=== PATIENT | female | born 1935 | race Caucasian/White ===

== ENCOUNTER 2017-08-24 09:35 | Inpatient (IN) ==
--- NOTE | 2017-08-24 10:48 | Emergency Department Report ---
Medical Clearance HPI - General Chief complaint: Medical Clearance Stated complaint: gen eval - History of Present Illness HPI Narrative: 82-year-old female presents with dementia. She has become increasingly confused and aggressive at home. She is being admitted to [facility] for evaluation and treatment, but needs medical clearance initially. She's had no fevers or chills , no recent illness and no recent injuries. She denies using any illicit drugs Home medications: Home Medications Medication Instructions Recorded Confirmed Acetaminophen [Acetaminophen ER] 650 mg PO Q4H PRN 08/24/17 08/24/17 Buspirone [Buspar] 5 mg PO BID 08/24/17 08/24/17 Ergocalciferol (Vit. D2) [Vitamin 50,000 unit PO Q7D 08/24/17 08/24/17 D-2] Loperamide [Imodium] 2 mg PO PRN PRN 08/24/17 08/24/17 Memantine [Namenda] 5 mg PO BID 08/24/17 08/24/17 Milk of Magnesia [Mom] 30 ml PO PRN PRN 08/24/17 08/24/17 Ondansetron [Zofran Odt] 4 mg PO Q4HR PRN 08/24/17 08/24/17 Polyethylene Glycol 3350 17 gm PO DAILY PRN 08/24/17 08/24/17 [Smoothlax] Potassium Chloride 10 meq PO DAILY 08/24/17 08/24/17 Prochlorperazine Tab [Compazine] 10 mg PO Q6H PRN 08/24/17 08/24/17 Propranolol [Inderal] 10 mg PO BID 08/24/17 08/24/17 Quetiapine [Seroquel] 50 mg PO BID 08/24/17 08/24/17 Senna + Docusate [Senna Plus 1 tab PO DAILY 08/24/17 08/24/17 Tablet] Sennosides/Docusate Sodium 2 each PO BID PRN 08/24/17 08/24/17 [Senna-S Tablet] Vilazodone HCl [Viibryd] 20 mg PO DAILY 08/24/17 08/24/17 buPROPion HCl [Bupropion Xl] 150 mg PO DAILY 08/24/17 08/24/17 Allergies/Adverse reactions: Allergies Allergy/AdvReac Type Severity Reaction Status Date / Time sertraline [From Zoloft] Allergy Unknown Verified 08/24/17 10:02 Review of Systems All systems: reviewed and negative except as stated PFSH Patient Stated Medical History Alzheimer's Disease Yes: diagnose 2015 Other HEENT Yes: glasses Other GI Yes: IBS Depression Yes - Social History Smoking status: Never smoker Physical Exam - Limitations Limitations: altered mental status (mild confusion.) - General General appearance: alert - Normal Exams: Head:: Normocephalic without trauma Chest/Respirations:: Clear all chew, with good airflow, and symmetry bilaterally Cardiovascular:: Regular rate and rhythm, without murmur or gallop, Pulses 2+ all extremities, capillary refill, <2 seconds all extremities Abdomen:: Bowel sounds positive, soft, non-tender, non-distended, no hepatosplenomegaly, masses or bruits noted Neurological:: Patient is alert, cranial nerves, motor/sensory/cerebellar, exams w/o gross deficits, to observation - Neurological Exam Neurological exam: Present: other (patient is oriented to person, however not to place or time.) Course Vital Signs Temperature 97.8 F 08/24/17 09:35 Pulse Rate 82 08/24/17 09:35 Respiratory Rate 18 08/24/17 09:35 Blood Pressure 141/89 H 08/24/17 09:35 Pulse Oximetry 93 08/24/17 09:35 Temperature 97.4 F 09/18/17 09:13 Pulse Rate 94 09/18/17 09:13 Respiratory Rate 22 09/18/17 09:13 Blood Pressure 136/76 09/18/17 09:13 Pulse Oximetry 98 09/18/17 09:13 Medical Clearance - [facility] Narrative Medical decision making narrative: Medical clearance performed. Patient has appropriate CBC, CMP, TSH and chest x- ray. Urine drug screen is negative and UA shows no acute infection. Patient is admitted to [facility] after phone consult is performed. - Medical Records Attestation: I reviewed the patient's medical records. - Lab Data Attestation: I reviewed the patient's lab results. Result diagrams: 09/09/17 11:55 09/12/17 17:28 Lab Results 08/24/17 08/24/17 08/24/17 Range/Units 10:10 10:10 10:10 WBC 6.9 (4.5-11.0) T/MM3 RBC 4.32 (4.00-5.20) M/MM3 Hgb 13.1 (12-16) GM/DL Hct 40.4 (36-46) % MCV 93.5 (80-100) UM3 MCH 30.3 (26-34) UUG MCHC 32.4 (31-37) GM/DL RDW Std Deviation 40.7 (36.9-50.2) FL Plt Count 152 (130-400) T/MM3 MPV 9.9 (9.4-12.4) UM3 Immature Gran % (Auto) 0.1 (0.0-0.5) % Neut % (Auto) 72.3 H (33-66) % Lymph % (Auto) 19.7 L (23-45) % [place] % (Auto) 5.5 (0-9.0) % Eos % (Auto) 2.0 (0-4) % Baso % (Auto) 0.4 (0-2) % Neut # (Auto) 4.9 (1.8-7.7) T/MM3 Lymph # (Auto) 1.4 (1-4.8) T/MM3 [place] # (Auto) 0.4 (0-0.8) T/MM3 Eos # (Auto) 0.1 (0-0.5) T/MM3 Baso # (Auto) 0.0 (0-0.2) T/MM3 Abs Immat Gran (auto) 0.01 (0.00-0.03) T/MM3 Turbidity < 20 (0-20) Sodium 147 H (134-144) MEQ/L Potassium 4.4 (3.6-5) MEQ/L Chloride 110 H (98-107) MEQ/L Carbon Dioxide 27 (22-30) MEQ/L Anion Gap 10 (5-15) MEQ/L BUN 28.0 H (7-17) MG/DL Creatinine 1.0 (0.7-1.2) mg/dL GFR Calculation 53 BUN/Creatinine Ratio 28 H (6-26) RATIO Glucose 102 (65-110) MG/DL Calculated Osmolality 288 H (261-280) MOSM/KG Calcium 9.3 (8.4-10.2) MG/DL Total Bilirubin 0.60 (0.20-1.30) MG/DL Icterus Index < 2 (0-7) AST 21 (14-36) U/L ALT 13 (1-35) U/L Alkaline Phosphatase 106 (38-126) U/L Total Protein 7.1 (6.3-8.2) g/dL Albumin 3.8 (3.5-5.0) g/dL Globulin 3.3 (2.4-3.6) G/DL Albumin/Globulin Ratio 1.2 (1.1-2.2) RATIO Vitamin B12 282 (239-931) pg/mL Folate 12.5 (2.76-20) ng/mL TSH 2.04 (0.47-4.68) miu/L Specimen Hemolysis < 15 (0-25) Ur Collection Type Urine Color (YELLOW) Urine Clarity Urine pH (5.0-8.0) Ur Specific [place] (1.015-1.025) Urine Protein (NEGATIVE) Urine Glucose (UA) (NEGATIVE) Urine Ketones (NEGATIVE) Urine Occult Blood (NEGATIVE) Urine Nitrate (NEGATIVE) Urine Bilirubin (NEGATIVE) Urine Urobilinogen (NORMAL) EU/DL Ur Leukocyte Esterase (NEGATIVE) Urine RBC (0-3) /HPF Urine WBC (0-5) /HPF Ur Squamous Epith Cells Urine Bacteria (NEGATIVE) Ur Culture Indicated? Salicylates < 1.0 L (2-20) MG/DL Urine Opiates Screen ng/mL Ur Oxycodone Screen ng/mL Urine Methadone Screen ng/mL Ur Propoxyphene Screen ng/mL Acetaminophen < 10 L (10-30) UG/ML Ur Barbiturates Screen ng/mL U Tricyclic Antidepress ng/mL Ur Phencyclidine Scrn ng/mL Ur Amphetamines Screen ng/mL U Methamphetamines Scrn ng/mL U Benzodiazepines Scrn ng/mL Urine Cocaine Screen ng/mL U Cannabinoids Screen ng/mL Alcohol, Quantitative <10 (<10) mg/dL 08/24/17 08/24/17 08/24/17 Range/Units 10:10 11:18 11:19 WBC (4.5-11.0) T/MM3 RBC (4.00-5.20) M/MM3 Hgb (12-16) GM/DL Hct (36-46) % MCV (80-100) UM3 MCH (26-34) UUG MCHC (31-37) GM/DL RDW Std Deviation (36.9-50.2) FL Plt Count (130-400) T/MM3 MPV (9.4-12.4) UM3 Immature Gran % (Auto) (0.0-0.5) % Neut % (Auto) (33-66) % Lymph % (Auto) (23-45) % [place] % (Auto) (0-9.0) % Eos % (Auto) (0-4) % Baso % (Auto) (0-2) % Neut # (Auto) (1.8-7.7) T/MM3 Lymph # (Auto) (1-4.8) T/MM3 [place] # (Auto) (0-0.8) T/MM3 Eos # (Auto) (0-0.5) T/MM3 Baso # (Auto) (0-0.2) T/MM3 Abs Immat Gran (auto) (0.00-0.03) T/MM3 Turbidity (0-20) Sodium (134-144) MEQ/L Potassium (3.6-5) MEQ/L Chloride (98-107) MEQ/L Carbon Dioxide (22-30) MEQ/L Anion Gap (5-15) MEQ/L BUN (7-17) MG/DL Creatinine (0.7-1.2) mg/dL GFR Calculation BUN/Creatinine Ratio (6-26) RATIO Glucose (65-110) MG/DL Calculated Osmolality (261-280) MOSM/KG Calcium (8.4-10.2) MG/DL Total Bilirubin (0.20-1.30) MG/DL Icterus Index (0-7) AST (14-36) U/L ALT (1-35) U/L Alkaline Phosphatase (38-126) U/L Total Protein (6.3-8.2) g/dL Albumin (3.5-5.0) g/dL Globulin (2.4-3.6) G/DL Albumin/Globulin Ratio (1.1-2.2) RATIO Vitamin B12 (239-931) pg/mL Folate (2.76-20) ng/mL TSH Cancelled (0.47-4.68) miu/L Specimen Hemolysis (0-25) Ur Collection Type Urine, void-cc/notcc Urine Color Yellow (YELLOW) Urine Clarity Cloudy Urine pH 6.0 (5.0-8.0) Ur Specific [place] >=1.030 H (1.015-1.025) Urine Protein Negative (NEGATIVE) Urine Glucose (UA) Negative (NEGATIVE) Urine Ketones Negative (NEGATIVE) Urine Occult Blood Negative (NEGATIVE) Urine Nitrate Positive A (NEGATIVE) Urine Bilirubin Negative (NEGATIVE) Urine Urobilinogen 0.2 (NORMAL) EU/DL Ur Leukocyte Esterase 1+ A (NEGATIVE) Urine RBC 0-1 (0-3) /HPF Urine WBC 30-50 H (0-5) /HPF Ur Squamous Epith Cells 0-5 Urine Bacteria 4+ H (NEGATIVE) Ur Culture Indicated? Cult reflexed &setup Salicylates (2-20) MG/DL Urine Opiates Screen Negative ng/mL Ur Oxycodone Screen Negative ng/mL Urine Methadone Screen Negative ng/mL Ur Propoxyphene Screen Negative ng/mL Acetaminophen (10-30) UG/ML Ur Barbiturates Screen Negative ng/mL U Tricyclic Antidepress Positive ng/mL Ur Phencyclidine Scrn Negative ng/mL Ur Amphetamines Screen Negative ng/mL U Methamphetamines Scrn Negative ng/mL U Benzodiazepines Scrn Negative ng/mL Urine Cocaine Screen Negative ng/mL U Cannabinoids Screen Negative ng/mL Alcohol, Quantitative (<10) mg/dL - Radiology Data Attestation: I reviewed the patient's radiology results. Disposition Clinical Impression: DEMENTIA WITH BEHAVIORS Disposition: 65 To [facility] Condition: Stable Time of Disposition: 12:24 - Seen By: physician
--- NOTE | 2017-08-24 10:51 | XRay Report ---
INDICATION: confusion PROCEDURE: CHEST 2-VIEWS UPRIGHT (PA & LAT) Encounter: Initial COMPARISON: None FINDINGS: The lungs are clear without evidence of focal abnormal airspace opacity. There is no pleural effusion or pneumothorax. The heart size, mediastinal contours and pulmonary vascularity are within normal limits. Age-indeterminate mid thoracic and upper lumbar compression fractures. IMPRESSION: No acute cardiopulmonary disease. .
[2017-08-24] MEDS ORDERED: HALOPERIDOL 0.5 MG TABLET PO PRN (12:00)
[2017-08-24] MEDS ORDERED: HALOPERIDOL 5 MG/ML INJECTION IM PRN (12:00)
[2017-08-24] MEDS ORDERED: SENNA + DOCUSATE TABLET PO PRN (12:02)
[2017-08-24] MEDS ORDERED: POLYETHYL GLYCOL 3350 17gm PACKET PO PRN (12:02)
--- NOTE | 2017-08-24 13:27 | History & Physical Report ---
History of Present Illness Date: 08/24/17 Chief complaint: change in cognition with increased confusion and aggressive behavior HPI: Patient is an 82-year-old female who resides at [facility] in [place]. She has reportedly become more confused and has had increased aggressive behavior with staff. She upsets easily about forgetting things and thinks the staff are lying to her about things. Patient was seen in the dining room eating lunch. She reports she thinks she is here because of leg pain. She states her legs really aren't bothering her that much so she doesn't understand why she is here. When asked what city we are in she states she doesn't know, but she looks out the window and sees the "[facility]" sign and reports that we are at [facility]. Majority of information was taken from outside records from Dr. Mansfield' office Review of Systems All systems PM: 10-point ROS was reviewed, no additional remarkable complaints except (confusion, change in behaviors) Past Medical History Alzheimer's disease History of bladder cancer Vitamin D deficiency Irritable bowel syndrome Depression/anxiety Diverticulosis Chronic compression fracture T12 Osteopenia Surgical History: Appendectomy, colonoscopy 2009 Family History: Family history unobtainable at this time Family History Updates: . - Social History Smoking status: Never smoker Substance use type: does not use Alcohol intake frequency: does not drink Housing: [facility] Current occupational status: retired Social history: Patient resides at [facility] in [place]. PCP-Dr. Chapincito Perera CODE STATUS: DO NOT RESUSCITATE (per documentation from Dr. Perera's office) Patient follows a regular diet. Patient has 3 children. Medications Home Medications Medication Instructions Recorded Confirmed Type Acetaminophen [Acetaminophen ER] 650 mg PO Q4H PRN 08/24/17 08/24/17 History Buspirone [Buspar] 5 mg PO BID 08/24/17 08/24/17 History Ergocalciferol (Vit. D2) [Vitamin 50,000 unit PO Q7D 08/24/17 08/24/17 History D-2] Loperamide [Imodium] 2 mg PO PRN PRN 08/24/17 08/24/17 History Memantine [Namenda] 5 mg PO BID 08/24/17 08/24/17 History Milk of Magnesia [Mom] 30 ml PO PRN PRN 08/24/17 08/24/17 History Ondansetron [Zofran Odt] 4 mg PO Q4HR PRN 08/24/17 08/24/17 History Polyethylene Glycol 3350 17 gm PO DAILY PRN 08/24/17 08/24/17 History [Smoothlax] Potassium Chloride 10 meq PO DAILY 08/24/17 08/24/17 History Prochlorperazine Tab [Compazine] 10 mg PO Q6H PRN 08/24/17 08/24/17 History Propranolol [Inderal] 10 mg PO BID 08/24/17 08/24/17 History Quetiapine [Seroquel] 50 mg PO BID 08/24/17 08/24/17 History Senna + Docusate [Senna Plus 1 tab PO DAILY 08/24/17 08/24/17 History Tablet] Sennosides/Docusate Sodium 2 each PO BID PRN 08/24/17 08/24/17 History [Senna-S Tablet] Vilazodone HCl [Viibryd] 20 mg PO DAILY 08/24/17 08/24/17 History buPROPion HCl [Bupropion Xl] 150 mg PO DAILY 08/24/17 08/24/17 History Allergies Allergy/AdvReac Type Severity Reaction Status Date / Time sertraline [From Zoloft] Allergy Unknown Verified 08/24/17 10:02 Exam Vital Signs: Temperature 97.5 F 08/24/17 12:25 Pulse Rate 69 08/24/17 12:25 Respiratory Rate 16 08/24/17 12:25 Blood Pressure 148/89 H 08/24/17 12:25 Pulse Oximetry 97 08/24/17 12:25 Height/Weight/BMI: Weight 64.8 kg - Constitutional Present: no acute distress, well nourished, well developed - Routine HEENT Exam Head: Present: normocephalic, atraumatic Eye: Present: EOMI - Routine Neck Exam Present: supple. Absent: lymphadenopathy, thyromegaly - Routine Respiratory Exam Present: CTA bilaterally. Absent: wheezes - Routine Cardiovascular Exam Present: RRR, no murmur - Routine Abdominal Exam Present: soft. Absent: tenderness, distended - Routine Extremities Exam Present: no edema, normal capillary refill - Routine Skin Exam Present: dry, warm - Routine Neurological Exam Present: alert, normal speech. Absent: oriented X3 - Routine Psychiatric Exam Present: cooperative, agitated Results - Labs CBC & Chem 7: 08/24/17 10:10 08/24/17 10:10 Labs: Laboratory Tests 08/24/17 10:10 TSH 2.04 Laboratory Tests 08/24/17 11:18 Urine Color Yellow Urine Clarity Cloudy Urine pH 6.0 Ur Specific [place] >=1.030 H Urine Protein Negative Urine Glucose (UA) Negative Urine Ketones Negative Urine Occult Blood Negative Urine Nitrate Positive A Urine Bilirubin Negative Urine Urobilinogen 0.2 Ur Leukocyte Esterase 1+ A Urine RBC 0-1 Urine WBC 30-50 H Urine Bacteria 4+ H Lipids 02/23/17: Cholesterol 208, triglycerides 87, HDL 66, LDL 125, ratio 3.2 - Imaging and Cardiology Chest x-ray Additional comments: Date of Exam: 08/24/17 Ordering Provider: Vladimir Thomas MD Type of Exam(s): XR chest 2V Reason for Exam(s): confusion INDICATION: confusion PROCEDURE: CHEST 2-VIEWS UPRIGHT (PA & LAT) Encounter: Initial COMPARISON: None FINDINGS: The lungs are clear without evidence of focal abnormal airspace opacity. There is no pleural effusion or pneumothorax. The heart size, mediastinal contours and pulmonary vascularity are within normal limits. Age-indeterminate mid thoracic and upper lumbar compression fractures. IMPRESSION: No acute cardiopulmonary disease. Assessment and Plan (1) Alzheimer's dementia with behavioral disturbance Current visit: Yes Status: Acute Assessment and Plan: Assessment Alzheimer's disease with behavioral disturbance Urinary retention with positive urinalysis in ER-will treat for UTI Hypernatremia-POA History of bladder cancer Vitamin D deficiency Irritable bowel syndrome Depression/anxiety Diverticulosis Chronic compression fracture T12 Osteopenia Plan Agree with admission to [facility] for further psychiatric evaluation and treatment and to provide safe environment. Start Keflex for her urinary tract infection. Bladder scan as needed and straight catheter for PVR greater than 400. Urine cultures pending. TSH is normal. Vitamin B12 and folate are pending. Encourage fluids for hypernatremia. Patient appears medically stable. We will continue to follow patient throughout her stay. Thank you for the consult. Care to return to Dr. Rodríguez Perera upon discharge. - Physician Narrative Physician: other (Kimmie Rodriguez MD) Narrative: Date: 08/24/17 Time: 1405 Patient seen and examined independently. Agree with above documentation. Patient eating lunch and upset about portion size. Not oriented to place. No LE edema, no resp distress. Plan to admit to psych, will treat UTI, monitor UOP due to concern of retention Hospital Course Summary Disclaimer: The visit summary below is not to be considered part of the above Progress Note.
[2017-08-24] MEDS: LORazepam 0.5 MG TABLET PO PRN (13:54)
[2017-08-24 14:33] VITALS: BMI 23.8
[2017-08-24] MEDS: ERGOCALCIFEROL 50,000 UNIT CAPSULE PO SCH (17:23)
[2017-08-24] MEDS: BUSPIRONE 5 MG TABLET PO SCH (19:54)
[2017-08-24] MEDS: MEMANTINE 5 MG TABLET PO SCH (19:54)
[2017-08-24] MEDS: QUETIAPINE 50 MG TABLET PO SCH (19:55)
[2017-08-24] MEDS: PROPRANOLOL 10 MG TABLET PO SCH (19:55)
[2017-08-25] MEDS: PROPRANOLOL 10 MG TABLET PO SCH ×3 (00:14→20:32)
[2017-08-25] MEDS: MEMANTINE 5 MG TABLET PO SCH ×3 (00:14→20:32)
[2017-08-25] MEDS: BUSPIRONE 5 MG TABLET PO SCH ×2 (00:14→09:54)
[2017-08-25] MEDS: QUETIAPINE 50 MG TABLET PO SCH ×2 (00:15→09:54)
[2017-08-25] MEDS ORDERED: VILAZODONE 10 MG PO SCH (09:00)
[2017-08-25] MEDS ORDERED: BuPROPion XL 150mg (24HR) TABLET PO SCH (09:00)
--- NOTE | 2017-08-25 09:01 | 24 Hour Neuropsychiatic Eval ---
Date of Admission: 08/24/17 12:00 Chief complaint: "I came on a bus, I can't remember why" History of Present Illness: Patient is an 82-year-old , female who was admitted to [facility] on 08/24/17 from LTC facility in [place] (not a secure unit) due to recent problematic behaviors (x last month) including aggression, paranoia, increased confusion. On interview, patient initially greets me quite pleasantly but then becomes very irritable/labile through interview. She is oriented to self only and has no insight into hospitalization. Patient is observed to be quite unsteady on her feet and has some mild stiffness on physical exam though she has difficulty following instructions to relax. Patient has very poor STM and will tell me opposite things in the next sentence. For example, she denied having any pain or medical problems and then in the next sentence, reported pain/discomfort in her stomach area. When I asked her to elaborate, she became quite irritable with me for talking about pain and said "It's not important." Patient reports that her mood is "pretty good" though admits she gets upset over daily stuff (and she cannot elaborate further). She will not answer regarding SI and says it's a stupid question. She denies any AVH. She becomes paranoid about what I am writing down and requests that I stop. She was later overheard telling nursing staff, "She's a Nazi." Patient was found to have UTI upon admission that is now being treated but symptoms have been present for several weeks and recent UA at facility was WNL. Psychosis: Other (Paranoia) Dementia: Memory Impairment [facility] Patient Stated Medical History Alzheimer's Disease Yes: diagnose 2014 Other HEENT Yes: glasses Other GI Yes: IBS Other Yes: malign. neoplasm of bladder Depression Yes Surgical History: Appendectomy, colonoscopy 2009 Family History: Patient's daughter: bipolar disorder Family History Updates: . - Social History Smoking status: Never smoker Substance use type: does not use Alcohol intake frequency: does not drink Housing: long-term Current occupational status: retired Social history: Strengths: Has DPOA, able to communicate needs verbally States that she grew up in [place], [place] and graduated from college. She raised her children and then later worked outside the home. She has 3 children. Her in December 2017. Review of Systems ROS unobtainable: due to mental status - EENMT Balance: Present: as per HPI - Gastrointestinal Gastrointestinal: Present: abdominal pain - Genitourinary Genitourinary: Present: as per HPI Mental Status Exam Vitals: Last Vital Signs Temp 97.4 F 08/24/17 20:18 Pulse 83 08/24/17 20:18 Resp 18 08/24/17 20:18 BP 160/92 H 08/24/17 20:18 Pulse Ox 96 08/24/17 20:18 Height: 1.65 m Weight: 64.8 kg - Mental Status Exam Muscle Strength/Tone: Weak, Rigid (mild) Dressing: Casual Grooming: Fair Attitude: Uncooperative, Guarded, Suspicious, Argumentative Motor Activity: Retardation Eye Contact: Good Speech: Rapid Volume: Normal Rhythm: Appropriate Rhythm Sensory: Alert Orientation: Disoriented to time, Disoriented to place, Disoriented to situation , Oriented to person Mood: Other ("Pretty good") Affect: Hostile (labile, irritable affect) Rate of Thoughts: Delayed Thought Organization: Disorganized, Confused Associations: Illogical Abstract Reasoning: Impaired, concrete Thought Content: Paranoia Perception/Psychotic: Other (Denies, does not appear to e responding to internal stimuli) Language: Naming Impaired Fund of Knowledge: Poor fund of knowledge Memory: Poor-immediate, Poor-recent, Poor-remote Suicidal Ideation: Other (Refuses to answer and says it is a stupid question) Homicidal Ideation: Denies Insight: Impaired Judgement: Impaired Impulse Control: Poor - Laboratory Result Diagrams: 08/24/17 10:10 08/24/17 10:10 Assessment and Plan (1) Major neurocognitive disorder Problem details: Moderate, Alzheimer's type, with behavioral disturbance R/O Bipolar disorder, MRE manic Other medical conditions: Urinary retention with positive urinalysis in ER-will treat for UTI Hypernatremia-POA History of bladder cancer Vitamin D deficiency Irritable bowel syndrome Diverticulosis Chronic compression fracture T12 Osteopenia Current visit: Yes Status: Acute Agree with admission to [facility] for psychiatric evaluation and stabilization. Will obtain further collateral from facility, family though daughter/DPOA has reported concern for possible bipolar disorder. Standard labs upon admission: CBC, CMP, TSH, UA, Vitamin B12 and folate Have consulted hospitalist for optimization of medical comorbidities; they are treating for UTI though behaviors predated this Will hold Wellbutrin, Buspar, Viibryd in case it could be exacerbating underlying bipolar disorder Will decrease Seroquel to 25mg PO BID for the time being due to recent urinary retention Monitor mood, behavior and response to treatment
[2017-08-25] MEDS: QUETIAPINE 25 MG TABLET PO SCH (20:32)
[2017-08-26] MEDS: MEMANTINE 5 MG TABLET PO SCH ×2 (08:26→21:22)
[2017-08-26] MEDS: PROPRANOLOL 10 MG TABLET PO SCH ×2 (08:26→21:22)
[2017-08-26] MEDS: QUETIAPINE 25 MG TABLET PO SCH ×2 (08:38→21:22)
--- NOTE | 2017-08-26 10:52 | Pharmacy Consult ---
Pharmacy Consult-Other Meds - Consult Information CULTURE AND SENSITIVITY REVIEW: Organism: Escherichia Coli Site: Urine Catheter Antibiotic: Cephalexin Sensitivity: Cephelxin has an NOE </= 4 (Cefazolin) Would recommend Cipro 250 mg (or 500 mg if more severe) p.o. twice a day. The NOE for Cipro </=0.25. Thanks you for your consideration. Yonny Rosenthal, Pharmacist. Recommendation:
[2017-08-26] MEDS ORDERED: FOSFOMYCIN 3 GRAM PACKET PO ONE (11:45)
[2017-08-26] MEDS: SENNA + DOCUSATE TABLET PO SCH ×2 (13:44→14:08)
--- NOTE | 2017-08-26 13:46 | Neuropsych Progress Note ---
[facility] Subjective Date: 08/26/17 - Sujective/Severity of Illness Medications: Acetaminophen (Tylenol Arthritis) 650 mg PO Q4H PRN PRN Reason: Pain Ergocalciferol (Vitamin D-2) 50,000 unit PO Q7D [facility] Last Admin: 08/24/17 17:23 Dose: 50,000 unit Haloperidol (Haldol) 0.5 mg PO Q6H PRN PRN Reason: Extreme agitation Haloperidol Lactate (Haldol) 0.5 mg IM Q6H PRN PRN Reason: Extreme agitation Lorazepam (Ativan) 0.5 mg PO Q6H PRN PRN Reason: Extreme agitation Last Admin: 08/24/17 13:54 Dose: 0.5 mg Lorazepam (Ativan Inj) 0.5 mg IM Q6H PRN PRN Reason: Extreme agitation Magnesium Hydroxide (Mom) 30 ml PO PRN PRN PRN Reason: Constipation Memantine (Namenda) 5 mg PO BID [facility] Last Admin: 08/26/17 08:26 Dose: 5 mg Polyethylene Glycol (Miralax) 17 gm PO DAILY PRN PRN Reason: Constipation Potassium Chloride (Micro-K 10 Meq Capsule) 10 meq PO WB [facility] Last Admin: 08/26/17 08:24 Dose: 10 meq Propranolol HCl (Inderal) 10 mg PO BID [facility] Last Admin: 08/26/17 08:26 Dose: 10 mg Quetiapine Fumarate (Seroquel) 25 mg PO BID [facility] Last Admin: 08/26/17 08:38 Dose: 25 mg Senna/Docusate Sodium (Senna Plus Tablet) 1 tab PO DAILY [facility] Last Admin: 08/26/17 13:44 Dose: 1 tab Senna/Docusate Sodium (Senna Plus Tablet) 2 tab PO BID PRN PRN Reason: Constipation Subjective: Patient seen and chart reviewed. Case discussed with treatment team. On interview, patient continues to be quite irritable/labile and doesn't answer specific interview questions. She comes up and wags her finger in my face, telling me that I need to watch my behavior with another patient. She goes to the trash can, digs a piece of paper trash out, and takes it to sit down with her. She then becomes very irritable with the nurse, telling her to get rid of the paper and to rip it up immediately. Her mood switches back and forth almost instantly. She continues to be quite unsteady. Nursing staff report patient was calmer this morning than she was yesterday, though she seemed to be more agitated in the evening. She frequently argues and was physically aggressive last night. Patient has been adherent with medications. Patient slept 8 hours overnight. VSS. Patient is eating well. Psychotropic PRNs required in the past 24 hours: none. Keflex for UTI was discontinued and patient was given one-time dose of fosfomycin today. Start Time: 14:00 Stop Time: 14:20 Mental Status Exam Vitals: Last Vital Signs Temp 97.6 F 08/26/17 08:00 Pulse 79 08/26/17 08:00 Resp 16 08/26/17 08:00 BP 147/94 H 08/26/17 08:00 Pulse Ox 97 08/26/17 08:00 Height: 1.65 m Weight: 64.8 kg - Mental Status Exam Muscle Strength/Tone: Weak, Rigid (mild) Dressing: Casual Grooming: Fair Attitude: Uncooperative, Guarded, Suspicious, Argumentative Motor Activity: Retardation Eye Contact: Good Speech: Rapid Volume: Normal Rhythm: Appropriate Rhythm Sensory: Alert Orientation: Disoriented to time, Disoriented to place, Disoriented to situation , Oriented to person Mood: Irritable (Labile affect) Rate of Thoughts: Delayed Thought Organization: Disorganized, Confused Associations: Illogical Abstract Reasoning: Impaired, concrete Thought Content: Paranoia Perception/Psychotic: Other (Denies, does not appear to e responding to internal stimuli) Language: Naming Impaired Fund of Knowledge: Poor fund of knowledge Memory: Poor-immediate, Poor-recent, Poor-remote Suicidal Ideation: None Homicidal Ideation: None Insight: Impaired Judgement: Impaired Impulse Control: Poor - Laboratory Result Diagrams: 08/24/17 10:10 08/24/17 10:10 Assessment and Plan (1) Major neurocognitive disorder Problem details: Moderate, Alzheimer's type, with behavioral disturbance R/O Bipolar disorder, MRE manic Other medical conditions: Urinary retention with positive urinalysis in ER-will treat for UTI Hypernatremia-POA History of bladder cancer Vitamin D deficiency Irritable bowel syndrome Diverticulosis Chronic compression fracture T12 Osteopenia Current visit: Yes Status: Acute (2) Vitamin B12 deficiency Current visit: Yes Status: Acute Patient seems to have improved slightly with discontinuation of all Wellbutrin XL, Buspar, Viibryd (upon admission). Currently taking seroquel 25mg PO BID and propranolol 10mg PO BID from home med list. Will add Depakote DR 250mg PO BID. Will additionally start Vitamin B12 1000mcg IM x 3 days then weekly for a month , then monthly thereafter. Hospital Course Summary Disclaimer: The visit summary below is not to be considered part of the above Progress Note. Hospital Course: Psych 08/25/17: Held Wellbutrin XL, Buspar, Viibryd due to suspected bipolar alexander. Psych 08/26/17: Patient seems to have improved slightly with discontinuation of all Wellbutrin XL, Buspar, Viibryd (upon admission). Currently taking seroquel 25mg PO BID and propranolol 10mg PO BID from home med list. Will add Depakote DR 250mg PO BID. Will additionally start Vitamin B12 1000mcg IM x 3 days then weekly for a month, then monthly thereafter.
[2017-08-26] MEDS: LORazepam 0.5 MG TABLET PO PRN (14:51)
[2017-08-26] MEDS: DIVALPROEX 250 MG TABLET PO SCH ×2 (14:51→17:41)
[2017-08-27] MEDS: SENNA + DOCUSATE TABLET PO SCH (10:38)
[2017-08-27] MEDS: PROPRANOLOL 10 MG TABLET PO SCH ×3 (10:38→20:32)
[2017-08-27] MEDS: MEMANTINE 5 MG TABLET PO SCH ×2 (10:38→20:31)
[2017-08-27] MEDS: QUETIAPINE 25 MG TABLET PO SCH ×2 (10:38→20:32)
[2017-08-27] MEDS: DIVALPROEX 250 MG TABLET PO SCH ×2 (10:39→16:04)
[2017-08-27] MEDS: CYANOCOBALAMIN (B-12) 1,000mcg/ml INJECTION IM SCH (10:39)
--- NOTE | 2017-08-27 11:38 | Neuropsych Progress Note ---
[facility] Subjective Date: 08/27/17 - Sujective/Severity of Illness Medications: Acetaminophen (Tylenol Arthritis) 650 mg PO Q4H PRN PRN Reason: Pain Cyanocobalamin (Vit. B-12) 1,000 mcg IM DAILY [facility] Stop: 08/29/17 09:01 Last Admin: 08/27/17 10:39 Dose: 1,000 mcg Divalproex Sodium (Depakote) 250 mg PO [facility] Last Admin: 08/27/17 10:39 Dose: 250 mg Ergocalciferol (Vitamin D-2) 50,000 unit PO Q7D [facility] Last Admin: 08/24/17 17:23 Dose: 50,000 unit Haloperidol (Haldol) 0.5 mg PO Q6H PRN PRN Reason: Extreme agitation Haloperidol Lactate (Haldol) 0.5 mg IM Q6H PRN PRN Reason: Extreme agitation Lorazepam (Ativan) 0.5 mg PO Q6H PRN PRN Reason: Extreme agitation Last Admin: 08/26/17 14:51 Dose: 0.5 mg Lorazepam (Ativan Inj) 0.5 mg IM Q6H PRN PRN Reason: Extreme agitation Magnesium Hydroxide (Mom) 30 ml PO PRN PRN PRN Reason: Constipation Memantine (Namenda) 5 mg PO BID [facility] Last Admin: 08/27/17 10:38 Dose: 5 mg Polyethylene Glycol (Miralax) 17 gm PO DAILY PRN PRN Reason: Constipation Potassium Chloride (Micro-K 10 Meq Capsule) 10 meq PO WB [facility] Last Admin: 08/27/17 10:39 Dose: 10 meq Propranolol HCl (Inderal) 10 mg PO TID [facility] Last Admin: 08/27/17 10:38 Dose: 10 mg Quetiapine Fumarate (Seroquel) 25 mg PO BID [facility] Last Admin: 08/27/17 10:38 Dose: 25 mg Senna/Docusate Sodium (Senna Plus Tablet) 1 tab PO DAILY [facility] Last Admin: 08/27/17 10:38 Dose: 1 tab Senna/Docusate Sodium (Senna Plus Tablet) 2 tab PO BID PRN PRN Reason: Constipation Subjective: Patient seen and chart reviewed. Nursing reports pt slept well. PT can be very labile and agitated. She received Ativan at 1451 for agitation. On face to face the pt is irritable. She is only oriented to self. Believes she is in [place]. States she does not need to be here. Is redirectable. Denies pain. Tolerating meds Start Time: 10:15 Stop Time: 10:30 Mental Status Exam Vitals: Last Vital Signs Temp 96.8 F 08/27/17 08:00 Pulse 86 08/27/17 08:00 Resp 16 08/27/17 08:00 BP 135/78 08/27/17 08:00 Pulse Ox 97 08/27/17 08:00 Height: 1.65 m Weight: 64.8 kg - Mental Status Exam Muscle Strength/Tone: Weak, Rigid (mild) Dressing: Casual Grooming: Fair Attitude: Uncooperative, Guarded, Suspicious, Argumentative Motor Activity: Retardation Eye Contact: Good Speech: Rapid Volume: Normal Rhythm: Appropriate Rhythm Orientation: Disoriented to time, Disoriented to place, Disoriented to situation , Oriented to person Mood: Irritable (Labile affect) Rate of Thoughts: Delayed Thought Organization: Disorganized, Confused Associations: Illogical Abstract Reasoning: Impaired, concrete Thought Content: Paranoia Perception/Psychotic: Other (Denies, does not appear to e responding to internal stimuli) Language: Naming Impaired Fund of Knowledge: Poor fund of knowledge Memory: Poor-immediate, Poor-recent, Poor-remote Suicidal Ideation: None Homicidal Ideation: None Insight: Impaired Judgement: Impaired Impulse Control: Poor - Laboratory Result Diagrams: 08/24/17 10:10 08/24/17 10:10 Assessment and Plan (1) Major neurocognitive disorder Problem details: Moderate, Alzheimer's type, with behavioral disturbance R/O Bipolar disorder, MRE manic Other medical conditions: Urinary retention with positive urinalysis in ER-will treat for UTI Hypernatremia-POA History of bladder cancer Vitamin D deficiency Irritable bowel syndrome Diverticulosis Chronic compression fracture T12 Osteopenia Current visit: Yes Status: Acute (2) Vitamin B12 deficiency Current visit: Yes Status: Acute Hospital Course Summary Disclaimer: The visit summary below is not to be considered part of the above Progress Note. Hospital Course: Psych 08/25/17: Held Wellbutrin XL, Buspar, Viibryd due to suspected bipolar alexander. Psych 08/26/17: Patient seems to have improved slightly with discontinuation of all Wellbutrin XL, Buspar, Viibryd (upon admission). Currently taking seroquel 25mg PO BID and propranolol 10mg PO BID from home med list. Will add Depakote DR 250mg PO BID. Will additionally start Vitamin B12 1000mcg IM x 3 days then weekly for a month, then monthly thereafter. 08/27/2017- Psych- PT is irritable and labile at times but is redirectable. Will consider increase of Depakote tomorrow if tolerating well
[2017-08-27] MEDS ORDERED: LORazepam INTENSOL 1mg/0.5ml ORAL LIQUID PO PRN (17:20)
[2017-08-28] MEDS: DIVALPROEX 250 MG TABLET PO SCH ×3 (10:07→21:00)
[2017-08-28] MEDS: CYANOCOBALAMIN (B-12) 1,000mcg/ml INJECTION IM SCH (10:08)
[2017-08-28] MEDS: MEMANTINE 5 MG TABLET PO SCH ×2 (10:08→20:56)
[2017-08-28] MEDS: QUETIAPINE 25 MG TABLET PO SCH ×2 (10:09→20:57)
[2017-08-28] MEDS: SENNA + DOCUSATE TABLET PO SCH (10:09)
[2017-08-28] MEDS: PROPRANOLOL 10 MG TABLET PO SCH ×3 (10:09→20:57)
--- NOTE | 2017-08-28 11:02 | Neuropsych Progress Note ---
[facility] Subjective Date: 08/28/17 - Sujective/Severity of Illness Medications: Acetaminophen (Tylenol Arthritis) 650 mg PO Q4H PRN PRN Reason: Pain Cyanocobalamin (Vit. B-12) 1,000 mcg IM DAILY [facility] Stop: 08/29/17 09:01 Last Admin: 08/28/17 10:08 Dose: 1,000 mcg Divalproex Sodium (Depakote) 250 mg PO [facility] Last Admin: 08/28/17 10:07 Dose: 250 mg Ergocalciferol (Vitamin D-2) 50,000 unit PO Q7D [facility] Last Admin: 08/24/17 17:23 Dose: 50,000 unit Haloperidol (Haldol) 0.5 mg PO Q6H PRN PRN Reason: Extreme agitation Haloperidol Lactate (Haldol) 0.5 mg IM Q6H PRN PRN Reason: Extreme agitation Lorazepam (Ativan) 0.5 mg PO Q6H PRN PRN Reason: Extreme agitation Last Admin: 08/26/17 14:51 Dose: 0.5 mg Lorazepam (Ativan Inj) 0.5 mg IM Q6H PRN PRN Reason: Extreme agitation Lorazepam (Ativan Intensol) 0.5 mg PO Q6H PRN Last Admin: 08/27/17 17:21 Dose: 0.5 mg Magnesium Hydroxide (Mom) 30 ml PO PRN PRN PRN Reason: Constipation Memantine (Namenda) 5 mg PO BID [facility] Last Admin: 08/28/17 10:08 Dose: 5 mg Polyethylene Glycol (Miralax) 17 gm PO DAILY PRN PRN Reason: Constipation Potassium Chloride (Micro-K 10 Meq Capsule) 10 meq PO WB [facility] Last Admin: 08/28/17 10:08 Dose: 10 meq Propranolol HCl (Inderal) 10 mg PO TID [facility] Last Admin: 08/28/17 10:09 Dose: 10 mg Quetiapine Fumarate (Seroquel) 25 mg PO BID [facility] Last Admin: 08/28/17 10:09 Dose: 25 mg Senna/Docusate Sodium (Senna Plus Tablet) 1 tab PO DAILY [facility] Last Admin: 08/28/17 10:09 Dose: 1 tab Senna/Docusate Sodium (Senna Plus Tablet) 2 tab PO BID PRN PRN Reason: Constipation Subjective: Patient seen and chart reviewed. Nursing reports pt slept well. Nursing reports pt can be extremely labile and irritable at times. On face to face the pt is resting quietly in bed. She is irritable and only oriented to self. Denies pain. Tolerating meds Start Time: 10:15 Stop Time: 10:30 Mental Status Exam Vitals: Last Vital Signs Temp 98 F 08/27/17 23:20 Pulse 77 08/27/17 23:20 Resp 16 08/27/17 23:20 BP 137/79 08/27/17 23:20 Pulse Ox 95 08/27/17 23:20 Height: 1.65 m Weight: 64.8 kg - Mental Status Exam Muscle Strength/Tone: Weak, Rigid (mild) Dressing: Casual Grooming: Fair Attitude: Uncooperative, Guarded, Suspicious, Argumentative Motor Activity: Retardation Eye Contact: Good Speech: Rapid Volume: Normal Rhythm: Appropriate Rhythm Orientation: Disoriented to time, Disoriented to place, Disoriented to situation , Oriented to person Mood: Irritable (Labile affect) Rate of Thoughts: Delayed Thought Organization: Disorganized, Confused Associations: Illogical Abstract Reasoning: Impaired, concrete Thought Content: Paranoia Perception/Psychotic: Other (Denies, does not appear to e responding to internal stimuli) Language: Naming Impaired Fund of Knowledge: Poor fund of knowledge Memory: Poor-immediate, Poor-recent, Poor-remote Suicidal Ideation: None Homicidal Ideation: None Insight: Impaired Judgement: Impaired Impulse Control: Poor - Laboratory Result Diagrams: 08/24/17 10:10 08/24/17 10:10 Assessment and Plan (1) Major neurocognitive disorder Problem details: Moderate, Alzheimer's type, with behavioral disturbance R/O Bipolar disorder, MRE manic Other medical conditions: Urinary retention with positive urinalysis in ER-will treat for UTI Hypernatremia-POA History of bladder cancer Vitamin D deficiency Irritable bowel syndrome Diverticulosis Chronic compression fracture T12 Osteopenia Current visit: Yes Status: Acute (2) Vitamin B12 deficiency Current visit: Yes Status: Acute Hospital Course Summary Disclaimer: The visit summary below is not to be considered part of the above Progress Note. Hospital Course: Psych 08/25/17: Held Wellbutrin XL, Buspar, Viibryd due to suspected bipolar alexander. Psych 08/26/17: Patient seems to have improved slightly with discontinuation of all Wellbutrin XL, Buspar, Viibryd (upon admission). Currently taking seroquel 25mg PO BID and propranolol 10mg PO BID from home med list. Will add Depakote DR 250mg PO BID. Will additionally start Vitamin B12 1000mcg IM x 3 days then weekly for a month, then monthly thereafter. 08/27/2017- Psych- PT is irritable and labile at times but is redirectable. Will consider increase of Depakote tomorrow if tolerating well 08/28/2017 Psych- Pt remains irritable and impulsive at times. Increase Depakote to 250mg PO TID
[2017-08-28] MEDS: LORazepam 0.5 MG TABLET PO PRN (13:46)
[2017-08-29] MEDS ORDERED: HALOPERIDOL 5 MG/ML INJECTION IM ONE (09:20)
[2017-08-29] MEDS: CYANOCOBALAMIN (B-12) 1,000mcg/ml INJECTION IM SCH (11:27)
[2017-08-29] MEDS: SENNA + DOCUSATE TABLET PO SCH (11:27)
[2017-08-29] MEDS: MEMANTINE 5 MG TABLET PO SCH ×2 (11:27→21:05)
[2017-08-29] MEDS: DIVALPROEX 250 MG TABLET PO SCH ×4 (11:27→21:05)
[2017-08-29] MEDS: PROPRANOLOL 10 MG TABLET PO SCH ×4 (11:27→21:05)
[2017-08-29] MEDS: QUETIAPINE 25 MG TABLET PO SCH ×2 (11:27→21:05)
--- NOTE | 2017-08-29 16:03 | Neuropsych Progress Note ---
[facility] Subjective Date: 08/29/17 - Sujective/Severity of Illness Medications: Acetaminophen (Tylenol Arthritis) 650 mg PO Q4H PRN PRN Reason: Pain Divalproex Sodium (Depakote) 250 mg PO TID [facility] Last Admin: 08/29/17 15:41 Dose: Not Given Ergocalciferol (Vitamin D-2) 50,000 unit PO Q7D [facility] Last Admin: 08/24/17 17:23 Dose: 50,000 unit Haloperidol (Haldol) 0.5 mg PO Q6H PRN PRN Reason: Extreme agitation Haloperidol Lactate (Haldol) 0.5 mg IM Q6H PRN PRN Reason: Extreme agitation Lorazepam (Ativan) 0.5 mg PO Q6H PRN PRN Reason: Extreme agitation Last Admin: 08/28/17 13:46 Dose: 0.5 mg Lorazepam (Ativan Inj) 0.5 mg IM Q6H PRN PRN Reason: Extreme agitation Lorazepam (Ativan Intensol) 0.5 mg PO Q6H PRN Last Admin: 08/27/17 17:21 Dose: 0.5 mg Magnesium Hydroxide (Mom) 30 ml PO PRN PRN PRN Reason: Constipation Memantine (Namenda) 5 mg PO BID [facility] Last Admin: 08/29/17 11:27 Dose: 5 mg Polyethylene Glycol (Miralax) 17 gm PO DAILY PRN PRN Reason: Constipation Potassium Chloride (Micro-K 10 Meq Capsule) 10 meq PO WB [facility] Last Admin: 08/29/17 11:27 Dose: 10 meq Propranolol HCl (Inderal) 10 mg PO TID [facility] Last Admin: 08/29/17 15:41 Dose: Not Given Quetiapine Fumarate (Seroquel) 25 mg PO BID [facility] Last Admin: 08/29/17 11:27 Dose: 25 mg Senna/Docusate Sodium (Senna Plus Tablet) 1 tab PO DAILY [facility] Last Admin: 08/29/17 11:27 Dose: 1 tab Senna/Docusate Sodium (Senna Plus Tablet) 2 tab PO BID PRN PRN Reason: Constipation Subjective: Patient seen and chart reviewed. Case discussed with treatment team. Patient is sleeping at time of rounds after having been given Haldol 1mg IM for agitation. Nursing staff report patient has been very combative and is unsteady, which makes for a high fall risk as she is swinging at staff, etc. Patient has been adherent with medications. Patient slept 8.5 hours overnight. VSS. Patient is eating well. Psychotropic PRNs required in the past 24 hours: Haldol 1mg IM this morning. Start Time: 13:20 Stop Time: 13:40 Mental Status Exam Vitals: Last Vital Signs Temp 97.7 F 08/29/17 15:09 Pulse 72 08/29/17 15:09 Resp 16 08/29/17 15:09 BP 133/70 08/29/17 15:09 Pulse Ox 95 08/29/17 15:09 Height: 1.65 m Weight: 64.8 kg - Mental Status Exam Muscle Strength/Tone: Weak, Rigid (mild) Dressing: Casual Grooming: Fair Attitude: Uncooperative, Guarded, Suspicious, Argumentative Motor Activity: Retardation Eye Contact: Good Speech: Rapid Volume: Normal Rhythm: Appropriate Rhythm Sensory: Alert Orientation: Disoriented to time, Disoriented to place, Disoriented to situation , Oriented to person Mood: Irritable (Labile affect) Affect: Hostile (frequently combative) Rate of Thoughts: Delayed Thought Organization: Disorganized, Confused Associations: Illogical Abstract Reasoning: Impaired, concrete Thought Content: Paranoia Perception/Psychotic: Other (Denies, does not appear to e responding to internal stimuli) Language: Naming Impaired Fund of Knowledge: Poor fund of knowledge Memory: Poor-immediate, Poor-recent, Poor-remote Suicidal Ideation: None Homicidal Ideation: None Insight: Impaired Judgement: Impaired Impulse Control: Poor - Laboratory Result Diagrams: 08/24/17 10:10 08/24/17 10:10 Assessment and Plan (1) Major neurocognitive disorder Problem details: Moderate, Alzheimer's type, with behavioral disturbance R/O Bipolar disorder, MRE manic Other medical conditions: Urinary retention with positive urinalysis in ER-will treat for UTI Hypernatremia-POA History of bladder cancer Vitamin D deficiency Irritable bowel syndrome Diverticulosis Chronic compression fracture T12 Osteopenia Current visit: Yes Status: Acute (2) Vitamin B12 deficiency Current visit: Yes Status: Acute Continue current care; discussed care with DPOA/daughter who is in agreement with treatment plan. Patient has hx of malignant neoplasm of bladder. Daughter states that no recent imaging has been done and is in agreement with sedating as necessary to obtain head CT. Hospital Course Summary Disclaimer: The visit summary below is not to be considered part of the above Progress Note. Hospital Course: Psych 08/25/17: Held Wellbutrin XL, Buspar, Viibryd due to suspected bipolar alexander. Psych 08/26/17: Patient seems to have improved slightly with discontinuation of all Wellbutrin XL, Buspar, Viibryd (upon admission). Currently taking seroquel 25mg PO BID and propranolol 10mg PO BID from home med list. Will add Depakote DR 250mg PO BID. Will additionally start Vitamin B12 1000mcg IM x 3 days then weekly for a month, then monthly thereafter. 08/27/2017- Psych- PT is irritable and labile at times but is redirectable. Will consider increase of Depakote tomorrow if tolerating well 08/28/2017 Psych- Pt remains irritable and impulsive at times. Increase Depakote to 250mg PO TID. 08/29/17 Psych: Continue current care as we await serotonergic agents to clear from blood given half-lives; discussed care with DPOA/daughter who is in agreement with treatment plan. Patient has hx of malignant neoplasm of bladder. Daughter states that no recent imaging has been done and is in agreement with sedating as necessary to obtain head CT.
--- NOTE | 2017-08-29 18:45 | Progress Note ---
Progress Note: Nursing staff reports patient had 2 falls this morning. She has been aggressive and gets out of bed without assistance and has essentially fallen before anyone can respond to the bed alarm. They report abrasion to the right knee with the most recent fall. Will check CBC and BMP. Patient grew out Escherichia coli and strep viridans on urine culture. Based on [facility] documentation, she had been given cephalexin 3 days, then this was discontinued and she was given 1 dose of fosfomycin. Patient had urinary retention on admission, thus atbx were started. Pt w/o urinary sxs at this time. No further tx indicated. Discussed with Dr. Bowers.
--- NOTE | 2017-08-30 08:19 | CT Scan Report ---
Indication: Dementia PROCEDURE: CT head/brain wo con: Encounter: Initial Comparison: None Technique: Axial CT images through the head were performed without contrast. Iterative Reconstruction dose reducing technique was utilized. FINDINGS: Mild generalized atrophy. The ventricles are prominent, but proportional to atrophy. There are extensive areas of low attenuation in the white matter which most likely represent changes from chronic microvascular ischemia. The brainstem, cerebellum, and cerebral hemispheres otherwise have a normal morphology and CT attenuation. There is no evidence of midline displacement. No hemorrhage, signs of acute territorial stroke, mass effect, mass lesions, or edema is evident. The visualized portions of the skull base, midface, and calvarium demonstrate no abnormality. The paranasal sinuses are well aerated and free of significant disease. The tympanic and mastoid cavities appear normal. IMPRESSION: No acute intracranial abnormality or hemorrhage. .
[2017-08-30] MEDS: QUETIAPINE 25 MG TABLET PO SCH ×2 (09:13→20:05)
[2017-08-30] MEDS: MEMANTINE 5 MG TABLET PO SCH ×2 (09:13→20:03)
[2017-08-30] MEDS: SENNA + DOCUSATE TABLET PO SCH (09:13)
[2017-08-30] MEDS: DIVALPROEX 250 MG TABLET PO SCH ×2 (09:13→14:49)
[2017-08-30] MEDS: PROPRANOLOL 10 MG TABLET PO SCH ×3 (09:14→20:04)
--- NOTE | 2017-08-30 15:14 | Neuropsych Progress Note ---
[facility] Subjective Date: 08/30/17 - Sujective/Severity of Illness Medications: Acetaminophen (Tylenol Arthritis) 650 mg PO Q4H PRN PRN Reason: Pain Divalproex Sodium (Depakote Sprinkle) 250 mg PO TIDWM [facility] Ergocalciferol (Vitamin D-2) 50,000 unit PO Q7D [facility] Last Admin: 08/24/17 17:23 Dose: 50,000 unit Haloperidol (Haldol) 0.5 mg PO Q6H PRN PRN Reason: Extreme agitation Haloperidol Lactate (Haldol) 0.5 mg IM Q6H PRN PRN Reason: Extreme agitation Last Admin: 08/30/17 13:04 Dose: 0.5 mg Lorazepam (Ativan) 0.5 mg PO Q6H PRN PRN Reason: Extreme agitation Last Admin: 08/28/17 13:46 Dose: 0.5 mg Lorazepam (Ativan Inj) 0.5 mg IM Q6H PRN PRN Reason: Extreme agitation Last Admin: 08/30/17 13:03 Dose: 0.5 mg Lorazepam (Ativan Intensol) 0.5 mg PO Q6H PRN Last Admin: 08/27/17 17:21 Dose: 0.5 mg Magnesium Hydroxide (Mom) 30 ml PO PRN PRN PRN Reason: Constipation Memantine (Namenda) 5 mg PO [facility] Polyethylene Glycol (Miralax) 17 gm PO DAILY PRN PRN Reason: Constipation Potassium Chloride (Micro-K 10 Meq Capsule) 10 meq PO WB [facility] Last Admin: 08/30/17 09:13 Dose: 10 meq Propranolol HCl (Inderal) 10 mg PO TID [facility] Last Admin: 08/30/17 14:47 Dose: 10 mg Quetiapine Fumarate (Seroquel) 25 mg PO TID [facility] Senna/Docusate Sodium (Senna Plus Tablet) 1 tab PO DAILY [facility] Last Admin: 08/30/17 09:13 Dose: 1 tab Senna/Docusate Sodium (Senna Plus Tablet) 2 tab PO BID PRN PRN Reason: Constipation Subjective: Patient seen and chart reviewed. Case discussed with treatment team. Patient is sitting in chair in dayroom at time of interview and answers me only intermittently. She says she feels terrible but is irritable when I ask further questions. She adds comments that are nonsensical as well. Nursing staff report patient has been very combative and is unsteady, which makes for a high fall risk as she is swinging at staff, etc. She has had multiple PRNs in the past 24 hours, including PRNs. Depakote was increased Tuesday but patient refused 2/3 doses on Tuesday. She requires a lot of instruction to take pills so will switch to sprinkles for better compliance. Patient slept 8.5 hours overnight. VSS. Patient is eating well. Has had urinary retention - will bladder scan BID and straight cath if needed. Head CT on 08/30 showed mild generalized atrophy and extensive microvascular ischemia. Urine Cx from 08/24 resulted with E. Coli and Strep viridans; may recheck as patient has had little improvement with frequent behaviors since admission. Start Time: 15:20 Stop Time: 15:40 Mental Status Exam Vitals: Last Vital Signs Temp 96.8 F 08/30/17 08:00 Pulse 103 H 08/30/17 08:00 Resp 18 08/30/17 08:00 BP 153/82 H 08/30/17 08:00 Pulse Ox 93 08/30/17 08:00 Height: 1.65 m Weight: 60.1 kg - Mental Status Exam Muscle Strength/Tone: Weak, Rigid (mild) Dressing: Casual Grooming: Fair Attitude: Uncooperative, Guarded, Suspicious, Argumentative Motor Activity: Retardation Eye Contact: Good Speech: Rapid Volume: Normal Rhythm: Appropriate Rhythm Orientation: Disoriented to time, Disoriented to place, Disoriented to situation , Oriented to person Mood: Irritable (Labile affect) Affect: Hostile Rate of Thoughts: Delayed Thought Organization: Disorganized, Confused Associations: Illogical Abstract Reasoning: Impaired, concrete Thought Content: Paranoia Perception/Psychotic: Other (Denies, does not appear to e responding to internal stimuli) Language: Naming Impaired Fund of Knowledge: Poor fund of knowledge Memory: Poor-immediate, Poor-recent, Poor-remote Suicidal Ideation: None Homicidal Ideation: None Insight: Impaired Judgement: Impaired Impulse Control: Poor - Laboratory Result Diagrams: 08/29/17 20:15 08/29/17 20:15 Laboratory Results - last 24 hr 08/29/17 08/29/17 20:15 20:15 WBC 4.5 RBC 4.23 Hgb 13.0 Hct 39.4 MCV 93.1 MCH 30.7 MCHC 33.0 RDW Std Deviation 40.5 Plt Count 140 MPV 10.1 Immature Gran % (Auto) 0.2 Neut % (Auto) 46.8 Lymph % (Auto) 41.5 [place] % (Auto) 7.3 Eos % (Auto) 3.8 Baso % (Auto) 0.4 Neut # (Auto) 2.1 Lymph # (Auto) 1.9 [place] # (Auto) 0.3 Eos # (Auto) 0.2 Baso # (Auto) 0.0 Abs Immat Gran (auto) 0.01 Turbidity < 20 Sodium 143 Potassium 4.2 Chloride 108 H Carbon Dioxide 27 Anion Gap 8 BUN 19.0 H Creatinine 1.0 GFR Calculation 53 BUN/Creatinine Ratio 19 Glucose 79 Hemoglobin A1c 5.2 Calculated Osmolality 276 Calcium 9.2 Icterus Index < 2 Triglycerides 94 Cholesterol 196 LDL Cholesterol, Calc 107.2 VLDL Cholesterol 18.8 HDL Cholesterol 70 H Cholesterol/HDL Ratio 2.8 Specimen Hemolysis < 15 Assessment and Plan (1) Major neurocognitive disorder Problem details: Moderate, Alzheimer's type, with behavioral disturbance R/O Bipolar disorder, MRE manic Other medical conditions: Urinary retention with positive urinalysis in ER-will treat for UTI Hypernatremia-POA History of bladder cancer Vitamin D deficiency Irritable bowel syndrome Diverticulosis Chronic compression fracture T12 Osteopenia Current visit: Yes Status: Acute (2) Vitamin B12 deficiency Current visit: Yes Status: Acute Will switch Depakote to sprinkles 250mg PO TID for improved compliance, increase Seroquel to 25mg PO TID. May need to switch to Risperdal if urinary retention worsening. Recheck UA, will bladder scan BID and straight cath if necessary. Once patient has had compliance with Depakote x 3 days, can check trough VPA level and adjust to therapeutic level. Hospital Course Summary Disclaimer: The visit summary below is not to be considered part of the above Progress Note. Hospital Course: Psych 08/25/17: Held Wellbutrin XL, Buspar, Viibryd due to suspected bipolar alexander. Psych 08/26/17: Patient seems to have improved slightly with discontinuation of all Wellbutrin XL, Buspar, Viibryd (upon admission). Currently taking seroquel 25mg PO BID and propranolol 10mg PO BID from home med list. Will add Depakote DR 250mg PO BID. Will additionally start Vitamin B12 1000mcg IM x 3 days then weekly for a month, then monthly thereafter. 08/27/2017- Psych- PT is irritable and labile at times but is redirectable. Will consider increase of Depakote tomorrow if tolerating well 08/28/2017 Psych- Pt remains irritable and impulsive at times. Increase Depakote to 250mg PO TID. 08/29/17 Psych: Continue current care as we await serotonergic agents to clear from blood given half-lives; discussed care with DPOA/daughter who is in agreement with treatment plan. Patient has hx of malignant neoplasm of bladder. Daughter states that no recent imaging has been done and is in agreement with sedating as necessary to obtain head CT. 08/30/17 Psych: Will switch Depakote to sprinkles 250mg PO TID for improved compliance, increase Seroquel to 25mg PO TID. May need to switch to Risperdal if urinary retention worsening. Recheck UA, will bladder scan BID and straight cath if necessary. Once patient has had compliance with Depakote x 3 days, can check trough VPA level and adjust to therapeutic level.
[2017-08-30] MEDS ORDERED: LORazepam 1 MG TABLET PO PRN (15:54)
[2017-08-30] MEDS: DIVALPROEX SPRINKLE 125 MG CAPSULE PO SCH (19:28)
[2017-08-30] MEDS: LORazepam INTENSOL 1mg/0.5ml ORAL LIQUID PO PRN (20:54)
[2017-08-31] MEDS: SENNA + DOCUSATE TABLET PO SCH (09:16)
[2017-08-31] MEDS: QUETIAPINE 25 MG TABLET PO SCH (09:16)
[2017-08-31] MEDS: DIVALPROEX SPRINKLE 125 MG CAPSULE PO SCH ×3 (09:16→16:19)
[2017-08-31] MEDS: PROPRANOLOL 10 MG TABLET PO SCH ×3 (09:17→20:10)
[2017-08-31] MEDS ORDERED: BISACODYL 10 MG SUPPOSITORY RECTALLY PRN (10:34)
--- NOTE | 2017-08-31 13:37 | Progress Note ---
- Date 08/31/17 Subjective: Patient was seen this morning getting out of bed. She was completely undressed and trying to get out of bed. The nurse was trying to help her get dressed and patient was refusing help. Nursing staff reports the patient was in a "grumpy" mood yesterday. Patient denies any health concerns or symptoms at present. She simply wants to get dressed herself. "I am 85 years old, I can dress myself!" Objective Vital signs: Temperature 97.5 F 08/31/17 08:00 Pulse Rate 90 08/31/17 08:00 Respiratory Rate 16 08/31/17 08:00 Blood Pressure 148/94 H 08/31/17 08:00 Pulse Oximetry 95 08/31/17 08:00 Height/Weight/BMI: Height 1.65 m Weight 60.1 kg Body Mass Index 23.8 - Constitutional Present: no acute distress, well nourished, well developed - Routine HEENT Exam Head: Present: normocephalic, atraumatic - Routine Respiratory Exam Present: CTA bilaterally. Absent: wheezes - Routine Cardiovascular Exam Present: RRR, no murmur - Routine Extremities Exam Present: no edema, normal capillary refill - Routine Skin Exam Present: dry, warm - Routine Neurological Exam Present: alert - Routine Lymphatic Exam Lymphatic: Absent: adenopathy - Routine Psychiatric Exam Present: agitated Results - Labs CBC & Chem 7: 08/29/17 20:15 08/29/17 20:15 Assessment and Plan (1) Alzheimer's dementia with behavioral disturbance Current visit: Yes Status: Acute Assessment and Plan: Assessment Alzheimer's disease with behavioral disturbance Urinary retention with positive urinalysis in ER-will treat for UTI Hypernatremia-POA History of bladder cancer Borderline low B12 Vitamin D deficiency Irritable bowel syndrome Depression/anxiety Diverticulosis Chronic compression fracture T12 Osteopenia Plan Dr. Ramos had ordered a repeat urinalysis because patient continues to have behaviors and has had some urinary retention. She'd had a positive urinalysis on admission and was treated. Urinalysis performed last night was completely negative. She has had 3 doses of IM cyanocobalamin for borderline low B12 deficiency . Continue 1000 g cyanocobalamin a day. Recommend follow-up B12 level on outpatient basis. Patient medically stable. Chart reviewed. - Physician Narrative Narrative: Date: 08/31/17 Time: 1334 Hospital Course Summary Disclaimer: The visit summary below is not to be considered part of the above Progress Note. Hospital Course: Psych 08/25/17: Held Wellbutrin XL, Buspar, Viibryd due to suspected bipolar alexander. Psych 08/26/17: Patient seems to have improved slightly with discontinuation of all Wellbutrin XL, Buspar, Viibryd (upon admission). Currently taking seroquel 25mg PO BID and propranolol 10mg PO BID from home med list. Will add Depakote DR 250mg PO BID. Will additionally start Vitamin B12 1000mcg IM x 3 days then weekly for a month, then monthly thereafter. 08/27/2017- Psych- PT is irritable and labile at times but is redirectable. Will consider increase of Depakote tomorrow if tolerating well 08/28/2017 Psych- Pt remains irritable and impulsive at times. Increase Depakote to 250mg PO TID. 08/29/17 Psych: Continue current care as we await serotonergic agents to clear from blood given half-lives; discussed care with DPOA/daughter who is in agreement with treatment plan. Patient has hx of malignant neoplasm of bladder. Daughter states that no recent imaging has been done and is in agreement with sedating as necessary to obtain head CT. 08/30/17 Psych: Will switch Depakote to sprinkles 250mg PO TID for improved compliance, increase Seroquel to 25mg PO TID. May need to switch to Risperdal if urinary retention worsening. Recheck UA, will bladder scan BID and straight cath if necessary. Once patient has had compliance with Depakote x 3 days, can check trough VPA level and adjust to therapeutic level. 08/31/17-hospitalist Dr. Ramos had ordered a repeat urinalysis because patient continues to have behaviors and has had some urinary retention. She'd had a positive urinalysis on admission and was treated. Urinalysis performed last night was completely negative. She has had 3 doses of IM cyanocobalamin for borderline low B12 deficiency . Continue 1000 g cyanocobalamin a day. Recommend follow-up B12 level on outpatient basis. Patient medically stable. Chart reviewed.
--- NOTE | 2017-08-31 14:43 | Neuropsych Progress Note ---
[facility] Subjective Date: 08/31/17 - Sujective/Severity of Illness Medications: Acetaminophen (Tylenol Arthritis) 650 mg PO Q4H PRN PRN Reason: Pain Bisacodyl (Dulcolax) 10 mg RECTALLY DAILY PRN PRN Reason: Constipation Cyanocobalamin (Vit. B-12) 1,000 mcg PO DAILY [facility] Divalproex Sodium (Depakote Sprinkle) 250 mg PO TIDWM [facility] Last Admin: 08/31/17 12:10 Dose: 250 mg Ergocalciferol (Vitamin D-2) 50,000 unit PO Q7D [facility] Last Admin: 08/24/17 17:23 Dose: 50,000 unit Lorazepam (Ativan) 1 mg PO Q6H PRN PRN Reason: Extreme agitation Lorazepam (Ativan Intensol) 1 mg PO Q6H PRN Last Admin: 08/30/17 20:54 Dose: 1 mg Lorazepam (Ativan Inj) 1 mg IM Q6H PRN PRN Reason: Extreme agitation Magnesium Hydroxide (Mom) 30 ml PO PRN PRN PRN Reason: Constipation Memantine (Namenda) 5 mg PO HS [facility] Last Admin: 08/30/17 20:03 Dose: 5 mg Polyethylene Glycol (Miralax) 17 gm PO DAILY PRN PRN Reason: Constipation Potassium Chloride (Micro-K 10 Meq Capsule) 10 meq PO WB [facility] Last Admin: 08/31/17 09:17 Dose: 10 meq Propranolol HCl (Inderal) 10 mg PO TID [facility] Last Admin: 08/31/17 09:17 Dose: 10 mg Quetiapine Fumarate (Seroquel) 25 mg PO TID [facility] Last Admin: 08/31/17 09:16 Dose: 25 mg Senna/Docusate Sodium (Senna Plus Tablet) 1 tab PO DAILY [facility] Last Admin: 08/31/17 09:16 Dose: 1 tab Senna/Docusate Sodium (Senna Plus Tablet) 2 tab PO BID PRN PRN Reason: Constipation Subjective: Patient seen and chart reviewed. Case discussed with treatment team. Patient is lying in bed with RN in room and is irritable/restless and confused. She is reportedly combative with most cares and doesn't answer my questions appropriately, instead getting mad at me for asking. Patient has only had Ativan 1mg PRN in past 24 hours but has been variably adherent with meds and did not receive HS Depakote last night. Will collapse to BID dosing for ease of administration/compliance purposes. Patient slept 7.5 hours overnight. VSS. Patient is eating well. Has had urinary retention - will bladder scan BID and straight cath if needed. Head CT on 08/30 showed mild generalized atrophy and extensive microvascular ischemia. Urine Cx from 08/24 resulted with E. Coli and Strep viridans; may recheck as patient has had little improvement with frequent behaviors since admission. Start Time: 14:00 Stop Time: 14:20 Mental Status Exam Vitals: Last Vital Signs Temp 97.5 F 08/31/17 08:00 Pulse 90 08/31/17 08:00 Resp 16 08/31/17 08:00 BP 148/94 H 08/31/17 08:00 Pulse Ox 95 08/31/17 08:00 Height: 1.65 m Weight: 60.1 kg - Mental Status Exam Muscle Strength/Tone: Weak, Rigid (mild) Dressing: Casual Grooming: Fair Attitude: Uncooperative, Guarded, Suspicious, Argumentative Motor Activity: Retardation Eye Contact: Good Speech: Rapid Volume: Normal Rhythm: Appropriate Rhythm Sensory: Alert Orientation: Disoriented to time, Disoriented to place, Disoriented to situation , Oriented to person Mood: Irritable (Labile affect) Affect: Hostile Rate of Thoughts: Delayed Thought Organization: Disorganized, Confused Associations: Illogical Abstract Reasoning: Impaired, concrete Thought Content: Paranoia Perception/Psychotic: Other (Denies, does not appear to e responding to internal stimuli) Language: Naming Impaired Fund of Knowledge: Poor fund of knowledge Memory: Poor-immediate, Poor-recent, Poor-remote Suicidal Ideation: None Homicidal Ideation: None Insight: Impaired Judgement: Impaired Impulse Control: Poor - Laboratory Result Diagrams: 08/29/17 20:15 08/29/17 20:15 Laboratory Results - last 24 hr 08/30/17 22:35 Ur Collection Type Urine, cath straight Urine Color Yellow Urine Clarity Clear Urine pH 5.5 Ur Specific [place] >=1.030 H Urine Protein Negative Urine Glucose (UA) Negative Urine Ketones 1+ A Urine Occult Blood Negative Urine Nitrate Negative Urine Bilirubin Negative Urine Urobilinogen 0.2 Ur Leukocyte Esterase Negative Urinalysis Comment Microscopic not ind. Assessment and Plan (1) Major neurocognitive disorder Problem details: Moderate, Alzheimer's type, with behavioral disturbance R/O Bipolar disorder, MRE manic Other medical conditions: Urinary retention with positive urinalysis in ER-will treat for UTI Hypernatremia-POA History of bladder cancer Vitamin D deficiency Irritable bowel syndrome Diverticulosis Chronic compression fracture T12 Osteopenia Current visit: Yes Status: Acute (2) Vitamin B12 deficiency Current visit: Yes Status: Acute Will collapse Depakote sprinkles to 250mg PO q AM and 500mg PO with dinner to increase adherence. Seroquel does not seem to be helpful and may be causing restlessness and urinary retention; will hold and monitor behavior for the time being. Stressed importance of adherence to Depakote to nursing staff. Hospital Course Summary Disclaimer: The visit summary below is not to be considered part of the above Progress Note. Hospital Course: Psych 08/25/17: Held Wellbutrin XL, Buspar, Viibryd due to suspected bipolar alexander. Psych 08/26/17: Patient seems to have improved slightly with discontinuation of all Wellbutrin XL, Buspar, Viibryd (upon admission). Currently taking seroquel 25mg PO BID and propranolol 10mg PO BID from home med list. Will add Depakote DR 250mg PO BID. Will additionally start Vitamin B12 1000mcg IM x 3 days then weekly for a month, then monthly thereafter. 08/27/2017- Psych- PT is irritable and labile at times but is redirectable. Will consider increase of Depakote tomorrow if tolerating well 08/28/2017 Psych- Pt remains irritable and impulsive at times. Increase Depakote to 250mg PO TID. 08/29/17 Psych: Continue current care as we await serotonergic agents to clear from blood given half-lives; discussed care with DPOA/daughter who is in agreement with treatment plan. Patient has hx of malignant neoplasm of bladder. Daughter states that no recent imaging has been done and is in agreement with sedating as necessary to obtain head CT. 08/30/17 Psych: Will switch Depakote to sprinkles 250mg PO TID for improved compliance, increase Seroquel to 25mg PO TID. May need to switch to Risperdal if urinary retention worsening. Recheck UA, will bladder scan BID and straight cath if necessary. Once patient has had compliance with Depakote x 3 days, can check trough VPA level and adjust to therapeutic level. 08/31/17-hospitalist Dr. Ramos had ordered a repeat urinalysis because patient continues to have behaviors and has had some urinary retention. She'd had a positive urinalysis on admission and was treated. Urinalysis performed last night was completely negative. She has had 3 doses of IM cyanocobalamin for borderline low B12 deficiency . Continue 1000 g cyanocobalamin a day. Recommend follow-up B12 level on outpatient basis. Patient medically stable. Chart reviewed. 08/31/17 Psych: Will collapse Depakote sprinkles to 250mg PO q AM and 500mg PO with dinner to increase adherence. Seroquel does not seem to be helpful and may be causing restlessness and urinary retention; will hold and monitor behavior for the time being. Stressed importance of adherence to Depakote to nursing staff.
[2017-08-31] MEDS: ERGOCALCIFEROL 50,000 UNIT CAPSULE PO SCH (16:17)
[2017-08-31] MEDS: CYANOCOBALAMIN (B-12) 500mcg TABLET PO SCH (16:17)
[2017-08-31] MEDS: MEMANTINE 5 MG TABLET PO SCH (20:10)
[2017-09-01] MEDS: LORazepam INTENSOL 1mg/0.5ml ORAL LIQUID PO PRN ×2 (09:31→15:45)
[2017-09-01] MEDS: PROPRANOLOL 10 MG TABLET PO SCH ×3 (09:32→20:56)
[2017-09-01] MEDS: DIVALPROEX SPRINKLE 125 MG CAPSULE PO SCH ×2 (09:32→17:54)
[2017-09-01] MEDS: SENNA + DOCUSATE TABLET PO SCH (09:32)
[2017-09-01] MEDS: CYANOCOBALAMIN (B-12) 500mcg TABLET PO SCH (09:32)
--- NOTE | 2017-09-01 17:40 | Neuropsych Progress Note ---
[facility] Subjective Date: 09/02/17 - Sujective/Severity of Illness Medications: Acetaminophen (Tylenol Arthritis) 650 mg PO Q4H PRN PRN Reason: Pain Bisacodyl (Dulcolax) 10 mg RECTALLY DAILY PRN PRN Reason: Constipation Last Admin: 09/01/17 11:05 Dose: 10 mg Cyanocobalamin (Vit. B-12) 1,000 mcg PO DAILY ON LICENSE OF [facility] Last Admin: 09/01/17 09:32 Dose: 1,000 mcg Divalproex Sodium (Depakote Sprinkle) 250 mg PO DAILY ON LICENSE OF [facility] Last Admin: 09/01/17 09:32 Dose: 250 mg Divalproex Sodium (Depakote Sprinkle) 500 mg PO 1700 ON LICENSE OF [facility] Last Admin: 08/31/17 16:19 Dose: 500 mg Ergocalciferol (Vitamin D-2) 50,000 unit PO Q7D ON LICENSE OF [facility] Last Admin: 08/31/17 16:17 Dose: 50,000 unit Lorazepam (Ativan) 1 mg PO Q6H PRN PRN Reason: Extreme agitation Lorazepam (Ativan Intensol) 1 mg PO Q6H PRN Last Admin: 09/01/17 15:45 Dose: 1 mg Lorazepam (Ativan Inj) 1 mg IM Q6H PRN PRN Reason: Extreme agitation Magnesium Hydroxide (Mom) 30 ml PO PRN PRN PRN Reason: Constipation Memantine (Namenda) 5 mg PO HS ON LICENSE OF [facility] Last Admin: 08/31/17 20:10 Dose: 5 mg Polyethylene Glycol (Miralax) 17 gm PO DAILY PRN PRN Reason: Constipation Potassium Chloride (Micro-K 10 Meq Capsule) 10 meq PO WB ON LICENSE OF [facility] Last Admin: 09/01/17 09:32 Dose: 10 meq Propranolol HCl (Inderal) 10 mg PO TID ON LICENSE OF [facility] Last Admin: 09/01/17 15:24 Dose: 10 mg Senna/Docusate Sodium (Senna Plus Tablet) 1 tab PO DAILY ON LICENSE OF [facility] Last Admin: 09/01/17 09:32 Dose: 1 tab Senna/Docusate Sodium (Senna Plus Tablet) 2 tab PO BID PRN PRN Reason: Constipation Subjective: Patient seen and chart reviewed. Case discussed with treatment team. Patient is in recliner in dayroom with staff and appears restless but overall less irritable/combative than upon admission. Was given Ativan 1mg once in AM and once in afternoon today until Depakote can reach steady state. Patient has been compliant with meds over past 24 hours. Patient slept well overnight. VSS though appetite limited today. Has had urinary retention - have been bladder scanning BID and straight cathing if needed. Head CT on 08/30 showed mild generalized atrophy and extensive microvascular ischemia. Start Time: 16:20 Stop Time: 16:40 Mental Status Exam Vitals: Last Vital Signs Temp 97.6 F 09/01/17 16:00 Pulse 90 09/01/17 16:00 Resp 16 09/01/17 16:00 BP 139/100 H 09/01/17 16:00 Pulse Ox 95 09/01/17 16:00 Height: 1.65 m Weight: 60.1 kg - Mental Status Exam Muscle Strength/Tone: Weak Dressing: Casual Grooming: Fair Attitude: Uncooperative Motor Activity: Retardation, Restless Eye Contact: Poor Speech: Slowed Volume: Soft Rhythm: Mumbled Orientation: Disoriented to time, Disoriented to place, Disoriented to situation , Oriented to person Mood: Irritable (Labile affect) Affect: Hostile Rate of Thoughts: Delayed Thought Organization: Disorganized, Confused Associations: Illogical Abstract Reasoning: Impaired, concrete Thought Content: Paranoia Perception/Psychotic: Other (Denies, does not appear to e responding to internal stimuli) Language: Naming Impaired Fund of Knowledge: Poor fund of knowledge Memory: Poor-immediate, Poor-recent, Poor-remote Suicidal Ideation: None Homicidal Ideation: None Insight: Impaired Judgement: Impaired Impulse Control: Poor - Laboratory Result Diagrams: 09/02/17 15:28 09/02/17 15:29 Assessment and Plan (1) Major neurocognitive disorder Problem details: Moderate, Alzheimer's type, with behavioral disturbance R/O Bipolar disorder, MRE manic Other medical conditions: Urinary retention with positive urinalysis in ER-will treat for UTI Hypernatremia-POA History of bladder cancer Vitamin D deficiency Irritable bowel syndrome Diverticulosis Chronic compression fracture T12 Osteopenia Current visit: Yes Status: Acute (2) Vitamin B12 deficiency Current visit: Yes Status: Acute Continue to focus on compliance with Depakote. Patient had BM with suppository, seems less irritable after this and with straight cathing PRN after bladder scans. Monitor mood, behavior and response to treatment. Hospital Course Summary Disclaimer: The visit summary below is not to be considered part of the above Progress Note. Hospital Course: Psych 08/25/17: Held Wellbutrin XL, Buspar, Viibryd due to suspected bipolar alexander. Psych 08/26/17: Patient seems to have improved slightly with discontinuation of all Wellbutrin XL, Buspar, Viibryd (upon admission). Currently taking seroquel 25mg PO BID and propranolol 10mg PO BID from home med list. Will add Depakote DR 250mg PO BID. Will additionally start Vitamin B12 1000mcg IM x 3 days then weekly for a month, then monthly thereafter. 08/27/2017- Psych- PT is irritable and labile at times but is redirectable. Will consider increase of Depakote tomorrow if tolerating well 08/28/2017 Psych- Pt remains irritable and impulsive at times. Increase Depakote to 250mg PO TID. 08/29/17 Psych: Continue current care as we await serotonergic agents to clear from blood given half-lives; discussed care with DPOA/daughter who is in agreement with treatment plan. Patient has hx of malignant neoplasm of bladder. Daughter states that no recent imaging has been done and is in agreement with sedating as necessary to obtain head CT. 08/30/17 Psych: Will switch Depakote to sprinkles 250mg PO TID for improved compliance, increase Seroquel to 25mg PO TID. May need to switch to Risperdal if urinary retention worsening. Recheck UA, will bladder scan BID and straight cath if necessary. Once patient has had compliance with Depakote x 3 days, can check trough VPA level and adjust to therapeutic level. 08/31/17-hospitalist Dr. Ramos had ordered a repeat urinalysis because patient continues to have behaviors and has had some urinary retention. She'd had a positive urinalysis on admission and was treated. Urinalysis performed last night was completely negative. She has had 3 doses of IM cyanocobalamin for borderline low B12 deficiency . Continue 1000 g cyanocobalamin a day. Recommend follow-up B12 level on outpatient basis. Patient medically stable. Chart reviewed. 08/31/17 Psych: Will collapse Depakote sprinkles to 250mg PO q AM and 500mg PO with dinner to increase adherence. Seroquel does not seem to be helpful and may be causing restlessness and urinary retention; will hold and monitor behavior for the time being. Stressed importance of adherence to Depakote to nursing staff. 09/01/17 Psych: Continue to focus on compliance with Depakote. Patient had BM with suppository, seems less irritable after this and with straight cathing PRN after bladder scans. Monitor mood, behavior and response to treatment.
[2017-09-01] MEDS: MEMANTINE 5 MG TABLET PO SCH (20:56)
[2017-09-02] MEDS: DIVALPROEX SPRINKLE 125 MG CAPSULE PO SCH (10:44)
[2017-09-02] MEDS: CYANOCOBALAMIN (B-12) 500mcg TABLET PO SCH (10:44)
[2017-09-02] MEDS: SENNA + DOCUSATE TABLET PO SCH ×2 (10:44→20:18)
[2017-09-02] MEDS: PROPRANOLOL 10 MG TABLET PO SCH ×3 (10:47→20:17)
--- NOTE | 2017-09-02 15:32 | Progress Note ---
- Date 09/02/17 Subjective: I received a call from Dr. Ramos, concerned about the patient's declining status. She has been sleeping more and having increased urinary retention, requiring straight cath BID. However, she hasn't been taking much in orally, either. She also has a hx of constipation and had a suppository yesterday which produced a large BM. Dr. Ramos stopped Seroquel and Depakote. Objective Vital signs: Temperature 98.0 F 09/02/17 10:55 Pulse Rate 91 09/02/17 10:55 Respiratory Rate 16 09/02/17 10:55 Blood Pressure 152/91 H 09/02/17 10:55 Pulse Oximetry 91 09/02/17 10:55 Height/Weight/BMI: Height 1.65 m Weight 60.1 kg Body Mass Index 23.8 - Constitutional Present: no acute distress, thin - Routine HEENT Exam Head: Present: atraumatic Eye: Absent: conjunctival icterus, scleral injection - Routine Respiratory Exam Present: CTA bilaterally - Routine Cardiovascular Exam Comments: patient pushed my stethoscope away and I was unable to assess her heart tones - Routine Abdominal Exam Present: soft, non distended Comments: Again, patient pushed my hand away during palpation, so I was unable to check for rebound or focal tenderness - Routine Extremities Exam Present: no edema - Routine Skin Exam Present: intact, dry, warm - Routine Neurological Exam Present: alert. Absent: oriented X3 - Routine Psychiatric Exam Present: agitated. Absent: normal thought process Results - Labs CBC & Chem 7: 08/29/17 20:15 08/29/17 20:15 Assessment and Plan (1) Alzheimer's dementia with behavioral disturbance Current visit: Yes Status: Acute Assessment and Plan: Assessment Alzheimer's disease with behavioral disturbance Urinary retention with E. coli & Strep viridans UTI [id number] History of bladder cancer Borderline low B12 Vitamin D deficiency Irritable bowel syndrome Depression/anxiety Diverticulosis Chronic compression fracture T12 Osteopenia Plan D/W Dr. Ramos: Dtr was not aware of hx of bladder cancer. Dr. Ramos ordered labs and CT scan abd/pelvis. Consider indwelling Vyas, though with agitation I don't think she will tolerate it. Dr. Ramos contacted the [facility], they are searching records regarding bladder cancer. Increase bowel regimen - may get more information via CT. Resuscitation Status: Do Not Resuscitate - Physician Narrative Narrative: Date: 09/02/17 Time: 1528 Hospital Course Summary Disclaimer: The visit summary below is not to be considered part of the above Progress Note. Hospital Course: Psych 08/25/17: Held Wellbutrin XL, Buspar, Viibryd due to suspected bipolar alexander. Psych 08/26/17: Patient seems to have improved slightly with discontinuation of all Wellbutrin XL, Buspar, Viibryd (upon admission). Currently taking seroquel 25mg PO BID and propranolol 10mg PO BID from home med list. Will add Depakote DR 250mg PO BID. Will additionally start Vitamin B12 1000mcg IM x 3 days then weekly for a month, then monthly thereafter. 08/27/2017- Psych- PT is irritable and labile at times but is redirectable. Will consider increase of Depakote tomorrow if tolerating well 08/28/2017 Psych- Pt remains irritable and impulsive at times. Increase Depakote to 250mg PO TID. 08/29/17 Psych: Continue current care as we await serotonergic agents to clear from blood given half-lives; discussed care with DPOA/daughter who is in agreement with treatment plan. Patient has hx of malignant neoplasm of bladder. Daughter states that no recent imaging has been done and is in agreement with sedating as necessary to obtain head CT. 08/30/17 Psych: Will switch Depakote to sprinkles 250mg PO TID for improved compliance, increase Seroquel to 25mg PO TID. May need to switch to Risperdal if urinary retention worsening. Recheck UA, will bladder scan BID and straight cath if necessary. Once patient has had compliance with Depakote x 3 days, can check trough VPA level and adjust to therapeutic level. 08/31/17-hospitalist Dr. Ramos had ordered a repeat urinalysis because patient continues to have behaviors and has had some urinary retention. She'd had a positive urinalysis on admission and was treated. Urinalysis performed last night was completely negative. She has had 3 doses of IM cyanocobalamin for borderline low B12 deficiency . Continue 1000 g cyanocobalamin a day. Recommend follow-up B12 level on outpatient basis. Patient medically stable. Chart reviewed. 08/31/17 Psych: Will collapse Depakote sprinkles to 250mg PO q AM and 500mg PO with dinner to increase adherence. Seroquel does not seem to be helpful and may be causing restlessness and urinary retention; will hold and monitor behavior for the time being. Stressed importance of adherence to Depakote to nursing staff. 09/02/17: D/W Dr. Ramos: Dtr was not aware of hx of bladder cancer. Dr. Ramos ordered labs and CT scan abd/pelvis. Consider indwelling Vyas, though with agitation I don't think she will tolerate it. Dr. Ramos contacted the [facility], they are searching records regarding bladder cancer. Increase bowel regimen - may get more information via CT.
--- NOTE | 2017-09-02 17:34 | Neuropsych Progress Note ---
[facility] Subjective Date: 09/02/17 - Sujective/Severity of Illness Medications: Acetaminophen (Tylenol Arthritis) 650 mg PO Q4H PRN PRN Reason: Pain Bisacodyl (Dulcolax) 10 mg RECTALLY DAILY PRN PRN Reason: Constipation Last Admin: 09/01/17 11:05 Dose: 10 mg Cyanocobalamin (Vit. B-12) 1,000 mcg PO DAILY [facility] Last Admin: 09/02/17 10:44 Dose: 1,000 mcg Ergocalciferol (Vitamin D-2) 50,000 unit PO Q7D [facility] Last Admin: 08/31/17 16:17 Dose: 50,000 unit Lorazepam (Ativan) 0.5 mg PO Q6H PRN PRN Reason: Extreme agitation Lorazepam (Ativan Intensol) 0.5 mg PO Q6H PRN Lorazepam (Ativan Inj) 0.5 mg IM Q6H PRN PRN Reason: Extreme agitation Magnesium Hydroxide (Mom) 30 ml PO PRN PRN PRN Reason: Constipation Memantine (Namenda) 10 mg PO HS [facility] Polyethylene Glycol (Miralax) 17 gm PO DAILY [facility] Potassium Chloride (Micro-K 10 Meq Capsule) 10 meq PO WB [facility] Last Admin: 09/02/17 10:44 Dose: 10 meq Propranolol HCl (Inderal) 10 mg PO TID [facility] Last Admin: 09/02/17 17:04 Dose: 10 mg Senna/Docusate Sodium (Senna Plus Tablet) 2 tab PO BID PRN PRN Reason: Constipation Senna/Docusate Sodium (Senna Plus Tablet) 1 tab PO BID [facility] Subjective: Patient seen and chart reviewed. Case discussed with treatment team. Patient is lying in bed and does not respond to most interview questions but swats if you get close. I had a long call with daughter today. Nursing staff reported to her yesterday and me today that patient was not eating well. (She actually had more today than the day prior but this was very limited). Daughter felt that [facility] was not reporting symptoms accurately and decline was very acute. She said there was only 1 episode of physical aggression at [facility] prior to this hospitalization and this was because it was a terrible nurse who doesn't like her mother. She also denied that there was a fall history. Discussed treatment plan with daughter (which she had previously agreed with) and that I did not yet feel patient was back at baseline. She said she has tried to call to talk with her "but she has been asleep." RN later told me that daughter called at 11 pm to visit with her mother. Discussed urinary retention and daughter was not aware of this. I reviewed chart and mentioned that it said history of malignant neoplasm of bladder, which daughter was unaware of and insisted was not true. I reviewed paper chart and this was documented multiple times in chart from facility (PCP notes). I contacted facility who also stated it was in their record but did not have more information about it and stated their PCP was not available after noon on Fridays. I spoke with RN who had known patient quite well and she stated patient was in fact falling frequently, was in fact hitting/biting frequently though behaviors had significantly increased over past 2 months. I contacted hospitalist with concerns re: poor PO intake and hx of bladder cancer, urinary retention. We agreed to order labs, CT scan of abdomen/pelvis as it does not appear that we have any further information on this. Patient has been compliant with meds over past 24 hours. Patient slept well overnight and approximately 4 hours during day yesterday. VSS poor today. Head CT on 08/30 showed mild generalized atrophy and extensive microvascular ischemia. Start Time: 15:00 Stop Time: 15:40 Care: >50% of this visit spent in counseling/coordination care. (networking with daughter, facility, hospitalist) Mental Status Exam Vitals: Last Vital Signs Temp 98.0 F 09/02/17 10:55 Pulse 91 09/02/17 10:55 Resp 16 09/02/17 10:55 BP 152/91 H 09/02/17 10:55 Pulse Ox 91 09/02/17 10:55 Height: 1.65 m Weight: 60.1 kg - Mental Status Exam Muscle Strength/Tone: Weak Dressing: Casual Grooming: Fair Attitude: Uncooperative Motor Activity: Retardation Eye Contact: Poor Speech: Slowed Volume: Soft Rhythm: Mumbled Sensory: Confused Orientation: Disoriented to time, Disoriented to place, Disoriented to situation , Oriented to person Mood: Irritable (Labile affect) Rate of Thoughts: Delayed Thought Organization: Disorganized, Confused Associations: Illogical Abstract Reasoning: Impaired, concrete Thought Content: Paranoia Perception/Psychotic: Other (Denies, does not appear to e responding to internal stimuli) Language: Naming Impaired Fund of Knowledge: Poor fund of knowledge Memory: Poor-immediate, Poor-recent, Poor-remote Suicidal Ideation: None Homicidal Ideation: None Insight: Impaired Judgement: Impaired Impulse Control: Poor - Laboratory Result Diagrams: 09/02/17 15:28 09/02/17 15:29 Laboratory Results - last 24 hr 09/02/17 09/02/17 15:28 15:29 WBC 4.9 RBC 4.64 Hgb 14.2 Hct 42.8 MCV 92.2 MCH 30.6 MCHC 33.2 RDW Std Deviation 40.0 Plt Count 151 MPV 10.1 Immature Gran % (Auto) 0.2 Neut % (Auto) 47.1 Lymph % (Auto) 35.7 Barren % (Auto) 13.4 H Eos % (Auto) 2.8 Baso % (Auto) 0.8 Neut # (Auto) 2.3 Lymph # (Auto) 1.8 Barren # (Auto) 0.7 Eos # (Auto) 0.1 Baso # (Auto) 0.0 Abs Immat Gran (auto) 0.01 Turbidity < 20 Sodium 148 H Potassium 4.7 Chloride 109 H Carbon Dioxide 27 Anion Gap 12 BUN 23.0 H Creatinine 0.9 GFR Calculation 60 BUN/Creatinine Ratio 26 Glucose 93 Calculated Osmolality 288 H Calcium 10.0 Total Bilirubin 0.60 Conjugated Bilirubin 0.00 Unconjugated Bilirubin 0.20 Icterus Index < 2 AST 38 H ALT 29 Alkaline Phosphatase 107 Ammonia < 9 L Total Protein 7.2 Albumin 4.1 Globulin 3.1 Albumin/Globulin Ratio 1.3 Specimen Hemolysis < 15 Valproic Acid 74.1 Assessment and Plan (1) Major neurocognitive disorder Problem details: Moderate, Alzheimer's type, with behavioral disturbance R/O Bipolar disorder, MRE manic Other medical conditions: Urinary retention with positive urinalysis in ER-will treat for UTI Hypernatremia-POA History of bladder cancer Vitamin D deficiency Irritable bowel syndrome Diverticulosis Chronic compression fracture T12 Osteopenia Current visit: Yes Status: Acute (2) Vitamin B12 deficiency Current visit: Yes Status: Acute Have ordered urgent labs: CBC, CMP, ammonia level, VPA level. Ordered urgent CT scan of abdomen/pelvis to f/u on hx of bladder cancer. Will hold VPA for now and monitor mentation, appetite. Hospital Course Summary Disclaimer: The visit summary below is not to be considered part of the above Progress Note. Hospital Course: Psych 08/25/17: Held Wellbutrin XL, Buspar, Viibryd due to suspected bipolar alexander. Psych 08/26/17: Patient seems to have improved slightly with discontinuation of all Wellbutrin XL, Buspar, Viibryd (upon admission). Currently taking seroquel 25mg PO BID and propranolol 10mg PO BID from home med list. Will add Depakote DR 250mg PO BID. Will additionally start Vitamin B12 1000mcg IM x 3 days then weekly for a month, then monthly thereafter. 08/27/2017- Psych- PT is irritable and labile at times but is redirectable. Will consider increase of Depakote tomorrow if tolerating well 08/28/2017 Psych- Pt remains irritable and impulsive at times. Increase Depakote to 250mg PO TID. 08/29/17 Psych: Continue current care as we await serotonergic agents to clear from blood given half-lives; discussed care with DPOA/daughter who is in agreement with treatment plan. Patient has hx of malignant neoplasm of bladder. Daughter states that no recent imaging has been done and is in agreement with sedating as necessary to obtain head CT. 08/30/17 Psych: Will switch Depakote to sprinkles 250mg PO TID for improved compliance, increase Seroquel to 25mg PO TID. May need to switch to Risperdal if urinary retention worsening. Recheck UA, will bladder scan BID and straight cath if necessary. Once patient has had compliance with Depakote x 3 days, can check trough VPA level and adjust to therapeutic level. 08/31/17-hospitalist Dr. Ramos had ordered a repeat urinalysis because patient continues to have behaviors and has had some urinary retention. She'd had a positive urinalysis on admission and was treated. Urinalysis performed last night was completely negative. She has had 3 doses of IM cyanocobalamin for borderline low B12 deficiency . Continue 1000 g cyanocobalamin a day. Recommend follow-up B12 level on outpatient basis. Patient medically stable. Chart reviewed. 08/31/17 Psych: Will collapse Depakote sprinkles to 250mg PO q AM and 500mg PO with dinner to increase adherence. Seroquel does not seem to be helpful and may be causing restlessness and urinary retention; will hold and monitor behavior for the time being. Stressed importance of adherence to Depakote to nursing staff. 09/01/17 Psych: Continue to focus on compliance with Depakote. Patient had BM with suppository, seems less irritable after this and with straight cathing PRN after bladder scans. Monitor mood, behavior and response to treatment. 09/02/17 Psych: Have ordered urgent labs: CBC, CMP, ammonia level, VPA level. Ordered urgent CT scan of abdomen/pelvis to f/u on hx of bladder cancer. Will hold VPA for now and monitor mentation, appetite.
[2017-09-02] MEDS: MEMANTINE 10 MG TABLET PO SCH (20:17)
[2017-09-03] MEDS: POLYETHYL GLYCOL 3350 17gm PACKET PO SCH (08:17)
[2017-09-03] MEDS: PROPRANOLOL 10 MG TABLET PO SCH ×4 (08:17→20:12)
[2017-09-03] MEDS: CYANOCOBALAMIN (B-12) 500mcg TABLET PO SCH (08:17)
[2017-09-03] MEDS: SENNA + DOCUSATE TABLET PO SCH ×3 (08:18→20:12)
[2017-09-03] MEDS: LORazepam INTENSOL 1mg/0.5ml ORAL LIQUID PO PRN ×2 (10:46→22:35)
--- NOTE | 2017-09-03 11:28 | Neuropsych Progress Note ---
[facility] Subjective Date: 09/03/17 - Sujective/Severity of Illness Medications: Acetaminophen (Tylenol Arthritis) 650 mg PO Q4H PRN PRN Reason: Pain Last Admin: 09/03/17 08:04 Dose: 650 mg Bisacodyl (Dulcolax) 10 mg RECTALLY DAILY PRN PRN Reason: Constipation Last Admin: 09/01/17 11:05 Dose: 10 mg Cyanocobalamin (Vit. B-12) 1,000 mcg PO DAILY [facility] Last Admin: 09/03/17 08:17 Dose: 1,000 mcg Ergocalciferol (Vitamin D-2) 50,000 unit PO Q7D [facility] Last Admin: 08/31/17 16:17 Dose: 50,000 unit Lorazepam (Ativan) 0.5 mg PO Q6H PRN PRN Reason: Extreme agitation Lorazepam (Ativan Intensol) 0.5 mg PO Q6H PRN Last Admin: 09/03/17 10:46 Dose: 0.5 mg Lorazepam (Ativan Inj) 0.5 mg IM Q6H PRN PRN Reason: Extreme agitation Magnesium Hydroxide (Mom) 30 ml PO PRN PRN PRN Reason: Constipation Memantine (Namenda) 10 mg PO HS [facility] Last Admin: 09/02/17 20:17 Dose: 10 mg Polyethylene Glycol (Miralax) 17 gm PO DAILY [facility] Last Admin: 09/03/17 08:17 Dose: 17 gm Potassium Chloride (Micro-K 10 Meq Capsule) 10 meq PO WB [facility] Last Admin: 09/03/17 08:17 Dose: 10 meq Propranolol HCl (Inderal) 10 mg PO TID [facility] Last Admin: 09/03/17 08:17 Dose: 10 mg Senna/Docusate Sodium (Senna Plus Tablet) 2 tab PO BID PRN PRN Reason: Constipation Senna/Docusate Sodium (Senna Plus Tablet) 1 tab PO BID [facility] Last Admin: 09/03/17 08:18 Dose: 1 tab Subjective: Patient seen and chart reviewed. Nursing reports pt slept well. She has been lethargic and has a poor appetite. No behaviors noted. On face to face the pt is resting in a chair. She is slow to respond and her speech is mumbled. She denies any pain. Voices no concerns at this time Start Time: 09:00 Stop Time: 09:15 Mental Status Exam Vitals: Last Vital Signs Temp 97.3 F 09/03/17 08:46 Pulse 84 09/03/17 08:46 Resp 18 09/03/17 08:46 BP 175/92 H 09/03/17 08:46 Pulse Ox 95 09/03/17 08:46 Height: 1.65 m Weight: 60.1 kg - Mental Status Exam Muscle Strength/Tone: Weak Dressing: Casual Grooming: Fair Attitude: Uncooperative Motor Activity: Retardation Eye Contact: Poor Speech: Slowed Volume: Soft Rhythm: Mumbled Orientation: Disoriented to time, Disoriented to place, Disoriented to situation , Oriented to person Mood: Irritable (Labile affect) Rate of Thoughts: Delayed Thought Organization: Disorganized, Confused Associations: Illogical Abstract Reasoning: Impaired, concrete Thought Content: Paranoia Perception/Psychotic: Other (Denies, does not appear to e responding to internal stimuli) Language: Naming Impaired Fund of Knowledge: Poor fund of knowledge Memory: Poor-immediate, Poor-recent, Poor-remote Suicidal Ideation: None Homicidal Ideation: None Insight: Impaired Judgement: Impaired Impulse Control: Poor - Laboratory Result Diagrams: 09/02/17 15:28 09/02/17 15:29 Laboratory Results - last 24 hr 09/02/17 09/02/17 15:28 15:29 WBC 4.9 RBC 4.64 Hgb 14.2 Hct 42.8 MCV 92.2 MCH 30.6 MCHC 33.2 RDW Std Deviation 40.0 Plt Count 151 MPV 10.1 Immature Gran % (Auto) 0.2 Neut % (Auto) 47.1 Lymph % (Auto) 35.7 Deuel % (Auto) 13.4 H Eos % (Auto) 2.8 Baso % (Auto) 0.8 Neut # (Auto) 2.3 Lymph # (Auto) 1.8 Deuel # (Auto) 0.7 Eos # (Auto) 0.1 Baso # (Auto) 0.0 Abs Immat Gran (auto) 0.01 Turbidity < 20 Sodium 148 H Potassium 4.7 Chloride 109 H Carbon Dioxide 27 Anion Gap 12 BUN 23.0 H Creatinine 0.9 GFR Calculation 60 BUN/Creatinine Ratio 26 Glucose 93 Calculated Osmolality 288 H Calcium 10.0 Total Bilirubin 0.60 Conjugated Bilirubin 0.00 Unconjugated Bilirubin 0.20 Icterus Index < 2 AST 38 H ALT 29 Alkaline Phosphatase 107 Ammonia < 9 L Total Protein 7.2 Albumin 4.1 Globulin 3.1 Albumin/Globulin Ratio 1.3 Specimen Hemolysis < 15 Valproic Acid 74.1 Assessment and Plan (1) Major neurocognitive disorder Problem details: Moderate, Alzheimer's type, with behavioral disturbance R/O Bipolar disorder, MRE manic Other medical conditions: Urinary retention with positive urinalysis in ER-will treat for UTI Hypernatremia-POA History of bladder cancer Vitamin D deficiency Irritable bowel syndrome Diverticulosis Chronic compression fracture T12 Osteopenia Current visit: Yes Status: Acute (2) Vitamin B12 deficiency Current visit: Yes Status: Acute Hospital Course Summary Disclaimer: The visit summary below is not to be considered part of the above Progress Note. Hospital Course: Psych 08/25/17: Held Wellbutrin XL, Buspar, Viibryd due to suspected bipolar alexander. Psych 08/26/17: Patient seems to have improved slightly with discontinuation of all Wellbutrin XL, Buspar, Viibryd (upon admission). Currently taking seroquel 25mg PO BID and propranolol 10mg PO BID from home med list. Will add Depakote DR 250mg PO BID. Will additionally start Vitamin B12 1000mcg IM x 3 days then weekly for a month, then monthly thereafter. 08/27/2017- Psych- PT is irritable and labile at times but is redirectable. Will consider increase of Depakote tomorrow if tolerating well 08/28/2017 Psych- Pt remains irritable and impulsive at times. Increase Depakote to 250mg PO TID. 08/29/17 Psych: Continue current care as we await serotonergic agents to clear from blood given half-lives; discussed care with DPOA/daughter who is in agreement with treatment plan. Patient has hx of malignant neoplasm of bladder. Daughter states that no recent imaging has been done and is in agreement with sedating as necessary to obtain head CT. 08/30/17 Psych: Will switch Depakote to sprinkles 250mg PO TID for improved compliance, increase Seroquel to 25mg PO TID. May need to switch to Risperdal if urinary retention worsening. Recheck UA, will bladder scan BID and straight cath if necessary. Once patient has had compliance with Depakote x 3 days, can check trough VPA level and adjust to therapeutic level. 08/31/17-hospitalist Dr. Ramos had ordered a repeat urinalysis because patient continues to have behaviors and has had some urinary retention. She'd had a positive urinalysis on admission and was treated. Urinalysis performed last night was completely negative. She has had 3 doses of IM cyanocobalamin for borderline low B12 deficiency . Continue 1000 g cyanocobalamin a day. Recommend follow-up B12 level on outpatient basis. Patient medically stable. Chart reviewed. 08/31/17 Psych: Will collapse Depakote sprinkles to 250mg PO q AM and 500mg PO with dinner to increase adherence. Seroquel does not seem to be helpful and may be causing restlessness and urinary retention; will hold and monitor behavior for the time being. Stressed importance of adherence to Depakote to nursing staff. 09/01/17 Psych: Continue to focus on compliance with Depakote. Patient had BM with suppository, seems less irritable after this and with straight cathing PRN after bladder scans. Monitor mood, behavior and response to treatment. 09/02/17 Psych: Have ordered urgent labs: CBC, CMP, ammonia level, VPA level. Ordered urgent CT scan of abdomen/pelvis to f/u on hx of bladder cancer. Will hold VPA for now and monitor mentation, appetite. 09/03/17 Pt is lethargic with poor appetite. CT scan pending. Continue current care. Medical team following
[2017-09-03] MEDS ORDERED: Bisacodyl EC TAB 5 MG TABLET PO PRN (18:56)
[2017-09-03] MEDS: MEMANTINE 10 MG TABLET PO SCH ×2 (19:32→20:12)
[2017-09-04] MEDS: LORazepam INTENSOL 1mg/0.5ml ORAL LIQUID PO PRN (08:18)
[2017-09-04] MEDS: CYANOCOBALAMIN (B-12) 500mcg TABLET PO SCH (08:42)
[2017-09-04] MEDS: PROPRANOLOL 10 MG TABLET PO SCH ×3 (08:42→20:07)
[2017-09-04] MEDS: SENNA + DOCUSATE TABLET PO SCH ×2 (08:42→20:07)
[2017-09-04] MEDS: POLYETHYL GLYCOL 3350 17gm PACKET PO SCH (08:44)
--- NOTE | 2017-09-04 11:04 | Neuropsych Progress Note ---
[facility] Subjective Date: 09/04/17 - Sujective/Severity of Illness Medications: Acetaminophen (Tylenol Arthritis) 650 mg PO Q4H PRN PRN Reason: Pain Last Admin: 09/03/17 08:04 Dose: 650 mg Bisacodyl (Dulcolax) 10 mg RECTALLY DAILY PRN PRN Reason: Constipation Last Admin: 09/01/17 11:05 Dose: 10 mg Bisacodyl (Dulcolax) 5 mg PO BID PRN PRN Reason: Constipation Cyanocobalamin (Vit. B-12) 1,000 mcg PO DAILY [facility] Last Admin: 09/04/17 08:42 Dose: 1,000 mcg Ergocalciferol (Vitamin D-2) 50,000 unit PO Q7D [facility] Last Admin: 08/31/17 16:17 Dose: 50,000 unit Lorazepam (Ativan) 0.5 mg PO Q6H PRN PRN Reason: Extreme agitation Lorazepam (Ativan Intensol) 0.5 mg PO Q6H PRN Last Admin: 09/04/17 08:18 Dose: 0.5 mg Lorazepam (Ativan Inj) 0.5 mg IM Q6H PRN PRN Reason: Extreme agitation Lorazepam (Ativan Inj) 0.5 mg IM ONCE ONE Stop: 09/04/17 10:29 Last Admin: 09/04/17 10:34 Dose: 0.5 mg Magnesium Hydroxide (Mom) 30 ml PO PRN PRN PRN Reason: Constipation Memantine (Namenda) 10 mg PO HS [facility] Last Admin: 09/03/17 20:12 Dose: Not Given Polyethylene Glycol (Miralax) 17 gm PO DAILY [facility] Last Admin: 09/04/17 08:44 Dose: 17 gm Potassium Chloride (Micro-K 10 Meq Capsule) 10 meq PO WB [facility] Last Admin: 09/04/17 08:43 Dose: 10 meq Propranolol HCl (Inderal) 10 mg PO TID [facility] Last Admin: 09/04/17 08:42 Dose: 10 mg Senna/Docusate Sodium (Senna Plus Tablet) 2 tab PO BID PRN PRN Reason: Constipation Senna/Docusate Sodium (Senna Plus Tablet) 1 tab PO BID [facility] Last Admin: 09/04/17 08:42 Dose: 1 tab Subjective: Patient seen and chart reviewed. Nursing reports pt slept well. Poor appetite but it has slightly improved. On face to face the pt is more alert today. She is only oriented to self. She states she is not sure why she is here. She denies any pain. Tolerating meds. Voices no concerns at this time. Start Time: 10:30 Stop Time: 10:45 Mental Status Exam Vitals: Last Vital Signs Temp 98.2 F 09/04/17 07:45 Pulse 95 09/04/17 07:45 Resp 16 09/04/17 07:45 BP 142/74 H 09/04/17 07:45 Pulse Ox 96 09/04/17 07:45 Height: 1.65 m Weight: 60.1 kg - Mental Status Exam Muscle Strength/Tone: Weak Dressing: Casual Grooming: Fair Attitude: Uncooperative Motor Activity: Retardation Eye Contact: Poor Speech: Slowed Volume: Soft Rhythm: Mumbled Orientation: Disoriented to time, Disoriented to place, Disoriented to situation , Oriented to person Mood: Irritable (Labile affect) Rate of Thoughts: Delayed Thought Organization: Disorganized, Confused Associations: Illogical Abstract Reasoning: Impaired, concrete Thought Content: Paranoia Perception/Psychotic: Other (Denies, does not appear to e responding to internal stimuli) Language: Naming Impaired Fund of Knowledge: Poor fund of knowledge Memory: Poor-immediate, Poor-recent, Poor-remote Suicidal Ideation: None Homicidal Ideation: None Insight: Impaired Judgement: Impaired Impulse Control: Poor - Laboratory Result Diagrams: 09/02/17 15:28 09/02/17 15:29 Assessment and Plan (1) Major neurocognitive disorder Problem details: Moderate, Alzheimer's type, with behavioral disturbance R/O Bipolar disorder, MRE manic Other medical conditions: Urinary retention with positive urinalysis in ER-will treat for UTI Hypernatremia-POA History of bladder cancer Vitamin D deficiency Irritable bowel syndrome Diverticulosis Chronic compression fracture T12 Osteopenia Current visit: Yes Status: Acute (2) Vitamin B12 deficiency Current visit: Yes Status: Acute Hospital Course Summary Disclaimer: The visit summary below is not to be considered part of the above Progress Note. Hospital Course: Psych 08/25/17: Held Wellbutrin XL, Buspar, Viibryd due to suspected bipolar alexander. Psych 08/26/17: Patient seems to have improved slightly with discontinuation of all Wellbutrin XL, Buspar, Viibryd (upon admission). Currently taking seroquel 25mg PO BID and propranolol 10mg PO BID from home med list. Will add Depakote DR 250mg PO BID. Will additionally start Vitamin B12 1000mcg IM x 3 days then weekly for a month, then monthly thereafter. 08/27/2017- Psych- PT is irritable and labile at times but is redirectable. Will consider increase of Depakote tomorrow if tolerating well 08/28/2017 Psych- Pt remains irritable and impulsive at times. Increase Depakote to 250mg PO TID. 08/29/17 Psych: Continue current care as we await serotonergic agents to clear from blood given half-lives; discussed care with DPOA/daughter who is in agreement with treatment plan. Patient has hx of malignant neoplasm of bladder. Daughter states that no recent imaging has been done and is in agreement with sedating as necessary to obtain head CT. 08/30/17 Psych: Will switch Depakote to sprinkles 250mg PO TID for improved compliance, increase Seroquel to 25mg PO TID. May need to switch to Risperdal if urinary retention worsening. Recheck UA, will bladder scan BID and straight cath if necessary. Once patient has had compliance with Depakote x 3 days, can check trough VPA level and adjust to therapeutic level. 08/31/17-hospitalist Dr. Ramos had ordered a repeat urinalysis because patient continues to have behaviors and has had some urinary retention. She'd had a positive urinalysis on admission and was treated. Urinalysis performed last night was completely negative. She has had 3 doses of IM cyanocobalamin for borderline low B12 deficiency . Continue 1000 g cyanocobalamin a day. Recommend follow-up B12 level on outpatient basis. Patient medically stable. Chart reviewed. 08/31/17 Psych: Will collapse Depakote sprinkles to 250mg PO q AM and 500mg PO with dinner to increase adherence. Seroquel does not seem to be helpful and may be causing restlessness and urinary retention; will hold and monitor behavior for the time being. Stressed importance of adherence to Depakote to nursing staff. 09/01/17 Psych: Continue to focus on compliance with Depakote. Patient had BM with suppository, seems less irritable after this and with straight cathing PRN after bladder scans. Monitor mood, behavior and response to treatment. 09/02/17 Psych: Have ordered urgent labs: CBC, CMP, ammonia level, VPA level. Ordered urgent CT scan of abdomen/pelvis to f/u on hx of bladder cancer. Will hold VPA for now and monitor mentation, appetite. 09/03/17 Pt is lethargic with poor appetite. CT scan pending. Continue current care. Medical team following 09/04/17- Psych- Pt is a little more alert today. CT today. Ativan 0.5mg x 1 to help with obtaining CT
[2017-09-04] MEDS: MEMANTINE 10 MG TABLET PO SCH (20:07)
--- NOTE | 2017-09-05 09:55 | CT Scan Report ---
EXAM: CT abdomen pelvis wo con HISTORY: History of malignant neoplasm of bladder COMPARISON: No prior studies are available for comparison CT images were obtained of the abdomen and pelvis. No contrast was administered. The current CT scan was performed using radiation dose-reduction techniques. FINDINGS: CT ABDOMEN LUNG BASES: Unremarkable LIVER: Simple bilateral renal cysts are present measuring up to 5.1 cm. SPLEEN: Unremarkable. GALLBLADDER: Unremarkable. PANCREAS: Unremarkable. ADRENAL GLANDS: Unremarkable. KIDNEYS: Unremarkable. AORTA: Unremarkable. LYMPH NODES: Unremarkable. STOMACH BOWEL LOOPS: Scattered nonspecific air-fluid levels are present throughout the small and large bowel loops. SOFT TISSUES: Unremarkable. CT PELVIS URINARY BLADDER: Unremarkable. UTERUS/OVARIES: Unremarkable. OSSEOUS STRUCTURES: There is moderate wedging of T12 of uncertain age with minimal bulging along the superior endplate posteriorly with no canal stenosis at this level. IMPRESSION: 1. Scattered nonspecific air-fluid levels which may be on the basis of enterocolitis. 2. Moderate compression deformity of T12 of uncertain age. .
[2017-09-05] MEDS: PROPRANOLOL 10 MG TABLET PO SCH ×3 (10:37→19:37)
[2017-09-05] MEDS: POLYETHYL GLYCOL 3350 17gm PACKET PO SCH (10:38)
[2017-09-05] MEDS: CYANOCOBALAMIN (B-12) 500mcg TABLET PO SCH (10:38)
[2017-09-05] MEDS: SENNA + DOCUSATE TABLET PO SCH ×2 (10:39→19:37)
--- NOTE | 2017-09-05 14:50 | Neuropsych Progress Note ---
[facility] Subjective Date: 09/06/17 - Sujective/Severity of Illness Medications: Acetaminophen (Tylenol Arthritis) 650 mg PO Q4H PRN PRN Reason: Pain Last Admin: 09/03/17 08:04 Dose: 650 mg Bisacodyl (Dulcolax) 10 mg RECTALLY DAILY PRN PRN Reason: Constipation Last Admin: 09/01/17 11:05 Dose: 10 mg Bisacodyl (Dulcolax) 5 mg PO BID PRN PRN Reason: Constipation Cyanocobalamin (Vit. B-12) 1,000 mcg PO DAILY [facility] Last Admin: 09/05/17 10:38 Dose: 1,000 mcg Ergocalciferol (Vitamin D-2) 50,000 unit PO Q7D [facility] Last Admin: 08/31/17 16:17 Dose: 50,000 unit Lorazepam (Ativan) 0.5 mg PO Q6H PRN PRN Reason: Extreme agitation Lorazepam (Ativan Intensol) 0.5 mg PO Q6H PRN Last Admin: 09/04/17 08:18 Dose: 0.5 mg Lorazepam (Ativan Inj) 0.5 mg IM Q6H PRN PRN Reason: Extreme agitation Magnesium Hydroxide (Mom) 30 ml PO PRN PRN PRN Reason: Constipation Memantine (Namenda) 10 mg PO HS [facility] Last Admin: 09/04/17 20:07 Dose: 10 mg Polyethylene Glycol (Miralax) 17 gm PO DAILY [facility] Last Admin: 09/05/17 10:38 Dose: 17 gm Potassium Chloride (Micro-K 10 Meq Capsule) 10 meq PO WB [facility] Last Admin: 09/05/17 10:37 Dose: 10 meq Propranolol HCl (Inderal) 10 mg PO TID [facility] Last Admin: 09/05/17 10:37 Dose: 10 mg Senna/Docusate Sodium (Senna Plus Tablet) 2 tab PO BID PRN PRN Reason: Constipation Senna/Docusate Sodium (Senna Plus Tablet) 1 tab PO BID [facility] Last Admin: 09/05/17 10:39 Dose: 1 tab Subjective: Patient seen and chart reviewed. Patient is sitting in recliner in dayroom and is quite irritable, responding to most questions with, "You must be stupid." She is overheard asking for Randy, her . Patient slept 8 hours overnight and per nursing notes was mildly resistive with cares last evening. She became physically aggressive with staff this morning. She was given PRN Ativan yesterday AM prior to CT of abdomen/pelvis, which has now resulted -- will discuss results with hospitalist for further direction. Appetite has slightly improved. I spoke at length with patient's son Bala in regards to hospitalization course thus far, CT scan and what the next step may be. He also was unaware of any hx of bladder cancer or of the behaviors documented/confirmed by the nursing facility. He does say she was confused at times prior and has sounded confused when he called her on the unit as well. Discussed use of PRNs and timing of calls, and he understood. I also relayed to him that she has been consistently physically aggressive and that I have not had a logical conversation with her since admission. He expressed understanding of this and agreement with treatment plan. All questions answered to his satisfaction. Start Time: 10:00 Stop Time: 10:40 Care: >50% of this visit spent in counseling/coordination care. (discussion of treatment with son) Mental Status Exam Vitals: Last Vital Signs Temp 98.2 F 09/05/17 08:00 Pulse 78 09/05/17 08:00 Resp 18 09/05/17 08:00 BP 157/78 H 09/05/17 08:00 Pulse Ox 97 09/05/17 08:00 Height: 1.65 m Weight: 60.1 kg - Mental Status Exam Muscle Strength/Tone: Weak Dressing: Casual Grooming: Fair Attitude: Uncooperative Motor Activity: Retardation Eye Contact: Poor Speech: Slowed Volume: Soft Rhythm: Mumbled Orientation: Disoriented to time, Disoriented to place, Disoriented to situation , Oriented to person Mood: Irritable (Labile affect) Affect: Hostile Rate of Thoughts: Delayed Thought Organization: Disorganized, Confused Associations: Illogical Abstract Reasoning: Impaired, concrete Thought Content: Paranoia, Other (Out of context to situation) Perception/Psychotic: Other (Denies, does not appear to e responding to internal stimuli) Language: Naming Impaired Fund of Knowledge: Poor fund of knowledge Memory: Poor-immediate, Poor-recent, Poor-remote Suicidal Ideation: None Homicidal Ideation: None Insight: Impaired Judgement: Impaired Impulse Control: Poor - Laboratory Result Diagrams: 09/02/17 15:28 09/02/17 15:29 Assessment and Plan (1) Major neurocognitive disorder Problem details: Moderate, Alzheimer's type, with behavioral disturbance R/O Bipolar disorder, MRE manic Other medical conditions: Urinary retention with positive urinalysis in ER-will treat for UTI Hypernatremia-POA History of bladder cancer Vitamin D deficiency Irritable bowel syndrome Diverticulosis Chronic compression fracture T12 Osteopenia Current visit: Yes Status: Acute (2) Vitamin B12 deficiency Current visit: Yes Status: Acute Continue holding medications - will discuss further workup and medical treatment with hospitalist. Concern that there may be some underlying medical issues contributing to behaviors. Did not tolerate Depakote well in regards to appetite. Will await this discussion before making further med changes. Hospital Course Summary Disclaimer: The visit summary below is not to be considered part of the above Progress Note. Hospital Course: Psych 08/25/17: Held Wellbutrin XL, Buspar, Viibryd due to suspected bipolar alexander. Psych 08/26/17: Patient seems to have improved slightly with discontinuation of all Wellbutrin XL, Buspar, Viibryd (upon admission). Currently taking seroquel 25mg PO BID and propranolol 10mg PO BID from home med list. Will add Depakote DR 250mg PO BID. Will additionally start Vitamin B12 1000mcg IM x 3 days then weekly for a month, then monthly thereafter. 08/27/2017- Psych- PT is irritable and labile at times but is redirectable. Will consider increase of Depakote tomorrow if tolerating well 08/28/2017 Psych- Pt remains irritable and impulsive at times. Increase Depakote to 250mg PO TID. 08/29/17 Psych: Continue current care as we await serotonergic agents to clear from blood given half-lives; discussed care with DPOA/daughter who is in agreement with treatment plan. Patient has hx of malignant neoplasm of bladder. Daughter states that no recent imaging has been done and is in agreement with sedating as necessary to obtain head CT. 08/30/17 Psych: Will switch Depakote to sprinkles 250mg PO TID for improved compliance, increase Seroquel to 25mg PO TID. May need to switch to Risperdal if urinary retention worsening. Recheck UA, will bladder scan BID and straight cath if necessary. Once patient has had compliance with Depakote x 3 days, can check trough VPA level and adjust to therapeutic level. 08/31/17-hospitalist Dr. Ramos had ordered a repeat urinalysis because patient continues to have behaviors and has had some urinary retention. She'd had a positive urinalysis on admission and was treated. Urinalysis performed last night was completely negative. She has had 3 doses of IM cyanocobalamin for borderline low B12 deficiency . Continue 1000 g cyanocobalamin a day. Recommend follow-up B12 level on outpatient basis. Patient medically stable. Chart reviewed. 08/31/17 Psych: Will collapse Depakote sprinkles to 250mg PO q AM and 500mg PO with dinner to increase adherence. Seroquel does not seem to be helpful and may be causing restlessness and urinary retention; will hold and monitor behavior for the time being. Stressed importance of adherence to Depakote to nursing staff. 09/01/17 Psych: Continue to focus on compliance with Depakote. Patient had BM with suppository, seems less irritable after this and with straight cathing PRN after bladder scans. Monitor mood, behavior and response to treatment. 09/02/17 Psych: Have ordered urgent labs: CBC, CMP, ammonia level, VPA level. Ordered urgent CT scan of abdomen/pelvis to f/u on hx of bladder cancer. Will hold VPA for now and monitor mentation, appetite. 09/03/17 Pt is lethargic with poor appetite. CT scan pending. Continue current care. Medical team following 09/04/17- Psych- Pt is a little more alert today. CT today. Ativan 0.5mg x 1 to help with obtaining CT. 09/05/17 Psych: Continue holding medications - will discuss further workup and medical treatment with hospitalist. Concern that there may be some underlying medical issues contributing to behaviors. Did not tolerate Depakote well in regards to appetite. Will await this discussion before making further med changes.
[2017-09-05] MEDS: LORazepam INTENSOL 1mg/0.5ml ORAL LIQUID PO PRN (19:37)
[2017-09-05] MEDS: MEMANTINE 10 MG TABLET PO SCH (19:37)
[2017-09-06] MEDS: SENNA + DOCUSATE TABLET PO SCH ×3 (00:29→19:21)
[2017-09-06] MEDS: PROPRANOLOL 10 MG TABLET PO SCH ×4 (00:29→19:21)
[2017-09-06] MEDS: MEMANTINE 10 MG TABLET PO SCH ×2 (00:29→19:21)
[2017-09-06] MEDS: CYANOCOBALAMIN (B-12) 500mcg TABLET PO SCH (08:00)
[2017-09-06] MEDS: POLYETHYL GLYCOL 3350 17gm PACKET PO SCH (08:00)
--- NOTE | 2017-09-06 15:24 | Neuropsych Progress Note ---
[facility] Subjective Date: 09/06/17 - Sujective/Severity of Illness Medications: Acetaminophen (Tylenol Arthritis) 650 mg PO Q4H PRN PRN Reason: Pain Last Admin: 09/03/17 08:04 Dose: 650 mg Bisacodyl (Dulcolax) 10 mg RECTALLY DAILY PRN PRN Reason: Constipation Last Admin: 09/01/17 11:05 Dose: 10 mg Bisacodyl (Dulcolax) 5 mg PO BID PRN PRN Reason: Constipation Cyanocobalamin (Vit. B-12) 1,000 mcg PO DAILY [facility] Last Admin: 09/06/17 08:00 Dose: 1,000 mcg Ergocalciferol (Vitamin D-2) 50,000 unit PO Q7D [facility] Last Admin: 08/31/17 16:17 Dose: 50,000 unit Lorazepam (Ativan) 0.5 mg PO Q6H PRN PRN Reason: Extreme agitation Lorazepam (Ativan Intensol) 0.5 mg PO Q6H PRN Last Admin: 09/04/17 08:18 Dose: 0.5 mg Lorazepam (Ativan Inj) 0.5 mg IM Q6H PRN PRN Reason: Extreme agitation Last Admin: 09/05/17 19:45 Dose: 0.5 mg Magnesium Hydroxide (Mom) 30 ml PO PRN PRN PRN Reason: Constipation Memantine (Namenda) 10 mg PO HS [facility] Last Admin: 09/06/17 00:29 Dose: Not Given Polyethylene Glycol (Miralax) 17 gm PO DAILY [facility] Last Admin: 09/06/17 08:00 Dose: 17 gm Potassium Chloride (Micro-K 10 Meq Capsule) 10 meq PO WB [facility] Last Admin: 09/06/17 07:57 Dose: 10 meq Propranolol HCl (Inderal) 10 mg PO TID [facility] Last Admin: 09/06/17 14:50 Dose: 10 mg Senna/Docusate Sodium (Senna Plus Tablet) 2 tab PO BID PRN PRN Reason: Constipation Senna/Docusate Sodium (Senna Plus Tablet) 1 tab PO BID [facility] Last Admin: 09/06/17 08:00 Dose: 1 tab Subjective: Patient seen and chart reviewed. Care discussed with treatment team. Patient was sleeping during time of rounds so was not woken up as she has continued to be irritable and physically aggressive. She was given PRN Ativan IM in the evening due to agitation and aggression. Appetite continues to be limited. Patient slept 7.5 hours overnight. Discussed care with hospitalist; see their note for further info. I also spoke again with patient' son Bala in regards to her care. He agreed that we may re-challenge with antipsychotic to target behaviors. All questions answered to his satisfaction. Patient then called Bala as requested and spoke with him though nursing reports it was a lot of filler conversation ("Oh, I didn't know that") from her end. Start Time: 10:00 Stop Time: 10:20 Care: >50% of this visit spent in counseling/coordination care. (speaking with hospitalist, son re: patient care) Mental Status Exam Vitals: Last Vital Signs Temp 97.6 F 09/06/17 08:00 Pulse 96 09/06/17 08:00 Resp 18 09/06/17 08:00 BP 132/82 09/06/17 08:00 Pulse Ox 92 09/06/17 08:00 Height: 1.65 m Weight: 60.1 kg - Mental Status Exam Muscle Strength/Tone: Weak Dressing: Casual Grooming: Fair Attitude: Uncooperative Motor Activity: Retardation Eye Contact: Poor Speech: Slowed Volume: Soft Rhythm: Mumbled Orientation: Disoriented to time, Disoriented to place, Disoriented to situation , Oriented to person Mood: Irritable (Labile affect) Affect: Hostile Rate of Thoughts: Delayed Thought Organization: Disorganized, Confused Associations: Illogical Abstract Reasoning: Impaired, concrete Thought Content: Paranoia, Other (Out of context to situation) Perception/Psychotic: Other (Denies, does not appear to e responding to internal stimuli) Language: Naming Impaired Fund of Knowledge: Poor fund of knowledge Memory: Poor-immediate, Poor-recent, Poor-remote Suicidal Ideation: None Homicidal Ideation: None Insight: Impaired Judgement: Impaired Impulse Control: Poor - Laboratory Result Diagrams: 09/07/17 07:48 09/07/17 07:48 Assessment and Plan (1) Major neurocognitive disorder Problem details: Moderate, Alzheimer's type, with behavioral disturbance R/O Bipolar disorder, MRE manic Other medical conditions: Urinary retention with positive urinalysis in ER-will treat for UTI Hypernatremia-POA History of bladder cancer Vitamin D deficiency Irritable bowel syndrome Diverticulosis Chronic compression fracture T12 Osteopenia Current visit: Yes Status: Acute (2) Vitamin B12 deficiency Current visit: Yes Status: Acute Discussed multiple options for care; awaiting further decision by hospitalist then will consider re-challenging with antipsychotic. Hospital Course Summary Disclaimer: The visit summary below is not to be considered part of the above Progress Note. Hospital Course: Psych 08/25/17: Held Wellbutrin XL, Buspar, Viibryd due to suspected bipolar alexander. Psych 08/26/17: Patient seems to have improved slightly with discontinuation of all Wellbutrin XL, Buspar, Viibryd (upon admission). Currently taking seroquel 25mg PO BID and propranolol 10mg PO BID from home med list. Will add Depakote DR 250mg PO BID. Will additionally start Vitamin B12 1000mcg IM x 3 days then weekly for a month, then monthly thereafter. 08/27/2017- Psych- PT is irritable and labile at times but is redirectable. Will consider increase of Depakote tomorrow if tolerating well 08/28/2017 Psych- Pt remains irritable and impulsive at times. Increase Depakote to 250mg PO TID. 08/29/17 Psych: Continue current care as we await serotonergic agents to clear from blood given half-lives; discussed care with DPOA/daughter who is in agreement with treatment plan. Patient has hx of malignant neoplasm of bladder. Daughter states that no recent imaging has been done and is in agreement with sedating as necessary to obtain head CT. 08/30/17 Psych: Will switch Depakote to sprinkles 250mg PO TID for improved compliance, increase Seroquel to 25mg PO TID. May need to switch to Risperdal if urinary retention worsening. Recheck UA, will bladder scan BID and straight cath if necessary. Once patient has had compliance with Depakote x 3 days, can check trough VPA level and adjust to therapeutic level. 08/31/17-hospitalist Dr. Ramos had ordered a repeat urinalysis because patient continues to have behaviors and has had some urinary retention. She'd had a positive urinalysis on admission and was treated. Urinalysis performed last night was completely negative. She has had 3 doses of IM cyanocobalamin for borderline low B12 deficiency . Continue 1000 g cyanocobalamin a day. Recommend follow-up B12 level on outpatient basis. Patient medically stable. Chart reviewed. 08/31/17 Psych: Will collapse Depakote sprinkles to 250mg PO q AM and 500mg PO with dinner to increase adherence. Seroquel does not seem to be helpful and may be causing restlessness and urinary retention; will hold and monitor behavior for the time being. Stressed importance of adherence to Depakote to nursing staff. 09/01/17 Psych: Continue to focus on compliance with Depakote. Patient had BM with suppository, seems less irritable after this and with straight cathing PRN after bladder scans. Monitor mood, behavior and response to treatment. 09/02/17 Psych: Have ordered urgent labs: CBC, CMP, ammonia level, VPA level. Ordered urgent CT scan of abdomen/pelvis to f/u on hx of bladder cancer. Will hold VPA for now and monitor mentation, appetite. 09/03/17 Pt is lethargic with poor appetite. CT scan pending. Continue current care. Medical team following 09/04/17- Psych- Pt is a little more alert today. CT today. Ativan 0.5mg x 1 to help with obtaining CT. 09/05/17 Psych: Continue holding medications - will discuss further workup and medical treatment with hospitalist. Concern that there may be some underlying medical issues contributing to behaviors. Did not tolerate Depakote well in regards to appetite. Will await this discussion before making further med changes.
--- NOTE | 2017-09-06 16:32 | Progress Note ---
- Date 09/06/17 Subjective: Larry is seen while sitting in the day room, in a recliner. She is requiring 1: 1 nursing care due to increased behaviors today. Nursing reports that she has been hitting and trying to bite staff today. She is noted to be quite irritable on exam and refuses physical exam. She refuses to answer any direct questions, limiting exam. Nursing reports that her oral intake remains poor with decreased urinary output. She has required PRN medications (ativan) due to her behaviors. Dr. Ramos continues to provide psychiatric cares. Currently, all her psychiatric and unnecessary medications remain on hold. Family expresses concern that patient's symptoms may be related to unknown physial diagnosis. Reported history of bladder cancer given on admission, though family is unaware of such history. CT abdomen/pelvis obtained on 09/04/17 which revealed scattered nonspecific air-fluid levels which may be on the basis of enterocolitis as well as moderate compression deformity of T12 of uncertain age. Since the imaging study, nursing reports that the patient has had 2 large bowel movements with the aid of Dulcolax suppositories. Blood pressure remains elevated despite receiving home propranolol 10mg TID. Labs on 09/02/17 revealed stable CBC with hypernatremia (Na 148). Objective Vital signs: Temperature 97.8 F 09/06/17 15:33 Pulse Rate 61 09/06/17 15:33 Respiratory Rate 18 09/06/17 15:33 Blood Pressure 175/95 H 09/06/17 15:33 Pulse Oximetry 98 09/06/17 15:33 Height/Weight/BMI: Height 5 ft 5 in Weight 132 lb 7.965 oz Body Mass Index 23.8 Comments: Sitting in recliner in day room; requiring 1:1 care due to hitting/bitting. Refuses physical exam, limiting exam to observation only. - Constitutional Present: well developed, thin, agitated. Absent: cooperative - Routine HEENT Exam Head: Present: normocephalic, atraumatic - Routine Respiratory Exam Absent: respiratory distress - Routine Back/Spine/Pelvis Exam Back/Spine: Present: full ROM Comments: Patient moves easily without apparent discomfort; unable to assess T-spine given concern for T12 changes on CT. - Routine Musculoskeletal Exam Musculoskeletal: Present: moving extremities well - Routine Skin Exam Present: dry. Absent: jaundice - Routine Neurological Exam Present: alert, moving all extremities, hearing grossly intact Refuses to speak on exam. - Routine Psychiatric Exam Present: agitated Results - Labs CBC & Chem 7: 09/02/17 15:28 09/02/17 15:29 Assessment and Plan (1) Alzheimer's dementia with behavioral disturbance Current visit: Yes Status: Acute Assessment and Plan: Assessment Alzheimer's disease with behavioral disturbance Urinary retention with E. coli & Strep viridans UTI [id number] History of bladder cancer Borderline low B12 Vitamin D deficiency Irritable bowel syndrome Depression/anxiety Diverticulosis Chronic compression fracture T12 Osteopenia Plan - 09/06/17: Continue psychiatric care per Dr. Ramos. Continue to provide safe and supportive environment. Patient requiring 1:1 care due to aggressive behaviors. PRN medications as needed. Reported history of bladder cancer which family was unaware of prompting CT abdomen/pelvis on 09/04/17 which revealed scattered non-specific air-fluid levels as well as compression to T12 of unknown age. Since imaging, patient has had 2 large bowel movement with aid of Dulcolax. Continue bowel motivation. Oral intake remains poor - encourage oral intake, specifically fluids as patient is at risk for dehydration - hypernatremia 148 on 09/02/17. Recheck labs in AM to monitor blood counts, electrolytes and renal function. Need to discuss care plan wishes with family regarding IV placement for fluid resuscitation, though significant concern about patient's safety with IV placement. Resuscitation Status: Do Not Resuscitate - Time spent with patient Time with patient PN: 30 minutes - Physician Narrative Physician: Kamilla Bowers MD Narrative: Date: 09/06/17 Time: 2014 Abdomen/pelvic CT reviewed by myself and discussed with radiology-no renal pathology, large in the liver-appears benign; minor air-fluid levels in the colon and fecal mass in the rectum at the time the study was obtained suggestive of fecal impaction. Since the study was obtained the patient has had bowel movements. Laboratory data unremarkable other than mild hypernatremia and low B-12. Urinalysis on 08/30 and 09/06 unremarkable other than elevated specific gravity suggesting a she may be slightly dehydrated. Last chest x-ray was on 08/24 at which time it was unremarkable; oxygenating adequately but could entertain repeat chest x-ray to exclude aspiration or other acute pulmonary disease. Discussed with Dr. Ramos earlier today. Need better define patient's baseline and family goals. Hospital Course Summary Disclaimer: The visit summary below is not to be considered part of the above Progress Note. Hospital Course: Psych 08/25/17: Held Wellbutrin XL, Buspar, Viibryd due to suspected bipolar alexander. Psych 08/26/17: Patient seems to have improved slightly with discontinuation of all Wellbutrin XL, Buspar, Viibryd (upon admission). Currently taking seroquel 25mg PO BID and propranolol 10mg PO BID from home med list. Will add Depakote DR 250mg PO BID. Will additionally start Vitamin B12 1000mcg IM x 3 days then weekly for a month, then monthly thereafter. 08/27/2017- Psych- PT is irritable and labile at times but is redirectable. Will consider increase of Depakote tomorrow if tolerating well 08/28/2017 Psych- Pt remains irritable and impulsive at times. Increase Depakote to 250mg PO TID. 08/29/17 Psych: Continue current care as we await serotonergic agents to clear from blood given half-lives; discussed care with DPOA/daughter who is in agreement with treatment plan. Patient has hx of malignant neoplasm of bladder. Daughter states that no recent imaging has been done and is in agreement with sedating as necessary to obtain head CT. 08/30/17 Psych: Will switch Depakote to sprinkles 250mg PO TID for improved compliance, increase Seroquel to 25mg PO TID. May need to switch to Risperdal if urinary retention worsening. Recheck UA, will bladder scan BID and straight cath if necessary. Once patient has had compliance with Depakote x 3 days, can check trough VPA level and adjust to therapeutic level. 08/31/17-hospitalist Dr. Ramos had ordered a repeat urinalysis because patient continues to have behaviors and has had some urinary retention. She'd had a positive urinalysis on admission and was treated. Urinalysis performed last night was completely negative. She has had 3 doses of IM cyanocobalamin for borderline low B12 deficiency . Continue 1000 g cyanocobalamin a day. Recommend follow-up B12 level on outpatient basis. Patient medically stable. Chart reviewed. 08/31/17 Psych: Will collapse Depakote sprinkles to 250mg PO q AM and 500mg PO with dinner to increase adherence. Seroquel does not seem to be helpful and may be causing restlessness and urinary retention; will hold and monitor behavior for the time being. Stressed importance of adherence to Depakote to nursing staff. 09/01/17 Psych: Continue to focus on compliance with Depakote. Patient had BM with suppository, seems less irritable after this and with straight cathing PRN after bladder scans. Monitor mood, behavior and response to treatment. 09/02/17 Psych: Have ordered urgent labs: CBC, CMP, ammonia level, VPA level. Ordered urgent CT scan of abdomen/pelvis to f/u on hx of bladder cancer. Will hold VPA for now and monitor mentation, appetite. 09/03/17 Pt is lethargic with poor appetite. CT scan pending. Continue current care. Medical team following 09/04/17- Psych- Pt is a little more alert today. CT today. Ativan 0.5mg x 1 to help with obtaining CT. 09/05/17 Psych: Continue holding medications - will discuss further workup and medical treatment with hospitalist. Concern that there may be some underlying medical issues contributing to behaviors. Did not tolerate Depakote well in regards to appetite. Will await this discussion before making further med changes. Plan - 09/06/17: Continue psychiatric care per Dr. Ramos. Continue to provide safe and supportive environment. Patient requiring 1:1 care due to aggressive behaviors. PRN medications as needed. Reported history of bladder cancer which family was unaware of prompting CT abdomen/pelvis on 09/04/17 which revealed scattered non-specific air-fluid levels as well as compression to T12 of unknown age. Since imaging, patient has had 2 large bowel movement with aid of Dulcolax. Continue bowel motivation. Oral intake remains poor - encourage oral intake, specifically fluids as patient is at risk for dehydration - hypernatremia 148 on 09/02/17. Recheck labs in AM to monitor blood counts, electrolytes and renal function. Need to discuss care plan wishes with family regarding IV placement for fluid resuscitation, though significant concern about patient's safety with IV placement.
[2017-09-07] MEDS: MEMANTINE 10 MG TABLET PO SCH ×3 (04:59→21:38)
[2017-09-07] MEDS: PROPRANOLOL 10 MG TABLET PO SCH ×6 (04:59→21:39)
[2017-09-07] MEDS: SENNA + DOCUSATE TABLET PO SCH ×5 (04:59→21:39)
[2017-09-07] MEDS: POLYETHYL GLYCOL 3350 17gm PACKET PO SCH (08:42)
[2017-09-07] MEDS: CYANOCOBALAMIN (B-12) 500mcg TABLET PO SCH (08:43)
--- NOTE | 2017-09-07 13:42 | Progress Note ---
<Holly Hendrickson - Last Filed: 09/07/17 13:30> Progress Note: Padma Urbina, patient's daughter, was contacted to review the patient's current status with regard to recent improvement in behaviors as well as recent labs and imaging results. She reported that shortly prior to the patient being admitted to [facility] she was "very with it" and would "read a book a day" and speak acalculically. She did admit that the patient would have periods of confusion and would become very agitated when she was confused, which had recently increased in frequency. Due to her increased agitation and confusion, her primary doctor had increased her Seroquel dose. Despite the increased seroquel dosing, the patient' behaviors continued to escalate resulting in her admission to [facility]. Today, nursing reports that her behaviors are significantly improved with decreased agitation and increased eating and drinking. Discussed with Padma the family's wishes with regard to future cares including IV placement, IV hydration, possible PEG placement in the event of an infection or need for hydration/nutrition. Padma states that she needs to address the possible scenarios regarding cares with her brother and does not feel able to make these decisions now that she is doing better. Will continue to monitor the patient closely with regard to behaviors. Currently medically stable. <Kamilla Bowers - Last Filed: 09/07/17 20:08> Progress Note: 09/07/171954 I have independently evaluated and examined this patient. I reviewed the chart, the patient's history, and the [employer]/PA's documented findings as above. We discussed and formulated the assessment and plan as above with additions as below: Mrs. Smith was seen earlier this evening while she was attempting to get out of bed independently; she was initially unsteady and appeared lightheaded but with assistance of 2-3 nurses and myself she ambulated from her room to the day room talking with us pleasantly as she walked. Gait was relatively steady although she tends to lean forward and take shuffling steps. Patient denied any discomfort or dyspnea and reported she had eaten dinner earlier and denied nausea or hunger at this time. She allowed me to examine her briefly including auscultation of lung chew anteriorly which were clear although breath sounds are diminished throughout, cardiac rhythm regular. Gaze is conjugate and she maintained good eye contact. Sclera are anicteric and conjunctiva clear. Skin tear present on left forearm. The patient was pleasant throughout my interaction with her and no aggressive behavior was demonstrated. Chest x-ray reviewed by myself-hypoventilation without focal infiltrates. Laboratory data unremarkable other than mild hypernatremia with sodium 147 and BUN 34 Assessment Alzheimer's disease with behavioral disturbance Urinary retention with E. coli & Strep viridans UTI Hypernatremia-POA Borderline low B-12 Chronic compression fracture T12 Constipation/fecal impaction-resolved Plan Clinically improved from prior interactions; family discussion earlier as previously documented by Holly. Irritability and agitation described earlier by staff. BUN is up slightly from prior labs consistent with mild dehydration-encourage by mouth intake as I don't believe an IV access could be safely maintained to give a liter of fluids.
--- NOTE | 2017-09-07 14:30 | XRay Report ---
EXAM: XR chest 1V HISTORY: decreased breath sounds COMPARISON: Prior examination dated 08/24/2017 FINDINGS: The lung chew are hypoventilated. There are increased interstitial markings at the lung bases. This likely represents linear subsegmental atelectasis. No acute focal infiltrates are identified. The cardiomediastinal silhouette is normal. The mediastinum is not widened. The trachea is midline. The pulmonary vascularity is not engorged. The costophrenic angles are sharp. There is no evidence of pneumothorax or pleural effusion. The bony thorax is stable. IMPRESSION: 1. The lung chew are hypoventilated showing bibasilar linear subsegmental atelectasis. 2. No acute focal infiltrates are identified. .
[2017-09-07] MEDS: LORazepam 1 MG TABLET PO PRN (15:20)
--- NOTE | 2017-09-07 15:27 | Neuropsych Progress Note ---
[facility] Subjective Date: 09/07/17 - Sujective/Severity of Illness Medications: Acetaminophen (Tylenol Arthritis) 650 mg PO Q4H PRN PRN Reason: Pain Last Admin: 09/03/17 08:04 Dose: 650 mg Bisacodyl (Dulcolax) 10 mg RECTALLY DAILY PRN PRN Reason: Constipation Last Admin: 09/01/17 11:05 Dose: 10 mg Bisacodyl (Dulcolax) 5 mg PO BID PRN PRN Reason: Constipation Cyanocobalamin (Vit. B-12) 1,000 mcg PO DAILY [facility] Last Admin: 09/07/17 08:43 Dose: 1,000 mcg Ergocalciferol (Vitamin D-2) 50,000 unit PO Q7D [facility] Last Admin: 08/31/17 16:17 Dose: 50,000 unit Lorazepam (Ativan) 0.5 mg PO Q6H PRN PRN Reason: Extreme agitation Lorazepam (Ativan Intensol) 0.5 mg PO Q6H PRN Last Admin: 09/04/17 08:18 Dose: 0.5 mg Lorazepam (Ativan Inj) 0.5 mg IM Q6H PRN PRN Reason: Extreme agitation Last Admin: 09/06/17 19:35 Dose: 0.5 mg Magnesium Hydroxide (Mom) 30 ml PO PRN PRN PRN Reason: Constipation Memantine (Namenda) 10 mg PO HS [facility] Last Admin: 09/07/17 04:59 Dose: Not Given Polyethylene Glycol (Miralax) 17 gm PO DAILY [facility] Last Admin: 09/07/17 08:42 Dose: 17 gm Potassium Chloride (Micro-K 10 Meq Capsule) 10 meq PO WB [facility] Last Admin: 09/07/17 08:54 Dose: Not Given Propranolol HCl (Inderal) 10 mg PO TID [facility] Last Admin: 09/07/17 08:54 Dose: Not Given Senna/Docusate Sodium (Senna Plus Tablet) 2 tab PO BID PRN PRN Reason: Constipation Senna/Docusate Sodium (Senna Plus Tablet) 1 tab PO BID [facility] Last Admin: 09/07/17 08:54 Dose: Not Given Subjective: Patient seen and chart reviewed. Care discussed with treatment team. Patient was sitting in recliner in dayroom today and was at least willing to engage in conversation with me though she was confused. She was not able to answer her mood and said, "I don't know." She was able to name her 3 children and asked me where her son was at. At times, she has continued to be irritable and physically aggressive though this is now intermittent. She was given PRN Ativan IM in the evening due to agitation and aggression. Appetite continues to be limited but improved from previous. Patient slept 9.5 hours overnight. also spoke again with patient' son Bala in regards to her care. Discussed discrepancy in what family was reporting vs. facility prior to admission. For example, they felt patient was reading a book a day and "very with it" but were never present at the facility to verify that what she was saying was true. No one observed what book she was reading, when she changed them, checked for comprehension, etc. They just knew she liked to read in her room each day. Discussed her tendency to make filler statements in conversation without true content. Family plans to have a discussion about what interventions they would like and a re-trial of Risperdal. Start Time: 10:00 Stop Time: 10:20 Care: >50% of this visit spent in counseling/coordination care. (conversation with sheela Mckenna re: care) Mental Status Exam Vitals: Last Vital Signs Temp 97.1 F 09/07/17 08:00 Pulse 90 09/07/17 08:00 Resp 16 09/07/17 08:00 BP 142/93 H 09/07/17 08:00 Pulse Ox 96 09/07/17 08:00 Height: 1.65 m Weight: 60.1 kg - Mental Status Exam Muscle Strength/Tone: Weak Dressing: Casual Grooming: Fair Attitude: Combative (intermittent) Motor Activity: Retardation Eye Contact: Poor Speech: Slowed Volume: Soft Rhythm: Mumbled Orientation: Disoriented to time, Disoriented to place, Disoriented to situation , Oriented to person Mood: Irritable (improved from previous, still exhibits mood lability) Rate of Thoughts: Delayed Thought Organization: Disorganized, Confused Associations: Illogical Abstract Reasoning: Impaired, concrete Thought Content: Other (Out of context to situation) Perception/Psychotic: Other (Denies, does not appear to be responding to internal stimuli) Language: Naming Impaired Fund of Knowledge: Poor fund of knowledge Memory: Poor-immediate, Poor-recent, Poor-remote Suicidal Ideation: None Homicidal Ideation: None Insight: Impaired Judgement: Impaired Impulse Control: Poor - Laboratory Result Diagrams: 09/07/17 07:48 09/07/17 07:48 Laboratory Results - last 24 hr 09/06/17 09/07/17 09/07/17 17:03 07:48 07:48 WBC 7.0 RBC 4.33 Hgb 13.1 Hct 39.9 MCV 92.1 MCH 30.3 MCHC 32.8 RDW Std Deviation 39.4 Plt Count 135 MPV 10.9 Immature Gran % (Auto) 0.3 Neut % (Auto) 60.1 Lymph % (Auto) 27.6 [place] % (Auto) 9.1 H Eos % (Auto) 2.6 Baso % (Auto) 0.3 Neut # (Auto) 4.2 Lymph # (Auto) 1.9 [place] # (Auto) 0.6 Eos # (Auto) 0.2 Baso # (Auto) 0.0 Abs Immat Gran (auto) 0.02 Turbidity < 20 Sodium 147 H Potassium 4.0 Chloride 109 H Carbon Dioxide 30 Anion Gap 8 BUN 34.0 H Creatinine 0.8 GFR Calculation 69 BUN/Creatinine Ratio 43 H Glucose 115 H Calculated Osmolality 291 H Calcium 9.8 Icterus Index < 2 Specimen Hemolysis < 15 Ur Collection Type Urine, cath straight Urine Color Yellow Urine Clarity Clear Urine pH 5.5 Ur Specific [place] >=1.030 H Urine Protein Trace A Urine Glucose (UA) Negative Urine Ketones Trace A Urine Occult Blood Negative Urine Nitrate Negative Urine Bilirubin Negative Urine Urobilinogen 0.2 Ur Leukocyte Esterase Negative Urinalysis Comment Microscopic not ind. Assessment and Plan (1) Major neurocognitive disorder Problem details: Moderate, Alzheimer's type, with behavioral disturbance R/O Bipolar disorder, MRE manic Other medical conditions: Urinary retention with positive urinalysis in ER-will treat for UTI Hypernatremia-POA History of bladder cancer Vitamin D deficiency Irritable bowel syndrome Diverticulosis Chronic compression fracture T12 Osteopenia Current visit: Yes Status: Acute (2) Vitamin B12 deficiency Current visit: Yes Status: Acute Son Bala to discuss trial of Risperdal with family. Patient will need memory care after d/c. Hospital Course Summary Disclaimer: The visit summary below is not to be considered part of the above Progress Note. Hospital Course: Psych 08/25/17: Held Wellbutrin XL, Buspar, Viibryd due to suspected bipolar alexander. Psych 08/26/17: Patient seems to have improved slightly with discontinuation of all Wellbutrin XL, Buspar, Viibryd (upon admission). Currently taking seroquel 25mg PO BID and propranolol 10mg PO BID from home med list. Will add Depakote DR 250mg PO BID. Will additionally start Vitamin B12 1000mcg IM x 3 days then weekly for a month, then monthly thereafter. 08/27/2017- Psych- PT is irritable and labile at times but is redirectable. Will consider increase of Depakote tomorrow if tolerating well 08/28/2017 Psych- Pt remains irritable and impulsive at times. Increase Depakote to 250mg PO TID. 08/29/17 Psych: Continue current care as we await serotonergic agents to clear from blood given half-lives; discussed care with DPOA/daughter who is in agreement with treatment plan. Patient has hx of malignant neoplasm of bladder. Daughter states that no recent imaging has been done and is in agreement with sedating as necessary to obtain head CT. 08/30/17 Psych: Will switch Depakote to sprinkles 250mg PO TID for improved compliance, increase Seroquel to 25mg PO TID. May need to switch to Risperdal if urinary retention worsening. Recheck UA, will bladder scan BID and straight cath if necessary. Once patient has had compliance with Depakote x 3 days, can check trough VPA level and adjust to therapeutic level. 08/31/17-hospitalist Dr. Ramos had ordered a repeat urinalysis because patient continues to have behaviors and has had some urinary retention. She'd had a positive urinalysis on admission and was treated. Urinalysis performed last night was completely negative. She has had 3 doses of IM cyanocobalamin for borderline low B12 deficiency . Continue 1000 g cyanocobalamin a day. Recommend follow-up B12 level on outpatient basis. Patient medically stable. Chart reviewed. 08/31/17 Psych: Will collapse Depakote sprinkles to 250mg PO q AM and 500mg PO with dinner to increase adherence. Seroquel does not seem to be helpful and may be causing restlessness and urinary retention; will hold and monitor behavior for the time being. Stressed importance of adherence to Depakote to nursing staff. 09/01/17 Psych: Continue to focus on compliance with Depakote. Patient had BM with suppository, seems less irritable after this and with straight cathing PRN after bladder scans. Monitor mood, behavior and response to treatment. 09/02/17 Psych: Have ordered urgent labs: CBC, CMP, ammonia level, VPA level. Ordered urgent CT scan of abdomen/pelvis to f/u on hx of bladder cancer. Will hold VPA for now and monitor mentation, appetite. 09/03/17 Pt is lethargic with poor appetite. CT scan pending. Continue current care. Medical team following 09/04/17- Psych- Pt is a little more alert today. CT today. Ativan 0.5mg x 1 to help with obtaining CT. 09/05/17 Psych: Continue holding medications - will discuss further workup and medical treatment with hospitalist. Concern that there may be some underlying medical issues contributing to behaviors. Did not tolerate Depakote well in regards to appetite. Will await this discussion before making further med changes. 09/07/17 Psych: Son Bala to discuss trial of Risperdal with family. Patient will need memory care after d/c.
[2017-09-07] MEDS: ERGOCALCIFEROL 50,000 UNIT CAPSULE PO SCH (15:46)
[2017-09-08] MEDS: LORazepam 1 MG TABLET PO PRN (08:35)
[2017-09-08] MEDS: CYANOCOBALAMIN (B-12) 500mcg TABLET PO SCH ×2 (12:06→15:21)
[2017-09-08] MEDS: PROPRANOLOL 10 MG TABLET PO SCH ×3 (12:06→20:07)
[2017-09-08] MEDS: SENNA + DOCUSATE TABLET PO SCH ×3 (12:06→20:47)
[2017-09-08] MEDS: POLYETHYL GLYCOL 3350 17gm PACKET PO SCH ×2 (12:06→15:20)
--- NOTE | 2017-09-08 15:15 | Neuropsych Progress Note ---
[facility] Subjective Date: 09/08/17 - Sujective/Severity of Illness Medications: Acetaminophen (Tylenol Arthritis) 650 mg PO Q4H PRN PRN Reason: Pain Last Admin: 09/07/17 19:45 Dose: 650 mg Bisacodyl (Dulcolax) 10 mg RECTALLY DAILY PRN PRN Reason: Constipation Last Admin: 09/01/17 11:05 Dose: 10 mg Bisacodyl (Dulcolax) 5 mg PO BID PRN PRN Reason: Constipation Cyanocobalamin (Vit. B-12) 1,000 mcg PO DAILY [facility] Last Admin: 09/08/17 12:06 Dose: 1,000 mcg Ergocalciferol (Vitamin D-2) 50,000 unit PO Q7D [facility] Last Admin: 09/07/17 15:46 Dose: Not Given Lorazepam (Ativan) 0.5 mg PO Q6H PRN PRN Reason: Extreme agitation Last Admin: 09/08/17 08:35 Dose: 0.5 mg Lorazepam (Ativan Intensol) 0.5 mg PO Q6H PRN Last Admin: 09/04/17 08:18 Dose: 0.5 mg Lorazepam (Ativan Inj) 0.5 mg IM Q6H PRN PRN Reason: Extreme agitation Last Admin: 09/06/17 19:35 Dose: 0.5 mg Magnesium Hydroxide (Mom) 30 ml PO PRN PRN PRN Reason: Constipation Memantine (Namenda) 10 mg PO HS [facility] Last Admin: 09/07/17 21:38 Dose: Not Given Polyethylene Glycol (Miralax) 17 gm PO DAILY [facility] Last Admin: 09/08/17 12:06 Dose: 17 gm Potassium Chloride (Micro-K 10 Meq Capsule) 10 meq PO WB [facility] Last Admin: 09/08/17 12:06 Dose: 10 meq Propranolol HCl (Inderal) 10 mg PO TID [facility] Last Admin: 09/08/17 12:06 Dose: 10 mg Senna/Docusate Sodium (Senna Plus Tablet) 2 tab PO BID PRN PRN Reason: Constipation Senna/Docusate Sodium (Senna Plus Tablet) 1 tab PO BID [facility] Last Admin: 09/08/17 12:06 Dose: 1 tab Subjective: Patient seen and chart reviewed. Care discussed with treatment team. Patient sleeping during time of rounds. Patient has reportedly been more cooperative, redirectable with short outbursts over past 24 hours. Last reported aggression was yesterday AM with lab draw and she has been cooperative with straight caths since. Appetite continues to be limited. Adherence with meds has been variable. Patient slept 8.5 hours overnight. No psychotropic PRNs required in past 24 hours. VSS. Start Time: 13:00 Stop Time: 13:20 Mental Status Exam Vitals: Last Vital Signs Temp 97.9 F 09/08/17 08:00 Pulse 84 09/08/17 08:00 Resp 18 09/08/17 08:00 BP 131/77 09/08/17 08:00 Pulse Ox 94 09/08/17 08:00 Height: 1.65 m Weight: 54.7 kg - Mental Status Exam Muscle Strength/Tone: Weak Dressing: Casual Grooming: Fair Attitude: Cooperative (intermittent) Motor Activity: Retardation Eye Contact: Poor Speech: Slowed Volume: Soft Rhythm: Mumbled Orientation: Disoriented to time, Disoriented to place, Disoriented to situation , Oriented to person Mood: Irritable (mood lability improving) Rate of Thoughts: Delayed Thought Organization: Disorganized, Confused Associations: Illogical Abstract Reasoning: Impaired, concrete Thought Content: Other (Out of context to situation) Perception/Psychotic: Other (Denies, does not appear to be responding to internal stimuli) Language: Naming Impaired Fund of Knowledge: Poor fund of knowledge Memory: Poor-immediate, Poor-recent, Poor-remote Suicidal Ideation: None Homicidal Ideation: None Insight: Impaired Judgement: Impaired Impulse Control: Poor (though improving) - Laboratory Result Diagrams: 09/07/17 07:48 09/07/17 07:48 Assessment and Plan (1) Major neurocognitive disorder Problem details: Moderate, Alzheimer's type, with behavioral disturbance R/O Bipolar disorder, MRE manic Other medical conditions: Urinary retention with positive urinalysis in ER-will treat for UTI Hypernatremia-POA History of bladder cancer Vitamin D deficiency Irritable bowel syndrome Diverticulosis Chronic compression fracture T12 Osteopenia Current visit: Yes Status: Acute (2) Vitamin B12 deficiency Current visit: Yes Status: Acute Continue current care; patient continues to improve leading me to wander how much of this was a hyperactive delirium vs. psychiatric cause of agitation ( could also be manic episode resolving). Will monitor for another day before changing meds as she is showing improvement on current regimen. Hospital Course Summary Disclaimer: The visit summary below is not to be considered part of the above Progress Note. Hospital Course: Psych 08/25/17: Held Wellbutrin XL, Buspar, Viibryd due to suspected bipolar alexander. Psych 08/26/17: Patient seems to have improved slightly with discontinuation of all Wellbutrin XL, Buspar, Viibryd (upon admission). Currently taking seroquel 25mg PO BID and propranolol 10mg PO BID from home med list. Will add Depakote DR 250mg PO BID. Will additionally start Vitamin B12 1000mcg IM x 3 days then weekly for a month, then monthly thereafter. 08/27/2017- Psych- PT is irritable and labile at times but is redirectable. Will consider increase of Depakote tomorrow if tolerating well 08/28/2017 Psych- Pt remains irritable and impulsive at times. Increase Depakote to 250mg PO TID. 08/29/17 Psych: Continue current care as we await serotonergic agents to clear from blood given half-lives; discussed care with DPOA/daughter who is in agreement with treatment plan. Patient has hx of malignant neoplasm of bladder. Daughter states that no recent imaging has been done and is in agreement with sedating as necessary to obtain head CT. 08/30/17 Psych: Will switch Depakote to sprinkles 250mg PO TID for improved compliance, increase Seroquel to 25mg PO TID. May need to switch to Risperdal if urinary retention worsening. Recheck UA, will bladder scan BID and straight cath if necessary. Once patient has had compliance with Depakote x 3 days, can check trough VPA level and adjust to therapeutic level. 08/31/17-hospitalist Dr. Ramos had ordered a repeat urinalysis because patient continues to have behaviors and has had some urinary retention. She'd had a positive urinalysis on admission and was treated. Urinalysis performed last night was completely negative. She has had 3 doses of IM cyanocobalamin for borderline low B12 deficiency . Continue 1000 g cyanocobalamin a day. Recommend follow-up B12 level on outpatient basis. Patient medically stable. Chart reviewed. 08/31/17 Psych: Will collapse Depakote sprinkles to 250mg PO q AM and 500mg PO with dinner to increase adherence. Seroquel does not seem to be helpful and may be causing restlessness and urinary retention; will hold and monitor behavior for the time being. Stressed importance of adherence to Depakote to nursing staff. 09/01/17 Psych: Continue to focus on compliance with Depakote. Patient had BM with suppository, seems less irritable after this and with straight cathing PRN after bladder scans. Monitor mood, behavior and response to treatment. 09/02/17 Psych: Have ordered urgent labs: CBC, CMP, ammonia level, VPA level. Ordered urgent CT scan of abdomen/pelvis to f/u on hx of bladder cancer. Will hold VPA for now and monitor mentation, appetite. 09/03/17 Pt is lethargic with poor appetite. CT scan pending. Continue current care. Medical team following 09/04/17- Psych- Pt is a little more alert today. CT today. Ativan 0.5mg x 1 to help with obtaining CT. 09/05/17 Psych: Continue holding medications - will discuss further workup and medical treatment with hospitalist. Concern that there may be some underlying medical issues contributing to behaviors. Did not tolerate Depakote well in regards to appetite. Will await this discussion before making further med changes. 09/07/17 Psych: Son Bala to discuss trial of Risperdal with family. Patient will need memory care after d/c. 09/08/17 Psych: Continue current care; patient continues to improve leading me to wander how much of this was a hyperactive delirium vs. psychiatric cause of agitation (could also be manic episode resolving). Will monitor for another day before changing meds as she is showing improvement on current regimen.
[2017-09-08] MEDS: MEMANTINE 10 MG TABLET PO SCH (20:07)
[2017-09-08] MEDS: LORazepam INTENSOL 1mg/0.5ml ORAL LIQUID PO PRN (20:08)
[2017-09-09] MEDS: PROPRANOLOL 10 MG TABLET PO SCH ×3 (09:51→22:26)
[2017-09-09] MEDS: CYANOCOBALAMIN (B-12) 500mcg TABLET PO SCH (09:51)
[2017-09-09] MEDS: SENNA + DOCUSATE TABLET PO SCH ×2 (09:51→22:26)
[2017-09-09] MEDS: LORazepam 1 MG TABLET PO PRN (09:55)
--- NOTE | 2017-09-09 14:32 | Progress Note ---
Progress Note: Patient exhibiting more urinary retention. Start Flomax this evening. Check CBC , BMP, UA.
[2017-09-09] MEDS: POLYETHYL GLYCOL 3350 17gm PACKET PO SCH (14:55)
--- NOTE | 2017-09-09 16:35 | Neuropsych Progress Note ---
[facility] Subjective Date: 09/09/17 - Sujective/Severity of Illness Medications: Acetaminophen (Tylenol Arthritis) 650 mg PO Q4H PRN PRN Reason: Pain Last Admin: 09/09/17 15:14 Dose: 650 mg Bisacodyl (Dulcolax) 10 mg RECTALLY DAILY PRN PRN Reason: Constipation Last Admin: 09/01/17 11:05 Dose: 10 mg Bisacodyl (Dulcolax) 5 mg PO BID PRN PRN Reason: Constipation Cyanocobalamin (Vit. B-12) 1,000 mcg PO DAILY [facility] Last Admin: 09/09/17 09:51 Dose: 1,000 mcg Ergocalciferol (Vitamin D-2) 50,000 unit PO Q7D [facility] Last Admin: 09/07/17 15:46 Dose: Not Given Lorazepam (Ativan) 0.5 mg PO Q6H PRN PRN Reason: Extreme agitation Last Admin: 09/09/17 09:55 Dose: 0.5 mg Lorazepam (Ativan Intensol) 0.5 mg PO Q6H PRN Last Admin: 09/08/17 20:08 Dose: 0.5 mg Lorazepam (Ativan Inj) 0.5 mg IM Q6H PRN PRN Reason: Extreme agitation Last Admin: 09/06/17 19:35 Dose: 0.5 mg Magnesium Hydroxide (Mom) 30 ml PO PRN PRN PRN Reason: Constipation Memantine (Namenda) 10 mg PO HS [facility] Last Admin: 09/08/17 20:07 Dose: 10 mg Polyethylene Glycol (Miralax) 17 gm PO DAILY [facility] Last Admin: 09/09/17 14:55 Dose: Not Given Potassium Chloride (Micro-K 10 Meq Capsule) 10 meq PO WB [facility] Last Admin: 09/09/17 08:00 Dose: 10 meq Propranolol HCl (Inderal) 10 mg PO TID [facility] Last Admin: 09/09/17 15:12 Dose: 10 mg Risperidone (Risperdal) 0.25 mg PO [facility] Last Admin: 09/09/17 15:12 Dose: 0.25 mg Senna/Docusate Sodium (Senna Plus Tablet) 2 tab PO BID PRN PRN Reason: Constipation Senna/Docusate Sodium (Senna Plus Tablet) 1 tab PO BID [facility] Last Admin: 09/09/17 09:51 Dose: 1 tab Tamsulosin HCl (Flomax) 0.4 mg PO HS [facility] Subjective: Patient seen and chart reviewed. Care discussed with treatment team. Patient sleeping during time of rounds. Patient is intermittently cooperative and overall improved from admission, though still sometimes has outbursts and can become combative. Has had Ativan Intensol 0.5mg PO PRN x2 in past 24 hours for such. Continuing to need straight cath. Appetite continues to be limited. Adherence with meds has been variable. Patient slept well overnight. VSS. Family and I agreed to re-challenge antipsychotics but patient responded very poorly to Risperdal 0.25mg PO with increased agitation and inability for nursing staff to redirect. Start Time: 12:00 Stop Time: 12:20 Mental Status Exam Vitals: Last Vital Signs Temp 97.5 F 09/09/17 16:00 Pulse 82 09/09/17 16:00 Resp 16 09/09/17 16:00 BP 123/76 09/09/17 16:00 Pulse Ox 97 09/09/17 16:00 Height: 1.65 m Weight: 54.7 kg - Mental Status Exam Muscle Strength/Tone: Weak Dressing: Casual Grooming: Fair Attitude: Cooperative (intermittent) Motor Activity: Retardation Eye Contact: Poor Speech: Slowed Volume: Soft Rhythm: Mumbled Orientation: Disoriented to time, Disoriented to place, Disoriented to situation , Oriented to person Mood: Irritable (mood lability improving) Rate of Thoughts: Delayed Thought Organization: Disorganized, Confused Associations: Illogical Abstract Reasoning: Impaired, concrete Thought Content: Other (Out of context to situation) Perception/Psychotic: Other (Denies, does not appear to be responding to internal stimuli) Language: Naming Impaired Fund of Knowledge: Poor fund of knowledge Memory: Poor-immediate, Poor-recent, Poor-remote Suicidal Ideation: None Homicidal Ideation: None Insight: Impaired Judgement: Impaired Impulse Control: Poor (though improving) - Laboratory Result Diagrams: 09/09/17 11:55 09/09/17 11:55 Laboratory Results - last 24 hr 09/09/17 09/09/17 11:55 11:55 WBC 6.3 RBC 4.29 Hgb 13.0 Hct 39.4 MCV 91.8 MCH 30.3 MCHC 33.0 RDW Std Deviation 39.3 Plt Count 149 MPV 10.8 Immature Gran % (Auto) 0.2 Neut % (Auto) 58.8 Lymph % (Auto) 29.5 [place] % (Auto) 8.1 Eos % (Auto) 2.9 Baso % (Auto) 0.5 Neut # (Auto) 3.7 Lymph # (Auto) 1.9 [place] # (Auto) 0.5 Eos # (Auto) 0.2 Baso # (Auto) 0.0 Abs Immat Gran (auto) 0.01 Turbidity < 20 Sodium 144 Potassium 3.9 Chloride 106 Carbon Dioxide 29 Anion Gap 9 BUN 24.0 H Creatinine 0.9 GFR Calculation 60 BUN/Creatinine Ratio 27 H Glucose 160 H Calculated Osmolality 284 H Calcium 9.3 Icterus Index < 2 Specimen Hemolysis < 15 Assessment and Plan (1) Major neurocognitive disorder Problem details: Moderate, Alzheimer's type, with behavioral disturbance R/O Bipolar disorder, MRE manic Other medical conditions: Urinary retention with positive urinalysis in ER-will treat for UTI Hypernatremia-POA History of bladder cancer Vitamin D deficiency Irritable bowel syndrome Diverticulosis Chronic compression fracture T12 Osteopenia Current visit: Yes Status: Acute (2) Vitamin B12 deficiency Current visit: Yes Status: Acute Patient is not able to tolerate antipsychotics; will completely discontinue scheduled and PRNs. May consider use of gabapentin or carbamazepine as mood stabilizers as she did not tolerate Depakote either. Hospital Course Summary Disclaimer: The visit summary below is not to be considered part of the above Progress Note. Hospital Course: Psych 08/25/17: Held Wellbutrin XL, Buspar, Viibryd due to suspected bipolar alexander. Psych 08/26/17: Patient seems to have improved slightly with discontinuation of all Wellbutrin XL, Buspar, Viibryd (upon admission). Currently taking seroquel 25mg PO BID and propranolol 10mg PO BID from home med list. Will add Depakote DR 250mg PO BID. Will additionally start Vitamin B12 1000mcg IM x 3 days then weekly for a month, then monthly thereafter. 08/27/2017- Psych- PT is irritable and labile at times but is redirectable. Will consider increase of Depakote tomorrow if tolerating well 08/28/2017 Psych- Pt remains irritable and impulsive at times. Increase Depakote to 250mg PO TID. 08/29/17 Psych: Continue current care as we await serotonergic agents to clear from blood given half-lives; discussed care with DPOA/daughter who is in agreement with treatment plan. Patient has hx of malignant neoplasm of bladder. Daughter states that no recent imaging has been done and is in agreement with sedating as necessary to obtain head CT. 08/30/17 Psych: Will switch Depakote to sprinkles 250mg PO TID for improved compliance, increase Seroquel to 25mg PO TID. May need to switch to Risperdal if urinary retention worsening. Recheck UA, will bladder scan BID and straight cath if necessary. Once patient has had compliance with Depakote x 3 days, can check trough VPA level and adjust to therapeutic level. 08/31/17-hospitalist Dr. Ramos had ordered a repeat urinalysis because patient continues to have behaviors and has had some urinary retention. She'd had a positive urinalysis on admission and was treated. Urinalysis performed last night was completely negative. She has had 3 doses of IM cyanocobalamin for borderline low B12 deficiency . Continue 1000 g cyanocobalamin a day. Recommend follow-up B12 level on outpatient basis. Patient medically stable. Chart reviewed. 08/31/17 Psych: Will collapse Depakote sprinkles to 250mg PO q AM and 500mg PO with dinner to increase adherence. Seroquel does not seem to be helpful and may be causing restlessness and urinary retention; will hold and monitor behavior for the time being. Stressed importance of adherence to Depakote to nursing staff. 09/01/17 Psych: Continue to focus on compliance with Depakote. Patient had BM with suppository, seems less irritable after this and with straight cathing PRN after bladder scans. Monitor mood, behavior and response to treatment. 09/02/17 Psych: Have ordered urgent labs: CBC, CMP, ammonia level, VPA level. Ordered urgent CT scan of abdomen/pelvis to f/u on hx of bladder cancer. Will hold VPA for now and monitor mentation, appetite. 09/03/17 Pt is lethargic with poor appetite. CT scan pending. Continue current care. Medical team following 09/04/17- Psych- Pt is a little more alert today. CT today. Ativan 0.5mg x 1 to help with obtaining CT. 09/05/17 Psych: Continue holding medications - will discuss further workup and medical treatment with hospitalist. Concern that there may be some underlying medical issues contributing to behaviors. Did not tolerate Depakote well in regards to appetite. Will await this discussion before making further med changes. 09/07/17 Psych: Son Bala to discuss trial of Risperdal with family. Patient will need memory care after d/c. 09/08/17 Psych: Continue current care; patient continues to improve leading me to wander how much of this was a hyperactive delirium vs. psychiatric cause of agitation (could also be manic episode resolving). Will monitor for another day before changing meds as she is showing improvement on current regimen. 09/09/17 Psych: Patient is not able to tolerate antipsychotics (responded very poorly to Risperdal 0.25mg); will completely discontinue scheduled and PRNs. May consider use of gabapentin or carbamazepine as mood stabilizers as she did not tolerate Depakote either.
[2017-09-09] MEDS: MEMANTINE 10 MG TABLET PO SCH (22:26)
[2017-09-09] MEDS: TAMSULOSIN 0.4 MG CAPSULE PO SCH (22:29)
[2017-09-10] MEDS: CYANOCOBALAMIN (B-12) 500mcg TABLET PO SCH (08:47)
[2017-09-10] MEDS: PROPRANOLOL 10 MG TABLET PO SCH ×3 (08:47→20:16)
[2017-09-10] MEDS: SENNA + DOCUSATE TABLET PO SCH ×2 (08:47→20:16)
[2017-09-10] MEDS: POLYETHYL GLYCOL 3350 17gm PACKET PO SCH (08:47)
--- NOTE | 2017-09-10 09:09 | Progress Note ---
Progress Note: Start Keflex for UTI. Pt with increasing urinary retention and positive UA. Previous Urine C&S reviewed. Adjust atbx if needed once this urine culture is final.
--- NOTE | 2017-09-10 11:40 | Neuropsych Progress Note ---
[facility] Subjective Date: 09/10/17 - Sujective/Severity of Illness Medications: Acetaminophen (Tylenol Arthritis) 650 mg PO Q4H PRN PRN Reason: Pain Last Admin: 09/09/17 15:14 Dose: 650 mg Bisacodyl (Dulcolax) 10 mg RECTALLY DAILY PRN PRN Reason: Constipation Last Admin: 09/01/17 11:05 Dose: 10 mg Bisacodyl (Dulcolax) 5 mg PO BID PRN PRN Reason: Constipation Cephalexin HCl (Keflex 500 Mg) 500 mg PO TID [facility] Stop: 09/15/17 08:59 Last Admin: 09/10/17 08:51 Dose: 500 mg Cyanocobalamin (Vit. B-12) 1,000 mcg PO DAILY [facility] Last Admin: 09/10/17 08:47 Dose: 1,000 mcg Ergocalciferol (Vitamin D-2) 50,000 unit PO Q7D [facility] Last Admin: 09/07/17 15:46 Dose: Not Given Lorazepam (Ativan) 0.5 mg PO Q6H PRN PRN Reason: Extreme agitation Last Admin: 09/09/17 09:55 Dose: 0.5 mg Lorazepam (Ativan Intensol) 0.5 mg PO Q6H PRN Last Admin: 09/08/17 20:08 Dose: 0.5 mg Lorazepam (Ativan Inj) 0.5 mg IM Q6H PRN PRN Reason: Extreme agitation Last Admin: 09/06/17 19:35 Dose: 0.5 mg Magnesium Hydroxide (Mom) 30 ml PO PRN PRN PRN Reason: Constipation Memantine (Namenda) [address] [facility] Last Admin: 09/09/17 22:26 Dose: Not Given Polyethylene Glycol (Miralax) 17 gm PO DAILY [facility] Last Admin: 09/10/17 08:47 Dose: 17 gm Potassium Chloride (Micro-K 10 Meq Capsule) 10 meq PO WB [facility] Last Admin: 09/10/17 08:47 Dose: 10 meq Propranolol HCl (Inderal) 10 mg PO TID [facility] Last Admin: 09/10/17 08:47 Dose: 10 mg Senna/Docusate Sodium (Senna Plus Tablet) 2 tab PO BID PRN PRN Reason: Constipation Senna/Docusate Sodium (Senna Plus Tablet) 1 tab PO BID [facility] Last Admin: 09/10/17 08:47 Dose: 1 tab Tamsulosin HCl (Flomax) 0.4 mg PO HS [facility] Last Admin: 09/09/17 22:29 Dose: Not Given Subjective: Pt seen and chart examined. Nursing reports slept well and appetite has been better. Staff reports last night she was very combative and received Ativan IM. This AM pt has been pleasant but confused. She is only oriented to self. She asks questions if she "is in high school and is my mom still alive". She denies any pain. Voices no concerns at this time Start Time: 10:15 Stop Time: 10:30 Mental Status Exam Vitals: Last Vital Signs Temp 97.8 F 09/10/17 08:00 Pulse 98 09/10/17 08:00 Resp 16 09/10/17 08:00 BP 141/86 H 09/10/17 08:00 Pulse Ox 99 09/10/17 08:00 Height: 1.65 m Weight: 54.7 kg - Mental Status Exam Muscle Strength/Tone: Weak Dressing: Casual Grooming: Fair Attitude: Cooperative (intermittent) Motor Activity: Retardation Eye Contact: Poor Speech: Slowed Volume: Soft Rhythm: Mumbled Orientation: Disoriented to time, Disoriented to place, Disoriented to situation , Oriented to person Mood: Irritable (mood lability improving) Rate of Thoughts: Delayed Thought Organization: Disorganized, Confused Associations: Illogical Abstract Reasoning: Impaired, concrete Thought Content: Other (Out of context to situation) Perception/Psychotic: Other (Denies, does not appear to be responding to internal stimuli) Language: Naming Impaired Fund of Knowledge: Poor fund of knowledge Memory: Poor-immediate, Poor-recent, Poor-remote Suicidal Ideation: None Homicidal Ideation: None Insight: Impaired Judgement: Impaired Impulse Control: Poor (though improving) - Laboratory Result Diagrams: 09/09/17 11:55 09/09/17 11:55 Laboratory Results - last 24 hr 09/09/17 09/09/17 09/10/17 11:55 11:55 05:21 WBC 6.3 RBC 4.29 Hgb 13.0 Hct 39.4 MCV 91.8 MCH 30.3 MCHC 33.0 RDW Std Deviation 39.3 Plt Count 149 MPV 10.8 Immature Gran % (Auto) 0.2 Neut % (Auto) 58.8 Lymph % (Auto) 29.5 [place] % (Auto) 8.1 Eos % (Auto) 2.9 Baso % (Auto) 0.5 Neut # (Auto) 3.7 Lymph # (Auto) 1.9 [place] # (Auto) 0.5 Eos # (Auto) 0.2 Baso # (Auto) 0.0 Abs Immat Gran (auto) 0.01 Turbidity < 20 Sodium 144 Potassium 3.9 Chloride 106 Carbon Dioxide 29 Anion Gap 9 BUN 24.0 H Creatinine 0.9 GFR Calculation 60 BUN/Creatinine Ratio 27 H Glucose 160 H Calculated Osmolality 284 H Calcium 9.3 Icterus Index < 2 Specimen Hemolysis < 15 Ur Collection Type Urine, void-cc/notcc Urine Color Yellow Urine Clarity Sl cloudy Urine pH 5.5 Ur Specific [place] 1.010 L Urine Protein Negative Urine Glucose (UA) Negative Urine Ketones Negative Urine Occult Blood Negative Urine Nitrate Positive A Urine Bilirubin Negative Urine Urobilinogen 0.2 Ur Leukocyte Esterase 1+ A Urine RBC None seen Urine WBC 3-5 Urine Bacteria 3+ H Ur Culture Indicated? Cult reflexed &setup Assessment and Plan (1) Major neurocognitive disorder Problem details: Moderate, Alzheimer's type, with behavioral disturbance R/O Bipolar disorder, MRE manic Other medical conditions: Urinary retention with positive urinalysis in ER-will treat for UTI Hypernatremia-POA History of bladder cancer Vitamin D deficiency Irritable bowel syndrome Diverticulosis Chronic compression fracture T12 Osteopenia Current visit: Yes Status: Acute (2) Vitamin B12 deficiency Current visit: Yes Status: Acute Hospital Course Summary Disclaimer: The visit summary below is not to be considered part of the above Progress Note. Hospital Course: Psych 08/25/17: Held Wellbutrin XL, Buspar, Viibryd due to suspected bipolar alexander. Psych 08/26/17: Patient seems to have improved slightly with discontinuation of all Wellbutrin XL, Buspar, Viibryd (upon admission). Currently taking seroquel 25mg PO BID and propranolol 10mg PO BID from home med list. Will add Depakote DR 250mg PO BID. Will additionally start Vitamin B12 1000mcg IM x 3 days then weekly for a month, then monthly thereafter. 08/27/2017- Psych- PT is irritable and labile at times but is redirectable. Will consider increase of Depakote tomorrow if tolerating well 08/28/2017 Psych- Pt remains irritable and impulsive at times. Increase Depakote to 250mg PO TID. 08/29/17 Psych: Continue current care as we await serotonergic agents to clear from blood given half-lives; discussed care with DPOA/daughter who is in agreement with treatment plan. Patient has hx of malignant neoplasm of bladder. Daughter states that no recent imaging has been done and is in agreement with sedating as necessary to obtain head CT. 08/30/17 Psych: Will switch Depakote to sprinkles 250mg PO TID for improved compliance, increase Seroquel to 25mg PO TID. May need to switch to Risperdal if urinary retention worsening. Recheck UA, will bladder scan BID and straight cath if necessary. Once patient has had compliance with Depakote x 3 days, can check trough VPA level and adjust to therapeutic level. 08/31/17-hospitalist Dr. Ramos had ordered a repeat urinalysis because patient continues to have behaviors and has had some urinary retention. She'd had a positive urinalysis on admission and was treated. Urinalysis performed last night was completely negative. She has had 3 doses of IM cyanocobalamin for borderline low B12 deficiency . Continue 1000 g cyanocobalamin a day. Recommend follow-up B12 level on outpatient basis. Patient medically stable. Chart reviewed. 08/31/17 Psych: Will collapse Depakote sprinkles to 250mg PO q AM and 500mg PO with dinner to increase adherence. Seroquel does not seem to be helpful and may be causing restlessness and urinary retention; will hold and monitor behavior for the time being. Stressed importance of adherence to Depakote to nursing staff. 09/01/17 Psych: Continue to focus on compliance with Depakote. Patient had BM with suppository, seems less irritable after this and with straight cathing PRN after bladder scans. Monitor mood, behavior and response to treatment. 09/02/17 Psych: Have ordered urgent labs: CBC, CMP, ammonia level, VPA level. Ordered urgent CT scan of abdomen/pelvis to f/u on hx of bladder cancer. Will hold VPA for now and monitor mentation, appetite. 09/03/17 Pt is lethargic with poor appetite. CT scan pending. Continue current care. Medical team following 09/04/17- Psych- Pt is a little more alert today. CT today. Ativan 0.5mg x 1 to help with obtaining CT. 09/05/17 Psych: Continue holding medications - will discuss further workup and medical treatment with hospitalist. Concern that there may be some underlying medical issues contributing to behaviors. Did not tolerate Depakote well in regards to appetite. Will await this discussion before making further med changes. 09/07/17 Psych: Son Bala to discuss trial of Risperdal with family. Patient will need memory care after d/c. 09/08/17 Psych: Continue current care; patient continues to improve leading me to wander how much of this was a hyperactive delirium vs. psychiatric cause of agitation (could also be manic episode resolving). Will monitor for another day before changing meds as she is showing improvement on current regimen. 09/09/17 Psych: Patient is not able to tolerate antipsychotics (responded very poorly to Risperdal 0.25mg); will completely discontinue scheduled and PRNs. May consider use of gabapentin or carbamazepine as mood stabilizers as she did not tolerate Depakote either. 09/10/17 Psych- Agitation last night. Continue current care
[2017-09-10] MEDS: LORazepam 1 MG TABLET PO PRN (11:54)
[2017-09-10] MEDS: MEMANTINE 10 MG TABLET PO SCH (20:16)
[2017-09-10] MEDS: TAMSULOSIN 0.4 MG CAPSULE PO SCH (20:16)
[2017-09-11] MEDS: CYANOCOBALAMIN (B-12) 500mcg TABLET PO SCH (08:04)
[2017-09-11] MEDS: POLYETHYL GLYCOL 3350 17gm PACKET PO SCH (08:05)
[2017-09-11] MEDS: SENNA + DOCUSATE TABLET PO SCH ×2 (08:05→20:10)
[2017-09-11] MEDS: PROPRANOLOL 10 MG TABLET PO SCH ×3 (08:05→20:10)
[2017-09-11] MEDS: LORazepam 1 MG TABLET PO PRN (08:47)
--- NOTE | 2017-09-11 11:48 | Neuropsych Progress Note ---
[facility] Subjective Date: 09/11/17 - Sujective/Severity of Illness Medications: Acetaminophen (Tylenol Arthritis) 650 mg PO Q4H PRN PRN Reason: Pain Last Admin: 09/09/17 15:14 Dose: 650 mg Bisacodyl (Dulcolax) 10 mg RECTALLY DAILY PRN PRN Reason: Constipation Last Admin: 09/01/17 11:05 Dose: 10 mg Bisacodyl (Dulcolax) 5 mg PO BID PRN PRN Reason: Constipation Cephalexin HCl (Keflex 500 Mg) 500 mg PO TID [facility] Stop: 09/15/17 08:59 Last Admin: 09/11/17 08:04 Dose: 500 mg Cyanocobalamin (Vit. B-12) 1,000 mcg PO DAILY [facility] Last Admin: 09/11/17 08:04 Dose: 1,000 mcg Ergocalciferol (Vitamin D-2) 50,000 unit PO Q7D [facility] Last Admin: 09/07/17 15:46 Dose: Not Given Lorazepam (Ativan) 0.5 mg PO Q6H PRN PRN Reason: Extreme agitation Last Admin: 09/11/17 08:47 Dose: 0.5 mg Lorazepam (Ativan Intensol) 0.5 mg PO Q6H PRN Last Admin: 09/08/17 20:08 Dose: 0.5 mg Lorazepam (Ativan Inj) 0.5 mg IM Q6H PRN PRN Reason: Extreme agitation Last Admin: 09/06/17 19:35 Dose: 0.5 mg Magnesium Hydroxide (Mom) 30 ml PO PRN PRN PRN Reason: Constipation Memantine (Namenda) 10 mg PO [facility] Last Admin: 09/10/17 20:16 Dose: 10 mg Polyethylene Glycol (Miralax) 17 gm PO DAILY [facility] Last Admin: 09/11/17 08:05 Dose: 17 gm Potassium Chloride (Micro-K 10 Meq Capsule) 10 meq PO WB [facility] Last Admin: 09/11/17 08:05 Dose: 10 meq Propranolol HCl (Inderal) 10 mg PO TID [facility] Last Admin: 09/11/17 08:05 Dose: 10 mg Senna/Docusate Sodium (Senna Plus Tablet) 2 tab PO BID PRN PRN Reason: Constipation Senna/Docusate Sodium (Senna Plus Tablet) 1 tab PO BID [facility] Last Admin: 09/11/17 08:05 Dose: 1 tab Tamsulosin HCl (Flomax) 0.4 mg PO HS [facility] Last Admin: 09/10/17 20:16 Dose: 0.4 mg Subjective: Pt seen and chart examined. Nursing reports slept well and appetite remains poor. On face to face the pt is more alert today. She is seen sitting in a chair in the dayroom. She remains confused and oriented only to self. She denies any pain. Tolerating meds Start Time: 11:15 Stop Time: 11:30 Mental Status Exam Vitals: Last Vital Signs Temp 97.4 F 09/11/17 08:00 Pulse 94 09/11/17 08:00 Resp 18 09/11/17 08:00 BP 128/74 09/11/17 08:00 Pulse Ox 96 09/11/17 08:00 Height: 1.65 m Weight: 58.5 kg - Mental Status Exam Muscle Strength/Tone: Weak Dressing: Casual Grooming: Fair Attitude: Cooperative (intermittent) Motor Activity: Retardation Eye Contact: Poor Speech: Slowed Volume: Soft Rhythm: Mumbled Orientation: Disoriented to time, Disoriented to place, Disoriented to situation , Oriented to person Mood: Irritable (mood lability improving) Rate of Thoughts: Delayed Thought Organization: Disorganized, Confused Associations: Illogical Abstract Reasoning: Impaired, concrete Thought Content: Other (Out of context to situation) Perception/Psychotic: Other (Denies, does not appear to be responding to internal stimuli) Language: Naming Impaired Fund of Knowledge: Poor fund of knowledge Memory: Poor-immediate, Poor-recent, Poor-remote Suicidal Ideation: None Homicidal Ideation: None Insight: Impaired Judgement: Impaired Impulse Control: Poor (though improving) - Laboratory Result Diagrams: 09/09/17 11:55 09/09/17 11:55 Laboratory Results - last 24 hr 09/10/17 05:21 Ur Collection Type Urine, void-cc/notcc Urine Color Yellow Urine Clarity Sl cloudy Urine pH 5.5 Ur Specific [place] 1.010 L Urine Protein Negative Urine Glucose (UA) Negative Urine Ketones Negative Urine Occult Blood Negative Urine Nitrate Positive A Urine Bilirubin Negative Urine Urobilinogen 0.2 Ur Leukocyte Esterase 1+ A Urine RBC None seen Urine WBC 3-5 Urine Bacteria 3+ H Ur Culture Indicated? Cult reflexed &setup Assessment and Plan (1) Major neurocognitive disorder Problem details: Moderate, Alzheimer's type, with behavioral disturbance R/O Bipolar disorder, MRE manic Other medical conditions: Urinary retention with positive urinalysis in ER-will treat for UTI Hypernatremia-POA History of bladder cancer Vitamin D deficiency Irritable bowel syndrome Diverticulosis Chronic compression fracture T12 Osteopenia Current visit: Yes Status: Acute (2) Vitamin B12 deficiency Current visit: Yes Status: Acute Hospital Course Summary Disclaimer: The visit summary below is not to be considered part of the above Progress Note. Hospital Course: Psych 08/25/17: Held Wellbutrin XL, Buspar, Viibryd due to suspected bipolar alexander. Psych 08/26/17: Patient seems to have improved slightly with discontinuation of all Wellbutrin XL, Buspar, Viibryd (upon admission). Currently taking seroquel 25mg PO BID and propranolol 10mg PO BID from home med list. Will add Depakote DR 250mg PO BID. Will additionally start Vitamin B12 1000mcg IM x 3 days then weekly for a month, then monthly thereafter. 08/27/2017- Psych- PT is irritable and labile at times but is redirectable. Will consider increase of Depakote tomorrow if tolerating well 08/28/2017 Psych- Pt remains irritable and impulsive at times. Increase Depakote to 250mg PO TID. 08/29/17 Psych: Continue current care as we await serotonergic agents to clear from blood given half-lives; discussed care with DPOA/daughter who is in agreement with treatment plan. Patient has hx of malignant neoplasm of bladder. Daughter states that no recent imaging has been done and is in agreement with sedating as necessary to obtain head CT. 08/30/17 Psych: Will switch Depakote to sprinkles 250mg PO TID for improved compliance, increase Seroquel to 25mg PO TID. May need to switch to Risperdal if urinary retention worsening. Recheck UA, will bladder scan BID and straight cath if necessary. Once patient has had compliance with Depakote x 3 days, can check trough VPA level and adjust to therapeutic level. 08/31/17-hospitalist Dr. Ramos had ordered a repeat urinalysis because patient continues to have behaviors and has had some urinary retention. She'd had a positive urinalysis on admission and was treated. Urinalysis performed last night was completely negative. She has had 3 doses of IM cyanocobalamin for borderline low B12 deficiency . Continue 1000 g cyanocobalamin a day. Recommend follow-up B12 level on outpatient basis. Patient medically stable. Chart reviewed. 08/31/17 Psych: Will collapse Depakote sprinkles to 250mg PO q AM and 500mg PO with dinner to increase adherence. Seroquel does not seem to be helpful and may be causing restlessness and urinary retention; will hold and monitor behavior for the time being. Stressed importance of adherence to Depakote to nursing staff. 09/01/17 Psych: Continue to focus on compliance with Depakote. Patient had BM with suppository, seems less irritable after this and with straight cathing PRN after bladder scans. Monitor mood, behavior and response to treatment. 09/02/17 Psych: Have ordered urgent labs: CBC, CMP, ammonia level, VPA level. Ordered urgent CT scan of abdomen/pelvis to f/u on hx of bladder cancer. Will hold VPA for now and monitor mentation, appetite. 09/03/17 Pt is lethargic with poor appetite. CT scan pending. Continue current care. Medical team following 09/04/17- Psych- Pt is a little more alert today. CT today. Ativan 0.5mg x 1 to help with obtaining CT. 09/05/17 Psych: Continue holding medications - will discuss further workup and medical treatment with hospitalist. Concern that there may be some underlying medical issues contributing to behaviors. Did not tolerate Depakote well in regards to appetite. Will await this discussion before making further med changes. 09/07/17 Psych: Son Bala to discuss trial of Risperdal with family. Patient will need memory care after d/c. 09/08/17 Psych: Continue current care; patient continues to improve leading me to wander how much of this was a hyperactive delirium vs. psychiatric cause of agitation (could also be manic episode resolving). Will monitor for another day before changing meds as she is showing improvement on current regimen. 09/09/17 Psych: Patient is not able to tolerate antipsychotics (responded very poorly to Risperdal 0.25mg); will completely discontinue scheduled and PRNs. May consider use of gabapentin or carbamazepine as mood stabilizers as she did not tolerate Depakote either. 09/10/17 Psych- Agitation last night. Continue current care 09/11/17 Psych- Pt more alert today. No behaviors over night. Continue current care
[2017-09-11] MEDS: LORazepam INTENSOL 1mg/0.5ml ORAL LIQUID PO PRN (15:34)
--- NOTE | 2017-09-11 16:17 | Progress Note ---
Progress Note: Mrs. Urbina was seen in the day room where she was resting and watching television. She reported she was worried about getting a call from her sister and perseverated on this concern. She may have described nausea. Nursing reported the patient has been tearful intermittently today; straight catheterization needed yesterday evening but this morning bladder scan was only 94 mL. Having bowel movements daily-large stool reported yesterday. 97.4, 128/74 Respirations nonlabored, anterior breath sounds clear Regular rhythm with low-grade tachycardia Abdomen soft, nontender Glucose modestly elevated when labs assessed 09/09 Urine culture positive GNR and Lactobacillus species-sensitivities pending Urinary retention Alzheimer's disease/depression/anxiety UTI Hyperglycemia Constipation Continue cephalexin orally; anticipate GNR will be identified tomorrow and hopefully sensitivities available. Continue current bowel regimen. Check BMP tomorrow.
[2017-09-11] MEDS: TAMSULOSIN 0.4 MG CAPSULE PO SCH (20:10)
[2017-09-11] MEDS: MEMANTINE 10 MG TABLET PO SCH (20:10)
[2017-09-12] MEDS: SENNA + DOCUSATE TABLET PO SCH ×2 (12:16→20:05)
[2017-09-12] MEDS: PROPRANOLOL 10 MG TABLET PO SCH ×3 (12:16→20:05)
[2017-09-12] MEDS: POLYETHYL GLYCOL 3350 17gm PACKET PO SCH (12:16)
[2017-09-12] MEDS: CYANOCOBALAMIN (B-12) 500mcg TABLET PO SCH (12:16)
[2017-09-12] MEDS: LORazepam 1 MG TABLET PO PRN ×2 (12:42→20:08)
--- NOTE | 2017-09-12 16:01 | Neuropsych Progress Note ---
[facility] Subjective Date: 09/12/17 - Sujective/Severity of Illness Medications: Acetaminophen (Tylenol Arthritis) 650 mg PO Q4H PRN PRN Reason: Pain Last Admin: 09/11/17 15:33 Dose: 650 mg Bisacodyl (Dulcolax) 10 mg RECTALLY DAILY PRN PRN Reason: Constipation Last Admin: 09/01/17 11:05 Dose: 10 mg Bisacodyl (Dulcolax) 5 mg PO BID PRN PRN Reason: Constipation Cephalexin HCl (Keflex 500 Mg) 500 mg PO TID [facility] Stop: 09/15/17 08:59 Last Admin: 09/12/17 12:16 Dose: 500 mg Cyanocobalamin (Vit. B-12) 1,000 mcg PO DAILY [facility] Last Admin: 09/12/17 12:16 Dose: 1,000 mcg Ergocalciferol (Vitamin D-2) 50,000 unit PO Q7D [facility] Last Admin: 09/07/17 15:46 Dose: Not Given Lorazepam (Ativan) 0.5 mg PO Q6H PRN PRN Reason: Extreme agitation Last Admin: 09/12/17 12:42 Dose: 0.5 mg Lorazepam (Ativan Intensol) 0.5 mg PO Q6H PRN Last Admin: 09/11/17 15:34 Dose: 0.5 mg Lorazepam (Ativan Inj) 0.5 mg IM Q6H PRN PRN Reason: Extreme agitation Last Admin: 09/06/17 19:35 Dose: 0.5 mg Magnesium Hydroxide (Mom) 30 ml PO PRN PRN PRN Reason: Constipation Memantine (Namenda) 10 mg PO [facility] Last Admin: 09/11/17 20:10 Dose: 10 mg Polyethylene Glycol (Miralax) 17 gm PO DAILY [facility] Last Admin: 09/12/17 12:16 Dose: 17 gm Potassium Chloride (Micro-K 10 Meq Capsule) 10 meq PO WB [facility] Last Admin: 09/12/17 12:16 Dose: 10 meq Propranolol HCl (Inderal) 10 mg PO TID [facility] Last Admin: 09/12/17 12:16 Dose: 10 mg Senna/Docusate Sodium (Senna Plus Tablet) 2 tab PO BID PRN PRN Reason: Constipation Senna/Docusate Sodium (Senna Plus Tablet) 1 tab PO BID [facility] Last Admin: 09/12/17 12:16 Dose: 1 tab Tamsulosin HCl (Flomax) 0.4 mg PO HS [facility] Last Admin: 09/11/17 20:10 Dose: 0.4 mg Subjective: Patient seen and chart reviewed. Case discussed with treatment team. On interview, patient is confused and oriented to self only. She often gives me irritable looks when I ask various questions. She is tearful and says she is "reliving Randy's ." She then asks if her parents have and I told her I believe they have . I asked how old she is and she said "89" but could not relate that to her parents not being likely to be alive currently. Patient denies any SI, HI or AVH. She says she "has a lot to do" before her and she wouldn't harm herself because she has grandchildren. Patient denies any adverse side effects related to psychotropic medications though has responded very poorly to antipsychotics. Nursing staff report patient is intermittently combative, intermittently tearful and difficult to redirect. Patient has been variably adherent with medications. Patient slept 7.5 hours overnight. VSS. Appetite continues to be limited. Psychotropic PRNs required in the past 24 hours: Ativan 0.5mg PO x1 yesterday. I spoke with patient's son Bala in regards to her care. I discussed that etiology of dementia is probably more than just Alzheimer's given decline reported by family and patient's poor reaction to antipsychotics. We discussed tearfulness and agreed to retry mirtazapine to target mood/appetite, knowing to monitor for manic symptoms though patient is in a safe environment. Discussed that we will likely have to try additional options to target behaviors such as gabapentin or carbamazepine as patient continues to be combative. Family understands that this may lead to some decline in function. All questions were answered to his satisfaction at this time. Start Time: 13:00 Stop Time: 13:40 Care: >50% of this visit spent in counseling/coordination care. (discussion of care with family, staff) Mental Status Exam Vitals: Last Vital Signs Temp 98.2 F 09/12/17 08:00 Pulse 96 09/12/17 08:00 Resp 16 09/12/17 08:00 BP 130/76 09/12/17 08:00 Pulse Ox 95 09/12/17 08:00 Height: 1.65 m Weight: 58.5 kg - Mental Status Exam Muscle Strength/Tone: Weak Dressing: Casual Grooming: Fair Attitude: Combative (at times, not during interview) Motor Activity: Retardation Eye Contact: Poor Speech: Slowed Volume: Soft Rhythm: Mumbled Orientation: Disoriented to time, Disoriented to place, Disoriented to situation , Oriented to person Mood: Irritable, Tearful Affect: Sad Rate of Thoughts: Delayed Thought Organization: Confused Associations: Illogical Abstract Reasoning: Impaired, concrete Thought Content: Ruminations Perception/Psychotic: Other (Denies, does not appear to be responding to internal stimuli) Language: Naming Impaired Fund of Knowledge: Poor fund of knowledge Memory: Poor-immediate, Poor-recent, Poor-remote Suicidal Ideation: Denies Homicidal Ideation: Denies Insight: Impaired Judgement: Impaired Impulse Control: Poor (though improved from admission) - Laboratory Result Diagrams: 09/09/17 11:55 09/12/17 17:28 Assessment and Plan (1) Major neurocognitive disorder Problem details: Moderate, likely mixed etiology, with behavioral disturbance R/O Bipolar disorder, MRE manic Other medical conditions: Recurrent UTIs Hypernatremia-POA History of bladder cancer Vitamin D deficiency Irritable bowel syndrome Diverticulosis Chronic compression fracture T12 Osteopenia Current visit: Yes Status: Acute (2) Vitamin B12 deficiency Current visit: Yes Status: Acute Restart mirtazapine 7.5mg PO q HS to target mood, appetite. Monitor for emergence of alexander. Hospital Course Summary Disclaimer: The visit summary below is not to be considered part of the above Progress Note. Hospital Course: Psych 08/25/17: Held Wellbutrin XL, Buspar, Viibryd due to suspected bipolar alexander. Psych 08/26/17: Patient seems to have improved slightly with discontinuation of all Wellbutrin XL, Buspar, Viibryd (upon admission). Currently taking seroquel 25mg PO BID and propranolol 10mg PO BID from home med list. Will add Depakote DR 250mg PO BID. Will additionally start Vitamin B12 1000mcg IM x 3 days then weekly for a month, then monthly thereafter. 08/27/2017- Psych- PT is irritable and labile at times but is redirectable. Will consider increase of Depakote tomorrow if tolerating well 08/28/2017 Psych- Pt remains irritable and impulsive at times. Increase Depakote to 250mg PO TID. 08/29/17 Psych: Continue current care as we await serotonergic agents to clear from blood given half-lives; discussed care with DPOA/daughter who is in agreement with treatment plan. Patient has hx of malignant neoplasm of bladder. Daughter states that no recent imaging has been done and is in agreement with sedating as necessary to obtain head CT. 08/30/17 Psych: Will switch Depakote to sprinkles 250mg PO TID for improved compliance, increase Seroquel to 25mg PO TID. May need to switch to Risperdal if urinary retention worsening. Recheck UA, will bladder scan BID and straight cath if necessary. Once patient has had compliance with Depakote x 3 days, can check trough VPA level and adjust to therapeutic level. 08/31/17-hospitalist Dr. Ramos had ordered a repeat urinalysis because patient continues to have behaviors and has had some urinary retention. She'd had a positive urinalysis on admission and was treated. Urinalysis performed last night was completely negative. She has had 3 doses of IM cyanocobalamin for borderline low B12 deficiency . Continue 1000 g cyanocobalamin a day. Recommend follow-up B12 level on outpatient basis. Patient medically stable. Chart reviewed. 08/31/17 Psych: Will collapse Depakote sprinkles to 250mg PO q AM and 500mg PO with dinner to increase adherence. Seroquel does not seem to be helpful and may be causing restlessness and urinary retention; will hold and monitor behavior for the time being. Stressed importance of adherence to Depakote to nursing staff. 09/01/17 Psych: Continue to focus on compliance with Depakote. Patient had BM with suppository, seems less irritable after this and with straight cathing PRN after bladder scans. Monitor mood, behavior and response to treatment. 09/02/17 Psych: Have ordered urgent labs: CBC, CMP, ammonia level, VPA level. Ordered urgent CT scan of abdomen/pelvis to f/u on hx of bladder cancer. Will hold VPA for now and monitor mentation, appetite. 09/03/17 Pt is lethargic with poor appetite. CT scan pending. Continue current care. Medical team following 09/04/17- Psych- Pt is a little more alert today. CT today. Ativan 0.5mg x 1 to help with obtaining CT. 09/05/17 Psych: Continue holding medications - will discuss further workup and medical treatment with hospitalist. Concern that there may be some underlying medical issues contributing to behaviors. Did not tolerate Depakote well in regards to appetite. Will await this discussion before making further med changes. 09/07/17 Psych: Son Bala to discuss trial of Risperdal with family. Patient will need memory care after d/c. 09/08/17 Psych: Continue current care; patient continues to improve leading me to wander how much of this was a hyperactive delirium vs. psychiatric cause of agitation (could also be manic episode resolving). Will monitor for another day before changing meds as she is showing improvement on current regimen. 09/09/17 Psych: Patient is not able to tolerate antipsychotics (responded very poorly to Risperdal 0.25mg); will completely discontinue scheduled and PRNs. May consider use of gabapentin or carbamazepine as mood stabilizers as she did not tolerate Depakote either. 09/10/17 Psych- Agitation last night. Continue current care 09/11/17 Psych- Pt more alert today. No behaviors over night. Continue current care. 09/12/17 Psych: Restart mirtazapine 7.5mg PO q HS to target mood, appetite. Monitor for emergence of alexander.
[2017-09-12] MEDS: MIRTAZAPINE 15 MG TABLET PO SCH (20:04)
[2017-09-12] MEDS: MEMANTINE 10 MG TABLET PO SCH (20:04)
[2017-09-12] MEDS: TAMSULOSIN 0.4 MG CAPSULE PO SCH (20:05)
--- NOTE | 2017-09-13 08:25 | Progress Note ---
- Date 09/13/17 Subjective: Susannah was still sleeping. She was breathing comfortably on room air. Staff deny any medical concerns. Psychologically speaking, she continues to have agitation at times requiring PRN meds. Her oral intake has been variable, ranging from mere bites to a near-complete meal. She has been having regular bowel movements. Objective Vital signs: Temperature 97.1 F 09/13/17 08:00 Pulse Rate 96 09/13/17 08:00 Respiratory Rate 18 09/13/17 08:00 Blood Pressure 133/76 09/13/17 08:00 Pulse Oximetry 97 09/13/17 08:00 Height/Weight/BMI: Height 1.65 m Weight 58.5 kg Body Mass Index 23.8 - Constitutional Present: no acute distress, well nourished, well developed, thin - Routine HEENT Exam Head: Present: normocephalic - Routine Respiratory Exam Present: CTA bilaterally - Routine Cardiovascular Exam Present: RRR, S1, S2 - Routine Abdominal Exam Present: soft, normoactive bowel sounds - Routine Extremities Exam Present: no edema, pulses intact - Routine Musculoskeletal Exam Musculoskeletal: Present: no clubbing or cyanosis - Routine Skin Exam Present: intact, dry, warm - Routine Neurological Exam sleeping comfortably - Routine Psychiatric Exam Present: unable to assess Results - Labs CBC & Chem 7: 09/09/17 11:55 09/12/17 17:28 Microbiology Results: Microbiology 09/10/17 05:21 Urine, Cath Straight Urine Culture - Final Klebsiella oxytoca Lactobacillus species Assessment and Plan (1) Alzheimer's dementia with behavioral disturbance Current visit: Yes Status: Acute Assessment and Plan: Assessment Alzheimer's disease with behavioral disturbance Urinary retention with E. coli & Strep viridans UTI; later with klebsiella UTI [id number] History of bladder cancer Borderline low B12 Vitamin D deficiency Irritable bowel syndrome Depression/anxiety Diverticulosis Chronic compression fracture T12 Osteopenia Plan - 09/13/17: BMP repeated on 09/12/17 - stable. Na 144. Urine culture + for Klebsiella, sensitive to 1st gen cephalosporins. Continue Keflex (started 09/10). VS: HR variable, occ mild elevations in BP acceptable in her age group; afebrile. Psych: pt does not tolerate antipsychotics. They are continuing with medication adjustments. Discussed with nursing: no medical concerns at this time. - Physician Narrative Physician: Kaycee Pacheco MD Narrative: Date: 09/13/17 Time: 1829 patient interviewed and examined by me. She has no complaints to me. No concerns from staff. PE: Gen: alert, NAD Skin: warm and dry HEENT: NC/AT PERRL, EOMI, Sclera, lids and conjunctiva wnl. MMM. OP clear. Neck: No JVD, Carotids 2+ without bruits Lungs: clear. No rales, rhonchi or wheezes CV: regular. No murmur, rub or gallop Abd: soft. +BS. NT/ND MS: No edema. Good strength and ROM Neuro: No focal deficits Psy: Appropriate mood and affect Assessment Alzheimer's disease with behavioral disturbance Urinary retention with E. coli & Strep viridans UTI; later with klebsiella UTI [id number] History of bladder cancer Borderline low B12 Vitamin D deficiency Irritable bowel syndrome Depression/anxiety Diverticulosis Chronic compression fracture T12 Osteopenia Plan - 09/13/17: BMP repeated on 09/12/17 - stable. Na 144. Urine culture + for Klebsiella, sensitive to 1st gen cephalosporins. Continue Keflex (started 09/10). VS: HR variable, occ mild elevations in BP acceptable in her age group; afebrile. Psych: pt does not tolerate antipsychotics. They are continuing with medication adjustments. Discussed with nursing: no medical concerns at this time. I have reviewed the patient's prior notes and prior labs. I have reviewed the above assessment and plan. I have independently examined the patient. I agree with the documentation as noted above. Hospital Course Summary Disclaimer: The visit summary below is not to be considered part of the above Progress Note. Hospital Course: Psych 08/25/17: Held Wellbutrin XL, Buspar, Viibryd due to suspected bipolar alexander. Psych 08/26/17: Patient seems to have improved slightly with discontinuation of all Wellbutrin XL, Buspar, Viibryd (upon admission). Currently taking seroquel 25mg PO BID and propranolol 10mg PO BID from home med list. Will add Depakote DR 250mg PO BID. Will additionally start Vitamin B12 1000mcg IM x 3 days then weekly for a month, then monthly thereafter. 08/27/2017- Psych- PT is irritable and labile at times but is redirectable. Will consider increase of Depakote tomorrow if tolerating well 08/28/2017 Psych- Pt remains irritable and impulsive at times. Increase Depakote to 250mg PO TID. 08/29/17 Psych: Continue current care as we await serotonergic agents to clear from blood given half-lives; discussed care with DPOA/daughter who is in agreement with treatment plan. Patient has hx of malignant neoplasm of bladder. Daughter states that no recent imaging has been done and is in agreement with sedating as necessary to obtain head CT. 08/30/17 Psych: Will switch Depakote to sprinkles 250mg PO TID for improved compliance, increase Seroquel to 25mg PO TID. May need to switch to Risperdal if urinary retention worsening. Recheck UA, will bladder scan BID and straight cath if necessary. Once patient has had compliance with Depakote x 3 days, can check trough VPA level and adjust to therapeutic level. 08/31/17-hospitalist Dr. Ramos had ordered a repeat urinalysis because patient continues to have behaviors and has had some urinary retention. She'd had a positive urinalysis on admission and was treated. Urinalysis performed last night was completely negative. She has had 3 doses of IM cyanocobalamin for borderline low B12 deficiency . Continue 1000 g cyanocobalamin a day. Recommend follow-up B12 level on outpatient basis. Patient medically stable. Chart reviewed. 08/31/17 Psych: Will collapse Depakote sprinkles to 250mg PO q AM and 500mg PO with dinner to increase adherence. Seroquel does not seem to be helpful and may be causing restlessness and urinary retention; will hold and monitor behavior for the time being. Stressed importance of adherence to Depakote to nursing staff. 09/01/17 Psych: Continue to focus on compliance with Depakote. Patient had BM with suppository, seems less irritable after this and with straight cathing PRN after bladder scans. Monitor mood, behavior and response to treatment. 09/02/17 Psych: Have ordered urgent labs: CBC, CMP, ammonia level, VPA level. Ordered urgent CT scan of abdomen/pelvis to f/u on hx of bladder cancer. Will hold VPA for now and monitor mentation, appetite. 09/03/17 Pt is lethargic with poor appetite. CT scan pending. Continue current care. Medical team following 09/04/17- Psych- Pt is a little more alert today. CT today. Ativan 0.5mg x 1 to help with obtaining CT. 09/05/17 Psych: Continue holding medications - will discuss further workup and medical treatment with hospitalist. Concern that there may be some underlying medical issues contributing to behaviors. Did not tolerate Depakote well in regards to appetite. Will await this discussion before making further med changes. 09/07/17 Psych: Son Bala to discuss trial of Risperdal with family. Patient will need memory care after d/c. 09/08/17 Psych: Continue current care; patient continues to improve leading me to wander how much of this was a hyperactive delirium vs. psychiatric cause of agitation (could also be manic episode resolving). Will monitor for another day before changing meds as she is showing improvement on current regimen. 09/09/17 Psych: Patient is not able to tolerate antipsychotics (responded very poorly to Risperdal 0.25mg); will completely discontinue scheduled and PRNs. May consider use of gabapentin or carbamazepine as mood stabilizers as she did not tolerate Depakote either. 09/10/17 Psych- Agitation last night. Continue current care 09/11/17 Psych- Pt more alert today. No behaviors over night. Continue current care 09/13/17: Hosp BMP repeated on 09/12/17 - stable. Na 144. Urine culture + for Klebsiella, sensitive to 1st gen cephalosporins. Continue Keflex (started 09/10). VS: HR variable, occ mild elevations in BP acceptable in her age group; afebrile. Psych: pt does not tolerate antipsychotics. They are continuing with medication adjustments.
--- NOTE | 2017-09-13 09:33 | Neuropsych Progress Note ---
[facility] Subjective Date: 09/13/17 - Sujective/Severity of Illness Medications: Acetaminophen (Tylenol Arthritis) 650 mg PO Q4H PRN PRN Reason: Pain Last Admin: 09/11/17 15:33 Dose: 650 mg Bisacodyl (Dulcolax) 10 mg RECTALLY DAILY PRN PRN Reason: Constipation Last Admin: 09/01/17 11:05 Dose: 10 mg Bisacodyl (Dulcolax) 5 mg PO BID PRN PRN Reason: Constipation Cephalexin HCl (Keflex 500 Mg) 500 mg PO TID [facility] Stop: 09/15/17 08:59 Last Admin: 09/12/17 20:03 Dose: 500 mg Cyanocobalamin (Vit. B-12) 1,000 mcg PO DAILY [facility] Last Admin: 09/12/17 12:16 Dose: 1,000 mcg Ergocalciferol (Vitamin D-2) 50,000 unit PO Q7D [facility] Last Admin: 09/07/17 15:46 Dose: Not Given Lorazepam (Ativan) 0.5 mg PO Q6H PRN PRN Reason: Extreme agitation Last Admin: 09/12/17 20:08 Dose: 0.5 mg Lorazepam (Ativan Intensol) 0.5 mg PO Q6H PRN Last Admin: 09/11/17 15:34 Dose: 0.5 mg Lorazepam (Ativan Inj) 0.5 mg IM Q6H PRN PRN Reason: Extreme agitation Last Admin: 09/06/17 19:35 Dose: 0.5 mg Magnesium Hydroxide (Mom) 30 ml PO PRN PRN PRN Reason: Constipation Memantine (Namenda) 10 mg PO HS [facility] Last Admin: 09/12/17 20:04 Dose: 10 mg Mirtazapine (Remeron) 7.5 mg PO HS [facility] Last Admin: 09/12/17 20:04 Dose: 7.5 mg Polyethylene Glycol (Miralax) 17 gm PO DAILY [facility] Last Admin: 09/12/17 12:16 Dose: 17 gm Potassium Chloride (Micro-K 10 Meq Capsule) 10 meq PO WB [facility] Last Admin: 09/12/17 12:16 Dose: 10 meq Propranolol HCl (Inderal) 10 mg PO TID [facility] Last Admin: 09/12/17 20:05 Dose: 10 mg Senna/Docusate Sodium (Senna Plus Tablet) 2 tab PO BID PRN PRN Reason: Constipation Senna/Docusate Sodium (Senna Plus Tablet) 1 tab PO BID [facility] Last Admin: 09/12/17 20:05 Dose: 1 tab Tamsulosin HCl (Flomax) 0.4 mg PO HS [facility] Last Admin: 09/12/17 20:05 Dose: 0.4 mg Subjective: Patient seen and chart reviewed. Case discussed with treatment team. Patient is sleeping soundly at time of rounds. Nursing staff report patient is intermittently agitated/aggressive and refused her bladder scan last night. She continues to be tearful at times. She seems to have less energy today than previous days. Received first dose of mirtazapine last night and PRN Ativan given only 4 minutes later for agitation. Patient has been variably adherent with medications. Patient slept 7.5 hours overnight. VSS. Appetite continues to be limited. Psychotropic PRNs required in the past 24 hours: Ativan 0.5mg PO x1 last evening. Start Time: 11:00 Stop Time: 11:20 Mental Status Exam Vitals: Last Vital Signs Temp 97.1 F 09/13/17 08:00 Pulse 96 09/13/17 08:00 Resp 18 09/13/17 08:00 BP 133/76 09/13/17 08:00 Pulse Ox 97 09/13/17 08:00 Height: 1.65 m Weight: 57.9 kg - Mental Status Exam Muscle Strength/Tone: Weak Dressing: Casual Grooming: Fair Attitude: Combative (at times, not during interview) Motor Activity: Retardation Eye Contact: Poor Speech: Slowed Volume: Soft Rhythm: Mumbled Orientation: Disoriented to time, Disoriented to place, Disoriented to situation , Oriented to person Mood: Irritable, Tearful Rate of Thoughts: Delayed Thought Organization: Confused Associations: Illogical Abstract Reasoning: Impaired, concrete Thought Content: Ruminations Perception/Psychotic: Other (Denies, does not appear to be responding to internal stimuli) Language: Naming Impaired Fund of Knowledge: Poor fund of knowledge Memory: Poor-immediate, Poor-recent, Poor-remote Suicidal Ideation: Denies Homicidal Ideation: Denies Insight: Impaired Judgement: Impaired Impulse Control: Poor (though improved from admission) - Laboratory Result Diagrams: 09/09/17 11:55 04/16/18 17:28 Laboratory Results - last 24 hr 09/12/17 17:28 Turbidity < 20 Sodium 144 Potassium 4.2 Chloride 105 Carbon Dioxide 28 Anion Gap 11 BUN 20.0 H Creatinine 0.8 GFR Calculation 69 BUN/Creatinine Ratio 25 Glucose 143 H Calculated Osmolality 282 H Calcium 9.7 Icterus Index < 2 Specimen Hemolysis < 15 Assessment and Plan (1) Major neurocognitive disorder Problem details: Moderate, likely mixed etiology, with behavioral disturbance R/O Bipolar disorder, MRE manic Other medical conditions: Recurrent UTIs Hypernatremia-POA History of bladder cancer Vitamin D deficiency Irritable bowel syndrome Diverticulosis Chronic compression fracture T12 Osteopenia Current visit: Yes Status: Acute (2) Vitamin B12 deficiency Current visit: Yes Status: Acute Continue current care, monitor to ensure mirtazapine is not contributing to daytime sedation. Continue attempts to straight cath patient as urinary retention has likely contributed to delirium. Hospital Course Summary Disclaimer: The visit summary below is not to be considered part of the above Progress Note. Hospital Course: Psych 08/25/17: Held Wellbutrin XL, Buspar, Viibryd due to suspected bipolar alexander. Psych 08/26/17: Patient seems to have improved slightly with discontinuation of all Wellbutrin XL, Buspar, Viibryd (upon admission). Currently taking seroquel 25mg PO BID and propranolol 10mg PO BID from home med list. Will add Depakote DR 250mg PO BID. Will additionally start Vitamin B12 1000mcg IM x 3 days then weekly for a month, then monthly thereafter. 08/27/2017- Psych- PT is irritable and labile at times but is redirectable. Will consider increase of Depakote tomorrow if tolerating well 08/28/2017 Psych- Pt remains irritable and impulsive at times. Increase Depakote to 250mg PO TID. 08/29/17 Psych: Continue current care as we await serotonergic agents to clear from blood given half-lives; discussed care with DPOA/daughter who is in agreement with treatment plan. Patient has hx of malignant neoplasm of bladder. Daughter states that no recent imaging has been done and is in agreement with sedating as necessary to obtain head CT. 08/30/17 Psych: Will switch Depakote to sprinkles 250mg PO TID for improved compliance, increase Seroquel to 25mg PO TID. May need to switch to Risperdal if urinary retention worsening. Recheck UA, will bladder scan BID and straight cath if necessary. Once patient has had compliance with Depakote x 3 days, can check trough VPA level and adjust to therapeutic level. 08/31/17-hospitalist Dr. Ramos had ordered a repeat urinalysis because patient continues to have behaviors and has had some urinary retention. She'd had a positive urinalysis on admission and was treated. Urinalysis performed last night was completely negative. She has had 3 doses of IM cyanocobalamin for borderline low B12 deficiency . Continue 1000 g cyanocobalamin a day. Recommend follow-up B12 level on outpatient basis. Patient medically stable. Chart reviewed. 08/31/17 Psych: Will collapse Depakote sprinkles to 250mg PO q AM and 500mg PO with dinner to increase adherence. Seroquel does not seem to be helpful and may be causing restlessness and urinary retention; will hold and monitor behavior for the time being. Stressed importance of adherence to Depakote to nursing staff. 09/01/17 Psych: Continue to focus on compliance with Depakote. Patient had BM with suppository, seems less irritable after this and with straight cathing PRN after bladder scans. Monitor mood, behavior and response to treatment. 09/02/17 Psych: Have ordered urgent labs: CBC, CMP, ammonia level, VPA level. Ordered urgent CT scan of abdomen/pelvis to f/u on hx of bladder cancer. Will hold VPA for now and monitor mentation, appetite. 09/03/17 Pt is lethargic with poor appetite. CT scan pending. Continue current care. Medical team following 09/04/17- Psych- Pt is a little more alert today. CT today. Ativan 0.5mg x 1 to help with obtaining CT. 09/05/17 Psych: Continue holding medications - will discuss further workup and medical treatment with hospitalist. Concern that there may be some underlying medical issues contributing to behaviors. Did not tolerate Depakote well in regards to appetite. Will await this discussion before making further med changes. 09/07/17 Psych: Son Bala to discuss trial of Risperdal with family. Patient will need memory care after d/c. 09/08/17 Psych: Continue current care; patient continues to improve leading me to wander how much of this was a hyperactive delirium vs. psychiatric cause of agitation (could also be manic episode resolving). Will monitor for another day before changing meds as she is showing improvement on current regimen. 09/09/17 Psych: Patient is not able to tolerate antipsychotics (responded very poorly to Risperdal 0.25mg); will completely discontinue scheduled and PRNs. May consider use of gabapentin or carbamazepine as mood stabilizers as she did not tolerate Depakote either. 09/10/17 Psych- Agitation last night. Continue current care 09/11/17 Psych- Pt more alert today. No behaviors over night. Continue current care. 09/12/17 Psych: Restart mirtazapine 7.5mg PO q HS to target mood, appetite. Monitor for emergence of alexander. 09/13/17 Psych: Continue current care, monitor to ensure mirtazapine is not contributing to daytime sedation. Continue attempts to straight cath patient as urinary retention has likely contributed to delirium.
[2017-09-13] MEDS: CYANOCOBALAMIN (B-12) 500mcg TABLET PO SCH (09:44)
[2017-09-13] MEDS: SENNA + DOCUSATE TABLET PO SCH ×2 (09:44→20:15)
[2017-09-13] MEDS: PROPRANOLOL 10 MG TABLET PO SCH ×3 (09:44→20:15)
[2017-09-13] MEDS: POLYETHYL GLYCOL 3350 17gm PACKET PO SCH (09:45)
[2017-09-13] MEDS: MIRTAZAPINE 15 MG TABLET PO SCH (20:15)
[2017-09-13] MEDS: MEMANTINE 10 MG TABLET PO SCH (20:15)
[2017-09-13] MEDS: TAMSULOSIN 0.4 MG CAPSULE PO SCH (20:15)
[2017-09-14] MEDS: SENNA + DOCUSATE TABLET PO SCH ×2 (09:39→20:01)
[2017-09-14] MEDS: PROPRANOLOL 10 MG TABLET PO SCH ×3 (09:39→20:01)
[2017-09-14] MEDS: CYANOCOBALAMIN (B-12) 500mcg TABLET PO SCH (09:39)
[2017-09-14] MEDS: POLYETHYL GLYCOL 3350 17gm PACKET PO SCH (09:40)
--- NOTE | 2017-09-14 15:06 | Neuropsych Progress Note ---
[facility] Subjective Date: 09/14/17 - Sujective/Severity of Illness Medications: Acetaminophen (Tylenol Arthritis) 650 mg PO Q4H PRN PRN Reason: Pain Last Admin: 09/11/17 15:33 Dose: 650 mg Bisacodyl (Dulcolax) 10 mg RECTALLY DAILY PRN PRN Reason: Constipation Last Admin: 09/01/17 11:05 Dose: 10 mg Bisacodyl (Dulcolax) 5 mg PO BID PRN PRN Reason: Constipation Carbamazepine (Tegretol Oral Liq) 100 mg PO [facility] Cephalexin HCl (Keflex 500 Mg) 500 mg PO TID [facility] Stop: 09/15/17 08:59 Last Admin: 09/14/17 09:39 Dose: 500 mg Cyanocobalamin (Vit. B-12) 1,000 mcg PO DAILY [facility] Last Admin: 09/14/17 09:39 Dose: 1,000 mcg Ergocalciferol (Vitamin D-2) 50,000 unit PO Q7D [facility] Last Admin: 09/07/17 15:46 Dose: Not Given Lorazepam (Ativan) 0.5 mg PO Q6H PRN PRN Reason: Extreme agitation Last Admin: 09/12/17 20:08 Dose: 0.5 mg Lorazepam (Ativan Intensol) 0.5 mg PO Q6H PRN Last Admin: 09/11/17 15:34 Dose: 0.5 mg Lorazepam (Ativan Inj) 0.5 mg IM Q6H PRN PRN Reason: Extreme agitation Last Admin: 09/06/17 19:35 Dose: 0.5 mg Magnesium Hydroxide (Mom) 30 ml PO PRN PRN PRN Reason: Constipation Memantine (Namenda) 10 mg PO HS [facility] Last Admin: 09/13/17 20:15 Dose: 10 mg Mirtazapine (Remeron) 15 mg PO [facility] Polyethylene Glycol (Miralax) 17 gm PO DAILY [facility] Last Admin: 09/14/17 09:40 Dose: 17 gm Potassium Chloride (Micro-K 10 Meq Capsule) 10 meq PO WB [facility] Last Admin: 09/14/17 09:39 Dose: 10 meq Propranolol HCl (Inderal) 10 mg PO TID [facility] Last Admin: 09/14/17 09:39 Dose: 10 mg Senna/Docusate Sodium (Senna Plus Tablet) 2 tab PO BID PRN PRN Reason: Constipation Senna/Docusate Sodium (Senna Plus Tablet) 1 tab PO BID [facility] Last Admin: 09/14/17 09:39 Dose: 1 tab Tamsulosin HCl (Flomax) 0.4 mg PO HS [facility] Last Admin: 09/13/17 20:15 Dose: 0.4 mg Subjective: Patient seen and chart reviewed. Case discussed with treatment team. Patient is lying in bed at time of rounds. I greet her and she immediately asks if I'm stupid, says "If I ever find out what's wrong with you, you'll pay!" and holds her hands up threateningly. She ends the interview. She alternates between this and being pleasant with staff at times. Nursing staff report patient continues to be intermittently agitated, often confused, and tearful at times. She continues to be physically combative at times as well. Patient has been mostly adherent with medications. Patient slept well overnight. VSS. Appetite continues to be limited. Psychotropic PRNs required in the past 24 hours: None. I spoke with son Bala re: care and agree to trial of carbamazepine for behavioral control as patient responds quite poorly to antipsychotics. He thanked us for our care on this unit. Start Time: 11:00 Stop Time: 11:20 Mental Status Exam Vitals: Last Vital Signs Temp 97.6 F 09/14/17 08:00 Pulse 106 H 09/14/17 08:00 Resp 18 09/14/17 08:00 BP 133/73 09/14/17 08:00 Pulse Ox 100 09/14/17 08:00 Height: 1.65 m Weight: 57.9 kg - Mental Status Exam Muscle Strength/Tone: Weak Dressing: Casual Grooming: Fair Attitude: Uncooperative, Combative (at times, not during interview), Argumentative Motor Activity: Retardation Eye Contact: Poor Speech: Slowed Volume: Soft Rhythm: Mumbled Orientation: Disoriented to time, Disoriented to place, Disoriented to situation , Oriented to person Mood: Irritable, Tearful Affect: Hostile Rate of Thoughts: Delayed Thought Organization: Confused Associations: Illogical Abstract Reasoning: Impaired, concrete Thought Content: Ruminations Perception/Psychotic: Other (Denies, does not appear to be responding to internal stimuli) Language: Naming Impaired Fund of Knowledge: Poor fund of knowledge Memory: Poor-immediate, Poor-recent, Poor-remote Suicidal Ideation: Denies Homicidal Ideation: Denies Insight: Impaired Judgement: Impaired Impulse Control: Poor (though improved from admission) - Laboratory Result Diagrams: 09/09/17 11:55 09/12/17 17:28 Assessment and Plan (1) Major neurocognitive disorder Problem details: Moderate, likely mixed etiology, with behavioral disturbance R/O Bipolar disorder, MRE manic Other medical conditions: Recurrent UTIs Hypernatremia-POA History of bladder cancer Vitamin D deficiency Irritable bowel syndrome Diverticulosis Chronic compression fracture T12 Osteopenia Current visit: Yes Status: Acute (2) Vitamin B12 deficiency Current visit: Yes Status: Acute Increase mirtazapine to 15mg PO q HS, start carbamazepine 100mg PO q HS and titrate further tomorrow. Family is aware there will be some trade off in functionality though meds needed for facility to be able to care for patient. Hospital Course Summary Disclaimer: The visit summary below is not to be considered part of the above Progress Note. Hospital Course: Psych 08/25/17: Held Wellbutrin XL, Buspar, Viibryd due to suspected bipolar alexander. Psych 08/26/17: Patient seems to have improved slightly with discontinuation of all Wellbutrin XL, Buspar, Viibryd (upon admission). Currently taking seroquel 25mg PO BID and propranolol 10mg PO BID from home med list. Will add Depakote DR 250mg PO BID. Will additionally start Vitamin B12 1000mcg IM x 3 days then weekly for a month, then monthly thereafter. 08/27/2017- Psych- PT is irritable and labile at times but is redirectable. Will consider increase of Depakote tomorrow if tolerating well 08/28/2017 Psych- Pt remains irritable and impulsive at times. Increase Depakote to 250mg PO TID. 08/29/17 Psych: Continue current care as we await serotonergic agents to clear from blood given half-lives; discussed care with DPOA/daughter who is in agreement with treatment plan. Patient has hx of malignant neoplasm of bladder. Daughter states that no recent imaging has been done and is in agreement with sedating as necessary to obtain head CT. 08/30/17 Psych: Will switch Depakote to sprinkles 250mg PO TID for improved compliance, increase Seroquel to 25mg PO TID. May need to switch to Risperdal if urinary retention worsening. Recheck UA, will bladder scan BID and straight cath if necessary. Once patient has had compliance with Depakote x 3 days, can check trough VPA level and adjust to therapeutic level. 08/31/17-hospitalist Dr. Ramos had ordered a repeat urinalysis because patient continues to have behaviors and has had some urinary retention. She'd had a positive urinalysis on admission and was treated. Urinalysis performed last night was completely negative. She has had 3 doses of IM cyanocobalamin for borderline low B12 deficiency . Continue 1000 g cyanocobalamin a day. Recommend follow-up B12 level on outpatient basis. Patient medically stable. Chart reviewed. 08/31/17 Psych: Will collapse Depakote sprinkles to 250mg PO q AM and 500mg PO with dinner to increase adherence. Seroquel does not seem to be helpful and may be causing restlessness and urinary retention; will hold and monitor behavior for the time being. Stressed importance of adherence to Depakote to nursing staff. 09/01/17 Psych: Continue to focus on compliance with Depakote. Patient had BM with suppository, seems less irritable after this and with straight cathing PRN after bladder scans. Monitor mood, behavior and response to treatment. 09/02/17 Psych: Have ordered urgent labs: CBC, CMP, ammonia level, VPA level. Ordered urgent CT scan of abdomen/pelvis to f/u on hx of bladder cancer. Will hold VPA for now and monitor mentation, appetite. 09/03/17 Pt is lethargic with poor appetite. CT scan pending. Continue current care. Medical team following 09/04/17- Psych- Pt is a little more alert today. CT today. Ativan 0.5mg x 1 to help with obtaining CT. 09/05/17 Psych: Continue holding medications - will discuss further workup and medical treatment with hospitalist. Concern that there may be some underlying medical issues contributing to behaviors. Did not tolerate Depakote well in regards to appetite. Will await this discussion before making further med changes. 09/07/17 Psych: Son Bala to discuss trial of Risperdal with family. Patient will need memory care after d/c. 09/08/17 Psych: Continue current care; patient continues to improve leading me to wander how much of this was a hyperactive delirium vs. psychiatric cause of agitation (could also be manic episode resolving). Will monitor for another day before changing meds as she is showing improvement on current regimen. 09/09/17 Psych: Patient is not able to tolerate antipsychotics (responded very poorly to Risperdal 0.25mg); will completely discontinue scheduled and PRNs. May consider use of gabapentin or carbamazepine as mood stabilizers as she did not tolerate Depakote either. 09/10/17 Psych- Agitation last night. Continue current care 09/11/17 Psych- Pt more alert today. No behaviors over night. Continue current care 09/13/17: Hosp BMP repeated on 09/12/17 - stable. Na 144. Urine culture + for Klebsiella, sensitive to 1st gen cephalosporins. Continue Keflex (started 09/10). VS: HR variable, occ mild elevations in BP acceptable in her age group; afebrile. Psych: pt does not tolerate antipsychotics. They are continuing with medication adjustments. 09/14/17 Psych: Increase mirtazapine to 15mg PO q HS, start carbamazepine 100mg PO q HS and titrate further tomorrow. Family is aware there will be some trade off in functionality though meds needed for facility to be able to care for patient.
[2017-09-14] MEDS: ERGOCALCIFEROL 50,000 UNIT CAPSULE PO SCH (16:29)
[2017-09-14] MEDS: CARBAMAZEPINE 100 MG/5 ML PO SCH ×2 (17:51→20:00)
[2017-09-14] MEDS: TAMSULOSIN 0.4 MG CAPSULE PO SCH (20:01)
[2017-09-14] MEDS: MIRTAZAPINE 15 MG TABLET PO SCH (20:01)
[2017-09-14] MEDS: MEMANTINE 10 MG TABLET PO SCH (20:01)
[2017-09-15] MEDS: CARBAMAZEPINE 100 MG/5 ML PO SCH ×3 (09:02→17:41)
[2017-09-15] MEDS: PROPRANOLOL 10 MG TABLET PO SCH ×3 (09:03→20:01)
[2017-09-15] MEDS: SENNA + DOCUSATE TABLET PO SCH ×2 (09:03→20:01)
[2017-09-15] MEDS: POLYETHYL GLYCOL 3350 17gm PACKET PO SCH (09:03)
[2017-09-15] MEDS: CYANOCOBALAMIN (B-12) 500mcg TABLET PO SCH (09:03)
--- NOTE | 2017-09-15 12:14 | Neuropsych Progress Note ---
[facility] Subjective Date: 09/16/17 - Sujective/Severity of Illness Medications: Acetaminophen (Tylenol Arthritis) 650 mg PO Q4H PRN PRN Reason: Pain Last Admin: 09/11/17 15:33 Dose: 650 mg Bisacodyl (Dulcolax) 10 mg RECTALLY DAILY PRN PRN Reason: Constipation Last Admin: 09/01/17 11:05 Dose: 10 mg Bisacodyl (Dulcolax) 5 mg PO BID PRN PRN Reason: Constipation Carbamazepine (Tegretol Oral Liq) 100 mg PO [facility] Last Admin: 09/15/17 09:02 Dose: 100 mg Cyanocobalamin (Vit. B-12) 1,000 mcg PO DAILY [facility] Last Admin: 09/15/17 09:03 Dose: 1,000 mcg Ergocalciferol (Vitamin D-2) 50,000 unit PO Q7D [facility] Last Admin: 09/14/17 16:29 Dose: 50,000 unit Lorazepam (Ativan) 0.5 mg PO Q6H PRN PRN Reason: Extreme agitation Last Admin: 09/12/17 20:08 Dose: 0.5 mg Lorazepam (Ativan Intensol) 0.5 mg PO Q6H PRN Last Admin: 09/11/17 15:34 Dose: 0.5 mg Lorazepam (Ativan Inj) 0.5 mg IM Q6H PRN PRN Reason: Extreme agitation Last Admin: 09/06/17 19:35 Dose: 0.5 mg Magnesium Hydroxide (Mom) 30 ml PO PRN PRN PRN Reason: Constipation Memantine (Namenda) 10 mg PO HS [facility] Last Admin: 09/14/17 20:01 Dose: 10 mg Mirtazapine (Remeron) 15 mg PO HS [facility] Last Admin: 09/14/17 20:01 Dose: 15 mg Polyethylene Glycol (Miralax) 17 gm PO DAILY [facility] Last Admin: 09/15/17 09:03 Dose: 17 gm Potassium Chloride (Micro-K 10 Meq Capsule) 10 meq PO WB [facility] Last Admin: 09/15/17 09:03 Dose: 10 meq Propranolol HCl (Inderal) 10 mg PO TID [facility] Last Admin: 09/15/17 09:03 Dose: 10 mg Senna/Docusate Sodium (Senna Plus Tablet) 2 tab PO BID PRN PRN Reason: Constipation Senna/Docusate Sodium (Senna Plus Tablet) 1 tab PO BID [facility] Last Admin: 09/15/17 09:03 Dose: 1 tab Tamsulosin HCl (Flomax) 0.4 mg PO [facility] Last Admin: 09/14/17 20:01 Dose: 0.4 mg Subjective: Patient seen and chart reviewed. Case discussed with treatment team. On interview, patient is irritable and confused. She describes her mood as "madder than Hell" and talks about some lady on a bus and wasting taxpayer money. Patient denies any SI, HI or AVH. Patient denies any adverse side effects related to psychotropic medications. Nursing staff report patient continues to be tearful at times throughout the day and often asks for her . She refused to cooperate in group today. Patient has been adherent with medications. Patient slept 9 hours overnight. VSS. Patient's appetite is limited. Psychotropic PRNs required in the past 24 hours: none. Start Time: 14:40 Stop Time: 15:00 Mental Status Exam Vitals: Last Vital Signs Temp 97.8 F 09/15/17 08:00 Pulse 82 09/15/17 08:00 Resp 16 09/15/17 08:00 BP 138/77 09/15/17 08:00 Pulse Ox 98 09/15/17 08:00 Height: 1.65 m Weight: 57.9 kg - Mental Status Exam Muscle Strength/Tone: Weak Dressing: Casual Grooming: Fair Attitude: Uncooperative, Combative (at times, not during interview), Argumentative Motor Activity: Retardation Eye Contact: Poor Speech: Slowed Volume: Soft Rhythm: Mumbled Orientation: Disoriented to time, Disoriented to place, Disoriented to situation , Oriented to person Mood: Irritable, Tearful Affect: Hostile Rate of Thoughts: Delayed Thought Organization: Confused Associations: Illogical Abstract Reasoning: Impaired, concrete Thought Content: Ruminations Perception/Psychotic: Other (Denies, does not appear to be responding to internal stimuli) Language: Naming Impaired Fund of Knowledge: Poor fund of knowledge Memory: Poor-immediate, Poor-recent, Poor-remote Suicidal Ideation: Denies Homicidal Ideation: Denies Insight: Impaired Judgement: Impaired Impulse Control: Poor (though improved from admission) - Laboratory Result Diagrams: 09/09/17 11:55 09/12/17 17:28 Assessment and Plan (1) Major neurocognitive disorder Problem details: Moderate, likely mixed etiology, with behavioral disturbance R/O Bipolar disorder, MRE manic Other medical conditions: Recurrent UTIs Hypernatremia-POA History of bladder cancer Vitamin D deficiency Irritable bowel syndrome Diverticulosis Chronic compression fracture T12 Osteopenia Current visit: Yes Status: Acute (2) Vitamin B12 deficiency Current visit: Yes Status: Acute Increase carbamazepine to 100mg PO BID. Hospital Course Summary Disclaimer: The visit summary below is not to be considered part of the above Progress Note. Hospital Course: Psych 08/25/17: Held Wellbutrin XL, Buspar, Viibryd due to suspected bipolar alexander. Psych 08/26/17: Patient seems to have improved slightly with discontinuation of all Wellbutrin XL, Buspar, Viibryd (upon admission). Currently taking seroquel 25mg PO BID and propranolol 10mg PO BID from home med list. Will add Depakote DR 250mg PO BID. Will additionally start Vitamin B12 1000mcg IM x 3 days then weekly for a month, then monthly thereafter. 08/27/2017- Psych- PT is irritable and labile at times but is redirectable. Will consider increase of Depakote tomorrow if tolerating well 08/28/2017 Psych- Pt remains irritable and impulsive at times. Increase Depakote to 250mg PO TID. 08/29/17 Psych: Continue current care as we await serotonergic agents to clear from blood given half-lives; discussed care with DPOA/daughter who is in agreement with treatment plan. Patient has hx of malignant neoplasm of bladder. Daughter states that no recent imaging has been done and is in agreement with sedating as necessary to obtain head CT. 08/30/17 Psych: Will switch Depakote to sprinkles 250mg PO TID for improved compliance, increase Seroquel to 25mg PO TID. May need to switch to Risperdal if urinary retention worsening. Recheck UA, will bladder scan BID and straight cath if necessary. Once patient has had compliance with Depakote x 3 days, can check trough VPA level and adjust to therapeutic level. 08/31/17-hospitalist Dr. Ramos had ordered a repeat urinalysis because patient continues to have behaviors and has had some urinary retention. She'd had a positive urinalysis on admission and was treated. Urinalysis performed last night was completely negative. She has had 3 doses of IM cyanocobalamin for borderline low B12 deficiency . Continue 1000 g cyanocobalamin a day. Recommend follow-up B12 level on outpatient basis. Patient medically stable. Chart reviewed. 08/31/17 Psych: Will collapse Depakote sprinkles to 250mg PO q AM and 500mg PO with dinner to increase adherence. Seroquel does not seem to be helpful and may be causing restlessness and urinary retention; will hold and monitor behavior for the time being. Stressed importance of adherence to Depakote to nursing staff. 09/01/17 Psych: Continue to focus on compliance with Depakote. Patient had BM with suppository, seems less irritable after this and with straight cathing PRN after bladder scans. Monitor mood, behavior and response to treatment. 09/02/17 Psych: Have ordered urgent labs: CBC, CMP, ammonia level, VPA level. Ordered urgent CT scan of abdomen/pelvis to f/u on hx of bladder cancer. Will hold VPA for now and monitor mentation, appetite. 09/03/17 Pt is lethargic with poor appetite. CT scan pending. Continue current care. Medical team following 09/04/17- Psych- Pt is a little more alert today. CT today. Ativan 0.5mg x 1 to help with obtaining CT. 09/05/17 Psych: Continue holding medications - will discuss further workup and medical treatment with hospitalist. Concern that there may be some underlying medical issues contributing to behaviors. Did not tolerate Depakote well in regards to appetite. Will await this discussion before making further med changes. 09/07/17 Psych: Son Bala to discuss trial of Risperdal with family. Patient will need memory care after d/c. 09/08/17 Psych: Continue current care; patient continues to improve leading me to wander how much of this was a hyperactive delirium vs. psychiatric cause of agitation (could also be manic episode resolving). Will monitor for another day before changing meds as she is showing improvement on current regimen. 09/09/17 Psych: Patient is not able to tolerate antipsychotics (responded very poorly to Risperdal 0.25mg); will completely discontinue scheduled and PRNs. May consider use of gabapentin or carbamazepine as mood stabilizers as she did not tolerate Depakote either. 09/10/17 Psych- Agitation last night. Continue current care 09/11/17 Psych- Pt more alert today. No behaviors over night. Continue current care 09/13/17: Hosp BMP repeated on 09/12/17 - stable. Na 144. Urine culture + for Klebsiella, sensitive to 1st gen cephalosporins. Continue Keflex (started 09/10). VS: HR variable, occ mild elevations in BP acceptable in her age group; afebrile. Psych: pt does not tolerate antipsychotics. They are continuing with medication adjustments. 09/14/17 Psych: Increase mirtazapine to 15mg PO q HS, start carbamazepine 100mg PO q HS and titrate further tomorrow. Family is aware there will be some trade off in functionality though meds needed for facility to be able to care for patient. 09/15/17 Psych: Increase carbamazepine to 100mg PO BID.
[2017-09-15] MEDS: LORazepam 1 MG TABLET PO PRN ×2 (13:10→20:03)
--- NOTE | 2017-09-15 17:27 | Progress Note ---
- Date 09/15/17 Subjective: Susannah was resting comfortably when seen by me this afternoon. She was calm and pleasant. She denied any complaints to me. Objective Vital signs: Temperature 97.4 F 09/15/17 16:00 Pulse Rate 89 09/15/17 16:00 Respiratory Rate 16 09/15/17 16:00 Blood Pressure 135/85 09/15/17 16:00 Pulse Oximetry 95 09/15/17 16:00 Height/Weight/BMI: Height 1.65 m Weight 57.9 kg Body Mass Index 23.8 Comments: Gen: alert, NAD Skin: warm and dry HEENT: NC/AT PERRL, EOMI, Sclera, lids and conjunctiva wnl. MMM. OP clear. Neck: No JVD, Carotids 2+ without bruits Lungs: clear. No rales, rhonchi or wheezes CV: regular. No murmur, rub or gallop Abd: soft. +BS. NT/ND MS: No edema. Good strength and ROM Neuro: No focal deficits Psy: Appropriate mood and affect Results - Labs CBC & Chem 7: 09/09/17 11:55 09/12/17 17:28 Microbiology Results: Microbiology 09/10/17 05:21 Urine, Cath Straight Urine Culture - Final Klebsiella oxytoca Lactobacillus species Assessment and Plan (1) Alzheimer's dementia with behavioral disturbance Current visit: Yes Status: Acute Assessment and Plan: Assessment/Plan: Alzheimer's disease with behavioral disturbance -per Psych -On Namenda -Ativan -Tegretol -On remeron Urinary retention with E. coli & Strep viridans UTI; later with klebsiella UTI -Continue Keflex until the Hypernatremia -resolved History of bladder cancer Borderline low B12 -On supplements Vitamin D deficiency -On supplements Irritable bowel syndrome -On good bowel regimen HTN -Good readings lately -On Propranolol Depression/anxiety Diverticulosis Chronic compression fracture T12 Osteopenia - Physician Narrative Physician: Kaycee Pacheco MD Narrative: Date: 09/15/17 Time: 1734 Hospital Course Summary Disclaimer: The visit summary below is not to be considered part of the above Progress Note. Hospital Course: Psych 08/25/17: Held Wellbutrin XL, Buspar, Viibryd due to suspected bipolar alexander. Psych 08/26/17: Patient seems to have improved slightly with discontinuation of all Wellbutrin XL, Buspar, Viibryd (upon admission). Currently taking seroquel 25mg PO BID and propranolol 10mg PO BID from home med list. Will add Depakote DR 250mg PO BID. Will additionally start Vitamin B12 1000mcg IM x 3 days then weekly for a month, then monthly thereafter. 08/27/2017- Psych- PT is irritable and labile at times but is redirectable. Will consider increase of Depakote tomorrow if tolerating well 08/28/2017 Psych- Pt remains irritable and impulsive at times. Increase Depakote to 250mg PO TID. 08/29/17 Psych: Continue current care as we await serotonergic agents to clear from blood given half-lives; discussed care with DPOA/daughter who is in agreement with treatment plan. Patient has hx of malignant neoplasm of bladder. Daughter states that no recent imaging has been done and is in agreement with sedating as necessary to obtain head CT. 08/30/17 Psych: Will switch Depakote to sprinkles 250mg PO TID for improved compliance, increase Seroquel to 25mg PO TID. May need to switch to Risperdal if urinary retention worsening. Recheck UA, will bladder scan BID and straight cath if necessary. Once patient has had compliance with Depakote x 3 days, can check trough VPA level and adjust to therapeutic level. 08/31/17-hospitalist Dr. Ramos had ordered a repeat urinalysis because patient continues to have behaviors and has had some urinary retention. She'd had a positive urinalysis on admission and was treated. Urinalysis performed last night was completely negative. She has had 3 doses of IM cyanocobalamin for borderline low B12 deficiency . Continue 1000 g cyanocobalamin a day. Recommend follow-up B12 level on outpatient basis. Patient medically stable. Chart reviewed. 08/31/17 Psych: Will collapse Depakote sprinkles to 250mg PO q AM and 500mg PO with dinner to increase adherence. Seroquel does not seem to be helpful and may be causing restlessness and urinary retention; will hold and monitor behavior for the time being. Stressed importance of adherence to Depakote to nursing staff. 09/01/17 Psych: Continue to focus on compliance with Depakote. Patient had BM with suppository, seems less irritable after this and with straight cathing PRN after bladder scans. Monitor mood, behavior and response to treatment. 09/02/17 Psych: Have ordered urgent labs: CBC, CMP, ammonia level, VPA level. Ordered urgent CT scan of abdomen/pelvis to f/u on hx of bladder cancer. Will hold VPA for now and monitor mentation, appetite. 09/03/17 Pt is lethargic with poor appetite. CT scan pending. Continue current care. Medical team following 09/04/17- Psych- Pt is a little more alert today. CT today. Ativan 0.5mg x 1 to help with obtaining CT. 09/05/17 Psych: Continue holding medications - will discuss further workup and medical treatment with hospitalist. Concern that there may be some underlying medical issues contributing to behaviors. Did not tolerate Depakote well in regards to appetite. Will await this discussion before making further med changes. 09/07/17 Psych: Son Bala to discuss trial of Risperdal with family. Patient will need memory care after d/c. 09/08/17 Psych: Continue current care; patient continues to improve leading me to wander how much of this was a hyperactive delirium vs. psychiatric cause of agitation (could also be manic episode resolving). Will monitor for another day before changing meds as she is showing improvement on current regimen. 09/09/17 Psych: Patient is not able to tolerate antipsychotics (responded very poorly to Risperdal 0.25mg); will completely discontinue scheduled and PRNs. May consider use of gabapentin or carbamazepine as mood stabilizers as she did not tolerate Depakote either. 09/10/17 Psych- Agitation last night. Continue current care 09/11/17 Psych- Pt more alert today. No behaviors over night. Continue current care 09/13/17: Hosp BMP repeated on 09/12/17 - stable. Na 144. Urine culture + for Klebsiella, sensitive to 1st gen cephalosporins. Continue Keflex (started 09/10). VS: HR variable, occ mild elevations in BP acceptable in her age group; afebrile. Psych: pt does not tolerate antipsychotics. They are continuing with medication adjustments. 09/14/17 Psych: Increase mirtazapine to 15mg PO q HS, start carbamazepine 100mg PO q HS and titrate further tomorrow. Family is aware there will be some trade off in functionality though meds needed for facility to be able to care for patient.
[2017-09-15] MEDS: TAMSULOSIN 0.4 MG CAPSULE PO SCH (20:00)
[2017-09-15] MEDS: MIRTAZAPINE 15 MG TABLET PO SCH (20:00)
[2017-09-15] MEDS: MEMANTINE 10 MG TABLET PO SCH (20:01)
[2017-09-16] MEDS: POLYETHYL GLYCOL 3350 17gm PACKET PO SCH (08:53)
[2017-09-16] MEDS: CARBAMAZEPINE 100 MG/5 ML PO SCH ×2 (08:54→17:19)
[2017-09-16] MEDS: PROPRANOLOL 10 MG TABLET PO SCH ×3 (08:55→20:14)
[2017-09-16] MEDS: LORazepam 1 MG TABLET PO PRN (08:56)
[2017-09-16] MEDS: SENNA + DOCUSATE TABLET PO SCH ×2 (09:04→20:14)
[2017-09-16] MEDS: CYANOCOBALAMIN (B-12) 500mcg TABLET PO SCH (09:04)
--- NOTE | 2017-09-16 14:05 | Neuropsych Progress Note ---
[facility] Subjective Date: 09/16/17 - Sujective/Severity of Illness Medications: Acetaminophen (Tylenol Arthritis) 650 mg PO Q4H PRN PRN Reason: Pain Last Admin: 09/16/17 08:55 Dose: 650 mg Bisacodyl (Dulcolax) 10 mg RECTALLY DAILY PRN PRN Reason: Constipation Last Admin: 09/01/17 11:05 Dose: 10 mg Bisacodyl (Dulcolax) 5 mg PO BID PRN PRN Reason: Constipation Carbamazepine (Tegretol Oral Liq) 100 mg PO BIDWM REPLACED BY [facility] Last Admin: 09/16/17 08:54 Dose: 100 mg Cyanocobalamin (Vit. B-12) 1,000 mcg PO DAILY REPLACED BY [facility] Last Admin: 09/16/17 09:04 Dose: Not Given Ergocalciferol (Vitamin D-2) 50,000 unit PO Q7D REPLACED BY [facility] Last Admin: 09/14/17 16:29 Dose: 50,000 unit Lorazepam (Ativan) 0.5 mg PO Q6H PRN PRN Reason: Extreme agitation Last Admin: 09/16/17 08:56 Dose: 0.5 mg Lorazepam (Ativan Intensol) 0.5 mg PO Q6H PRN Last Admin: 09/11/17 15:34 Dose: 0.5 mg Lorazepam (Ativan Inj) 0.5 mg IM Q6H PRN PRN Reason: Extreme agitation Last Admin: 09/06/17 19:35 Dose: 0.5 mg Magnesium Hydroxide (Mom) 30 ml PO PRN PRN PRN Reason: Constipation Memantine (Namenda) 10 mg PO [facility] Last Admin: 09/15/17 20:01 Dose: 10 mg Mirtazapine (Remeron) 15 mg PO [facility] Last Admin: 09/15/17 20:00 Dose: 15 mg Polyethylene Glycol (Miralax) 17 gm PO DAILY REPLACED BY [facility] Last Admin: 09/16/17 08:53 Dose: 17 gm Potassium Chloride (Micro-K 10 Meq Capsule) 10 meq PO WB REPLACED BY [facility] Last Admin: 09/16/17 09:04 Dose: Not Given Propranolol HCl (Inderal) 10 mg PO TID REPLACED BY [facility] Last Admin: 09/16/17 08:55 Dose: 10 mg Senna/Docusate Sodium (Senna Plus Tablet) 2 tab PO BID PRN PRN Reason: Constipation Senna/Docusate Sodium (Senna Plus Tablet) 1 tab PO BID REPLACED BY [facility] Last Admin: 09/16/17 09:04 Dose: Not Given Tamsulosin HCl (Flomax) 0.4 mg PO [facility] Last Admin: 09/15/17 20:00 Dose: 0.4 mg Subjective: Patient seen and chart reviewed. Case discussed with treatment team. On interview, patient is irritable and confused. She describes her mood as "not happy" and says she has morbid thoughts at times but denies SI. Patient denies HI or AVH. Patient denies any adverse side effects related to psychotropic medications. Nursing staff report patient continues to be tearful at times throughout the day and often asks for her . She was aggressive x2 yesterday and got PRN Ativan this morning. She has reported having an urge to urinate but has been unable to, continuing to require BID straight cath. Patient has been adherent with medications. Patient slept 9.5 hours overnight. VSS. Patient's appetite is limited. Psychotropic PRNs required in the past 24 hours: Ativan 0.5mg PO x1 this morning. Discussed care with patient's son Bala today and agreed to discontinue Namenda. Start Time: 09:20 Stop Time: 09:40 Mental Status Exam Vitals: Last Vital Signs Temp 98.0 F 09/16/17 08:00 Pulse 92 09/16/17 08:00 Resp 16 09/16/17 08:00 BP 118/77 09/16/17 08:00 Pulse Ox 93 09/16/17 08:00 Height: 1.65 m Weight: 57.9 kg - Mental Status Exam Muscle Strength/Tone: Weak Dressing: Casual Grooming: Fair Attitude: Uncooperative, Combative (at times, not during interview), Argumentative Motor Activity: Retardation Eye Contact: Poor Speech: Slowed Volume: Soft Rhythm: Mumbled Orientation: Disoriented to time, Disoriented to place, Disoriented to situation , Oriented to person Mood: Irritable, Tearful Rate of Thoughts: Delayed Thought Organization: Confused Associations: Illogical Abstract Reasoning: Impaired, concrete Thought Content: Ruminations Perception/Psychotic: Other (Denies, does not appear to be responding to internal stimuli) Language: Naming Impaired Fund of Knowledge: Poor fund of knowledge Memory: Poor-immediate, Poor-recent, Poor-remote Suicidal Ideation: Denies Homicidal Ideation: Denies Insight: Impaired Judgement: Impaired Impulse Control: Poor (though improved from admission) - Laboratory Result Diagrams: 09/09/17 11:55 09/12/17 17:28 Assessment and Plan (1) Major neurocognitive disorder Problem details: Moderate, likely mixed etiology, with behavioral disturbance R/O Bipolar disorder, MRE manic Other medical conditions: Recurrent UTIs Hypernatremia-POA History of bladder cancer Vitamin D deficiency Irritable bowel syndrome Diverticulosis Chronic compression fracture T12 Osteopenia Current visit: Yes Status: Acute (2) Vitamin B12 deficiency Current visit: Yes Status: Acute Continue carbamazepine and consider increasing to 100mg PO q AM and 200mg PO q HS tomorrow (09/17) if well-tolerated. After discussion with family, agreed to discontinue Namenda. Hospital Course Summary Disclaimer: The visit summary below is not to be considered part of the above Progress Note. Hospital Course: Psych 08/25/17: Held Wellbutrin XL, Buspar, Viibryd due to suspected bipolar alexander. Psych 08/26/17: Patient seems to have improved slightly with discontinuation of all Wellbutrin XL, Buspar, Viibryd (upon admission). Currently taking seroquel 25mg PO BID and propranolol 10mg PO BID from home med list. Will add Depakote DR 250mg PO BID. Will additionally start Vitamin B12 1000mcg IM x 3 days then weekly for a month, then monthly thereafter. 08/27/2017- Psych- PT is irritable and labile at times but is redirectable. Will consider increase of Depakote tomorrow if tolerating well 08/28/2017 Psych- Pt remains irritable and impulsive at times. Increase Depakote to 250mg PO TID. 08/29/17 Psych: Continue current care as we await serotonergic agents to clear from blood given half-lives; discussed care with DPOA/daughter who is in agreement with treatment plan. Patient has hx of malignant neoplasm of bladder. Daughter states that no recent imaging has been done and is in agreement with sedating as necessary to obtain head CT. 08/30/17 Psych: Will switch Depakote to sprinkles 250mg PO TID for improved compliance, increase Seroquel to 25mg PO TID. May need to switch to Risperdal if urinary retention worsening. Recheck UA, will bladder scan BID and straight cath if necessary. Once patient has had compliance with Depakote x 3 days, can check trough VPA level and adjust to therapeutic level. 08/31/17-hospitalist Dr. Ramos had ordered a repeat urinalysis because patient continues to have behaviors and has had some urinary retention. She'd had a positive urinalysis on admission and was treated. Urinalysis performed last night was completely negative. She has had 3 doses of IM cyanocobalamin for borderline low B12 deficiency . Continue 1000 g cyanocobalamin a day. Recommend follow-up B12 level on outpatient basis. Patient medically stable. Chart reviewed. 08/31/17 Psych: Will collapse Depakote sprinkles to 250mg PO q AM and 500mg PO with dinner to increase adherence. Seroquel does not seem to be helpful and may be causing restlessness and urinary retention; will hold and monitor behavior for the time being. Stressed importance of adherence to Depakote to nursing staff. 09/01/17 Psych: Continue to focus on compliance with Depakote. Patient had BM with suppository, seems less irritable after this and with straight cathing PRN after bladder scans. Monitor mood, behavior and response to treatment. 09/02/17 Psych: Have ordered urgent labs: CBC, CMP, ammonia level, VPA level. Ordered urgent CT scan of abdomen/pelvis to f/u on hx of bladder cancer. Will hold VPA for now and monitor mentation, appetite. 09/03/17 Pt is lethargic with poor appetite. CT scan pending. Continue current care. Medical team following 09/04/17- Psych- Pt is a little more alert today. CT today. Ativan 0.5mg x 1 to help with obtaining CT. 09/05/17 Psych: Continue holding medications - will discuss further workup and medical treatment with hospitalist. Concern that there may be some underlying medical issues contributing to behaviors. Did not tolerate Depakote well in regards to appetite. Will await this discussion before making further med changes. 09/07/17 Psych: Son Bala to discuss trial of Risperdal with family. Patient will need memory care after d/c. 09/08/17 Psych: Continue current care; patient continues to improve leading me to wander how much of this was a hyperactive delirium vs. psychiatric cause of agitation (could also be manic episode resolving). Will monitor for another day before changing meds as she is showing improvement on current regimen. 09/09/17 Psych: Patient is not able to tolerate antipsychotics (responded very poorly to Risperdal 0.25mg); will completely discontinue scheduled and PRNs. May consider use of gabapentin or carbamazepine as mood stabilizers as she did not tolerate Depakote either. 09/10/17 Psych- Agitation last night. Continue current care 09/11/17 Psych- Pt more alert today. No behaviors over night. Continue current care 09/13/17: Hosp BMP repeated on 09/12/17 - stable. Na 144. Urine culture + for Klebsiella, sensitive to 1st gen cephalosporins. Continue Keflex (started 09/10). VS: HR variable, occ mild elevations in BP acceptable in her age group; afebrile. Psych: pt does not tolerate antipsychotics. They are continuing with medication adjustments. 09/14/17 Psych: Increase mirtazapine to 15mg PO q HS, start carbamazepine 100mg PO q HS and titrate further tomorrow. Family is aware there will be some trade off in functionality though meds needed for facility to be able to care for patient. 09/15/17 Psych: Increase carbamazepine to 100mg PO BID. 09/16/17 Psych: Continue carbamazepine and consider increasing to 100mg PO q AM and 200mg PO q HS tomorrow (09/17) if well-tolerated. After discussion with family, agreed to discontinue Namenda.
[2017-09-16] MEDS: MIRTAZAPINE 15 MG TABLET PO SCH (20:13)
[2017-09-16] MEDS: TAMSULOSIN 0.4 MG CAPSULE PO SCH (20:13)
[2017-09-17] MEDS: CARBAMAZEPINE 100 MG/5 ML PO SCH ×2 (07:57→20:13)
[2017-09-17] MEDS: POLYETHYL GLYCOL 3350 17gm PACKET PO SCH ×2 (07:58→15:45)
[2017-09-17] MEDS: CYANOCOBALAMIN (B-12) 500mcg TABLET PO SCH ×2 (07:58→15:45)
[2017-09-17] MEDS: SENNA + DOCUSATE TABLET PO SCH ×2 (07:59→20:12)
[2017-09-17] MEDS: PROPRANOLOL 10 MG TABLET PO SCH ×3 (07:59→20:13)
--- NOTE | 2017-09-17 15:19 | Neuropsych Progress Note ---
[facility] Subjective Date: 09/17/17 - Sujective/Severity of Illness Medications: Acetaminophen (Tylenol Arthritis) 650 mg PO Q4H PRN PRN Reason: Pain Last Admin: 09/17/17 07:59 Dose: 650 mg Bisacodyl (Dulcolax) 10 mg RECTALLY DAILY PRN PRN Reason: Constipation Last Admin: 09/01/17 11:05 Dose: 10 mg Bisacodyl (Dulcolax) 5 mg PO BID PRN PRN Reason: Constipation Carbamazepine (Tegretol Oral Liq) 100 mg PO BIDWM [facility] Last Admin: 09/17/17 07:57 Dose: 100 mg Cyanocobalamin (Vit. B-12) 1,000 mcg PO DAILY [facility] Last Admin: 09/17/17 07:58 Dose: 1,000 mcg Ergocalciferol (Vitamin D-2) 50,000 unit PO Q7D [facility] Last Admin: 09/14/17 16:29 Dose: 50,000 unit Lorazepam (Ativan) 0.5 mg PO Q6H PRN PRN Reason: Extreme agitation Last Admin: 09/16/17 08:56 Dose: 0.5 mg Lorazepam (Ativan Intensol) 0.5 mg PO Q6H PRN Last Admin: 09/11/17 15:34 Dose: 0.5 mg Lorazepam (Ativan Inj) 0.5 mg IM Q6H PRN PRN Reason: Extreme agitation Last Admin: 09/06/17 19:35 Dose: 0.5 mg Magnesium Hydroxide (Mom) 30 ml PO PRN PRN PRN Reason: Constipation Mirtazapine (Remeron) 15 mg PO HS [facility] Last Admin: 09/16/17 20:13 Dose: 15 mg Polyethylene Glycol (Miralax) 17 gm PO DAILY [facility] Last Admin: 09/17/17 07:58 Dose: 17 gm Potassium Chloride (Micro-K 10 Meq Capsule) 10 meq PO WB [facility] Last Admin: 09/17/17 07:57 Dose: 10 meq Propranolol HCl (Inderal) 10 mg PO TID [facility] Last Admin: 09/17/17 07:59 Dose: 10 mg Senna/Docusate Sodium (Senna Plus Tablet) 2 tab PO BID PRN PRN Reason: Constipation Senna/Docusate Sodium (Senna Plus Tablet) 1 tab PO BID [facility] Last Admin: 09/17/17 07:59 Dose: 1 tab Tamsulosin HCl (Flomax) 0.4 mg PO HS [facility] Last Admin: 09/16/17 20:13 Dose: 0.4 mg Subjective: Patient seen and chart reviewed. Nursing reports pt continues to have a labile mood an can be aggressive with cares. Sleeping well and appetite is fair. On face to face the pt is pleasant but confused. She is only oriented to self. She denies any pain. Tolerating meds. Start Time: 10:45 Stop Time: 11:00 Mental Status Exam Vitals: Last Vital Signs Temp 97.8 F 09/17/17 08:00 Pulse 82 09/17/17 08:00 Resp 16 09/17/17 08:00 BP 129/68 09/17/17 08:00 Pulse Ox 99 09/16/17 19:52 Height: 1.65 m Weight: 57.9 kg - Mental Status Exam Muscle Strength/Tone: Weak Dressing: Casual Grooming: Fair Attitude: Uncooperative, Combative (at times, not during interview), Argumentative Motor Activity: Retardation Eye Contact: Poor Speech: Slowed Volume: Soft Rhythm: Mumbled Orientation: Disoriented to time, Disoriented to place, Disoriented to situation , Oriented to person Mood: Irritable, Tearful Rate of Thoughts: Delayed Thought Organization: Confused Associations: Illogical Abstract Reasoning: Impaired, concrete Thought Content: Ruminations Perception/Psychotic: Other (Denies, does not appear to be responding to internal stimuli) Language: Naming Impaired Fund of Knowledge: Poor fund of knowledge Memory: Poor-immediate, Poor-recent, Poor-remote Suicidal Ideation: Denies Homicidal Ideation: Denies Insight: Impaired Judgement: Impaired Impulse Control: Poor (though improved from admission) - Laboratory Result Diagrams: 09/09/17 11:55 09/12/17 17:28 Assessment and Plan (1) Major neurocognitive disorder Problem details: Moderate, likely mixed etiology, with behavioral disturbance R/O Bipolar disorder, MRE manic Other medical conditions: Recurrent UTIs Hypernatremia-POA History of bladder cancer Vitamin D deficiency Irritable bowel syndrome Diverticulosis Chronic compression fracture T12 Osteopenia Current visit: Yes Status: Acute (2) Vitamin B12 deficiency Current visit: Yes Status: Acute Hospital Course Summary Disclaimer: The visit summary below is not to be considered part of the above Progress Note. Hospital Course: Psych 3/29/18: Held Wellbutrin XL, Buspar, Viibryd due to suspected bipolar alexander. Psych 08/26/17: Patient seems to have improved slightly with discontinuation of all Wellbutrin XL, Buspar, Viibryd (upon admission). Currently taking seroquel 25mg PO BID and propranolol 10mg PO BID from home med list. Will add Depakote DR 250mg PO BID. Will additionally start Vitamin B12 1000mcg IM x 3 days then weekly for a month, then monthly thereafter. 08/27/2017- Psych- PT is irritable and labile at times but is redirectable. Will consider increase of Depakote tomorrow if tolerating well 08/28/2017 Psych- Pt remains irritable and impulsive at times. Increase Depakote to 250mg PO TID. 08/29/17 Psych: Continue current care as we await serotonergic agents to clear from blood given half-lives; discussed care with DPOA/daughter who is in agreement with treatment plan. Patient has hx of malignant neoplasm of bladder. Daughter states that no recent imaging has been done and is in agreement with sedating as necessary to obtain head CT. 08/30/17 Psych: Will switch Depakote to sprinkles 250mg PO TID for improved compliance, increase Seroquel to 25mg PO TID. May need to switch to Risperdal if urinary retention worsening. Recheck UA, will bladder scan BID and straight cath if necessary. Once patient has had compliance with Depakote x 3 days, can check trough VPA level and adjust to therapeutic level. 08/31/17-hospitalist Dr. Ramos had ordered a repeat urinalysis because patient continues to have behaviors and has had some urinary retention. She'd had a positive urinalysis on admission and was treated. Urinalysis performed last night was completely negative. She has had 3 doses of IM cyanocobalamin for borderline low B12 deficiency . Continue 1000 g cyanocobalamin a day. Recommend follow-up B12 level on outpatient basis. Patient medically stable. Chart reviewed. 08/31/17 Psych: Will collapse Depakote sprinkles to 250mg PO q AM and 500mg PO with dinner to increase adherence. Seroquel does not seem to be helpful and may be causing restlessness and urinary retention; will hold and monitor behavior for the time being. Stressed importance of adherence to Depakote to nursing staff. 09/01/17 Psych: Continue to focus on compliance with Depakote. Patient had BM with suppository, seems less irritable after this and with straight cathing PRN after bladder scans. Monitor mood, behavior and response to treatment. 09/02/17 Psych: Have ordered urgent labs: CBC, CMP, ammonia level, VPA level. Ordered urgent CT scan of abdomen/pelvis to f/u on hx of bladder cancer. Will hold VPA for now and monitor mentation, appetite. 09/03/17 Pt is lethargic with poor appetite. CT scan pending. Continue current care. Medical team following 09/04/17- Psych- Pt is a little more alert today. CT today. Ativan 0.5mg x 1 to help with obtaining CT. 09/05/17 Psych: Continue holding medications - will discuss further workup and medical treatment with hospitalist. Concern that there may be some underlying medical issues contributing to behaviors. Did not tolerate Depakote well in regards to appetite. Will await this discussion before making further med changes. 09/07/17 Psych: Son Bala to discuss trial of Risperdal with family. Patient will need memory care after d/c. 09/08/17 Psych: Continue current care; patient continues to improve leading me to wander how much of this was a hyperactive delirium vs. psychiatric cause of agitation (could also be manic episode resolving). Will monitor for another day before changing meds as she is showing improvement on current regimen. 09/09/17 Psych: Patient is not able to tolerate antipsychotics (responded very poorly to Risperdal 0.25mg); will completely discontinue scheduled and PRNs. May consider use of gabapentin or carbamazepine as mood stabilizers as she did not tolerate Depakote either. 09/10/17 Psych- Agitation last night. Continue current care 09/11/17 Psych- Pt more alert today. No behaviors over night. Continue current care 09/13/17: Hosp BMP repeated on 09/12/17 - stable. Na 144. Urine culture + for Klebsiella, sensitive to 1st gen cephalosporins. Continue Keflex (started 09/10). VS: HR variable, occ mild elevations in BP acceptable in her age group; afebrile. Psych: pt does not tolerate antipsychotics. They are continuing with medication adjustments. 09/14/17 Psych: Increase mirtazapine to 15mg PO q HS, start carbamazepine 100mg PO q HS and titrate further tomorrow. Family is aware there will be some trade off in functionality though meds needed for facility to be able to care for patient. 09/15/17 Psych: Increase carbamazepine to 100mg PO BID. 09/16/17 Psych: Continue carbamazepine and consider increasing to 100mg PO q AM and 200mg PO q HS tomorrow (09/17) if well-tolerated. After discussion with family, agreed to discontinue Namenda. 09/17/17- Psych- Remains combative with cares. Increase Carbamazepine to 200mg at HS
[2017-09-17] MEDS: MIRTAZAPINE 15 MG TABLET PO SCH (20:12)
[2017-09-17] MEDS: TAMSULOSIN 0.4 MG CAPSULE PO SCH (20:12)
[2017-09-18] MEDS: CYANOCOBALAMIN (B-12) 500mcg TABLET PO SCH (09:05)
[2017-09-18] MEDS: POLYETHYL GLYCOL 3350 17gm PACKET PO SCH (09:05)
[2017-09-18] MEDS: CARBAMAZEPINE 100 MG/5 ML PO SCH ×2 (09:05→18:12)
[2017-09-18] MEDS: SENNA + DOCUSATE TABLET PO SCH ×2 (09:05→20:15)
[2017-09-18] MEDS: PROPRANOLOL 10 MG TABLET PO SCH ×3 (09:05→20:14)
[2017-09-18] MEDS: LORazepam 1 MG TABLET PO PRN ×2 (12:42→20:15)
--- NOTE | 2017-09-18 13:25 | Neuropsych Progress Note ---
[facility] Subjective Date: 09/18/17 - Sujective/Severity of Illness Medications: Acetaminophen (Tylenol Arthritis) 650 mg PO Q4H PRN PRN Reason: Pain Last Admin: 09/17/17 07:59 Dose: 650 mg Bisacodyl (Dulcolax) 10 mg RECTALLY DAILY PRN PRN Reason: Constipation Last Admin: 09/01/17 11:05 Dose: 10 mg Bisacodyl (Dulcolax) 5 mg PO BID PRN PRN Reason: Constipation Carbamazepine (Tegretol Oral Liq) 100 mg PO BIDWM [facility] Last Admin: 09/18/17 09:05 Dose: 100 mg Cyanocobalamin (Vit. B-12) 1,000 mcg PO DAILY [facility] Last Admin: 09/18/17 09:05 Dose: 1,000 mcg Ergocalciferol (Vitamin D-2) 50,000 unit PO Q7D [facility] Last Admin: 09/14/17 16:29 Dose: 50,000 unit Lorazepam (Ativan) 0.5 mg PO Q6H PRN PRN Reason: Extreme agitation Last Admin: 09/18/17 12:42 Dose: 0.5 mg Lorazepam (Ativan Intensol) 0.5 mg PO Q6H PRN Last Admin: 09/11/17 15:34 Dose: 0.5 mg Lorazepam (Ativan Inj) 0.5 mg IM Q6H PRN PRN Reason: Extreme agitation Last Admin: 09/17/17 21:09 Dose: 0.5 mg Magnesium Hydroxide (Mom) 30 ml PO PRN PRN PRN Reason: Constipation Mirtazapine (Remeron) 15 mg PO HS [facility] Last Admin: 09/17/17 20:12 Dose: 15 mg Polyethylene Glycol (Miralax) 17 gm PO DAILY [facility] Last Admin: 09/18/17 09:05 Dose: 17 gm Potassium Chloride (Micro-K 10 Meq Capsule) 10 meq PO WB [facility] Last Admin: 09/18/17 09:05 Dose: 10 meq Propranolol HCl (Inderal) 10 mg PO TID [facility] Last Admin: 09/18/17 09:05 Dose: 10 mg Senna/Docusate Sodium (Senna Plus Tablet) 2 tab PO BID PRN PRN Reason: Constipation Senna/Docusate Sodium (Senna Plus Tablet) 1 tab PO BID [facility] Last Admin: 09/18/17 09:05 Dose: 1 tab Tamsulosin HCl (Flomax) 0.4 mg PO HS [facility] Last Admin: 09/17/17 20:12 Dose: 0.4 mg Subjective: Patient seen and chart reviewed. Nursing reports pt continues to have a labile mood an can be aggressive with cares. Sleeping well and appetite is fair. Received Ativan x 2 yesterday for anxiety and agitation. On face to face the pt appears anxious and confused. She states she needs to leave because "I need to help a doctor do surgery and they are closed today". She is extremely confused and has a hard time with short term memory. She reports feeling depressed and anxious. Denies S/I. Tolerating meds Start Time: 11:30 Stop Time: 11:45 Mental Status Exam Vitals: Last Vital Signs Temp 97.4 F 09/18/17 09:13 Pulse 94 09/18/17 09:13 Resp 22 09/18/17 09:13 BP 136/76 09/18/17 09:13 Pulse Ox 98 09/18/17 09:13 Height: 1.65 m Weight: 57.9 kg - Mental Status Exam Muscle Strength/Tone: Weak Dressing: Casual Grooming: Fair Attitude: Uncooperative, Combative (at times, not during interview), Argumentative Motor Activity: Retardation Eye Contact: Poor Speech: Slowed Volume: Soft Rhythm: Mumbled Orientation: Disoriented to time, Disoriented to place, Disoriented to situation , Oriented to person Mood: Irritable, Tearful Rate of Thoughts: Delayed Thought Organization: Confused Associations: Illogical Abstract Reasoning: Impaired, concrete Thought Content: Ruminations Perception/Psychotic: Other (Denies, does not appear to be responding to internal stimuli) Language: Naming Impaired Fund of Knowledge: Poor fund of knowledge Memory: Poor-immediate, Poor-recent, Poor-remote Suicidal Ideation: Denies Homicidal Ideation: Denies Insight: Impaired Judgement: Impaired Impulse Control: Poor (though improved from admission) - Laboratory Result Diagrams: 09/09/17 11:55 09/12/17 17:28 Assessment and Plan (1) Major neurocognitive disorder Problem details: Moderate, likely mixed etiology, with behavioral disturbance R/O Bipolar disorder, MRE manic Other medical conditions: Recurrent UTIs Hypernatremia-POA History of bladder cancer Vitamin D deficiency Irritable bowel syndrome Diverticulosis Chronic compression fracture T12 Osteopenia Current visit: Yes Status: Acute (2) Vitamin B12 deficiency Current visit: Yes Status: Acute Hospital Course Summary Disclaimer: The visit summary below is not to be considered part of the above Progress Note. Hospital Course: Psych 08/25/17: Held Wellbutrin XL, Buspar, Viibryd due to suspected bipolar alexander. Psych 08/26/17: Patient seems to have improved slightly with discontinuation of all Wellbutrin XL, Buspar, Viibryd (upon admission). Currently taking seroquel 25mg PO BID and propranolol 10mg PO BID from home med list. Will add Depakote DR 250mg PO BID. Will additionally start Vitamin B12 1000mcg IM x 3 days then weekly for a month, then monthly thereafter. 08/27/2017- Psych- PT is irritable and labile at times but is redirectable. Will consider increase of Depakote tomorrow if tolerating well 08/28/2017 Psych- Pt remains irritable and impulsive at times. Increase Depakote to 250mg PO TID. 08/29/17 Psych: Continue current care as we await serotonergic agents to clear from blood given half-lives; discussed care with DPOA/daughter who is in agreement with treatment plan. Patient has hx of malignant neoplasm of bladder. Daughter states that no recent imaging has been done and is in agreement with sedating as necessary to obtain head CT. 08/30/17 Psych: Will switch Depakote to sprinkles 250mg PO TID for improved compliance, increase Seroquel to 25mg PO TID. May need to switch to Risperdal if urinary retention worsening. Recheck UA, will bladder scan BID and straight cath if necessary. Once patient has had compliance with Depakote x 3 days, can check trough VPA level and adjust to therapeutic level. 08/31/17-hospitalist Dr. Ramos had ordered a repeat urinalysis because patient continues to have behaviors and has had some urinary retention. She'd had a positive urinalysis on admission and was treated. Urinalysis performed last night was completely negative. She has had 3 doses of IM cyanocobalamin for borderline low B12 deficiency . Continue 1000 g cyanocobalamin a day. Recommend follow-up B12 level on outpatient basis. Patient medically stable. Chart reviewed. 08/31/17 Psych: Will collapse Depakote sprinkles to 250mg PO q AM and 500mg PO with dinner to increase adherence. Seroquel does not seem to be helpful and may be causing restlessness and urinary retention; will hold and monitor behavior for the time being. Stressed importance of adherence to Depakote to nursing staff. 09/01/17 Psych: Continue to focus on compliance with Depakote. Patient had BM with suppository, seems less irritable after this and with straight cathing PRN after bladder scans. Monitor mood, behavior and response to treatment. 09/02/17 Psych: Have ordered urgent labs: CBC, CMP, ammonia level, VPA level. Ordered urgent CT scan of abdomen/pelvis to f/u on hx of bladder cancer. Will hold VPA for now and monitor mentation, appetite. 09/03/17 Pt is lethargic with poor appetite. CT scan pending. Continue current care. Medical team following 09/04/17- Psych- Pt is a little more alert today. CT today. Ativan 0.5mg x 1 to help with obtaining CT. 09/05/17 Psych: Continue holding medications - will discuss further workup and medical treatment with hospitalist. Concern that there may be some underlying medical issues contributing to behaviors. Did not tolerate Depakote well in regards to appetite. Will await this discussion before making further med changes. 09/07/17 Psych: Son Bala to discuss trial of Risperdal with family. Patient will need memory care after d/c. 09/08/17 Psych: Continue current care; patient continues to improve leading me to wander how much of this was a hyperactive delirium vs. psychiatric cause of agitation (could also be manic episode resolving). Will monitor for another day before changing meds as she is showing improvement on current regimen. 09/09/17 Psych: Patient is not able to tolerate antipsychotics (responded very poorly to Risperdal 0.25mg); will completely discontinue scheduled and PRNs. May consider use of gabapentin or carbamazepine as mood stabilizers as she did not tolerate Depakote either. 09/10/17 Psych- Agitation last night. Continue current care 09/11/17 Psych- Pt more alert today. No behaviors over night. Continue current care 09/13/17: Hosp BMP repeated on 09/12/17 - stable. Na 144. Urine culture + for Klebsiella, sensitive to 1st gen cephalosporins. Continue Keflex (started 09/10). VS: HR variable, occ mild elevations in BP acceptable in her age group; afebrile. Psych: pt does not tolerate antipsychotics. They are continuing with medication adjustments. 09/14/17 Psych: Increase mirtazapine to 15mg PO q HS, start carbamazepine 100mg PO q HS and titrate further tomorrow. Family is aware there will be some trade off in functionality though meds needed for facility to be able to care for patient. 09/15/17 Psych: Increase carbamazepine to 100mg PO BID. 09/16/17 Psych: Continue carbamazepine and consider increasing to 100mg PO q AM and 200mg PO q HS tomorrow (09/17) if well-tolerated. After discussion with family, agreed to discontinue Namenda. 09/17/17- Psych- Remains combative with cares. Increase Carbamazepine to 200mg at HS 09/18/17 Psych- Remains aggressive with cares and anxious and tearful at times
[2017-09-18] MEDS: TAMSULOSIN 0.4 MG CAPSULE PO SCH (20:14)
[2017-09-18] MEDS: MIRTAZAPINE 15 MG TABLET PO SCH (20:15)
[2017-09-19] MEDS: CARBAMAZEPINE 100 MG/5 ML PO SCH (09:26)
[2017-09-19] MEDS: PROPRANOLOL 10 MG TABLET PO SCH ×3 (09:26→19:53)
[2017-09-19] MEDS: POLYETHYL GLYCOL 3350 17gm PACKET PO SCH (09:26)
[2017-09-19] MEDS: SENNA + DOCUSATE TABLET PO SCH ×2 (09:26→19:53)
[2017-09-19] MEDS: CYANOCOBALAMIN (B-12) 500mcg TABLET PO SCH (09:26)
--- NOTE | 2017-09-19 15:17 | Neuropsych Progress Note ---
[facility] Subjective Date: 09/19/17 - Sujective/Severity of Illness Medications: Acetaminophen (Tylenol Arthritis) 650 mg PO Q4H PRN PRN Reason: Pain Last Admin: 09/17/17 07:59 Dose: 650 mg Bisacodyl (Dulcolax) 10 mg RECTALLY DAILY PRN PRN Reason: Constipation Last Admin: 09/01/17 11:05 Dose: 10 mg Bisacodyl (Dulcolax) 5 mg PO BID PRN PRN Reason: Constipation Carbamazepine (Tegretol Oral Liq) 100 mg PO BIDWM [facility] Last Admin: 09/19/17 09:26 Dose: 100 mg Cyanocobalamin (Vit. B-12) 1,000 mcg PO DAILY [facility] Last Admin: 09/19/17 09:26 Dose: 1,000 mcg Ergocalciferol (Vitamin D-2) 50,000 unit PO Q7D [facility] Last Admin: 09/14/17 16:29 Dose: 50,000 unit Lorazepam (Ativan) 0.5 mg PO Q6H PRN PRN Reason: Extreme agitation Last Admin: 09/18/17 20:15 Dose: 0.5 mg Lorazepam (Ativan Intensol) 0.5 mg PO Q6H PRN Last Admin: 09/11/17 15:34 Dose: 0.5 mg Lorazepam (Ativan Inj) 0.5 mg IM Q6H PRN PRN Reason: Extreme agitation Last Admin: 09/17/17 21:09 Dose: 0.5 mg Magnesium Hydroxide (Mom) 30 ml PO PRN PRN PRN Reason: Constipation Mirtazapine (Remeron) 15 mg PO HS [facility] Last Admin: 09/18/17 20:15 Dose: 15 mg Polyethylene Glycol (Miralax) 17 gm PO DAILY [facility] Last Admin: 09/19/17 09:26 Dose: 17 gm Potassium Chloride (Micro-K 10 Meq Capsule) 10 meq PO WB [facility] Last Admin: 09/19/17 09:26 Dose: 10 meq Propranolol HCl (Inderal) 10 mg PO TID [facility] Last Admin: 09/19/17 15:08 Dose: 10 mg Senna/Docusate Sodium (Senna Plus Tablet) 2 tab PO BID PRN PRN Reason: Constipation Senna/Docusate Sodium (Senna Plus Tablet) 1 tab PO BID [facility] Last Admin: 09/19/17 09:26 Dose: 1 tab Tamsulosin HCl (Flomax) 0.4 mg PO HS [facility] Last Admin: 09/18/17 20:14 Dose: 0.4 mg Subjective: Patient seen and chart reviewed. Case discussed with treatment team. On interview, patient is more easily engaged and interactive than when I have seen her, but continues to be confused. She initially reports feeling well. She is aware that she is in the hospital but is not sure why, and says, "This is a dorky place." When I ask about her mood, she says, "Who could be happy in this place? It's like being in [facility]." She then goes on to say that she has not had a shower in 3 days. When asked about her visitor (her son came yesterday), she says, "Yeah, but it doesn't take the place of a shower." Patient denies any SI, HI or AVH. Patient denies any adverse side effects related to psychotropic medications. Nursing staff report patient continues to be irritable but more redirectable. She seems to be calmer with certain staff members. She has not been combative in past 24 hours. Patient has been adherent with medications. Patient slept 7.25 hours overnight. VSS. Appetite is fair to limited. Psychotropic PRNs required in the past 24 hours: Ativan 0.5mg PO x2 in past 24 hours. Start Time: 10:00 Stop Time: 10:20 Mental Status Exam Vitals: Last Vital Signs Temp 98.5 F 09/19/17 08:00 Pulse 98 09/19/17 08:00 Resp 16 09/19/17 08:00 BP 129/75 09/19/17 08:00 Pulse Ox 99 09/19/17 08:00 Height: 1.65 m Weight: 57.9 kg - Mental Status Exam Muscle Strength/Tone: Weak Dressing: Casual Grooming: Fair Attitude: Tense Motor Activity: Retardation Eye Contact: Poor Speech: Slowed Volume: Normal Rhythm: Appropriate Rhythm Orientation: Disoriented to time, Disoriented to place, Disoriented to situation , Oriented to person Mood: Other (Initially states her mood is "fine" but later "not happy," Affect is irritable) Rate of Thoughts: Delayed Thought Organization: Confused Associations: Illogical Abstract Reasoning: Impaired, concrete Thought Content: Ruminations Perception/Psychotic: Other (Denies, does not appear to be responding to internal stimuli) Language: Naming Impaired Fund of Knowledge: Poor fund of knowledge Memory: Poor-immediate, Poor-recent, Poor-remote Suicidal Ideation: Denies Homicidal Ideation: Denies Insight: Impaired Judgement: Impaired Impulse Control: Poor (though improved from admission) - Laboratory Result Diagrams: 09/09/17 11:55 09/12/17 17:28 Assessment and Plan (1) Major neurocognitive disorder Problem details: Moderate, likely mixed etiology, with behavioral disturbance R/O Bipolar disorder, MRE manic Other medical conditions: Recurrent UTIs Hypernatremia-POA History of bladder cancer Vitamin D deficiency Irritable bowel syndrome Diverticulosis Chronic compression fracture T12 Osteopenia Current visit: Yes Status: Acute (2) Vitamin B12 deficiency Current visit: Yes Status: Acute Increase carbamazepine to 200mg PO BID. Will check CBC, CMP, trough carbamazepine level in AM. Hospital Course Summary Disclaimer: The visit summary below is not to be considered part of the above Progress Note. Hospital Course: Psych 08/25/17: Held Wellbutrin XL, Buspar, Viibryd due to suspected bipolar alexander. Psych 08/26/17: Patient seems to have improved slightly with discontinuation of all Wellbutrin XL, Buspar, Viibryd (upon admission). Currently taking seroquel 25mg PO BID and propranolol 10mg PO BID from home med list. Will add Depakote DR 250mg PO BID. Will additionally start Vitamin B12 1000mcg IM x 3 days then weekly for a month, then monthly thereafter. 08/27/2017- Psych- PT is irritable and labile at times but is redirectable. Will consider increase of Depakote tomorrow if tolerating well 08/28/2017 Psych- Pt remains irritable and impulsive at times. Increase Depakote to 250mg PO TID. 08/29/17 Psych: Continue current care as we await serotonergic agents to clear from blood given half-lives; discussed care with DPOA/daughter who is in agreement with treatment plan. Patient has hx of malignant neoplasm of bladder. Daughter states that no recent imaging has been done and is in agreement with sedating as necessary to obtain head CT. 08/30/17 Psych: Will switch Depakote to sprinkles 250mg PO TID for improved compliance, increase Seroquel to 25mg PO TID. May need to switch to Risperdal if urinary retention worsening. Recheck UA, will bladder scan BID and straight cath if necessary. Once patient has had compliance with Depakote x 3 days, can check trough VPA level and adjust to therapeutic level. 08/31/17-hospitalist Dr. Ramos had ordered a repeat urinalysis because patient continues to have behaviors and has had some urinary retention. She'd had a positive urinalysis on admission and was treated. Urinalysis performed last night was completely negative. She has had 3 doses of IM cyanocobalamin for borderline low B12 deficiency . Continue 1000 g cyanocobalamin a day. Recommend follow-up B12 level on outpatient basis. Patient medically stable. Chart reviewed. 08/31/17 Psych: Will collapse Depakote sprinkles to 250mg PO q AM and 500mg PO with dinner to increase adherence. Seroquel does not seem to be helpful and may be causing restlessness and urinary retention; will hold and monitor behavior for the time being. Stressed importance of adherence to Depakote to nursing staff. 09/01/17 Psych: Continue to focus on compliance with Depakote. Patient had BM with suppository, seems less irritable after this and with straight cathing PRN after bladder scans. Monitor mood, behavior and response to treatment. 09/02/17 Psych: Have ordered urgent labs: CBC, CMP, ammonia level, VPA level. Ordered urgent CT scan of abdomen/pelvis to f/u on hx of bladder cancer. Will hold VPA for now and monitor mentation, appetite. 09/03/17 Pt is lethargic with poor appetite. CT scan pending. Continue current care. Medical team following 09/04/17- Psych- Pt is a little more alert today. CT today. Ativan 0.5mg x 1 to help with obtaining CT. 09/05/17 Psych: Continue holding medications - will discuss further workup and medical treatment with hospitalist. Concern that there may be some underlying medical issues contributing to behaviors. Did not tolerate Depakote well in regards to appetite. Will await this discussion before making further med changes. 09/07/17 Psych: Son Bala to discuss trial of Risperdal with family. Patient will need memory care after d/c. 09/08/17 Psych: Continue current care; patient continues to improve leading me to wander how much of this was a hyperactive delirium vs. psychiatric cause of agitation (could also be manic episode resolving). Will monitor for another day before changing meds as she is showing improvement on current regimen. 09/09/17 Psych: Patient is not able to tolerate antipsychotics (responded very poorly to Risperdal 0.25mg); will completely discontinue scheduled and PRNs. May consider use of gabapentin or carbamazepine as mood stabilizers as she did not tolerate Depakote either. 09/10/17 Psych- Agitation last night. Continue current care 09/11/17 Psych- Pt more alert today. No behaviors over night. Continue current care 09/13/17: Hosp BMP repeated on 09/12/17 - stable. Na 144. Urine culture + for Klebsiella, sensitive to 1st gen cephalosporins. Continue Keflex (started 09/10). VS: HR variable, occ mild elevations in BP acceptable in her age group; afebrile. Psych: pt does not tolerate antipsychotics. They are continuing with medication adjustments. 09/14/17 Psych: Increase mirtazapine to 15mg PO q HS, start carbamazepine 100mg PO q HS and titrate further tomorrow. Family is aware there will be some trade off in functionality though meds needed for facility to be able to care for patient. 09/15/17 Psych: Increase carbamazepine to 100mg PO BID. 09/16/17 Psych: Continue carbamazepine and consider increasing to 100mg PO q AM and 200mg PO q HS tomorrow (09/17) if well-tolerated. After discussion with family, agreed to discontinue Namenda. 09/17/17- Psych- Remains combative with cares. Increase Carbamazepine to 200mg at HS 09/18/17 Psych- Remains aggressive with cares and anxious and tearful at times. 09/19/17 Psych: Increase carbamazepine to 200mg PO BID. Will check CBC, CMP, trough carbamazepine level in AM.
[2017-09-19] MEDS: LORazepam 1 MG TABLET PO PRN ×2 (15:36→21:57)
[2017-09-19] MEDS: MIRTAZAPINE 15 MG TABLET PO SCH (19:52)
[2017-09-19] MEDS: CarBAMazepine 200 MG TABLET PO SCH (19:52)
[2017-09-19] MEDS: TAMSULOSIN 0.4 MG CAPSULE PO SCH (19:53)
[2017-09-20] MEDS: MIRTAZAPINE 15 MG TABLET PO SCH ×2 (02:38→20:00)
[2017-09-20] MEDS: CarBAMazepine 200 MG TABLET PO SCH ×3 (02:38→20:01)
[2017-09-20] MEDS: PROPRANOLOL 10 MG TABLET PO SCH ×4 (02:38→20:01)
[2017-09-20] MEDS: SENNA + DOCUSATE TABLET PO SCH ×3 (02:38→20:01)
[2017-09-20] MEDS: TAMSULOSIN 0.4 MG CAPSULE PO SCH ×2 (02:39→20:00)
[2017-09-20] MEDS: CYANOCOBALAMIN (B-12) 500mcg TABLET PO SCH (12:00)
[2017-09-20] MEDS: POLYETHYL GLYCOL 3350 17gm PACKET PO SCH (12:01)
--- NOTE | 2017-09-20 12:37 | Neuropsych Progress Note ---
[facility] Subjective Date: 09/20/17 - Sujective/Severity of Illness Medications: Acetaminophen (Tylenol Arthritis) 650 mg PO Q4H PRN PRN Reason: Pain Last Admin: 09/17/17 07:59 Dose: 650 mg Bisacodyl (Dulcolax) 10 mg RECTALLY DAILY PRN PRN Reason: Constipation Last Admin: 09/01/17 11:05 Dose: 10 mg Bisacodyl (Dulcolax) 5 mg PO BID PRN PRN Reason: Constipation Carbamazepine (Tegretol) 100 mg PO [facility] Last Admin: 09/20/17 12:00 Dose: 100 mg Carbamazepine (Tegretol) 200 mg PO [facility] Last Admin: 09/20/17 02:38 Dose: Not Given Cyanocobalamin (Vit. B-12) 1,000 mcg PO DAILY [facility] Last Admin: 09/20/17 12:00 Dose: 1,000 mcg Ergocalciferol (Vitamin D-2) 50,000 unit PO Q7D [facility] Last Admin: 09/14/17 16:29 Dose: 50,000 unit Lorazepam (Ativan) 0.5 mg PO Q6H PRN PRN Reason: Extreme agitation Last Admin: 09/19/17 21:57 Dose: 0.5 mg Lorazepam (Ativan Intensol) 0.5 mg PO Q6H PRN Last Admin: 09/11/17 15:34 Dose: 0.5 mg Lorazepam (Ativan Inj) 0.5 mg IM Q6H PRN PRN Reason: Extreme agitation Last Admin: 09/17/17 21:09 Dose: 0.5 mg Magnesium Hydroxide (Mom) 30 ml PO PRN PRN PRN Reason: Constipation Mirtazapine (Remeron) 15 mg PO [facility] Last Admin: 09/20/17 02:38 Dose: Not Given Polyethylene Glycol (Miralax) 17 gm PO DAILY [facility] Last Admin: 09/20/17 12:01 Dose: 17 gm Potassium Chloride (Micro-K 10 Meq Capsule) 10 meq PO [facility] Last Admin: 09/20/17 12:00 Dose: 10 meq Propranolol HCl (Inderal) 10 mg PO TID [facility] Last Admin: 09/20/17 12:01 Dose: 10 mg Senna/Docusate Sodium (Senna Plus Tablet) 2 tab PO BID PRN PRN Reason: Constipation Senna/Docusate Sodium (Senna Plus Tablet) 1 tab PO BID [facility] Last Admin: 09/20/17 12:00 Dose: 1 tab Tamsulosin HCl (Flomax) 0.4 mg PO HS [facility] Last Admin: 09/20/17 02:39 Dose: Not Given Subjective: Patient seen and chart reviewed. Case discussed with treatment team. On interview, patient speaks clearly but states that she does not feel well. When I ask her what is wrong, she becomes irritable and cannot answer in detail. She seems to be more cooperative/polite with certain staff than others. Patient denies any SI, HI or AVH. Patient denies any adverse side effects related to psychotropic medications. Nursing staff report patient continues to be irritable but more redirectable. She seems to be calmer with certain staff members. She has not been combative in past 24 hours though was a bit resistive during straight cath. Patient has been adherent with medications. Patient slept 6.75 hours overnight. VSS. Appetite is fair to limited. Psychotropic PRNs required in the past 24 hours: Ativan 0.5mg PO x2 in past 24 hours. Start Time: 10:40 Stop Time: 11:00 Mental Status Exam Vitals: Last Vital Signs Temp 98.4 F 09/20/17 10:32 Pulse 112 H 09/20/17 10:32 Resp 16 09/20/17 10:32 BP 120/73 09/20/17 10:32 Pulse Ox 94 09/20/17 10:32 Height: 1.65 m Weight: 57.9 kg - Mental Status Exam Muscle Strength/Tone: Weak Dressing: Casual Grooming: Fair Attitude: Tense Motor Activity: Retardation Eye Contact: Poor Speech: Slowed Volume: Normal Rhythm: Appropriate Rhythm Orientation: Disoriented to time, Disoriented to place, Disoriented to situation , Oriented to person Mood: Other ("Not good," affect irritable) Rate of Thoughts: Delayed Thought Organization: Confused Associations: Illogical Abstract Reasoning: Impaired, concrete Thought Content: Ruminations, Somatic Concerns (vague) Perception/Psychotic: Other (Denies, does not appear to be responding to internal stimuli) Language: Naming Impaired Fund of Knowledge: Poor fund of knowledge Memory: Poor-immediate, Poor-recent, Poor-remote Suicidal Ideation: Denies Homicidal Ideation: Denies Insight: Impaired Judgement: Impaired Impulse Control: Poor (though improved from admission) - Laboratory Result Diagrams: 09/09/17 11:55 09/12/17 17:28 Assessment and Plan (1) Major neurocognitive disorder Problem details: Moderate, likely mixed etiology, with behavioral disturbance R/O Bipolar disorder, MRE manic Other medical conditions: Recurrent UTIs Hypernatremia-POA History of bladder cancer Vitamin D deficiency Irritable bowel syndrome Diverticulosis Chronic compression fracture T12 Osteopenia Current visit: Yes Status: Acute (2) Vitamin B12 deficiency Current visit: Yes Status: Acute Carbamazepine increased to 200mg PO q HS last night as it was mistakenly not given over the weekend. Will check trough level prior to tonight's dose and likely increase to 200mg PO BID tomorrow AM. Hospital Course Summary Disclaimer: The visit summary below is not to be considered part of the above Progress Note. Hospital Course: Psych 08/25/17: Held Wellbutrin XL, Buspar, Viibryd due to suspected bipolar alexander. Psych 08/26/17: Patient seems to have improved slightly with discontinuation of all Wellbutrin XL, Buspar, Viibryd (upon admission). Currently taking seroquel 25mg PO BID and propranolol 10mg PO BID from home med list. Will add Depakote DR 250mg PO BID. Will additionally start Vitamin B12 1000mcg IM x 3 days then weekly for a month, then monthly thereafter. 08/27/2017- Psych- PT is irritable and labile at times but is redirectable. Will consider increase of Depakote tomorrow if tolerating well 08/28/2017 Psych- Pt remains irritable and impulsive at times. Increase Depakote to 250mg PO TID. 08/29/17 Psych: Continue current care as we await serotonergic agents to clear from blood given half-lives; discussed care with DPOA/daughter who is in agreement with treatment plan. Patient has hx of malignant neoplasm of bladder. Daughter states that no recent imaging has been done and is in agreement with sedating as necessary to obtain head CT. 08/30/17 Psych: Will switch Depakote to sprinkles 250mg PO TID for improved compliance, increase Seroquel to 25mg PO TID. May need to switch to Risperdal if urinary retention worsening. Recheck UA, will bladder scan BID and straight cath if necessary. Once patient has had compliance with Depakote x 3 days, can check trough VPA level and adjust to therapeutic level. 08/31/17-hospitalist Dr. Ramos had ordered a repeat urinalysis because patient continues to have behaviors and has had some urinary retention. She'd had a positive urinalysis on admission and was treated. Urinalysis performed last night was completely negative. She has had 3 doses of IM cyanocobalamin for borderline low B12 deficiency . Continue 1000 g cyanocobalamin a day. Recommend follow-up B12 level on outpatient basis. Patient medically stable. Chart reviewed. 08/31/17 Psych: Will collapse Depakote sprinkles to 250mg PO q AM and 500mg PO with dinner to increase adherence. Seroquel does not seem to be helpful and may be causing restlessness and urinary retention; will hold and monitor behavior for the time being. Stressed importance of adherence to Depakote to nursing staff. 09/01/17 Psych: Continue to focus on compliance with Depakote. Patient had BM with suppository, seems less irritable after this and with straight cathing PRN after bladder scans. Monitor mood, behavior and response to treatment. 09/02/17 Psych: Have ordered urgent labs: CBC, CMP, ammonia level, VPA level. Ordered urgent CT scan of abdomen/pelvis to f/u on hx of bladder cancer. Will hold VPA for now and monitor mentation, appetite. 09/03/17 Pt is lethargic with poor appetite. CT scan pending. Continue current care. Medical team following 09/04/17- Psych- Pt is a little more alert today. CT today. Ativan 0.5mg x 1 to help with obtaining CT. 09/05/17 Psych: Continue holding medications - will discuss further workup and medical treatment with hospitalist. Concern that there may be some underlying medical issues contributing to behaviors. Did not tolerate Depakote well in regards to appetite. Will await this discussion before making further med changes. 09/07/17 Psych: Son Bala to discuss trial of Risperdal with family. Patient will need memory care after d/c. 09/08/17 Psych: Continue current care; patient continues to improve leading me to wander how much of this was a hyperactive delirium vs. psychiatric cause of agitation (could also be manic episode resolving). Will monitor for another day before changing meds as she is showing improvement on current regimen. 09/09/17 Psych: Patient is not able to tolerate antipsychotics (responded very poorly to Risperdal 0.25mg); will completely discontinue scheduled and PRNs. May consider use of gabapentin or carbamazepine as mood stabilizers as she did not tolerate Depakote either. 09/10/17 Psych- Agitation last night. Continue current care 09/11/17 Psych- Pt more alert today. No behaviors over night. Continue current care 09/13/17: Hosp BMP repeated on 09/12/17 - stable. Na 144. Urine culture + for Klebsiella, sensitive to 1st gen cephalosporins. Continue Keflex (started 09/10). VS: HR variable, occ mild elevations in BP acceptable in her age group; afebrile. Psych: pt does not tolerate antipsychotics. They are continuing with medication adjustments. 09/14/17 Psych: Increase mirtazapine to 15mg PO q HS, start carbamazepine 100mg PO q HS and titrate further tomorrow. Family is aware there will be some trade off in functionality though meds needed for facility to be able to care for patient. 09/15/17 Psych: Increase carbamazepine to 100mg PO BID. 09/16/17 Psych: Continue carbamazepine and consider increasing to 100mg PO q AM and 200mg PO q HS tomorrow (09/17) if well-tolerated. After discussion with family, agreed to discontinue Namenda. 09/17/17- Psych- Remains combative with cares. Increase Carbamazepine to 200mg at HS 09/18/17 Psych- Remains aggressive with cares and anxious and tearful at times. 09/19/17 Psych: Increase carbamazepine to 200mg PO BID. Will check CBC, CMP, trough carbamazepine level in AM. 09/20/17 Psych: Carbamazepine increased to 200mg PO q HS last night as it was mistakenly not given over the weekend. Will check trough level prior to tonight' s dose and likely increase to 200mg PO BID tomorrow AM.
--- NOTE | 2017-09-20 13:26 | Progress Note ---
- Date 09/20/17 Subjective: Larry was still sleeping comfortably and did not awaken. She was belligerent last night and received a PRN dose of Ativan. This morning, she had urinary retention of 900 mL which required straight cath. She's been eating well. She had a BM this am. Objective Vital signs: Temperature 98.4 F 09/20/17 10:32 Pulse Rate 112 H 09/20/17 10:32 Respiratory Rate 16 09/20/17 10:32 Blood Pressure 120/73 09/20/17 10:32 Pulse Oximetry 94 09/20/17 10:32 Height/Weight/BMI: Height 1.65 m Weight 57.9 kg Body Mass Index 23.8 - Constitutional Present: no acute distress, well nourished, well developed, thin - Routine HEENT Exam Head: Present: normocephalic - Routine Respiratory Exam Present: CTA bilaterally - Routine Cardiovascular Exam Present: RRR, S1, S2 - Routine Abdominal Exam Present: soft, normoactive bowel sounds, non distended - Routine Extremities Exam Present: no edema, pulses intact - Routine Skin Exam Present: intact, dry, warm - Routine Neurological Exam sleeping peacefully - Routine Psychiatric Exam Present: unable to assess Results - Labs CBC & Chem 7: 09/09/17 11:55 09/12/17 17:28 Microbiology Results: Microbiology 09/10/17 05:21 Urine, Cath Straight Urine Culture - Final Klebsiella oxytoca Lactobacillus species Assessment and Plan (1) Alzheimer's dementia with behavioral disturbance Current visit: Yes Status: Acute Assessment and Plan: Assessment/Plan: Alzheimer's disease with behavioral disturbance; Depression/anxiety -per Psych; multiple med changes noted Urinary retention with E. coli & Strep viridans UTI; later with klebsiella UTI. History of bladder cancer -Treated with Keflex -Still requires straight cath about twice per day. Unlikely she'd tolerate an indwelling catheter. -Recommend outpt urology f/u Hypernatremia -resolved -Check BMP Borderline low B12 -On supplements Irritable bowel syndrome, Diverticulosis -On good bowel regimen HTN -stable -On Propranolol Chronic compression fracture T12, Osteopenia, Vitamin D deficiency Resuscitation Status: Do Not Resuscitate - Physician Narrative Narrative: Date: 09/20/17 Time: 1322 Hospital Course Summary Disclaimer: The visit summary below is not to be considered part of the above Progress Note. Hospital Course: Psych 08/25/17: Held Wellbutrin XL, Buspar, Viibryd due to suspected bipolar alexander. Psych 08/26/17: Patient seems to have improved slightly with discontinuation of all Wellbutrin XL, Buspar, Viibryd (upon admission). Currently taking seroquel 25mg PO BID and propranolol 10mg PO BID from home med list. Will add Depakote DR 250mg PO BID. Will additionally start Vitamin B12 1000mcg IM x 3 days then weekly for a month, then monthly thereafter. 08/27/2017- Psych- PT is irritable and labile at times but is redirectable. Will consider increase of Depakote tomorrow if tolerating well 08/28/2017 Psych- Pt remains irritable and impulsive at times. Increase Depakote to 250mg PO TID. 08/29/17 Psych: Continue current care as we await serotonergic agents to clear from blood given half-lives; discussed care with DPOA/daughter who is in agreement with treatment plan. Patient has hx of malignant neoplasm of bladder. Daughter states that no recent imaging has been done and is in agreement with sedating as necessary to obtain head CT. 08/30/17 Psych: Will switch Depakote to sprinkles 250mg PO TID for improved compliance, increase Seroquel to 25mg PO TID. May need to switch to Risperdal if urinary retention worsening. Recheck UA, will bladder scan BID and straight cath if necessary. Once patient has had compliance with Depakote x 3 days, can check trough VPA level and adjust to therapeutic level. 08/31/17-hospitalist Dr. Ramos had ordered a repeat urinalysis because patient continues to have behaviors and has had some urinary retention. She'd had a positive urinalysis on admission and was treated. Urinalysis performed last night was completely negative. She has had 3 doses of IM cyanocobalamin for borderline low B12 deficiency . Continue 1000 g cyanocobalamin a day. Recommend follow-up B12 level on outpatient basis. Patient medically stable. Chart reviewed. 08/31/17 Psych: Will collapse Depakote sprinkles to 250mg PO q AM and 500mg PO with dinner to increase adherence. Seroquel does not seem to be helpful and may be causing restlessness and urinary retention; will hold and monitor behavior for the time being. Stressed importance of adherence to Depakote to nursing staff. 09/01/17 Psych: Continue to focus on compliance with Depakote. Patient had BM with suppository, seems less irritable after this and with straight cathing PRN after bladder scans. Monitor mood, behavior and response to treatment. 09/02/17 Psych: Have ordered urgent labs: CBC, CMP, ammonia level, VPA level. Ordered urgent CT scan of abdomen/pelvis to f/u on hx of bladder cancer. Will hold VPA for now and monitor mentation, appetite. 09/03/17 Pt is lethargic with poor appetite. CT scan pending. Continue current care. Medical team following 09/04/17- Psych- Pt is a little more alert today. CT today. Ativan 0.5mg x 1 to help with obtaining CT. 09/05/17 Psych: Continue holding medications - will discuss further workup and medical treatment with hospitalist. Concern that there may be some underlying medical issues contributing to behaviors. Did not tolerate Depakote well in regards to appetite. Will await this discussion before making further med changes. 09/07/17 Psych: Son Bala to discuss trial of Risperdal with family. Patient will need memory care after d/c. 09/08/17 Psych: Continue current care; patient continues to improve leading me to wander how much of this was a hyperactive delirium vs. psychiatric cause of agitation (could also be manic episode resolving). Will monitor for another day before changing meds as she is showing improvement on current regimen. 09/09/17 Psych: Patient is not able to tolerate antipsychotics (responded very poorly to Risperdal 0.25mg); will completely discontinue scheduled and PRNs. May consider use of gabapentin or carbamazepine as mood stabilizers as she did not tolerate Depakote either. 09/10/17 Psych- Agitation last night. Continue current care 09/11/17 Psych- Pt more alert today. No behaviors over night. Continue current care 09/13/17: Hosp BMP repeated on 09/12/17 - stable. Na 144. Urine culture + for Klebsiella, sensitive to 1st gen cephalosporins. Continue Keflex (started 09/10). VS: HR variable, occ mild elevations in BP acceptable in her age group; afebrile. Psych: pt does not tolerate antipsychotics. They are continuing with medication adjustments. 09/14/17 Psych: Increase mirtazapine to 15mg PO q HS, start carbamazepine 100mg PO q HS and titrate further tomorrow. Family is aware there will be some trade off in functionality though meds needed for facility to be able to care for patient. 09/15/17 Psych: Increase carbamazepine to 100mg PO BID. 09/16/17 Psych: Continue carbamazepine and consider increasing to 100mg PO q AM and 200mg PO q HS tomorrow (09/17) if well-tolerated. After discussion with family, agreed to discontinue Namenda. 09/17/17- Psych- Remains combative with cares. Increase Carbamazepine to 200mg at HS 09/18/17 Psych- Remains aggressive with cares and anxious and tearful at times. 09/19/17 Psych: Increase carbamazepine to 200mg PO BID. Will check CBC, CMP, trough carbamazepine level in AM. 09/20/17 Psych: Carbamazepine increased to 200mg PO q HS last night as it was mistakenly not given over the weekend. Will check trough level prior to tonight' s dose and likely increase to 200mg PO BID tomorrow AM. 09/20/17 Hosp Urinary retention with E. coli & Strep viridans UTI; later with klebsiella UTI. History of bladder cancer -Treated with Keflex -Still requires straight cath about twice per day. Unlikely she'd tolerate an indwelling catheter. -Recommend outpt urology f/u Hypernatremia -resolved -Check BMP Irritable bowel syndrome, Diverticulosis -On good bowel regimen HTN -stable -On Propranolol
[2017-09-21] MEDS: POLYETHYL GLYCOL 3350 17gm PACKET PO SCH (09:47)
[2017-09-21] MEDS: CYANOCOBALAMIN (B-12) 500mcg TABLET PO SCH (09:47)
[2017-09-21] MEDS: CarBAMazepine 200 MG TABLET PO SCH ×3 (09:47→20:11)
[2017-09-21] MEDS: SENNA + DOCUSATE TABLET PO SCH ×2 (09:47→20:12)
[2017-09-21] MEDS: PROPRANOLOL 10 MG TABLET PO SCH ×3 (09:47→20:11)
--- NOTE | 2017-09-21 10:25 | Neuropsych Progress Note ---
[facility] Subjective Date: 09/21/17 - Sujective/Severity of Illness Medications: Acetaminophen (Tylenol Arthritis) 650 mg PO Q4H PRN PRN Reason: Pain Last Admin: 09/17/17 07:59 Dose: 650 mg Bisacodyl (Dulcolax) 10 mg RECTALLY DAILY PRN PRN Reason: Constipation Last Admin: 09/01/17 11:05 Dose: 10 mg Bisacodyl (Dulcolax) 5 mg PO BID PRN PRN Reason: Constipation Carbamazepine (Tegretol) 200 mg PO HS [facility] Last Admin: 09/20/17 20:01 Dose: 200 mg Carbamazepine (Tegretol) 200 mg PO BIDWM [facility] Cyanocobalamin (Vit. B-12) 1,000 mcg PO DAILY [facility] Last Admin: 09/21/17 09:47 Dose: 1,000 mcg Ergocalciferol (Vitamin D-2) 50,000 unit PO Q7D [facility] Last Admin: 09/14/17 16:29 Dose: 50,000 unit Lorazepam (Ativan) 0.5 mg PO Q6H PRN PRN Reason: Extreme agitation Last Admin: 09/19/17 21:57 Dose: 0.5 mg Lorazepam (Ativan Intensol) 0.5 mg PO Q6H PRN Last Admin: 09/11/17 15:34 Dose: 0.5 mg Lorazepam (Ativan Inj) 0.5 mg IM Q6H PRN PRN Reason: Extreme agitation Last Admin: 09/20/17 20:00 Dose: 0.5 mg Magnesium Hydroxide (Mom) 30 ml PO PRN PRN PRN Reason: Constipation Mirtazapine (Remeron) 15 mg PO [facility] Last Admin: 09/20/17 20:00 Dose: 15 mg Polyethylene Glycol (Miralax) 17 gm PO DAILY [facility] Last Admin: 09/21/17 09:47 Dose: 17 gm Potassium Chloride (Micro-K 10 Meq Capsule) 10 meq PO WB [facility] Last Admin: 09/21/17 09:47 Dose: 10 meq Propranolol HCl (Inderal) 10 mg PO TID [facility] Last Admin: 09/21/17 09:47 Dose: 10 mg Senna/Docusate Sodium (Senna Plus Tablet) 2 tab PO BID PRN PRN Reason: Constipation Senna/Docusate Sodium (Senna Plus Tablet) 1 tab PO BID [facility] Last Admin: 09/21/17 09:47 Dose: 1 tab Tamsulosin HCl (Flomax) 0.4 mg PO HS [facility] Last Admin: 09/20/17 20:00 Dose: 0.4 mg Subjective: Patient seen and chart reviewed. Case discussed with treatment team. On interview, patient is irritable and hostile in regards to mild/simple questions about how she is feeling today. She shakes her fist at me and ends interview quickly. Nursing staff report patient did have some episodes of combativeness with cares in past 24 hours. Patient has been adherent with medications. Patient slept 8.25 hours overnight. VSS. Appetite is fair to limited. Psychotropic PRNs required in the past 24 hours: Ativan 0.5mg IM x1 this AM for aggression. Start Time: 10:00 Stop Time: 10:20 Mental Status Exam Vitals: Last Vital Signs Temp 97.8 F 09/20/17 22:12 Pulse 95 09/20/17 22:12 Resp 20 09/20/17 22:12 BP 148/97 H 09/20/17 22:12 Pulse Ox 93 09/20/17 22:12 Height: 1.65 m Weight: 57.9 kg - Mental Status Exam Muscle Strength/Tone: Weak Dressing: Casual Grooming: Fair Attitude: Tense Motor Activity: Retardation Eye Contact: Poor Speech: Slowed Volume: Normal Rhythm: Appropriate Rhythm Orientation: Disoriented to time, Disoriented to place, Disoriented to situation , Oriented to person Mood: Irritable Affect: Hostile Rate of Thoughts: Delayed Thought Organization: Confused Associations: Illogical Abstract Reasoning: Impaired, concrete Thought Content: Ruminations, Somatic Concerns (vague) Perception/Psychotic: Other (Denies, does not appear to be responding to internal stimuli) Language: Naming Impaired Fund of Knowledge: Poor fund of knowledge Memory: Poor-immediate, Poor-recent, Poor-remote Suicidal Ideation: Denies Homicidal Ideation: Denies Insight: Impaired Judgement: Impaired Impulse Control: Poor (though improved from admission) - Laboratory Result Diagrams: 09/20/17 18:47 09/20/17 18:47 Laboratory Results - last 24 hr 09/20/17 09/20/17 18:47 18:47 WBC 5.1 RBC 3.93 L Hgb 12.1 Hct 36.8 MCV 93.6 MCH 30.8 MCHC 32.9 RDW Std Deviation 42.5 Plt Count 131 MPV 10.3 Immature Gran % (Auto) 0.0 Neut % (Auto) 58.4 Lymph % (Auto) 27.5 [place] % (Auto) 8.9 Eos % (Auto) 4.2 H Baso % (Auto) 1.0 Neut # (Auto) 3.0 Lymph # (Auto) 1.4 [place] # (Auto) 0.5 Eos # (Auto) 0.2 Baso # (Auto) 0.1 Abs Immat Gran (auto) 0.00 Turbidity < 20 Sodium 145 H Potassium 4.8 Chloride 109 H Carbon Dioxide 28 Anion Gap 8 BUN 19.0 H Creatinine 1.0 GFR Calculation 53 BUN/Creatinine Ratio 19 Glucose 108 Calculated Osmolality 282 H Calcium 9.1 Total Bilirubin 0.20 Conjugated Bilirubin 0.00 Unconjugated Bilirubin 0.00 Icterus Index < 2 AST 25 ALT 21 Alkaline Phosphatase 92 Total Protein 6.0 L Albumin 3.4 L Globulin 2.6 Albumin/Globulin Ratio 1.3 Specimen Hemolysis < 15 Assessment and Plan (1) Major neurocognitive disorder Problem details: Moderate, likely mixed etiology, with behavioral disturbance R/O Bipolar disorder, MRE manic Other medical conditions: Recurrent UTIs Hypernatremia-POA History of bladder cancer Vitamin D deficiency Irritable bowel syndrome Diverticulosis Chronic compression fracture T12 Osteopenia Current visit: Yes Status: Acute (2) Vitamin B12 deficiency Current visit: Yes Status: Acute Increase carbamazepine to 200mg PO BID; level pending. Hospital Course Summary Disclaimer: The visit summary below is not to be considered part of the above Progress Note. Hospital Course: Psych 08/25/17: Held Wellbutrin XL, Buspar, Viibryd due to suspected bipolar alexander. Psych 08/26/17: Patient seems to have improved slightly with discontinuation of all Wellbutrin XL, Buspar, Viibryd (upon admission). Currently taking seroquel 25mg PO BID and propranolol 10mg PO BID from home med list. Will add Depakote DR 250mg PO BID. Will additionally start Vitamin B12 1000mcg IM x 3 days then weekly for a month, then monthly thereafter. 08/27/2017- Psych- PT is irritable and labile at times but is redirectable. Will consider increase of Depakote tomorrow if tolerating well 08/28/2017 Psych- Pt remains irritable and impulsive at times. Increase Depakote to 250mg PO TID. 08/29/17 Psych: Continue current care as we await serotonergic agents to clear from blood given half-lives; discussed care with DPOA/daughter who is in agreement with treatment plan. Patient has hx of malignant neoplasm of bladder. Daughter states that no recent imaging has been done and is in agreement with sedating as necessary to obtain head CT. 08/30/17 Psych: Will switch Depakote to sprinkles 250mg PO TID for improved compliance, increase Seroquel to 25mg PO TID. May need to switch to Risperdal if urinary retention worsening. Recheck UA, will bladder scan BID and straight cath if necessary. Once patient has had compliance with Depakote x 3 days, can check trough VPA level and adjust to therapeutic level. 08/31/17-hospitalist Dr. Ramos had ordered a repeat urinalysis because patient continues to have behaviors and has had some urinary retention. She'd had a positive urinalysis on admission and was treated. Urinalysis performed last night was completely negative. She has had 3 doses of IM cyanocobalamin for borderline low B12 deficiency . Continue 1000 g cyanocobalamin a day. Recommend follow-up B12 level on outpatient basis. Patient medically stable. Chart reviewed. 08/31/17 Psych: Will collapse Depakote sprinkles to 250mg PO q AM and 500mg PO with dinner to increase adherence. Seroquel does not seem to be helpful and may be causing restlessness and urinary retention; will hold and monitor behavior for the time being. Stressed importance of adherence to Depakote to nursing staff. 09/01/17 Psych: Continue to focus on compliance with Depakote. Patient had BM with suppository, seems less irritable after this and with straight cathing PRN after bladder scans. Monitor mood, behavior and response to treatment. 09/02/17 Psych: Have ordered urgent labs: CBC, CMP, ammonia level, VPA level. Ordered urgent CT scan of abdomen/pelvis to f/u on hx of bladder cancer. Will hold VPA for now and monitor mentation, appetite. 09/03/17 Pt is lethargic with poor appetite. CT scan pending. Continue current care. Medical team following 09/04/17- Psych- Pt is a little more alert today. CT today. Ativan 0.5mg x 1 to help with obtaining CT. 09/05/17 Psych: Continue holding medications - will discuss further workup and medical treatment with hospitalist. Concern that there may be some underlying medical issues contributing to behaviors. Did not tolerate Depakote well in regards to appetite. Will await this discussion before making further med changes. 09/07/17 Psych: Son Bala to discuss trial of Risperdal with family. Patient will need memory care after d/c. 09/08/17 Psych: Continue current care; patient continues to improve leading me to wander how much of this was a hyperactive delirium vs. psychiatric cause of agitation (could also be manic episode resolving). Will monitor for another day before changing meds as she is showing improvement on current regimen. 09/09/17 Psych: Patient is not able to tolerate antipsychotics (responded very poorly to Risperdal 0.25mg); will completely discontinue scheduled and PRNs. May consider use of gabapentin or carbamazepine as mood stabilizers as she did not tolerate Depakote either. 09/10/17 Psych- Agitation last night. Continue current care 09/11/17 Psych- Pt more alert today. No behaviors over night. Continue current care 09/13/17: Hosp BMP repeated on 09/12/17 - stable. Na 144. 4 Urine culture + for Klebsiella, sensitive to 1st gen cephalosporins. Continue Keflex (started 09/10). VS: HR variable, occ mild elevations in BP acceptable in her age group; afebrile. Psych: pt does not tolerate antipsychotics. They are continuing with medication adjustments. 09/14/17 Psych: Increase mirtazapine to 15mg PO q HS, start carbamazepine 100mg PO q HS and titrate further tomorrow. Family is aware there will be some trade off in functionality though meds needed for facility to be able to care for patient. 09/15/17 Psych: Increase carbamazepine to 100mg PO BID. 09/16/17 Psych: Continue carbamazepine and consider increasing to 100mg PO q AM and 200mg PO q HS tomorrow (09/17) if well-tolerated. After discussion with family, agreed to discontinue Namenda. 09/17/17- Psych- Remains combative with cares. Increase Carbamazepine to 200mg at HS 09/18/17 Psych- Remains aggressive with cares and anxious and tearful at times. 09/19/17 Psych: Increase carbamazepine to 200mg PO BID. Will check CBC, CMP, trough carbamazepine level in AM. 09/20/17 Psych: Carbamazepine increased to 200mg PO q HS last night as it was mistakenly not given over the weekend. Will check trough level prior to tonight' s dose and likely increase to 200mg PO BID tomorrow AM. 09/20/17 Hosp Urinary retention with E. coli & Strep viridans UTI; later with klebsiella UTI. History of bladder cancer -Treated with Keflex -Still requires straight cath about twice per day. Unlikely she'd tolerate an indwelling catheter. -Recommend outpt urology f/u Hypernatremia -resolved -Check BMP Irritable bowel syndrome, Diverticulosis -On good bowel regimen HTN -stable -On Propranolol 09/21/17 Psych: Increase carbamazepine to 200mg PO BID; level pending.
[2017-09-21] MEDS: ERGOCALCIFEROL 50,000 UNIT CAPSULE PO SCH (14:34)
[2017-09-21] MEDS: MIRTAZAPINE 15 MG TABLET PO SCH (20:11)
[2017-09-21] MEDS: TAMSULOSIN 0.4 MG CAPSULE PO SCH (20:12)
[2017-09-21] MEDS: LORazepam 1 MG TABLET PO PRN (20:14)
[2017-09-22] MEDS: CarBAMazepine 200 MG TABLET PO SCH ×2 (08:43→20:58)
[2017-09-22] MEDS: PROPRANOLOL 10 MG TABLET PO SCH ×3 (08:44→20:58)
[2017-09-22] MEDS: CYANOCOBALAMIN (B-12) 500mcg TABLET PO SCH (08:44)
[2017-09-22] MEDS: POLYETHYL GLYCOL 3350 17gm PACKET PO SCH (08:44)
[2017-09-22] MEDS: SENNA + DOCUSATE TABLET PO SCH ×2 (08:44→20:58)
--- NOTE | 2017-09-22 12:12 | Neuropsych Progress Note ---
[facility] Subjective Date: 09/22/17 - Sujective/Severity of Illness Medications: Acetaminophen (Tylenol Arthritis) 650 mg PO Q4H PRN PRN Reason: Pain Last Admin: 09/17/17 07:59 Dose: 650 mg Bisacodyl (Dulcolax) 10 mg RECTALLY DAILY PRN PRN Reason: Constipation Last Admin: 09/01/17 11:05 Dose: 10 mg Bisacodyl (Dulcolax) 5 mg PO BID PRN PRN Reason: Constipation Carbamazepine (Tegretol) 200 mg PO HS [facility] Last Admin: 09/21/17 20:11 Dose: 200 mg Carbamazepine (Tegretol) 200 mg PO BIDWM [facility] Last Admin: 09/22/17 08:43 Dose: 200 mg Cyanocobalamin (Vit. B-12) 1,000 mcg PO DAILY [facility] Last Admin: 09/22/17 08:44 Dose: 1,000 mcg Ergocalciferol (Vitamin D-2) 50,000 unit PO Q7D [facility] Last Admin: 09/21/17 14:34 Dose: 50,000 unit Lorazepam (Ativan) 0.5 mg PO Q6H PRN PRN Reason: Extreme agitation Last Admin: 09/21/17 20:14 Dose: 0.5 mg Lorazepam (Ativan Intensol) 0.5 mg PO Q6H PRN Last Admin: 09/11/17 15:34 Dose: 0.5 mg Lorazepam (Ativan Inj) 0.5 mg IM Q6H PRN PRN Reason: Extreme agitation Last Admin: 09/20/17 20:00 Dose: 0.5 mg Magnesium Hydroxide (Mom) 30 ml PO PRN PRN PRN Reason: Constipation Mirtazapine (Remeron) 15 mg PO [facility] Last Admin: 09/21/17 20:11 Dose: 15 mg Polyethylene Glycol (Miralax) 17 gm PO DAILY [facility] Last Admin: 09/22/17 08:44 Dose: 17 gm Potassium Chloride (Micro-K 10 Meq Capsule) 10 meq PO WB [facility] Last Admin: 09/22/17 08:44 Dose: 10 meq Propranolol HCl (Inderal) 10 mg PO TID [facility] Last Admin: 09/22/17 08:44 Dose: 10 mg Senna/Docusate Sodium (Senna Plus Tablet) 2 tab PO BID PRN PRN Reason: Constipation Senna/Docusate Sodium (Senna Plus Tablet) 1 tab PO BID [facility] Last Admin: 09/22/17 08:44 Dose: 1 tab Tamsulosin HCl (Flomax) 0.4 mg PO HS [facility] Last Admin: 09/21/17 20:12 Dose: 0.4 mg Subjective: Patient seen and chart reviewed. Case discussed with treatment team. Patient is sleeping at time of rounds. Patient continues to be labile and combative with little improvement seen since starting carbamazepine. It doesn't appear from labs that patient is tolerating carbamazepine in regards to cell counts either (decreased WBC, decreased Hgb/Hct , decreased platelets). It was reported that patient was also having VH last night. She is continuing to have difficulty with urination and requiring frequent straight cath. Patient has been adherent with medications. Patient slept 8.25 hours overnight. VSS. Appetite is fair to limited. Psychotropic PRNs required in the past 24 hours: Ativan 0.5mg PO x1 last evening. Start Time: 10:20 Stop Time: 10:40 Mental Status Exam Vitals: Last Vital Signs Temp 98.6 F 09/22/17 08:00 Pulse 85 09/22/17 08:00 Resp 16 09/22/17 08:00 BP 136/80 09/22/17 08:00 Pulse Ox 96 09/22/17 08:00 Height: 1.65 m Weight: 57.9 kg - Mental Status Exam Muscle Strength/Tone: Weak Dressing: Casual Grooming: Fair Attitude: Tense Motor Activity: Retardation Eye Contact: Poor Speech: Slowed Volume: Normal Rhythm: Appropriate Rhythm Orientation: Disoriented to time, Disoriented to place, Disoriented to situation , Oriented to person Mood: Irritable Affect: Hostile Rate of Thoughts: Delayed Thought Organization: Confused Associations: Illogical Abstract Reasoning: Impaired, concrete Thought Content: Ruminations, Somatic Concerns (vague) Perception/Psychotic: Other (Denies, does not appear to be responding to internal stimuli) Language: Naming Impaired Fund of Knowledge: Poor fund of knowledge Memory: Poor-immediate, Poor-recent, Poor-remote Suicidal Ideation: Denies Homicidal Ideation: Denies Insight: Impaired Judgement: Impaired Impulse Control: Poor (though improved from admission) - Laboratory Result Diagrams: 09/22/17 07:19 09/22/17 07:19 Laboratory Results - last 24 hr 09/20/17 09/22/17 09/22/17 18:47 07:19 07:19 WBC 3.9 L RBC 3.63 L Hgb 11.0 L Hct 33.6 L MCV 92.6 MCH 30.3 MCHC 32.7 RDW Std Deviation 41.1 Plt Count 106 L MPV 10.3 Immature Gran % (Auto) 0.0 Neut % (Auto) 50.2 Lymph % (Auto) 35.0 Millard % (Auto) 7.9 Eos % (Auto) 5.9 H Baso % (Auto) 1.0 Neut # (Auto) 2.0 Lymph # (Auto) 1.4 Millard # (Auto) 0.3 Eos # (Auto) 0.2 Baso # (Auto) 0.0 Abs Immat Gran (auto) 0.00 Turbidity < 20 Sodium 143 Potassium 4.0 Chloride 110 H Carbon Dioxide 26 Anion Gap 7 BUN 19.0 H Creatinine 0.8 D GFR Calculation 69 BUN/Creatinine Ratio 24 Glucose 91 Calculated Osmolality 277 Calcium 8.8 Icterus Index < 2 Specimen Hemolysis < 15 Carbamazepine 5.3 Assessment and Plan (1) Major neurocognitive disorder Problem details: Moderate, likely mixed etiology, with behavioral disturbance R/O Bipolar disorder, MRE manic Other medical conditions: Recurrent UTIs Hypernatremia-POA History of bladder cancer Vitamin D deficiency Irritable bowel syndrome Diverticulosis Chronic compression fracture T12 Osteopenia Current visit: Yes Status: Acute (2) Vitamin B12 deficiency Current visit: Yes Status: Acute Will check UA, consult with urology as I believe patient has underlying cause for continued delirium. Will discontinue carbamazepine as well due to patient's dropping cell counts. Will schedule Ativan 0.5mg PO BID as it does seem to help patient relax. Hospital Course Summary Disclaimer: The visit summary below is not to be considered part of the above Progress Note. Hospital Course: Psych 08/25/17: Held Wellbutrin XL, Buspar, Viibryd due to suspected bipolar alexander. Psych 08/26/17: Patient seems to have improved slightly with discontinuation of all Wellbutrin XL, Buspar, Viibryd (upon admission). Currently taking seroquel 25mg PO BID and propranolol 10mg PO BID from home med list. Will add Depakote DR 250mg PO BID. Will additionally start Vitamin B12 1000mcg IM x 3 days then weekly for a month, then monthly thereafter. 08/27/2017- Psych- PT is irritable and labile at times but is redirectable. Will consider increase of Depakote tomorrow if tolerating well 08/28/2017 Psych- Pt remains irritable and impulsive at times. Increase Depakote to 250mg PO TID. 08/29/17 Psych: Continue current care as we await serotonergic agents to clear from blood given half-lives; discussed care with DPOA/daughter who is in agreement with treatment plan. Patient has hx of malignant neoplasm of bladder. Daughter states that no recent imaging has been done and is in agreement with sedating as necessary to obtain head CT. 08/30/17 Psych: Will switch Depakote to sprinkles 250mg PO TID for improved compliance, increase Seroquel to 25mg PO TID. May need to switch to Risperdal if urinary retention worsening. Recheck UA, will bladder scan BID and straight cath if necessary. Once patient has had compliance with Depakote x 3 days, can check trough VPA level and adjust to therapeutic level. 08/31/17-hospitalist Dr. Ramos had ordered a repeat urinalysis because patient continues to have behaviors and has had some urinary retention. She'd had a positive urinalysis on admission and was treated. Urinalysis performed last night was completely negative. She has had 3 doses of IM cyanocobalamin for borderline low B12 deficiency . Continue 1000 g cyanocobalamin a day. Recommend follow-up B12 level on outpatient basis. Patient medically stable. Chart reviewed. 08/31/17 Psych: Will collapse Depakote sprinkles to 250mg PO q AM and 500mg PO with dinner to increase adherence. Seroquel does not seem to be helpful and may be causing restlessness and urinary retention; will hold and monitor behavior for the time being. Stressed importance of adherence to Depakote to nursing staff. 09/01/17 Psych: Continue to focus on compliance with Depakote. Patient had BM with suppository, seems less irritable after this and with straight cathing PRN after bladder scans. Monitor mood, behavior and response to treatment. 09/02/17 Psych: Have ordered urgent labs: CBC, CMP, ammonia level, VPA level. Ordered urgent CT scan of abdomen/pelvis to f/u on hx of bladder cancer. Will hold VPA for now and monitor mentation, appetite. 09/03/17 Pt is lethargic with poor appetite. CT scan pending. Continue current care. Medical team following 09/04/17- Psych- Pt is a little more alert today. CT today. Ativan 0.5mg x 1 to help with obtaining CT. 09/05/17 Psych: Continue holding medications - will discuss further workup and medical treatment with hospitalist. Concern that there may be some underlying medical issues contributing to behaviors. Did not tolerate Depakote well in regards to appetite. Will await this discussion before making further med changes. 09/07/17 Psych: Son Bala to discuss trial of Risperdal with family. Patient will need memory care after d/c. 09/08/17 Psych: Continue current care; patient continues to improve leading me to wander how much of this was a hyperactive delirium vs. psychiatric cause of agitation (could also be manic episode resolving). Will monitor for another day before changing meds as she is showing improvement on current regimen. 09/09/17 Psych: Patient is not able to tolerate antipsychotics (responded very poorly to Risperdal 0.25mg); will completely discontinue scheduled and PRNs. May consider use of gabapentin or carbamazepine as mood stabilizers as she did not tolerate Depakote either. 09/10/17 Psych- Agitation last night. Continue current care 09/11/17 Psych- Pt more alert today. No behaviors over night. Continue current care 09/13/17: Hosp BMP repeated on 09/12/17 - stable. Na 144. 4 Urine culture + for Klebsiella, sensitive to 1st gen cephalosporins. Continue Keflex (started 09/10). VS: HR variable, occ mild elevations in BP acceptable in her age group; afebrile. Psych: pt does not tolerate antipsychotics. They are continuing with medication adjustments. 09/14/17 Psych: Increase mirtazapine to 15mg PO q HS, start carbamazepine 100mg PO q HS and titrate further tomorrow. Family is aware there will be some trade off in functionality though meds needed for facility to be able to care for patient. 09/15/17 Psych: Increase carbamazepine to 100mg PO BID. 09/16/17 Psych: Continue carbamazepine and consider increasing to 100mg PO q AM and 200mg PO q HS tomorrow (09/17) if well-tolerated. After discussion with family, agreed to discontinue Namenda. 09/17/17- Psych- Remains combative with cares. Increase Carbamazepine to 200mg at HS 09/18/17 Psych- Remains aggressive with cares and anxious and tearful at times. 09/19/17 Psych: Increase carbamazepine to 200mg PO BID. Will check CBC, CMP, trough carbamazepine level in AM. 09/20/17 Psych: Carbamazepine increased to 200mg PO q HS last night as it was mistakenly not given over the weekend. Will check trough level prior to tonight' s dose and likely increase to 200mg PO BID tomorrow AM. 09/20/17 Hosp Urinary retention with E. coli & Strep viridans UTI; later with klebsiella UTI. History of bladder cancer -Treated with Keflex -Still requires straight cath about twice per day. Unlikely she'd tolerate an indwelling catheter. -Recommend outpt urology f/u Hypernatremia -resolved -Check BMP Irritable bowel syndrome, Diverticulosis -On good bowel regimen HTN -stable -On Propranolol 09/21/17 Psych: Increase carbamazepine to 200mg PO BID; level 5.3. 09/22/17 Psych: Will check UA, consult with urology as I believe patient has underlying cause for continued delirium. Will discontinue carbamazepine as well due to patient's dropping cell counts. Will schedule Ativan 0.5mg PO BID as it does seem to help patient relax.
[2017-09-22] MEDS: LORazepam 0.5 MG TABLET PO SCH (20:58)
[2017-09-22] MEDS: MIRTAZAPINE 15 MG TABLET PO SCH (20:58)
[2017-09-22] MEDS: TAMSULOSIN 0.4 MG CAPSULE PO SCH (20:58)
[2017-09-23] MEDS: PROPRANOLOL 10 MG TABLET PO SCH ×3 (09:28→20:33)
[2017-09-23] MEDS: SENNA + DOCUSATE TABLET PO SCH ×2 (09:28→20:34)
[2017-09-23] MEDS: POLYETHYL GLYCOL 3350 17gm PACKET PO SCH (09:29)
[2017-09-23] MEDS: LORazepam 0.5 MG TABLET PO SCH ×2 (09:29→20:34)
[2017-09-23] MEDS: CYANOCOBALAMIN (B-12) 500mcg TABLET PO SCH (09:29)
--- NOTE | 2017-09-23 13:37 | Progress Note ---
- Date 09/23/17 Subjective: Larry is seen this morning while in the shower with nursing staff. No examination was done at that time. Nursing staff does report that she continues to have urinary retention and is requiring straight catheterization. A recheck of urinalysis was obtained yesterday which did reveal positive nitrates with white cells present. Preliminary microbiology does reveal gram-negative hao. She has been afebrile, vital signs normal. Objective Vital signs: Temperature 97.4 F 09/23/17 08:00 Pulse Rate 86 09/23/17 08:00 Respiratory Rate 16 09/23/17 08:00 Blood Pressure 146/78 H 09/23/17 08:00 Pulse Oximetry 95 09/23/17 08:00 Height/Weight/BMI: Height 1.65 m Weight 57.9 kg Body Mass Index 23.8 - Constitutional Present: no acute distress, well nourished, well developed - Routine Respiratory Exam Absent: wheezes - Routine Extremities Exam Present: full ROM - Routine Back/Spine/Pelvis Exam Back/Spine: Present: full ROM - Routine Neurological Exam Present: alert, CN II-XII intact, altered mental status, moving all extremities - Routine Lymphatic Exam Lymphatic: Absent: adenopathy - Routine Psychiatric Exam Present: cooperative Results - Labs CBC & Chem 7: 09/22/17 07:19 09/22/17 07:19 Microbiology Results: Microbiology 09/22/17 15:12 Urine, Cath Straight Urine Culture - Preliminary Gram Negative Hao 09/10/17 05:21 Urine, Cath Straight Urine Culture - Final Klebsiella oxytoca Lactobacillus species Assessment and Plan (1) Alzheimer's dementia with behavioral disturbance Current visit: Yes Status: Acute Assessment and Plan: Assessment Alzheimer's disease with behavioral disturbance Depression/anxiety Urinary retention with E. coli & Strep viridans UTI; later with klebsiella UTI. History of bladder cancer Hypernatremia- resolved Borderline low B12 Irritable bowel syndrome, Diverticulosis HTN Chronic compression fracture T12, Osteopenia, Vitamin D deficiency Plan Continues to require straight catheterization twice a day due to retention. Staff does not feel the patient would keep an indwelling Vyas catheter in place. She has previously been treated for a UTI- with E. coli & Strep viridans UTI; later with klebsiella UTI Given most recent preliminary urine culture positive gram-negative- Will start Keflex TID and continue to monitor Case discussed with Dr Ramos- She feels that this may be delirium in nature. We will go ahead and treat urinary tract infection and see if behaviors improve. - Physician Narrative Narrative: Date: 09/23/17 Time: 1333 Hospital Course Summary Disclaimer: The visit summary below is not to be considered part of the above Progress Note. Hospital Course: Psych 08/25/17: Held Wellbutrin XL, Buspar, Viibryd due to suspected bipolar alexander. Psych 08/26/17: Patient seems to have improved slightly with discontinuation of all Wellbutrin XL, Buspar, Viibryd (upon admission). Currently taking seroquel 25mg PO BID and propranolol 10mg PO BID from home med list. Will add Depakote DR 250mg PO BID. Will additionally start Vitamin B12 1000mcg IM x 3 days then weekly for a month, then monthly thereafter. 08/27/2017- Psych- PT is irritable and labile at times but is redirectable. Will consider increase of Depakote tomorrow if tolerating well 08/28/2017 Psych- Pt remains irritable and impulsive at times. Increase Depakote to 250mg PO TID. 08/29/17 Psych: Continue current care as we await serotonergic agents to clear from blood given half-lives; discussed care with DPOA/daughter who is in agreement with treatment plan. Patient has hx of malignant neoplasm of bladder. Daughter states that no recent imaging has been done and is in agreement with sedating as necessary to obtain head CT. 08/30/17 Psych: Will switch Depakote to sprinkles 250mg PO TID for improved compliance, increase Seroquel to 25mg PO TID. May need to switch to Risperdal if urinary retention worsening. Recheck UA, will bladder scan BID and straight cath if necessary. Once patient has had compliance with Depakote x 3 days, can check trough VPA level and adjust to therapeutic level. 08/31/17-hospitalist Dr. Ramos had ordered a repeat urinalysis because patient continues to have behaviors and has had some urinary retention. She'd had a positive urinalysis on admission and was treated. Urinalysis performed last night was completely negative. She has had 3 doses of IM cyanocobalamin for borderline low B12 deficiency . Continue 1000 g cyanocobalamin a day. Recommend follow-up B12 level on outpatient basis. Patient medically stable. Chart reviewed. 08/31/17 Psych: Will collapse Depakote sprinkles to 250mg PO q AM and 500mg PO with dinner to increase adherence. Seroquel does not seem to be helpful and may be causing restlessness and urinary retention; will hold and monitor behavior for the time being. Stressed importance of adherence to Depakote to nursing staff. 09/01/17 Psych: Continue to focus on compliance with Depakote. Patient had BM with suppository, seems less irritable after this and with straight cathing PRN after bladder scans. Monitor mood, behavior and response to treatment. 09/02/17 Psych: Have ordered urgent labs: CBC, CMP, ammonia level, VPA level. Ordered urgent CT scan of abdomen/pelvis to f/u on hx of bladder cancer. Will hold VPA for now and monitor mentation, appetite. 09/03/17 Pt is lethargic with poor appetite. CT scan pending. Continue current care. Medical team following 09/04/17- Psych- Pt is a little more alert today. CT today. Ativan 0.5mg x 1 to help with obtaining CT. 09/05/17 Psych: Continue holding medications - will discuss further workup and medical treatment with hospitalist. Concern that there may be some underlying medical issues contributing to behaviors. Did not tolerate Depakote well in regards to appetite. Will await this discussion before making further med changes. 09/07/17 Psych: Son Bala to discuss trial of Risperdal with family. Patient will need memory care after d/c. 09/08/17 Psych: Continue current care; patient continues to improve leading me to wander how much of this was a hyperactive delirium vs. psychiatric cause of agitation (could also be manic episode resolving). Will monitor for another day before changing meds as she is showing improvement on current regimen. 09/09/17 Psych: Patient is not able to tolerate antipsychotics (responded very poorly to Risperdal 0.25mg); will completely discontinue scheduled and PRNs. May consider use of gabapentin or carbamazepine as mood stabilizers as she did not tolerate Depakote either. 09/10/17 Psych- Agitation last night. Continue current care 09/11/17 Psych- Pt more alert today. No behaviors over night. Continue current care 09/13/17: Hosp BMP repeated on 09/12/17 - stable. Na 144. 4 Urine culture + for Klebsiella, sensitive to 1st gen cephalosporins. Continue Keflex (started 09/10). VS: HR variable, occ mild elevations in BP acceptable in her age group; afebrile. Psych: pt does not tolerate antipsychotics. They are continuing with medication adjustments. 09/14/17 Psych: Increase mirtazapine to 15mg PO q HS, start carbamazepine 100mg PO q HS and titrate further tomorrow. Family is aware there will be some trade off in functionality though meds needed for facility to be able to care for patient. 09/15/17 Psych: Increase carbamazepine to 100mg PO BID. 09/16/17 Psych: Continue carbamazepine and consider increasing to 100mg PO q AM and 200mg PO q HS tomorrow (09/17) if well-tolerated. After discussion with family, agreed to discontinue Namenda. 09/17/17- Psych- Remains combative with cares. Increase Carbamazepine to 200mg at HS 09/18/17 Psych- Remains aggressive with cares and anxious and tearful at times. 09/19/17 Psych: Increase carbamazepine to 200mg PO BID. Will check CBC, CMP, trough carbamazepine level in AM. 09/20/17 Psych: Carbamazepine increased to 200mg PO q HS last night as it was mistakenly not given over the weekend. Will check trough level prior to tonight' s dose and likely increase to 200mg PO BID tomorrow AM. 09/20/17 Hosp Urinary retention with E. coli & Strep viridans UTI; later with klebsiella UTI. History of bladder cancer -Treated with Keflex -Still requires straight cath about twice per day. Unlikely she'd tolerate an indwelling catheter. -Recommend outpt urology f/u Hypernatremia -resolved -Check BMP Irritable bowel syndrome, Diverticulosis -On good bowel regimen HTN -stable -On Propranolol 09/21/17 Psych: Increase carbamazepine to 200mg PO BID; level 5.3. 09/22/17 Psych: Will check UA, consult with urology as I believe patient has underlying cause for continued delirium. Will discontinue carbamazepine as well due to patient's dropping cell counts. Will schedule Ativan 0.5mg PO BID as it does seem to help patient relax. 09/23 Continues to require straight catheterization twice a day due to retention. Staff does not feel the patient would keep an indwelling Vyas catheter in place. She has previously been treated for a UTI- with E. coli & Strep viridans UTI; later with klebsiella UTI Given most recent preliminary urine culture positive gram-negative- Will start Keflex TID and continue to monitor Case discussed with Dr Ramos- She feels that this may be delirium in nature. We will go ahead and treat urinary tract infection and see if behaviors improve.
[2017-09-23] MEDS: LORazepam 1 MG TABLET PO PRN (13:56)
--- NOTE | 2017-09-23 14:52 | Neuropsych Progress Note ---
[facility] Subjective Date: 09/23/17 - Sujective/Severity of Illness Medications: Acetaminophen (Tylenol Arthritis) 650 mg PO Q4H PRN PRN Reason: Pain Last Admin: 09/17/17 07:59 Dose: 650 mg Bisacodyl (Dulcolax) 10 mg RECTALLY DAILY PRN PRN Reason: Constipation Last Admin: 09/01/17 11:05 Dose: 10 mg Bisacodyl (Dulcolax) 5 mg PO BID PRN PRN Reason: Constipation Cephalexin HCl (Keflex 500 Mg) 500 mg PO TID [facility] Last Admin: 09/23/17 14:05 Dose: 500 mg Cyanocobalamin (Vit. B-12) 1,000 mcg PO DAILY [facility] Last Admin: 09/23/17 09:29 Dose: 1,000 mcg Ergocalciferol (Vitamin D-2) 50,000 unit PO Q7D [facility] Last Admin: 09/21/17 14:34 Dose: 50,000 unit Lorazepam (Ativan) 0.5 mg PO Q6H PRN PRN Reason: Extreme agitation Last Admin: 09/23/17 13:56 Dose: 0.5 mg Lorazepam (Ativan Intensol) 0.5 mg PO Q6H PRN Last Admin: 09/11/17 15:34 Dose: 0.5 mg Lorazepam (Ativan Inj) 0.5 mg IM Q6H PRN PRN Reason: Extreme agitation Last Admin: 09/20/17 20:00 Dose: 0.5 mg Lorazepam (Ativan) 0.5 mg PO BID [facility] Last Admin: 09/23/17 09:29 Dose: 0.5 mg Magnesium Hydroxide (Mom) 30 ml PO PRN PRN PRN Reason: Constipation Mirtazapine (Remeron) 15 mg PO HS [facility] Last Admin: 09/22/17 20:58 Dose: 15 mg Polyethylene Glycol (Miralax) 17 gm PO DAILY [facility] Last Admin: 09/23/17 09:29 Dose: 17 gm Potassium Chloride (Micro-K 10 Meq Capsule) 10 meq PO WB [facility] Last Admin: 09/23/17 09:28 Dose: 10 meq Propranolol HCl (Inderal) 10 mg PO TID [facility] Last Admin: 09/23/17 14:09 Dose: 10 mg Senna/Docusate Sodium (Senna Plus Tablet) 2 tab PO BID PRN PRN Reason: Constipation Senna/Docusate Sodium (Senna Plus Tablet) 1 tab PO BID [facility] Last Admin: 09/23/17 09:28 Dose: 1 tab Tamsulosin HCl (Flomax) 0.4 mg PO HS [facility] Last Admin: 09/22/17 20:58 Dose: 0.4 mg Subjective: Patient seen and chart reviewed. Case discussed with treatment team. Patient is sleeping at time of rounds. Patient is eating and difficult to engage in conversation, she is rather dismissive. She reports that she feels okay. I commented that she ate her dessert first and she says, "I didn't realize I was doing that" but doesn't answer my other questions as she is focused on eating. She continues to be labile and combative with cares. She is continuing to have difficulty with urination and requiring frequent straight cath. Patient has been adherent with medications. Patient slept 6.25 hours overnight. VSS. Appetite is fair to limited. Psychotropic PRNs required in the past 24 hours: None. I spoke with hospitalist re: results of UA as I believe patient's symptoms are primarily due to delirium at this point. Will treat UTI. Also put in urology consult for clarification on urination, possible renal cyst. Start Time: 13:40 Stop Time: 14:00 Mental Status Exam Vitals: Last Vital Signs Temp 97.4 F 09/23/17 08:00 Pulse 86 09/23/17 08:00 Resp 16 09/23/17 08:00 BP 146/78 H 09/23/17 08:00 Pulse Ox 95 09/23/17 08:00 Height: 1.65 m Weight: 57.9 kg - Mental Status Exam Muscle Strength/Tone: Weak Dressing: Casual Grooming: Fair Attitude: Combative (at times), Tense Motor Activity: Retardation Eye Contact: Poor Speech: Slowed Volume: Normal Rhythm: Appropriate Rhythm Orientation: Disoriented to time, Disoriented to place, Disoriented to situation , Oriented to person Mood: Irritable Affect: Hostile Rate of Thoughts: Delayed Thought Organization: Confused Associations: Illogical Abstract Reasoning: Impaired, concrete Thought Content: Ruminations, Somatic Concerns (vague) Perception/Psychotic: Other (Denies, does not appear to be responding to internal stimuli) Language: Naming Impaired Fund of Knowledge: Poor fund of knowledge Memory: Poor-immediate, Poor-recent, Poor-remote Suicidal Ideation: Denies Homicidal Ideation: Denies Insight: Impaired Judgement: Impaired Impulse Control: Poor (though improved from admission) - Laboratory Result Diagrams: 09/22/17 07:19 09/22/17 07:19 Laboratory Results - last 24 hr 09/22/17 15:12 Ur Collection Type Urine, cath straight Urine Color Yellow Urine Clarity Sl cloudy Urine pH 5.5 Ur Specific Carroll 1.025 Urine Protein Negative Urine Glucose (UA) Negative Urine Ketones Negative Urine Occult Blood Negative Urine Nitrate Positive A Urine Bilirubin Negative Urine Urobilinogen 0.2 Ur Leukocyte Esterase Negative Urine RBC 0-1 Urine WBC 5-10 H Ur Squamous Epith Cells 5-10 Urine Bacteria 3+ H Ur Culture Indicated? Cult reflexed &setup Assessment and Plan (1) Delirium Problem details: due to unknown etiology at this time though patient does have recurrent UTIs Current visit: Yes Status: Acute (2) Major neurocognitive disorder Problem details: Moderate, likely mixed etiology, with behavioral disturbance R/O Bipolar disorder, MRE manic Other medical conditions: Recurrent UTIs Hypernatremia-POA History of bladder cancer Vitamin D deficiency Irritable bowel syndrome Diverticulosis Chronic compression fracture T12 Osteopenia Current visit: Yes Status: Acute (3) Vitamin B12 deficiency Current visit: Yes Status: Acute Patient received carbamazepine 200mg PO q HS last night. Will completely discontinue today. Will continue Ativan 0.5mg PO BID as it is the only medication that helps patient be less physically aggressive. Hospitalist to treat UTI, consulted urology re: frequent UTIs, inability to urinate, possible renal cyst on imaging. Hospital Course Summary Disclaimer: The visit summary below is not to be considered part of the above Progress Note. Hospital Course: Psych 08/25/17: Held Wellbutrin XL, Buspar, Viibryd due to suspected bipolar alexander. Psych 08/26/17: Patient seems to have improved slightly with discontinuation of all Wellbutrin XL, Buspar, Viibryd (upon admission). Currently taking seroquel 25mg PO BID and propranolol 10mg PO BID from home med list. Will add Depakote DR 250mg PO BID. Will additionally start Vitamin B12 1000mcg IM x 3 days then weekly for a month, then monthly thereafter. 08/27/2017- Psych- PT is irritable and labile at times but is redirectable. Will consider increase of Depakote tomorrow if tolerating well 08/28/2017 Psych- Pt remains irritable and impulsive at times. Increase Depakote to 250mg PO TID. 08/29/17 Psych: Continue current care as we await serotonergic agents to clear from blood given half-lives; discussed care with DPOA/daughter who is in agreement with treatment plan. Patient has hx of malignant neoplasm of bladder. Daughter states that no recent imaging has been done and is in agreement with sedating as necessary to obtain head CT. 08/30/17 Psych: Will switch Depakote to sprinkles 250mg PO TID for improved compliance, increase Seroquel to 25mg PO TID. May need to switch to Risperdal if urinary retention worsening. Recheck UA, will bladder scan BID and straight cath if necessary. Once patient has had compliance with Depakote x 3 days, can check trough VPA level and adjust to therapeutic level. 08/31/17-hospitalist Dr. Ramos had ordered a repeat urinalysis because patient continues to have behaviors and has had some urinary retention. She'd had a positive urinalysis on admission and was treated. Urinalysis performed last night was completely negative. She has had 3 doses of IM cyanocobalamin for borderline low B12 deficiency . Continue 1000 g cyanocobalamin a day. Recommend follow-up B12 level on outpatient basis. Patient medically stable. Chart reviewed. 08/31/17 Psych: Will collapse Depakote sprinkles to 250mg PO q AM and 500mg PO with dinner to increase adherence. Seroquel does not seem to be helpful and may be causing restlessness and urinary retention; will hold and monitor behavior for the time being. Stressed importance of adherence to Depakote to nursing staff. 09/01/17 Psych: Continue to focus on compliance with Depakote. Patient had BM with suppository, seems less irritable after this and with straight cathing PRN after bladder scans. Monitor mood, behavior and response to treatment. 09/02/17 Psych: Have ordered urgent labs: CBC, CMP, ammonia level, VPA level. Ordered urgent CT scan of abdomen/pelvis to f/u on hx of bladder cancer. Will hold VPA for now and monitor mentation, appetite. 09/03/17 Pt is lethargic with poor appetite. CT scan pending. Continue current care. Medical team following 09/04/17- Psych- Pt is a little more alert today. CT today. Ativan 0.5mg x 1 to help with obtaining CT. 09/05/17 Psych: Continue holding medications - will discuss further workup and medical treatment with hospitalist. Concern that there may be some underlying medical issues contributing to behaviors. Did not tolerate Depakote well in regards to appetite. Will await this discussion before making further med changes. 09/07/17 Psych: Son Bala to discuss trial of Risperdal with family. Patient will need memory care after d/c. 09/08/17 Psych: Continue current care; patient continues to improve leading me to wander how much of this was a hyperactive delirium vs. psychiatric cause of agitation (could also be manic episode resolving). Will monitor for another day before changing meds as she is showing improvement on current regimen. 09/09/17 Psych: Patient is not able to tolerate antipsychotics (responded very poorly to Risperdal 0.25mg); will completely discontinue scheduled and PRNs. May consider use of gabapentin or carbamazepine as mood stabilizers as she did not tolerate Depakote either. 09/10/17 Psych- Agitation last night. Continue current care 09/11/17 Psych- Pt more alert today. No behaviors over night. Continue current care 09/13/17: Hosp BMP repeated on 09/12/17 - stable. Na 144. 4 Urine culture + for Klebsiella, sensitive to 1st gen cephalosporins. Continue Keflex (started 09/10). VS: HR variable, occ mild elevations in BP acceptable in her age group; afebrile. Psych: pt does not tolerate antipsychotics. They are continuing with medication adjustments. 09/14/17 Psych: Increase mirtazapine to 15mg PO q HS, start carbamazepine 100mg PO q HS and titrate further tomorrow. Family is aware there will be some trade off in functionality though meds needed for facility to be able to care for patient. 09/15/17 Psych: Increase carbamazepine to 100mg PO BID. 09/16/17 Psych: Continue carbamazepine and consider increasing to 100mg PO q AM and 200mg PO q HS tomorrow (09/17) if well-tolerated. After discussion with family, agreed to discontinue Namenda. 09/17/17- Psych- Remains combative with cares. Increase Carbamazepine to 200mg at HS 09/18/17 Psych- Remains aggressive with cares and anxious and tearful at times. 09/19/17 Psych: Increase carbamazepine to 200mg PO BID. Will check CBC, CMP, trough carbamazepine level in AM. 09/20/17 Psych: Carbamazepine increased to 200mg PO q HS last night as it was mistakenly not given over the weekend. Will check trough level prior to tonight' s dose and likely increase to 200mg PO BID tomorrow AM. 09/20/17 Hosp Urinary retention with E. coli & Strep viridans UTI; later with klebsiella UTI. History of bladder cancer -Treated with Keflex -Still requires straight cath about twice per day. Unlikely she'd tolerate an indwelling catheter. -Recommend outpt urology f/u Hypernatremia -resolved -Check BMP Irritable bowel syndrome, Diverticulosis -On good bowel regimen HTN -stable -On Propranolol 09/21/17 Psych: Increase carbamazepine to 200mg PO BID; level 5.3. 09/22/17 Psych: Will check UA, consult with urology as I believe patient has underlying cause for continued delirium. Will discontinue carbamazepine as well due to patient's dropping cell counts. Will schedule Ativan 0.5mg PO BID as it does seem to help patient relax. 09/23 Continues to require straight catheterization twice a day due to retention. Staff does not feel the patient would keep an indwelling Vyas catheter in place. She has previously been treated for a UTI- with E. coli & Strep viridans UTI; later with klebsiella UTI Given most recent preliminary urine culture positive gram-negative- Will start Keflex TID and continue to monitor Case discussed with Dr Ramos- She feels that this may be delirium in nature. We will go ahead and treat urinary tract infection and see if behaviors improve. 09/23/17 Psych: Patient received carbamazepine 200mg PO q HS last night. Will completely discontinue today. Will continue Ativan 0.5mg PO BID as it is the only medication that helps patient be less physically aggressive. Hospitalist to treat UTI, consulted urology re: frequent UTIs, inability to urinate, possible renal cyst on imaging.
[2017-09-23] MEDS: TAMSULOSIN 0.4 MG CAPSULE PO SCH (20:34)
[2017-09-23] MEDS: MIRTAZAPINE 15 MG TABLET PO SCH (20:34)
[2017-09-24] MEDS: CYANOCOBALAMIN (B-12) 500mcg TABLET PO SCH (11:45)
[2017-09-24] MEDS: LORazepam 0.5 MG TABLET PO SCH ×3 (11:46→21:43)
[2017-09-24] MEDS: PROPRANOLOL 10 MG TABLET PO SCH ×4 (11:46→21:43)
[2017-09-24] MEDS: SENNA + DOCUSATE TABLET PO SCH ×4 (11:46→21:43)
[2017-09-24] MEDS: POLYETHYL GLYCOL 3350 17gm PACKET PO SCH (11:47)
--- NOTE | 2017-09-24 12:54 | Neuropsych Progress Note ---
[facility] Subjective Date: 09/24/17 - Sujective/Severity of Illness Medications: Acetaminophen (Tylenol Arthritis) 650 mg PO Q4H PRN PRN Reason: Pain Last Admin: 09/24/17 12:13 Dose: 650 mg Bisacodyl (Dulcolax) 10 mg RECTALLY DAILY PRN PRN Reason: Constipation Last Admin: 09/01/17 11:05 Dose: 10 mg Bisacodyl (Dulcolax) 5 mg PO BID PRN PRN Reason: Constipation Cephalexin HCl (Keflex 500 Mg) 500 mg PO TID [facility] Last Admin: 09/24/17 11:45 Dose: 500 mg Cyanocobalamin (Vit. B-12) 1,000 mcg PO DAILY [facility] Last Admin: 09/24/17 11:45 Dose: 1,000 mcg Ergocalciferol (Vitamin D-2) 50,000 unit PO Q7D [facility] Last Admin: 09/21/17 14:34 Dose: 50,000 unit Lorazepam (Ativan) 0.5 mg PO Q6H PRN PRN Reason: Extreme agitation Last Admin: 09/23/17 13:56 Dose: 0.5 mg Lorazepam (Ativan Intensol) 0.5 mg PO Q6H PRN Last Admin: 09/11/17 15:34 Dose: 0.5 mg Lorazepam (Ativan Inj) 0.5 mg IM Q6H PRN PRN Reason: Extreme agitation Last Admin: 09/20/17 20:00 Dose: 0.5 mg Lorazepam (Ativan) 0.5 mg PO BID [facility] Last Admin: 09/24/17 11:46 Dose: 0.5 mg Magnesium Hydroxide (Mom) 30 ml PO PRN PRN PRN Reason: Constipation Mirtazapine (Remeron) 15 mg PO HS [facility] Last Admin: 09/23/17 20:34 Dose: 15 mg Polyethylene Glycol (Miralax) 17 gm PO DAILY [facility] Last Admin: 09/24/17 11:47 Dose: Not Given Potassium Chloride (Micro-K 10 Meq Capsule) 10 meq PO WB [facility] Last Admin: 09/24/17 11:46 Dose: 10 meq Propranolol HCl (Inderal) 10 mg PO TID [facility] Last Admin: 09/24/17 11:46 Dose: 10 mg Senna/Docusate Sodium (Senna Plus Tablet) 2 tab PO BID PRN PRN Reason: Constipation Senna/Docusate Sodium (Senna Plus Tablet) 1 tab PO BID [facility] Last Admin: 09/24/17 11:51 Dose: Not Given Tamsulosin HCl (Flomax) 0.4 mg PO HS [facility] Last Admin: 09/23/17 20:34 Dose: 0.4 mg Subjective: Patient seen and chart reviewed. Nursing reports pt remains confused at times and can be combative with cares. On face to face the pt is resting in bed. She is pleasant but confused. She denies any pain. Tolerating meds Start Time: 10:30 Stop Time: 10:45 Mental Status Exam Vitals: Last Vital Signs Temp 97.2 F 09/24/17 08:00 Pulse 98 09/24/17 08:00 Resp 18 09/24/17 08:00 BP 128/74 09/24/17 08:00 Pulse Ox 95 09/24/17 08:00 Height: 1.65 m Weight: 57.9 kg - Mental Status Exam Muscle Strength/Tone: Weak Dressing: Casual Grooming: Fair Attitude: Combative (at times), Tense Motor Activity: Retardation Eye Contact: Poor Speech: Slowed Volume: Normal Rhythm: Appropriate Rhythm Orientation: Disoriented to time, Disoriented to place, Disoriented to situation , Oriented to person Mood: Irritable Rate of Thoughts: Delayed Thought Organization: Confused Associations: Illogical Abstract Reasoning: Impaired, concrete Thought Content: Ruminations, Somatic Concerns (vague) Perception/Psychotic: Other (Denies, does not appear to be responding to internal stimuli) Language: Naming Impaired Fund of Knowledge: Poor fund of knowledge Memory: Poor-immediate, Poor-recent, Poor-remote Suicidal Ideation: Denies Homicidal Ideation: Denies Insight: Impaired Judgement: Impaired Impulse Control: Poor (though improved from admission) - Laboratory Result Diagrams: 09/22/17 07:19 09/22/17 07:19 Assessment and Plan (1) Major neurocognitive disorder Problem details: Moderate, likely mixed etiology, with behavioral disturbance R/O Bipolar disorder, MRE manic Other medical conditions: Recurrent UTIs Hypernatremia-POA History of bladder cancer Vitamin D deficiency Irritable bowel syndrome Diverticulosis Chronic compression fracture T12 Osteopenia Current visit: Yes Status: Acute (2) Vitamin B12 deficiency Current visit: Yes Status: Acute (3) Delirium Problem details: due to unknown etiology at this time though patient does have recurrent UTIs Current visit: Yes Status: Acute Hospital Course Summary Disclaimer: The visit summary below is not to be considered part of the above Progress Note. Hospital Course: Psych 08/25/17: Held Wellbutrin XL, Buspar, Viibryd due to suspected bipolar alexander. Psych 08/26/17: Patient seems to have improved slightly with discontinuation of all Wellbutrin XL, Buspar, Viibryd (upon admission). Currently taking seroquel 25mg PO BID and propranolol 10mg PO BID from home med list. Will add Depakote DR 250mg PO BID. Will additionally start Vitamin B12 1000mcg IM x 3 days then weekly for a month, then monthly thereafter. 08/27/2017- Psych- PT is irritable and labile at times but is redirectable. Will consider increase of Depakote tomorrow if tolerating well 08/28/2017 Psych- Pt remains irritable and impulsive at times. Increase Depakote to 250mg PO TID. 08/29/17 Psych: Continue current care as we await serotonergic agents to clear from blood given half-lives; discussed care with DPOA/daughter who is in agreement with treatment plan. Patient has hx of malignant neoplasm of bladder. Daughter states that no recent imaging has been done and is in agreement with sedating as necessary to obtain head CT. 08/30/17 Psych: Will switch Depakote to sprinkles 250mg PO TID for improved compliance, increase Seroquel to 25mg PO TID. May need to switch to Risperdal if urinary retention worsening. Recheck UA, will bladder scan BID and straight cath if necessary. Once patient has had compliance with Depakote x 3 days, can check trough VPA level and adjust to therapeutic level. 08/31/17-hospitalist Dr. Ramos had ordered a repeat urinalysis because patient continues to have behaviors and has had some urinary retention. She'd had a positive urinalysis on admission and was treated. Urinalysis performed last night was completely negative. She has had 3 doses of IM cyanocobalamin for borderline low B12 deficiency . Continue 1000 g cyanocobalamin a day. Recommend follow-up B12 level on outpatient basis. Patient medically stable. Chart reviewed. 08/31/17 Psych: Will collapse Depakote sprinkles to 250mg PO q AM and 500mg PO with dinner to increase adherence. Seroquel does not seem to be helpful and may be causing restlessness and urinary retention; will hold and monitor behavior for the time being. Stressed importance of adherence to Depakote to nursing staff. 09/01/17 Psych: Continue to focus on compliance with Depakote. Patient had BM with suppository, seems less irritable after this and with straight cathing PRN after bladder scans. Monitor mood, behavior and response to treatment. 09/02/17 Psych: Have ordered urgent labs: CBC, CMP, ammonia level, VPA level. Ordered urgent CT scan of abdomen/pelvis to f/u on hx of bladder cancer. Will hold VPA for now and monitor mentation, appetite. 09/03/17 Pt is lethargic with poor appetite. CT scan pending. Continue current care. Medical team following 09/04/17- Psych- Pt is a little more alert today. CT today. Ativan 0.5mg x 1 to help with obtaining CT. 09/05/17 Psych: Continue holding medications - will discuss further workup and medical treatment with hospitalist. Concern that there may be some underlying medical issues contributing to behaviors. Did not tolerate Depakote well in regards to appetite. Will await this discussion before making further med changes. 09/07/17 Psych: Son Bala to discuss trial of Risperdal with family. Patient will need memory care after d/c. 09/08/17 Psych: Continue current care; patient continues to improve leading me to wander how much of this was a hyperactive delirium vs. psychiatric cause of agitation (could also be manic episode resolving). Will monitor for another day before changing meds as she is showing improvement on current regimen. 09/09/17 Psych: Patient is not able to tolerate antipsychotics (responded very poorly to Risperdal 0.25mg); will completely discontinue scheduled and PRNs. May consider use of gabapentin or carbamazepine as mood stabilizers as she did not tolerate Depakote either. 09/10/17 Psych- Agitation last night. Continue current care 09/11/17 Psych- Pt more alert today. No behaviors over night. Continue current care 09/13/17: Hosp BMP repeated on 09/12/17 - stable. Na 144. 4 Urine culture + for Klebsiella, sensitive to 1st gen cephalosporins. Continue Keflex (started 09/10). VS: HR variable, occ mild elevations in BP acceptable in her age group; afebrile. Psych: pt does not tolerate antipsychotics. They are continuing with medication adjustments. 09/14/17 Psych: Increase mirtazapine to 15mg PO q HS, start carbamazepine 100mg PO q HS and titrate further tomorrow. Family is aware there will be some trade off in functionality though meds needed for facility to be able to care for patient. 09/15/17 Psych: Increase carbamazepine to 100mg PO BID. 09/16/17 Psych: Continue carbamazepine and consider increasing to 100mg PO q AM and 200mg PO q HS tomorrow (09/17) if well-tolerated. After discussion with family, agreed to discontinue Namenda. 09/17/17- Psych- Remains combative with cares. Increase Carbamazepine to 200mg at HS 09/18/17 Psych- Remains aggressive with cares and anxious and tearful at times. 09/19/17 Psych: Increase carbamazepine to 200mg PO BID. Will check CBC, CMP, trough carbamazepine level in AM. 09/20/17 Psych: Carbamazepine increased to 200mg PO q HS last night as it was mistakenly not given over the weekend. Will check trough level prior to tonight' s dose and likely increase to 200mg PO BID tomorrow AM. 09/20/17 Hosp Urinary retention with E. coli & Strep viridans UTI; later with klebsiella UTI. History of bladder cancer -Treated with Keflex -Still requires straight cath about twice per day. Unlikely she'd tolerate an indwelling catheter. -Recommend outpt urology f/u Hypernatremia -resolved -Check BMP Irritable bowel syndrome, Diverticulosis -On good bowel regimen HTN -stable -On Propranolol 09/21/17 Psych: Increase carbamazepine to 200mg PO BID; level 5.3. 09/22/17 Psych: Will check UA, consult with urology as I believe patient has underlying cause for continued delirium. Will discontinue carbamazepine as well due to patient's dropping cell counts. Will schedule Ativan 0.5mg PO BID as it does seem to help patient relax. 09/23 Continues to require straight catheterization twice a day due to retention. Staff does not feel the patient would keep an indwelling Vyas catheter in place. She has previously been treated for a UTI- with E. coli & Strep viridans UTI; later with klebsiella UTI Given most recent preliminary urine culture positive gram-negative- Will start Keflex TID and continue to monitor Case discussed with Dr Ramos- She feels that this may be delirium in nature. We will go ahead and treat urinary tract infection and see if behaviors improve. 09/23/17 Psych: Patient received carbamazepine 200mg PO q HS last night. Will completely discontinue today. Will continue Ativan 0.5mg PO BID as it is the only medication that helps patient be less physically aggressive. Hospitalist to treat UTI, consulted urology re: frequent UTIs, inability to urinate, possible renal cyst on imaging. 09/24/17 Psych note- Pt remains confused. Continue current care
[2017-09-24] MEDS: LORazepam 1 MG TABLET PO PRN (14:25)
--- NOTE | 2017-09-24 16:30 | Progress Note ---
- Date 09/24/17 Subjective: Patient is an 82-year-old female who resides at [facility] in [place]. She has reportedly become more confused and has had increased aggressive behavior with staff. She upsets easily about forgetting things and thinks the staff are lying to her about things. Patient was seen in the dining room eating lunch. She reports she thinks she is here because of leg pain. She states her legs really aren't bothering her that much so she doesn't understand why she is here. When asked what city we are in she states she doesn't know, but she looks out the window and sees the "[facility]" sign and reports that we are at [facility]. Majority of information was taken from outside records from Dr. Mansfield' office since admission she continued to be rather aggressive. She was getting out of bed without assistance and had had a couple falls. On 09/02/2017 was a concern for declining status as she was more somnolent having increasing urinary retention. She was requiring straight cast twice daily. She had poor PO intake. Her medications were adjusted. On 09/06/2017 she was requiring one-to-one nursing care did increase behaviors. She was quite irritable and refuses to answer questions. She continued to have poor PO intake and decreased urinary output. She did undergo a CT of the abdomen and pelvis on 09/04/2017 which revealed scattered nonspecific air fluid levels which felt could be on the basis of enterocolitis as well as a T12 compression fracture. She continued to have problems with urinary retention and Flomax was initiated . Urine analysis was sent in and she was found to have a UTI so Keflex was started on 09/10/2017. She was seen by me both on 09/13/2017 and 09/15/2017 and on both occasions she seemed calm and pleasant. She has continued to require intermittent straight catheterization for urinary retention. It was felt she would not keep and indwelling Vyas catheter in place. Repeat urine culture on 09/22/2017 did show gram-negative rods. In the past she has grown E.coli, Klebsiella oxytoca and strep viridans. Her most recent treatment has been with Keflex. When seen by me today she is in bed sleeping. I did wake her. She denied any complaints. When I asked her to take a deep breath she simply reported "I would rather sleep". She did cooperate with the exam however. Objective Vital signs: Temperature 97.2 F 09/24/17 08:00 Pulse Rate 98 09/24/17 08:00 Respiratory Rate 18 09/24/17 08:00 Blood Pressure 128/74 09/24/17 08:00 Pulse Oximetry 95 09/24/17 08:00 Height/Weight/BMI: Height 1.65 m Weight 57.9 kg Body Mass Index 23.8 Comments: Gen: alert, NAD Skin: warm and dry HEENT: NC/AT PERRL, EOMI, Sclera, lids and conjunctiva wnl. MMM. OP clear. Neck: No JVD, Carotids 2+ without bruits Lungs: clear. No rales, rhonchi or wheezes CV: regular. No murmur, rub or gallop Abd: soft. +BS. NT/ND MS: No edema. Good strength and ROM Neuro: No focal deficits Psy: flat affect Results - Labs CBC & Chem 7: 09/22/17 07:19 09/22/17 07:19 Microbiology Results: Microbiology 09/22/17 15:12 Urine, Cath Straight Urine Culture - Preliminary Gram Negative Hao 09/10/17 05:21 Urine, Cath Straight Urine Culture - Final Klebsiella oxytoca Lactobacillus species Assessment and Plan (1) Alzheimer's dementia with behavioral disturbance Current visit: Yes Status: Acute Assessment and Plan: Assessment/Plan: Alzheimer's disease with behavioral disturbance -per Psych -Ativan -On remeron Urinary retention with E. coli & Strep viridans UTI; later with klebsiella UTI -Change antibiotics to cipro -Continue straight cath as needed Hypernatremia -resolved History of bladder cancer Borderline low B12 -On supplements Vitamin D deficiency -On supplements Irritable bowel syndrome -On good bowel regimen HTN -Good readings lately -On Propranolol Depression/anxiety Diverticulosis Chronic compression fracture T12 Osteopenia - Physician Narrative Narrative: Date: 09/24/17 Time: 1617 Hospital Course Summary Disclaimer: The visit summary below is not to be considered part of the above Progress Note. Hospital Course: Psych 08/25/17: Held Wellbutrin XL, Buspar, Viibryd due to suspected bipolar alexander. Psych 08/26/17: Patient seems to have improved slightly with discontinuation of all Wellbutrin XL, Buspar, Viibryd (upon admission). Currently taking seroquel 25mg PO BID and propranolol 10mg PO BID from home med list. Will add Depakote DR 250mg PO BID. Will additionally start Vitamin B12 1000mcg IM x 3 days then weekly for a month, then monthly thereafter. 08/27/2017- Psych- PT is irritable and labile at times but is redirectable. Will consider increase of Depakote tomorrow if tolerating well 08/28/2017 Psych- Pt remains irritable and impulsive at times. Increase Depakote to 250mg PO TID. 08/29/17 Psych: Continue current care as we await serotonergic agents to clear from blood given half-lives; discussed care with DPOA/daughter who is in agreement with treatment plan. Patient has hx of malignant neoplasm of bladder. Daughter states that no recent imaging has been done and is in agreement with sedating as necessary to obtain head CT. 08/30/17 Psych: Will switch Depakote to sprinkles 250mg PO TID for improved compliance, increase Seroquel to 25mg PO TID. May need to switch to Risperdal if urinary retention worsening. Recheck UA, will bladder scan BID and straight cath if necessary. Once patient has had compliance with Depakote x 3 days, can check trough VPA level and adjust to therapeutic level. 08/31/17-hospitalist Dr. Ramos had ordered a repeat urinalysis because patient continues to have behaviors and has had some urinary retention. She'd had a positive urinalysis on admission and was treated. Urinalysis performed last night was completely negative. She has had 3 doses of IM cyanocobalamin for borderline low B12 deficiency . Continue 1000 g cyanocobalamin a day. Recommend follow-up B12 level on outpatient basis. Patient medically stable. Chart reviewed. 08/31/17 Psych: Will collapse Depakote sprinkles to 250mg PO q AM and 500mg PO with dinner to increase adherence. Seroquel does not seem to be helpful and may be causing restlessness and urinary retention; will hold and monitor behavior for the time being. Stressed importance of adherence to Depakote to nursing staff. 09/01/17 Psych: Continue to focus on compliance with Depakote. Patient had BM with suppository, seems less irritable after this and with straight cathing PRN after bladder scans. Monitor mood, behavior and response to treatment. 09/02/17 Psych: Have ordered urgent labs: CBC, CMP, ammonia level, VPA level. Ordered urgent CT scan of abdomen/pelvis to f/u on hx of bladder cancer. Will hold VPA for now and monitor mentation, appetite. 09/03/17 Pt is lethargic with poor appetite. CT scan pending. Continue current care. Medical team following 09/04/17- Psych- Pt is a little more alert today. CT today. Ativan 0.5mg x 1 to help with obtaining CT. 09/05/17 Psych: Continue holding medications - will discuss further workup and medical treatment with hospitalist. Concern that there may be some underlying medical issues contributing to behaviors. Did not tolerate Depakote well in regards to appetite. Will await this discussion before making further med changes. 09/07/17 Psych: Son Bala to discuss trial of Risperdal with family. Patient will need memory care after d/c. 09/08/17 Psych: Continue current care; patient continues to improve leading me to wander how much of this was a hyperactive delirium vs. psychiatric cause of agitation (could also be manic episode resolving). Will monitor for another day before changing meds as she is showing improvement on current regimen. 09/09/17 Psych: Patient is not able to tolerate antipsychotics (responded very poorly to Risperdal 0.25mg); will completely discontinue scheduled and PRNs. May consider use of gabapentin or carbamazepine as mood stabilizers as she did not tolerate Depakote either. 09/10/17 Psych- Agitation last night. Continue current care 09/11/17 Psych- Pt more alert today. No behaviors over night. Continue current care 09/13/17: Hosp BMP repeated on 09/12/17 - stable. Na 144. 4 Urine culture + for Klebsiella, sensitive to 1st gen cephalosporins. Continue Keflex (started 09/10). VS: HR variable, occ mild elevations in BP acceptable in her age group; afebrile. Psych: pt does not tolerate antipsychotics. They are continuing with medication adjustments. 09/14/17 Psych: Increase mirtazapine to 15mg PO q HS, start carbamazepine 100mg PO q HS and titrate further tomorrow. Family is aware there will be some trade off in functionality though meds needed for facility to be able to care for patient. 09/15/17 Psych: Increase carbamazepine to 100mg PO BID. 09/16/17 Psych: Continue carbamazepine and consider increasing to 100mg PO q AM and 200mg PO q HS tomorrow (09/17) if well-tolerated. After discussion with family, agreed to discontinue Namenda. 09/17/17- Psych- Remains combative with cares. Increase Carbamazepine to 200mg at HS 09/18/17 Psych- Remains aggressive with cares and anxious and tearful at times. 09/19/17 Psych: Increase carbamazepine to 200mg PO BID. Will check CBC, CMP, trough carbamazepine level in AM. 09/20/17 Psych: Carbamazepine increased to 200mg PO q HS last night as it was mistakenly not given over the weekend. Will check trough level prior to tonight' s dose and likely increase to 200mg PO BID tomorrow AM. 09/20/17 Hosp Urinary retention with E. coli & Strep viridans UTI; later with klebsiella UTI. History of bladder cancer -Treated with Keflex -Still requires straight cath about twice per day. Unlikely she'd tolerate an indwelling catheter. -Recommend outpt urology f/u Hypernatremia -resolved -Check BMP Irritable bowel syndrome, Diverticulosis -On good bowel regimen HTN -stable -On Propranolol 09/21/17 Psych: Increase carbamazepine to 200mg PO BID; level 5.3. 09/22/17 Psych: Will check UA, consult with urology as I believe patient has underlying cause for continued delirium. Will discontinue carbamazepine as well due to patient's dropping cell counts. Will schedule Ativan 0.5mg PO BID as it does seem to help patient relax. 09/23 Continues to require straight catheterization twice a day due to retention. Staff does not feel the patient would keep an indwelling Vyas catheter in place. She has previously been treated for a UTI- with E. coli & Strep viridans UTI; later with klebsiella UTI Given most recent preliminary urine culture positive gram-negative- Will start Keflex TID and continue to monitor Case discussed with Dr Ramos- She feels that this may be delirium in nature. We will go ahead and treat urinary tract infection and see if behaviors improve.
[2017-09-24] MEDS: MIRTAZAPINE 15 MG TABLET PO SCH ×2 (19:26→21:43)
[2017-09-24] MEDS: TAMSULOSIN 0.4 MG CAPSULE PO SCH ×2 (19:26→21:43)
[2017-09-24] MEDS: CIPROFLOXACIN 500 MG TABLET PO SCH ×2 (19:38→21:42)
[2017-09-25] MEDS: CYANOCOBALAMIN (B-12) 500mcg TABLET PO SCH (09:22)
[2017-09-25] MEDS: LORazepam 0.5 MG TABLET PO SCH ×2 (09:22→20:31)
[2017-09-25] MEDS: CIPROFLOXACIN 500 MG TABLET PO SCH ×2 (09:24→20:31)
[2017-09-25] MEDS: PROPRANOLOL 10 MG TABLET PO SCH ×3 (09:24→20:31)
[2017-09-25] MEDS: POLYETHYL GLYCOL 3350 17gm PACKET PO SCH (09:24)
[2017-09-25] MEDS: SENNA + DOCUSATE TABLET PO SCH ×2 (09:24→20:31)
--- NOTE | 2017-09-25 11:05 | Neuropsych Progress Note ---
Nathalie Subjective Date: 09/25/17 - Sujective/Severity of Illness Medications: Acetaminophen (Tylenol Arthritis) 650 mg PO Q8H PRN PRN Reason: Pain Bisacodyl (Dulcolax) 10 mg RECTALLY DAILY PRN PRN Reason: Constipation Last Admin: 09/01/17 11:05 Dose: 10 mg Bisacodyl (Dulcolax) 5 mg PO BID PRN PRN Reason: Constipation Ciprofloxacin (Cipro 500 Mg) 500 mg PO Q12HR [facility] Last Admin: 09/25/17 09:24 Dose: 500 mg Cyanocobalamin (Vit. B-12) 1,000 mcg PO DAILY [facility] Last Admin: 09/25/17 09:22 Dose: 1,000 mcg Ergocalciferol (Vitamin D-2) 50,000 unit PO Q7D [facility] Last Admin: 09/21/17 14:34 Dose: 50,000 unit Lorazepam (Ativan) 0.5 mg PO Q6H PRN PRN Reason: Extreme agitation Last Admin: 09/24/17 14:25 Dose: 0.5 mg Lorazepam (Ativan Intensol) 0.5 mg PO Q6H PRN Last Admin: 09/11/17 15:34 Dose: 0.5 mg Lorazepam (Ativan Inj) 0.5 mg IM Q6H PRN PRN Reason: Extreme agitation Last Admin: 09/20/17 20:00 Dose: 0.5 mg Lorazepam (Ativan) 0.5 mg PO BID [facility] Last Admin: 09/25/17 09:22 Dose: 0.5 mg Magnesium Hydroxide (Mom) 30 ml PO PRN PRN PRN Reason: Constipation Mirtazapine (Remeron) 15 mg PO HS [facility] Last Admin: 09/24/17 21:43 Dose: Not Given Polyethylene Glycol (Miralax) 17 gm PO DAILY [facility] Last Admin: 09/25/17 09:24 Dose: 17 gm Potassium Chloride (Micro-K 10 Meq Capsule) 10 meq PO WB [facility] Last Admin: 09/25/17 09:21 Dose: 10 meq Propranolol HCl (Inderal) 10 mg PO TID [facility] Last Admin: 09/25/17 09:24 Dose: 10 mg Senna/Docusate Sodium (Senna Plus Tablet) 2 tab PO BID PRN PRN Reason: Constipation Senna/Docusate Sodium (Senna Plus Tablet) 1 tab PO BID [facility] Last Admin: 09/25/17 09:24 Dose: 1 tab Tamsulosin HCl (Flomax) 0.4 mg PO HS [facility] Last Admin: 09/24/17 21:43 Dose: Not Given Subjective: Patient seen and chart reviewed. Nursing reports pt remains confused at times and can be combative with cares. Is irritable as well. On face to face the pt is pleasant but confused. She is only oriented to self. She denies any pain and voices no concerns. Tolerating meds Start Time: 10:30 Stop Time: 10:45 Mental Status Exam Vitals: Last Vital Signs Temp 97.2 F 09/25/17 08:00 Pulse 96 09/25/17 08:00 Resp 18 09/25/17 08:00 BP 134/77 09/25/17 08:00 Pulse Ox 99 09/25/17 08:00 Height: 1.65 m Weight: 57.9 kg - Mental Status Exam Muscle Strength/Tone: Weak Dressing: Casual Grooming: Fair Attitude: Combative (at times), Tense Motor Activity: Retardation Eye Contact: Poor Speech: Slowed Volume: Normal Rhythm: Appropriate Rhythm Orientation: Disoriented to time, Disoriented to place, Disoriented to situation , Oriented to person Mood: Irritable Rate of Thoughts: Delayed Thought Organization: Confused Associations: Illogical Abstract Reasoning: Impaired, concrete Thought Content: Ruminations, Somatic Concerns (vague) Perception/Psychotic: Other (Denies, does not appear to be responding to internal stimuli) Language: Naming Impaired Fund of Knowledge: Poor fund of knowledge Memory: Poor-immediate, Poor-recent, Poor-remote Suicidal Ideation: Denies Homicidal Ideation: Denies Insight: Impaired Judgement: Impaired Impulse Control: Poor (though improved from admission) - Laboratory Result Diagrams: 09/25/17 07:16 09/25/17 07:16 Laboratory Results - last 24 hr 09/25/17 09/25/17 07:16 07:16 WBC 3.8 L RBC 3.86 L Hgb 11.7 L Hct 35.8 L MCV 92.7 MCH 30.3 MCHC 32.7 RDW Std Deviation 42.2 Plt Count 116 L MPV 10.1 Immature Gran % (Auto) 0.0 Neut % (Auto) 48.7 Lymph % (Auto) 36.1 [place] % (Auto) 7.9 Eos % (Auto) 6.3 H Baso % (Auto) 1.0 Neut # (Auto) 1.9 Lymph # (Auto) 1.4 [place] # (Auto) 0.3 Eos # (Auto) 0.2 Baso # (Auto) 0.0 Abs Immat Gran (auto) 0.00 Turbidity < 20 Sodium 143 Potassium 4.3 Chloride 109 H Carbon Dioxide 27 Anion Gap 7 BUN 19.0 H Creatinine 0.8 GFR Calculation 69 BUN/Creatinine Ratio 24 Glucose 100 Calculated Osmolality 277 Calcium 9.3 Icterus Index < 2 Specimen Hemolysis < 15 Assessment and Plan (1) Major neurocognitive disorder Problem details: Moderate, likely mixed etiology, with behavioral disturbance R/O Bipolar disorder, MRE manic Other medical conditions: Recurrent UTIs Hypernatremia-POA History of bladder cancer Vitamin D deficiency Irritable bowel syndrome Diverticulosis Chronic compression fracture T12 Osteopenia Current visit: Yes Status: Acute (2) Vitamin B12 deficiency Current visit: Yes Status: Acute (3) Delirium Problem details: due to unknown etiology at this time though patient does have recurrent UTIs Current visit: Yes Status: Acute Hospital Course Summary Disclaimer: The visit summary below is not to be considered part of the above Progress Note. Hospital Course: Psych 08/25/17: Held Wellbutrin XL, Buspar, Viibryd due to suspected bipolar alexander. Psych 08/26/17: Patient seems to have improved slightly with discontinuation of all Wellbutrin XL, Buspar, Viibryd (upon admission). Currently taking seroquel 25mg PO BID and propranolol 10mg PO BID from home med list. Will add Depakote DR 250mg PO BID. Will additionally start Vitamin B12 1000mcg IM x 3 days then weekly for a month, then monthly thereafter. 08/27/2017- Psych- PT is irritable and labile at times but is redirectable. Will consider increase of Depakote tomorrow if tolerating well 08/28/2017 Psych- Pt remains irritable and impulsive at times. Increase Depakote to 250mg PO TID. 08/29/17 Psych: Continue current care as we await serotonergic agents to clear from blood given half-lives; discussed care with DPOA/daughter who is in agreement with treatment plan. Patient has hx of malignant neoplasm of bladder. Daughter states that no recent imaging has been done and is in agreement with sedating as necessary to obtain head CT. 08/30/17 Psych: Will switch Depakote to sprinkles 250mg PO TID for improved compliance, increase Seroquel to 25mg PO TID. May need to switch to Risperdal if urinary retention worsening. Recheck UA, will bladder scan BID and straight cath if necessary. Once patient has had compliance with Depakote x 3 days, can check trough VPA level and adjust to therapeutic level. 08/31/17-hospitalist Dr. Ramos had ordered a repeat urinalysis because patient continues to have behaviors and has had some urinary retention. She'd had a positive urinalysis on admission and was treated. Urinalysis performed last night was completely negative. She has had 3 doses of IM cyanocobalamin for borderline low B12 deficiency . Continue 1000 g cyanocobalamin a day. Recommend follow-up B12 level on outpatient basis. Patient medically stable. Chart reviewed. 08/31/17 Psych: Will collapse Depakote sprinkles to 250mg PO q AM and 500mg PO with dinner to increase adherence. Seroquel does not seem to be helpful and may be causing restlessness and urinary retention; will hold and monitor behavior for the time being. Stressed importance of adherence to Depakote to nursing staff. 09/01/17 Psych: Continue to focus on compliance with Depakote. Patient had BM with suppository, seems less irritable after this and with straight cathing PRN after bladder scans. Monitor mood, behavior and response to treatment. 09/02/17 Psych: Have ordered urgent labs: CBC, CMP, ammonia level, VPA level. Ordered urgent CT scan of abdomen/pelvis to f/u on hx of bladder cancer. Will hold VPA for now and monitor mentation, appetite. 09/03/17 Pt is lethargic with poor appetite. CT scan pending. Continue current care. Medical team following 09/04/17- Psych- Pt is a little more alert today. CT today. Ativan 0.5mg x 1 to help with obtaining CT. 09/05/17 Psych: Continue holding medications - will discuss further workup and medical treatment with hospitalist. Concern that there may be some underlying medical issues contributing to behaviors. Did not tolerate Depakote well in regards to appetite. Will await this discussion before making further med changes. 09/07/17 Psych: Son Bala to discuss trial of Risperdal with family. Patient will need memory care after d/c. 09/08/17 Psych: Continue current care; patient continues to improve leading me to wander how much of this was a hyperactive delirium vs. psychiatric cause of agitation (could also be manic episode resolving). Will monitor for another day before changing meds as she is showing improvement on current regimen. 09/09/17 Psych: Patient is not able to tolerate antipsychotics (responded very poorly to Risperdal 0.25mg); will completely discontinue scheduled and PRNs. May consider use of gabapentin or carbamazepine as mood stabilizers as she did not tolerate Depakote either. 09/10/17 Psych- Agitation last night. Continue current care 09/11/17 Psych- Pt more alert today. No behaviors over night. Continue current care 09/13/17: Hosp BMP repeated on 09/12/17 - stable. Na 144. 4 Urine culture + for Klebsiella, sensitive to 1st gen cephalosporins. Continue Keflex (started 09/10). VS: HR variable, occ mild elevations in BP acceptable in her age group; afebrile. Psych: pt does not tolerate antipsychotics. They are continuing with medication adjustments. 09/14/17 Psych: Increase mirtazapine to 15mg PO q HS, start carbamazepine 100mg PO q HS and titrate further tomorrow. Family is aware there will be some trade off in functionality though meds needed for facility to be able to care for patient. 09/15/17 Psych: Increase carbamazepine to 100mg PO BID. 09/16/17 Psych: Continue carbamazepine and consider increasing to 100mg PO q AM and 200mg PO q HS tomorrow (09/17) if well-tolerated. After discussion with family, agreed to discontinue Namenda. 09/17/17- Psych- Remains combative with cares. Increase Carbamazepine to 200mg at HS 09/18/17 Psych- Remains aggressive with cares and anxious and tearful at times. 09/19/17 Psych: Increase carbamazepine to 200mg PO BID. Will check CBC, CMP, trough carbamazepine level in AM. 09/20/17 Psych: Carbamazepine increased to 200mg PO q HS last night as it was mistakenly not given over the weekend. Will check trough level prior to tonight' s dose and likely increase to 200mg PO BID tomorrow AM. 09/20/17 Hosp Urinary retention with E. coli & Strep viridans UTI; later with klebsiella UTI. History of bladder cancer -Treated with Keflex -Still requires straight cath about twice per day. Unlikely she'd tolerate an indwelling catheter. -Recommend outpt urology f/u Hypernatremia -resolved -Check BMP Irritable bowel syndrome, Diverticulosis -On good bowel regimen HTN -stable -On Propranolol 09/21/17 Psych: Increase carbamazepine to 200mg PO BID; level 5.3. 09/22/17 Psych: Will check UA, consult with urology as I believe patient has underlying cause for continued delirium. Will discontinue carbamazepine as well due to patient's dropping cell counts. Will schedule Ativan 0.5mg PO BID as it does seem to help patient relax. 09/23 Continues to require straight catheterization twice a day due to retention. Staff does not feel the patient would keep an indwelling Vyas catheter in place. She has previously been treated for a UTI- with E. coli & Strep viridans UTI; later with klebsiella UTI Given most recent preliminary urine culture positive gram-negative- Will start Keflex TID and continue to monitor Case discussed with Dr Ramos- She feels that this may be delirium in nature. We will go ahead and treat urinary tract infection and see if behaviors improve. 09/25/2017 Psych- Pt is irritable and aggressive at times. Continue current care
[2017-09-25] MEDS: TAMSULOSIN 0.4 MG CAPSULE PO SCH (20:31)
[2017-09-25] MEDS: MIRTAZAPINE 15 MG TABLET PO SCH (20:31)
[2017-09-26] MEDS: CYANOCOBALAMIN (B-12) 500mcg TABLET PO SCH (09:03)
[2017-09-26] MEDS: CIPROFLOXACIN 500 MG TABLET PO SCH ×2 (09:03→20:20)
[2017-09-26] MEDS: PROPRANOLOL 10 MG TABLET PO SCH ×3 (09:03→20:20)
[2017-09-26] MEDS: LORazepam 0.5 MG TABLET PO SCH ×2 (09:04→20:20)
[2017-09-26] MEDS: POLYETHYL GLYCOL 3350 17gm PACKET PO SCH (09:04)
[2017-09-26] MEDS: SENNA + DOCUSATE TABLET PO SCH ×2 (09:04→20:20)
--- NOTE | 2017-09-26 13:23 | Neuropsych Progress Note ---
[facility] Subjective Date: 09/26/17 - Sujective/Severity of Illness Medications: Acetaminophen (Tylenol Arthritis) 650 mg PO Q8H PRN PRN Reason: Pain Last Admin: 09/25/17 15:36 Dose: 650 mg Bisacodyl (Dulcolax) 10 mg RECTALLY DAILY PRN PRN Reason: Constipation Last Admin: 09/01/17 11:05 Dose: 10 mg Bisacodyl (Dulcolax) 5 mg PO BID PRN PRN Reason: Constipation Ciprofloxacin (Cipro 500 Mg) 500 mg PO Q12HR [facility] Last Admin: 09/26/17 09:03 Dose: 500 mg Cyanocobalamin (Vit. B-12) 1,000 mcg PO DAILY [facility] Last Admin: 09/26/17 09:03 Dose: 1,000 mcg Ergocalciferol (Vitamin D-2) 50,000 unit PO Q7D [facility] Last Admin: 09/21/17 14:34 Dose: 50,000 unit Lorazepam (Ativan) 0.5 mg PO Q6H PRN PRN Reason: Extreme agitation Last Admin: 09/24/17 14:25 Dose: 0.5 mg Lorazepam (Ativan Intensol) 0.5 mg PO Q6H PRN Last Admin: 09/11/17 15:34 Dose: 0.5 mg Lorazepam (Ativan Inj) 0.5 mg IM Q6H PRN PRN Reason: Extreme agitation Last Admin: 09/25/17 11:04 Dose: 0.5 mg Lorazepam (Ativan) 0.5 mg PO BID [facility] Last Admin: 09/26/17 09:04 Dose: 0.5 mg Magnesium Hydroxide (Mom) 30 ml PO PRN PRN PRN Reason: Constipation Mirtazapine (Remeron) 15 mg PO HS [facility] Last Admin: 09/25/17 20:31 Dose: 15 mg Polyethylene Glycol (Miralax) 17 gm PO DAILY [facility] Last Admin: 09/26/17 09:04 Dose: 17 gm Potassium Chloride (Micro-K 10 Meq Capsule) 10 meq PO WB [facility] Last Admin: 09/26/17 09:04 Dose: 10 meq Propranolol HCl (Inderal) 10 mg PO TID [facility] Last Admin: 09/26/17 09:03 Dose: 10 mg Senna/Docusate Sodium (Senna Plus Tablet) 2 tab PO BID PRN PRN Reason: Constipation Senna/Docusate Sodium (Senna Plus Tablet) 1 tab PO BID [facility] Last Admin: 09/26/17 09:04 Dose: 1 tab Tamsulosin HCl (Flomax) 0.4 mg PO HS [facility] Last Admin: 09/25/17 20:31 Dose: 0.4 mg Subjective: Patient seen and chart reviewed. Case discussed with treatment team. On interview, patient is irritable and gives me short answers. She states that she feels "horrible" because she is in the hospital. She sighs and rolls her eyes, ignoring most of my questions. Nursing staff report patient continues to have irritability and intermittent agitation, can be combative at times. Patient slept 7.5 hours overnight. VSS. Patient is eating well. Psychotropic PRNs required in the past 24 hours: Ativan 0.5mg x2. Discussed care with urologist Dr. Linda. He recommended straight cath QID vs. indwelling Vyas catheter. He is willing to see patient in clinic re: possibility of suprapubic catheter after discharge. He reports that any amount of urine >400mL could cause pain and agitation. Start Time: 13:20 Stop Time: 13:40 Mental Status Exam Vitals: Last Vital Signs Temp 97.8 F 09/25/17 21:34 Pulse 84 09/25/17 21:34 Resp 20 09/25/17 21:34 BP 137/78 09/25/17 21:34 Pulse Ox 96 09/25/17 21:34 Height: 1.65 m Weight: 56.6 kg - Mental Status Exam Muscle Strength/Tone: Weak Dressing: Casual Grooming: Fair Attitude: Combative (at times), Tense Motor Activity: Retardation Eye Contact: Poor Speech: Slowed Volume: Normal Rhythm: Appropriate Rhythm Orientation: Disoriented to time, Disoriented to place, Disoriented to situation , Oriented to person Mood: Irritable Rate of Thoughts: Delayed Thought Organization: Confused Associations: Illogical Abstract Reasoning: Impaired, concrete Thought Content: Ruminations (sadness over loved ones who have passed), Somatic Concerns (vague) Perception/Psychotic: Other (Denies, does not appear to be responding to internal stimuli) Language: Naming Impaired Fund of Knowledge: Poor fund of knowledge Memory: Poor-immediate, Poor-recent, Poor-remote Suicidal Ideation: Denies Homicidal Ideation: Denies Insight: Impaired Judgement: Impaired Impulse Control: Poor (though improved from admission) - Laboratory Result Diagrams: 09/25/17 07:16 09/25/17 07:16 Assessment and Plan (1) Delirium Problem details: due to unknown etiology at this time though patient does have recurrent UTIs Current visit: Yes Status: Acute (2) Major neurocognitive disorder Problem details: Moderate, likely mixed etiology, with behavioral disturbance R/O Bipolar disorder, MRE manic Other medical conditions: Recurrent UTIs Hypernatremia-POA History of bladder cancer Vitamin D deficiency Irritable bowel syndrome Diverticulosis Chronic compression fracture T12 Osteopenia Current visit: Yes Status: Acute (3) Vitamin B12 deficiency Current visit: Yes Status: Acute Plan to place Vyas catheter today and monitor irritability/agitation. Hospital Course Summary Disclaimer: The visit summary below is not to be considered part of the above Progress Note. Hospital Course: Psych 08/25/17: Held Wellbutrin XL, Buspar, Viibryd due to suspected bipolar alexander. Psych 08/26/17: Patient seems to have improved slightly with discontinuation of all Wellbutrin XL, Buspar, Viibryd (upon admission). Currently taking seroquel 25mg PO BID and propranolol 10mg PO BID from home med list. Will add Depakote DR 250mg PO BID. Will additionally start Vitamin B12 1000mcg IM x 3 days then weekly for a month, then monthly thereafter. 08/27/2017- Psych- PT is irritable and labile at times but is redirectable. Will consider increase of Depakote tomorrow if tolerating well 08/28/2017 Psych- Pt remains irritable and impulsive at times. Increase Depakote to 250mg PO TID. 08/29/17 Psych: Continue current care as we await serotonergic agents to clear from blood given half-lives; discussed care with DPOA/daughter who is in agreement with treatment plan. Patient has hx of malignant neoplasm of bladder. Daughter states that no recent imaging has been done and is in agreement with sedating as necessary to obtain head CT. 08/30/17 Psych: Will switch Depakote to sprinkles 250mg PO TID for improved compliance, increase Seroquel to 25mg PO TID. May need to switch to Risperdal if urinary retention worsening. Recheck UA, will bladder scan BID and straight cath if necessary. Once patient has had compliance with Depakote x 3 days, can check trough VPA level and adjust to therapeutic level. 08/31/17-hospitalist Dr. Ramos had ordered a repeat urinalysis because patient continues to have behaviors and has had some urinary retention. She'd had a positive urinalysis on admission and was treated. Urinalysis performed last night was completely negative. She has had 3 doses of IM cyanocobalamin for borderline low B12 deficiency . Continue 1000 g cyanocobalamin a day. Recommend follow-up B12 level on outpatient basis. Patient medically stable. Chart reviewed. 08/31/17 Psych: Will collapse Depakote sprinkles to 250mg PO q AM and 500mg PO with dinner to increase adherence. Seroquel does not seem to be helpful and may be causing restlessness and urinary retention; will hold and monitor behavior for the time being. Stressed importance of adherence to Depakote to nursing staff. 09/01/17 Psych: Continue to focus on compliance with Depakote. Patient had BM with suppository, seems less irritable after this and with straight cathing PRN after bladder scans. Monitor mood, behavior and response to treatment. 09/02/17 Psych: Have ordered urgent labs: CBC, CMP, ammonia level, VPA level. Ordered urgent CT scan of abdomen/pelvis to f/u on hx of bladder cancer. Will hold VPA for now and monitor mentation, appetite. 09/03/17 Pt is lethargic with poor appetite. CT scan pending. Continue current care. Medical team following 09/04/17- Psych- Pt is a little more alert today. CT today. Ativan 0.5mg x 1 to help with obtaining CT. 09/05/17 Psych: Continue holding medications - will discuss further workup and medical treatment with hospitalist. Concern that there may be some underlying medical issues contributing to behaviors. Did not tolerate Depakote well in regards to appetite. Will await this discussion before making further med changes. 09/07/17 Psych: Son Bala to discuss trial of Risperdal with family. Patient will need memory care after d/c. 09/08/17 Psych: Continue current care; patient continues to improve leading me to wander how much of this was a hyperactive delirium vs. psychiatric cause of agitation (could also be manic episode resolving). Will monitor for another day before changing meds as she is showing improvement on current regimen. 09/09/17 Psych: Patient is not able to tolerate antipsychotics (responded very poorly to Risperdal 0.25mg); will completely discontinue scheduled and PRNs. May consider use of gabapentin or carbamazepine as mood stabilizers as she did not tolerate Depakote either. 09/10/17 Psych- Agitation last night. Continue current care 09/11/17 Psych- Pt more alert today. No behaviors over night. Continue current care 09/13/17: Hosp BMP repeated on 09/12/17 - stable. Na 144. 4 Urine culture + for Klebsiella, sensitive to 1st gen cephalosporins. Continue Keflex (started 09/10). VS: HR variable, occ mild elevations in BP acceptable in her age group; afebrile. Psych: pt does not tolerate antipsychotics. They are continuing with medication adjustments. 09/14/17 Psych: Increase mirtazapine to 15mg PO q HS, start carbamazepine 100mg PO q HS and titrate further tomorrow. Family is aware there will be some trade off in functionality though meds needed for facility to be able to care for patient. 09/15/17 Psych: Increase carbamazepine to 100mg PO BID. 09/16/17 Psych: Continue carbamazepine and consider increasing to 100mg PO q AM and 200mg PO q HS tomorrow (09/17) if well-tolerated. After discussion with family, agreed to discontinue Namenda. 09/17/17- Psych- Remains combative with cares. Increase Carbamazepine to 200mg at HS 09/18/17 Psych- Remains aggressive with cares and anxious and tearful at times. 09/19/17 Psych: Increase carbamazepine to 200mg PO BID. Will check CBC, CMP, trough carbamazepine level in AM. 09/20/17 Psych: Carbamazepine increased to 200mg PO q HS last night as it was mistakenly not given over the weekend. Will check trough level prior to tonight' s dose and likely increase to 200mg PO BID tomorrow AM. 09/20/17 Hosp Urinary retention with E. coli & Strep viridans UTI; later with klebsiella UTI. History of bladder cancer -Treated with Keflex -Still requires straight cath about twice per day. Unlikely she'd tolerate an indwelling catheter. -Recommend outpt urology f/u Hypernatremia -resolved -Check BMP Irritable bowel syndrome, Diverticulosis -On good bowel regimen HTN -stable -On Propranolol 09/21/17 Psych: Increase carbamazepine to 200mg PO BID; level 5.3. 09/22/17 Psych: Will check UA, consult with urology as I believe patient has underlying cause for continued delirium. Will discontinue carbamazepine as well due to patient's dropping cell counts. Will schedule Ativan 0.5mg PO BID as it does seem to help patient relax. 09/23 Continues to require straight catheterization twice a day due to retention. Staff does not feel the patient would keep an indwelling Vyas catheter in place. She has previously been treated for a UTI- with E. coli & Strep viridans UTI; later with klebsiella UTI Given most recent preliminary urine culture positive gram-negative- Will start Keflex TID and continue to monitor Case discussed with Dr Ramos- She feels that this may be delirium in nature. We will go ahead and treat urinary tract infection and see if behaviors improve. 09/25/2017 Psych- Pt is irritable and aggressive at times. Continue current care 09/26/17 Psych: Plan to place Vyas catheter today and monitor irritability/ agitation.
--- NOTE | 2017-09-26 15:18 | Progress Note ---
- Date 09/26/17 Subjective: Larry is seen today in follow up while napping in bed. She continues to be confused and is unable to answer questions during examination. He does not appear to be in any distress, breathing on room air. Continues to be straight cath twice a day with large amounts of urine. Objective Vital signs: Temperature 97.8 F 09/25/17 21:34 Pulse Rate 84 09/25/17 21:34 Respiratory Rate 20 09/25/17 21:34 Blood Pressure 137/78 09/25/17 21:34 Pulse Oximetry 96 09/25/17 21:34 Height/Weight/BMI: Height 1.65 m Weight 56.6 kg Body Mass Index 23.8 - Constitutional Present: no acute distress, well nourished, well developed - Routine HEENT Exam Eye: Present: EOMI ENT: Present: mucous membranes moist, dentition normal - Routine Respiratory Exam Present: CTA bilaterally. Absent: wheezes - Routine Cardiovascular Exam Present: RRR, S1, S2. Absent: murmur - Routine Abdominal Exam Present: soft, normoactive bowel sounds, non distended. Absent: tenderness - Routine Skin Exam Present: intact, dry, warm - Routine Neurological Exam Present: alert, altered mental status - Routine Lymphatic Exam Lymphatic: Absent: adenopathy - Routine Psychiatric Exam Present: unable to assess Results - Labs CBC & Chem 7: 09/25/17 07:16 09/25/17 07:16 Microbiology Results: Microbiology 09/22/17 15:12 Urine, Cath Straight Urine Culture - Final Escherichia coli Klebsiella oxytoca 09/10/17 05:21 Urine, Cath Straight Urine Culture - Final Klebsiella oxytoca Lactobacillus species Assessment and Plan (1) Alzheimer's dementia with behavioral disturbance Current visit: Yes Status: Acute Assessment and Plan: Assessment/Plan: Alzheimer's disease with behavioral disturbance -per Psych -Ativan -On remeron Urinary retention with E. coli & Strep viridans UTI; later with klebsiella UTI -Change antibiotics to cipro -Continue straight cath as needed Hypernatremia -resolved History of bladder cancer Borderline low B12 -On supplements Vitamin D deficiency -On supplements Irritable bowel syndrome -On good bowel regimen HTN -Good readings lately -On Propranolol Depression/anxiety Diverticulosis Chronic compression fracture T12 Osteopenia Plan Spoke with Dr Ramos who talked with Urologist He recommends placement of indwelling bowen. If she does not tolerate this or pulls it out then will need to increase number of times a day of straight cath to QID Will continue to monitor I/O encourage PO intake Remains on Cipro for treatment of UTI Recheck BMP on 09/28 - Physician Narrative Narrative: Date: 09/26/17 Time: 1514 Hospital Course Summary Disclaimer: The visit summary below is not to be considered part of the above Progress Note. Hospital Course: Psych 08/25/17: Held Wellbutrin XL, Buspar, Viibryd due to suspected bipolar alexander. Psych 08/26/17: Patient seems to have improved slightly with discontinuation of all Wellbutrin XL, Buspar, Viibryd (upon admission). Currently taking seroquel 25mg PO BID and propranolol 10mg PO BID from home med list. Will add Depakote DR 250mg PO BID. Will additionally start Vitamin B12 1000mcg IM x 3 days then weekly for a month, then monthly thereafter. 08/27/2017- Psych- PT is irritable and labile at times but is redirectable. Will consider increase of Depakote tomorrow if tolerating well 08/28/2017 Psych- Pt remains irritable and impulsive at times. Increase Depakote to 250mg PO TID. 08/29/17 Psych: Continue current care as we await serotonergic agents to clear from blood given half-lives; discussed care with DPOA/daughter who is in agreement with treatment plan. Patient has hx of malignant neoplasm of bladder. Daughter states that no recent imaging has been done and is in agreement with sedating as necessary to obtain head CT. 08/30/17 Psych: Will switch Depakote to sprinkles 250mg PO TID for improved compliance, increase Seroquel to 25mg PO TID. May need to switch to Risperdal if urinary retention worsening. Recheck UA, will bladder scan BID and straight cath if necessary. Once patient has had compliance with Depakote x 3 days, can check trough VPA level and adjust to therapeutic level. 08/31/17-hospitalist Dr. Ramos had ordered a repeat urinalysis because patient continues to have behaviors and has had some urinary retention. She'd had a positive urinalysis on admission and was treated. Urinalysis performed last night was completely negative. She has had 3 doses of IM cyanocobalamin for borderline low B12 deficiency . Continue 1000 g cyanocobalamin a day. Recommend follow-up B12 level on outpatient basis. Patient medically stable. Chart reviewed. 08/31/17 Psych: Will collapse Depakote sprinkles to 250mg PO q AM and 500mg PO with dinner to increase adherence. Seroquel does not seem to be helpful and may be causing restlessness and urinary retention; will hold and monitor behavior for the time being. Stressed importance of adherence to Depakote to nursing staff. 09/01/17 Psych: Continue to focus on compliance with Depakote. Patient had BM with suppository, seems less irritable after this and with straight cathing PRN after bladder scans. Monitor mood, behavior and response to treatment. 09/02/17 Psych: Have ordered urgent labs: CBC, CMP, ammonia level, VPA level. Ordered urgent CT scan of abdomen/pelvis to f/u on hx of bladder cancer. Will hold VPA for now and monitor mentation, appetite. 09/03/17 Pt is lethargic with poor appetite. CT scan pending. Continue current care. Medical team following 09/04/17- Psych- Pt is a little more alert today. CT today. Ativan 0.5mg x 1 to help with obtaining CT. 09/05/17 Psych: Continue holding medications - will discuss further workup and medical treatment with hospitalist. Concern that there may be some underlying medical issues contributing to behaviors. Did not tolerate Depakote well in regards to appetite. Will await this discussion before making further med changes. 09/07/17 Psych: Son Bala to discuss trial of Risperdal with family. Patient will need memory care after d/c. 09/08/17 Psych: Continue current care; patient continues to improve leading me to wander how much of this was a hyperactive delirium vs. psychiatric cause of agitation (could also be manic episode resolving). Will monitor for another day before changing meds as she is showing improvement on current regimen. 09/09/17 Psych: Patient is not able to tolerate antipsychotics (responded very poorly to Risperdal 0.25mg); will completely discontinue scheduled and PRNs. May consider use of gabapentin or carbamazepine as mood stabilizers as she did not tolerate Depakote either. 09/10/17 Psych- Agitation last night. Continue current care 09/11/17 Psych- Pt more alert today. No behaviors over night. Continue current care 09/13/17: Hosp BMP repeated on 09/12/17 - stable. Na 144. 4 Urine culture + for Klebsiella, sensitive to 1st gen cephalosporins. Continue Keflex (started 09/10). VS: HR variable, occ mild elevations in BP acceptable in her age group; afebrile. Psych: pt does not tolerate antipsychotics. They are continuing with medication adjustments. 09/14/17 Psych: Increase mirtazapine to 15mg PO q HS, start carbamazepine 100mg PO q HS and titrate further tomorrow. Family is aware there will be some trade off in functionality though meds needed for facility to be able to care for patient. 09/15/17 Psych: Increase carbamazepine to 100mg PO BID. 09/16/17 Psych: Continue carbamazepine and consider increasing to 100mg PO q AM and 200mg PO q HS tomorrow (09/17) if well-tolerated. After discussion with family, agreed to discontinue Namenda. 09/17/17- Psych- Remains combative with cares. Increase Carbamazepine to 200mg at HS 09/18/17 Psych- Remains aggressive with cares and anxious and tearful at times. 09/19/17 Psych: Increase carbamazepine to 200mg PO BID. Will check CBC, CMP, trough carbamazepine level in AM. 09/20/17 Psych: Carbamazepine increased to 200mg PO q HS last night as it was mistakenly not given over the weekend. Will check trough level prior to tonight' s dose and likely increase to 200mg PO BID tomorrow AM. 09/20/17 Hosp Urinary retention with E. coli & Strep viridans UTI; later with klebsiella UTI. History of bladder cancer -Treated with Keflex -Still requires straight cath about twice per day. Unlikely she'd tolerate an indwelling catheter. -Recommend outpt urology f/u Hypernatremia -resolved -Check BMP Irritable bowel syndrome, Diverticulosis -On good bowel regimen HTN -stable -On Propranolol 09/21/17 Psych: Increase carbamazepine to 200mg PO BID; level 5.3. 09/22/17 Psych: Will check UA, consult with urology as I believe patient has underlying cause for continued delirium. Will discontinue carbamazepine as well due to patient's dropping cell counts. Will schedule Ativan 0.5mg PO BID as it does seem to help patient relax. 09/23 Continues to require straight catheterization twice a day due to retention. Staff does not feel the patient would keep an indwelling Bowen catheter in place. She has previously been treated for a UTI- with E. coli & Strep viridans UTI; later with klebsiella UTI Given most recent preliminary urine culture positive gram-negative- Will start Keflex TID and continue to monitor Case discussed with Dr Ramos- She feels that this may be delirium in nature. We will go ahead and treat urinary tract infection and see if behaviors improve. 09/25/2017 Psych- Pt is irritable and aggressive at times. Continue current care 09/[address] Ramos who talked with Urologist He recommends placement of indwelling bowen. If she does not tolerate this or pulls it out then will need to increase number of times a day of straight cath to QID Will continue to monitor I/O encourage PO intake Remains on Cipro for treatment of UTI Recheck BMP on 09/28
[2017-09-26] MEDS: MIRTAZAPINE 15 MG TABLET PO SCH (20:20)
[2017-09-26] MEDS: TAMSULOSIN 0.4 MG CAPSULE PO SCH (20:20)
[2017-09-27] MEDS: CYANOCOBALAMIN (B-12) 500mcg TABLET PO SCH (11:00)
[2017-09-27] MEDS: CIPROFLOXACIN 500 MG TABLET PO SCH ×2 (11:00→21:13)
[2017-09-27] MEDS: POLYETHYL GLYCOL 3350 17gm PACKET PO SCH (11:01)
[2017-09-27] MEDS: LORazepam 0.5 MG TABLET PO SCH ×2 (11:01→21:13)
[2017-09-27] MEDS: PROPRANOLOL 10 MG TABLET PO SCH ×3 (11:01→21:13)
[2017-09-27] MEDS: SENNA + DOCUSATE TABLET PO SCH ×2 (11:02→21:13)
--- NOTE | 2017-09-27 15:31 | Neuropsych Progress Note ---
[facility] Subjective Date: 09/27/17 - Sujective/Severity of Illness Medications: Acetaminophen (Tylenol Arthritis) 650 mg PO Q8H PRN PRN Reason: Pain Last Admin: 09/25/17 15:36 Dose: 650 mg Bisacodyl (Dulcolax) 10 mg RECTALLY DAILY PRN PRN Reason: Constipation Last Admin: 09/01/17 11:05 Dose: 10 mg Bisacodyl (Dulcolax) 5 mg PO BID PRN PRN Reason: Constipation Ciprofloxacin (Cipro 500 Mg) 500 mg PO Q12HR [facility] Last Admin: 09/27/17 11:00 Dose: 500 mg Cyanocobalamin (Vit. B-12) 1,000 mcg PO DAILY [facility] Last Admin: 09/27/17 11:00 Dose: 1,000 mcg Ergocalciferol (Vitamin D-2) 50,000 unit PO Q7D [facility] Last Admin: 09/21/17 14:34 Dose: 50,000 unit Lorazepam (Ativan) 0.5 mg PO Q6H PRN PRN Reason: Extreme agitation Last Admin: 09/24/17 14:25 Dose: 0.5 mg Lorazepam (Ativan Intensol) 0.5 mg PO Q6H PRN Last Admin: 09/11/17 15:34 Dose: 0.5 mg Lorazepam (Ativan Inj) 0.5 mg IM Q6H PRN PRN Reason: Extreme agitation Last Admin: 09/27/17 15:11 Dose: 0.5 mg Lorazepam (Ativan) 0.5 mg PO BID [facility] Last Admin: 09/27/17 11:01 Dose: 0.5 mg Magnesium Hydroxide (Mom) 30 ml PO PRN PRN PRN Reason: Constipation Mirtazapine (Remeron) 15 mg PO HS [facility] Last Admin: 09/26/17 20:20 Dose: 15 mg Polyethylene Glycol (Miralax) 17 gm PO DAILY [facility] Last Admin: 09/27/17 11:01 Dose: 17 gm Potassium Chloride (Micro-K 10 Meq Capsule) 10 meq PO WB [facility] Last Admin: 09/27/17 11:00 Dose: 10 meq Propranolol HCl (Inderal) 10 mg PO TID [facility] Last Admin: 09/27/17 15:28 Dose: 10 mg Senna/Docusate Sodium (Senna Plus Tablet) 2 tab PO BID PRN PRN Reason: Constipation Senna/Docusate Sodium (Senna Plus Tablet) 1 tab PO BID [facility] Last Admin: 09/27/17 11:02 Dose: 1 tab Tamsulosin HCl (Flomax) 0.4 mg PO HS [facility] Last Admin: 09/26/17 20:20 Dose: 0.4 mg Subjective: Patient seen and chart reviewed. Case discussed with treatment team. On interview, patient is more pleasant and engaging than she has been with me in the past. Indwelling catheter was placed last night and patient has not tried to pull it out. She sits in a chair in the dayroom and is observed to be shivering. Offered a blanket, which she initially refused but later accepted. She cannot tell me how she is feeling physically and she does not answer most questions directly. Nursing staff report patient continues to have irritability and intermittent agitation, was last aggressive prior to placement of Vyas. Patient slept 8.5 hours overnight. VSS. Patient continues to have limited PO intake. Start Time: 13:00 Stop Time: 13:20 Mental Status Exam Vitals: Last Vital Signs Temp 97.4 F 09/27/17 08:00 Pulse 87 09/27/17 08:00 Resp 18 09/27/17 08:00 BP 147/78 H 09/27/17 08:00 Pulse Ox 98 09/27/17 08:00 Height: 1.65 m Weight: 56.6 kg - Mental Status Exam Muscle Strength/Tone: Weak Dressing: Casual Grooming: Fair Attitude: Combative (at times), Tense Motor Activity: Retardation, Other (shivering throughout interview) Eye Contact: Poor Speech: Slowed Volume: Normal Rhythm: Appropriate Rhythm Orientation: Disoriented to time, Disoriented to place, Disoriented to situation , Oriented to person Mood: Irritable (labile affect but more pleasant/engagin during interview than on prevoius days) Rate of Thoughts: Delayed Thought Organization: Confused Associations: Illogical Abstract Reasoning: Impaired, concrete Thought Content: Ruminations (sadness over loved ones who have passed), Somatic Concerns (vague, not able to verbalize well) Perception/Psychotic: Other (Denies, does not appear to be responding to internal stimuli) Language: Naming Impaired Fund of Knowledge: Poor fund of knowledge Memory: Poor-immediate, Poor-recent, Poor-remote Suicidal Ideation: Denies Homicidal Ideation: Denies Insight: Impaired Judgement: Impaired Impulse Control: Poor (though improved from admission) - Laboratory Result Diagrams: 09/25/17 07:16 09/28/17 07:20 Assessment and Plan (1) Delirium Problem details: due to unknown etiology at this time though patient does have recurrent UTIs Current visit: Yes Status: Acute (2) Major neurocognitive disorder Problem details: Moderate, likely mixed etiology, with behavioral disturbance R/O Bipolar disorder, MRE manic Other medical conditions: Recurrent UTIs Hypernatremia-POA History of bladder cancer Vitamin D deficiency Irritable bowel syndrome Diverticulosis Chronic compression fracture T12 Osteopenia Current visit: Yes Status: Acute (3) Vitamin B12 deficiency Current visit: Yes Status: Acute Indwelling catheter place last night; continue to monitor behavior/response as this hopefully was helpful for pain/agitation. Also on antibiotics for UTI. Hospital Course Summary Disclaimer: The visit summary below is not to be considered part of the above Progress Note. Hospital Course: Psych 08/25/17: Held Wellbutrin XL, Buspar, Viibryd due to suspected bipolar alexander. Psych 08/26/17: Patient seems to have improved slightly with discontinuation of all Wellbutrin XL, Buspar, Viibryd (upon admission). Currently taking seroquel 25mg PO BID and propranolol 10mg PO BID from home med list. Will add Depakote DR 250mg PO BID. Will additionally start Vitamin B12 1000mcg IM x 3 days then weekly for a month, then monthly thereafter. 08/27/2017- Psych- PT is irritable and labile at times but is redirectable. Will consider increase of Depakote tomorrow if tolerating well 08/28/2017 Psych- Pt remains irritable and impulsive at times. Increase Depakote to 250mg PO TID. 08/29/17 Psych: Continue current care as we await serotonergic agents to clear from blood given half-lives; discussed care with DPOA/daughter who is in agreement with treatment plan. Patient has hx of malignant neoplasm of bladder. Daughter states that no recent imaging has been done and is in agreement with sedating as necessary to obtain head CT. 08/30/17 Psych: Will switch Depakote to sprinkles 250mg PO TID for improved compliance, increase Seroquel to 25mg PO TID. May need to switch to Risperdal if urinary retention worsening. Recheck UA, will bladder scan BID and straight cath if necessary. Once patient has had compliance with Depakote x 3 days, can check trough VPA level and adjust to therapeutic level. 08/31/17-hospitalist Dr. Ramos had ordered a repeat urinalysis because patient continues to have behaviors and has had some urinary retention. She'd had a positive urinalysis on admission and was treated. Urinalysis performed last night was completely negative. She has had 3 doses of IM cyanocobalamin for borderline low B12 deficiency . Continue 1000 g cyanocobalamin a day. Recommend follow-up B12 level on outpatient basis. Patient medically stable. Chart reviewed. 08/31/17 Psych: Will collapse Depakote sprinkles to 250mg PO q AM and 500mg PO with dinner to increase adherence. Seroquel does not seem to be helpful and may be causing restlessness and urinary retention; will hold and monitor behavior for the time being. Stressed importance of adherence to Depakote to nursing staff. 09/01/17 Psych: Continue to focus on compliance with Depakote. Patient had BM with suppository, seems less irritable after this and with straight cathing PRN after bladder scans. Monitor mood, behavior and response to treatment. 09/02/17 Psych: Have ordered urgent labs: CBC, CMP, ammonia level, VPA level. Ordered urgent CT scan of abdomen/pelvis to f/u on hx of bladder cancer. Will hold VPA for now and monitor mentation, appetite. 09/03/17 Pt is lethargic with poor appetite. CT scan pending. Continue current care. Medical team following 09/04/17- Psych- Pt is a little more alert today. CT today. Ativan 0.5mg x [address] 09/05/17 Psych: Continue holding medications - will discuss further workup and medical treatment with hospitalist. Concern that there may be some underlying medical issues contributing to behaviors. Did not tolerate Depakote well in regards to appetite. Will await this discussion before making further med changes. 09/07/17 Psych: Son Bala to discuss trial of Risperdal with family. Patient will need memory care after d/c. 09/08/17 Psych: Continue current care; patient continues to improve leading me to wander how much of this was a hyperactive delirium vs. psychiatric cause of agitation (could also be manic episode resolving). Will monitor for another day before changing meds as she is showing improvement on current regimen. 09/09/17 Psych: Patient is not able to tolerate antipsychotics (responded very poorly to Risperdal 0.25mg); will completely discontinue scheduled and PRNs. May consider use of gabapentin or carbamazepine as mood stabilizers as she did not tolerate Depakote either. 09/10/17 Psych- Agitation last night. Continue current care 09/11/17 Psych- Pt more alert today. No behaviors over night. Continue current care 09/13/17: Hosp BMP repeated on 09/12/17 - stable. Na 144. 4 Urine culture + for Klebsiella, sensitive to 1st gen cephalosporins. Continue Keflex (started 09/10). VS: HR variable, occ mild elevations in BP acceptable in her age group; afebrile. Psych: pt does not tolerate antipsychotics. They are continuing with medication adjustments. 09/14/17 Psych: Increase mirtazapine to 15mg PO q HS, start carbamazepine 100mg PO q HS and titrate further tomorrow. Family is aware there will be some trade off in functionality though meds needed for facility to be able to care for patient. 09/15/17 Psych: Increase carbamazepine to 100mg PO BID. 09/16/17 Psych: Continue carbamazepine and consider increasing to 100mg PO q AM and 200mg PO q HS tomorrow (09/17) if well-tolerated. After discussion with family, agreed to discontinue Namenda. 09/17/17- Psych- Remains combative with cares. Increase Carbamazepine to 200mg at HS 09/18/17 Psych- Remains aggressive with cares and anxious and tearful at times. 09/19/17 Psych: Increase carbamazepine to 200mg PO BID. Will check CBC, CMP, trough carbamazepine level in AM. 09/20/17 Psych: Carbamazepine increased to 200mg PO q HS last night as it was mistakenly not given over the weekend. Will check trough level prior to tonight' s dose and likely increase to 200mg PO BID tomorrow AM. 09/20/17 Hosp Urinary retention with E. coli & Strep viridans UTI; later with klebsiella UTI. History of bladder cancer -Treated with Keflex -Still requires straight cath about twice per day. Unlikely she'd tolerate an indwelling catheter. -Recommend outpt urology f/u Hypernatremia -resolved -Check BMP Irritable bowel syndrome, Diverticulosis -On good bowel regimen HTN -stable -On Propranolol 09/21/17 Psych: Increase carbamazepine to 200mg PO BID; level 5.3. 09/22/17 Psych: Will check UA, consult with urology as I believe patient has underlying cause for continued delirium. Will discontinue carbamazepine as well due to patient's dropping cell counts. Will schedule Ativan 0.5mg PO BID as it does seem to help patient relax. 09/23 Continues to require straight catheterization twice a day due to retention. Staff does not feel the patient would keep an indwelling Vyas catheter in place. She has previously been treated for a UTI- with E. coli & Strep viridans UTI; later with klebsiella UTI Given most recent preliminary urine culture positive gram-negative- Will start Keflex TID and continue to monitor Case discussed with Dr Ramos- She feels that this may be delirium in nature. We will go ahead and treat urinary tract infection and see if behaviors improve. 09/25/2017 Psych- Pt is irritable and aggressive at times. Continue current care 09/26/17 Psych: Plan to place Vyas catheter today and monitor irritability/ agitation. 09/27/17 Psych: Indwelling catheter place last night; continue to monitor behavior /response as this hopefully was helpful for pain/agitation. Also on antibiotics for UTI.
[2017-09-27] MEDS: TAMSULOSIN 0.4 MG CAPSULE PO SCH (21:13)
[2017-09-27] MEDS: MIRTAZAPINE 15 MG TABLET PO SCH (21:13)
[2017-09-27] MEDS ORDERED: LORazepam 0.5 MG TABLET PO SCH (22:36)
[2017-09-28] MEDS: CIPROFLOXACIN 500 MG TABLET PO SCH ×2 (10:21→20:20)
[2017-09-28] MEDS: SENNA + DOCUSATE TABLET PO SCH ×2 (10:22→20:20)
[2017-09-28] MEDS: CYANOCOBALAMIN (B-12) 500mcg TABLET PO SCH (10:22)
[2017-09-28] MEDS: PROPRANOLOL 10 MG TABLET PO SCH ×3 (10:23→20:20)
[2017-09-28] MEDS: POLYETHYL GLYCOL 3350 17gm PACKET PO SCH (10:26)
--- NOTE | 2017-09-28 11:35 | Neuropsych Progress Note ---
[facility] Subjective Date: 09/28/17 - Sujective/Severity of Illness Medications: Acetaminophen (Tylenol Arthritis) 650 mg PO Q8H PRN PRN Reason: Pain Last Admin: 09/25/17 15:36 Dose: 650 mg Bisacodyl (Dulcolax) 10 mg RECTALLY DAILY PRN PRN Reason: Constipation Last Admin: 09/01/17 11:05 Dose: 10 mg Bisacodyl (Dulcolax) 5 mg PO BID PRN PRN Reason: Constipation Ciprofloxacin (Cipro 500 Mg) 500 mg PO Q12HR [facility] Stop: 10/01/17 23:59 Last Admin: 09/28/17 10:21 Dose: 500 mg Cyanocobalamin (Vit. B-12) 1,000 mcg PO DAILY [facility] Last Admin: 09/28/17 10:22 Dose: 1,000 mcg Ergocalciferol (Vitamin D-2) 50,000 unit PO Q7D [facility] Last Admin: 09/21/17 14:34 Dose: 50,000 unit Lorazepam (Ativan) 0.5 mg PO Q6H PRN PRN Reason: Extreme agitation Last Admin: 09/24/17 14:25 Dose: 0.5 mg Lorazepam (Ativan Intensol) 0.5 mg PO Q6H PRN Last Admin: 09/11/17 15:34 Dose: 0.5 mg Lorazepam (Ativan Inj) 0.5 mg IM Q6H PRN PRN Reason: Extreme agitation Last Admin: 09/27/17 15:11 Dose: 0.5 mg Lorazepam (Ativan) 0.25 mg PO HS [facility] Lorazepam (Ativan) 0.25 mg PO BID [facility] Last Admin: 09/28/17 10:25 Dose: 0.25 mg Magnesium Hydroxide (Mom) 30 ml PO PRN PRN PRN Reason: Constipation Mirtazapine (Remeron) 15 mg PO HS [facility] Last Admin: 09/27/17 21:13 Dose: 15 mg Polyethylene Glycol (Miralax) 17 gm PO DAILY [facility] Last Admin: 09/28/17 10:26 Dose: Not Given Potassium Chloride (Micro-K 10 Meq Capsule) 10 meq PO WB [facility] Last Admin: 09/28/17 10:21 Dose: 10 meq Propranolol HCl (Inderal) 10 mg PO TID [facility] Last Admin: 09/28/17 10:23 Dose: 10 mg Senna/Docusate Sodium (Senna Plus Tablet) 2 tab PO BID PRN PRN Reason: Constipation Senna/Docusate Sodium (Senna Plus Tablet) 1 tab PO BID [facility] Last Admin: 09/28/17 10:22 Dose: 1 tab Tamsulosin HCl (Flomax) 0.4 mg PO HS [facility] Last Admin: 09/27/17 21:13 Dose: 0.4 mg Subjective: Patient seen and chart reviewed. Case discussed with treatment team. Patient is sleeping at time of rounds. Nursing reported that patient had gotten out of bed (possibly fallen though believed to be a short distance) last night and was crawling in her room, which pulled out her Vyas catheter. She is not believed to have pulled it intentionally and was tolerating it well prior to this. Nursing yesterday reported patient continues to be intermittently tearful and impulsive. She was verbally aggressive in past 24 hours but not physically so. She was more pleasant with a particular [employer] yesterday who she has disliked for an unknown reason prior. Patient slept 8.5 hours overnight. VSS. Patient continues to have limited PO intake. No psychotropic PRNs required in past 24 hours. Discussed plan with hospitalist who will examine for any tissue damage at Vyas site and make determination as to whether to replace it or temporarily bladder scan and cath QID PRN while tissue heals. Start Time: 09:20 Stop Time: 09:40 Mental Status Exam Vitals: Last Vital Signs Temp 97.4 F 09/28/17 08:00 Pulse 99 09/28/17 08:00 Resp 18 09/28/17 08:00 BP 157/93 H 09/28/17 08:00 Pulse Ox 97 09/28/17 08:00 Height: 1.65 m Weight: 56.6 kg - Mental Status Exam Muscle Strength/Tone: Weak Dressing: Casual Grooming: Fair Attitude: Combative (at times), Tense Motor Activity: Retardation, Other (shivering throughout interview) Eye Contact: Poor Speech: Slowed Volume: Normal Rhythm: Appropriate Rhythm Orientation: Disoriented to time, Disoriented to place, Disoriented to situation , Oriented to person Mood: Irritable (labile affect but more pleasant/engagin during interview than on prevoius days) Rate of Thoughts: Delayed Thought Organization: Confused Associations: Illogical Abstract Reasoning: Impaired, concrete Thought Content: Ruminations (sadness over loved ones who have passed), Somatic Concerns (vague, not able to verbalize well) Perception/Psychotic: Other (Denies, does not appear to be responding to internal stimuli) Language: Naming Impaired Fund of Knowledge: Poor fund of knowledge Memory: Poor-immediate, Poor-recent, Poor-remote Suicidal Ideation: Denies Homicidal Ideation: Denies Insight: Impaired Judgement: Impaired Impulse Control: Poor (though improved from admission) - Laboratory Result Diagrams: 09/25/17 07:16 09/28/17 07:20 Laboratory Results - last 24 hr 09/28/17 07:20 Turbidity < 20 Sodium 143 Potassium 4.1 Chloride 109 H Carbon Dioxide 28 Anion Gap 6 BUN 20.0 H Creatinine 0.8 GFR Calculation 69 BUN/Creatinine Ratio 25 Glucose 100 Calculated Osmolality 278 Calcium 8.9 Icterus Index < 2 Specimen Hemolysis < 15 Assessment and Plan (1) Delirium Problem details: due to unknown etiology at this time though patient does have recurrent UTIs Current visit: Yes Status: Acute (2) Major neurocognitive disorder Problem details: Moderate, likely mixed etiology, with behavioral disturbance R/O Bipolar disorder, MRE manic Other medical conditions: Recurrent UTIs Hypernatremia-POA History of bladder cancer Vitamin D deficiency Irritable bowel syndrome Diverticulosis Chronic compression fracture T12 Osteopenia Current visit: Yes Status: Acute (3) Vitamin B12 deficiency Current visit: Yes Status: Acute Increase mirtazapine to 22.5mg PO q HS as patient continues to have some tearfulness. Hospitalist to examine for tissue damage at Vyas site in regards to replacing vs. straight cathing up to QID while damage heals. Ativan decreased to 0.25mg PO BID. Hospital Course Summary Disclaimer: The visit summary below is not to be considered part of the above Progress Note. Hospital Course: Psych 08/25/17: Held Wellbutrin XL, Buspar, Viibryd due to suspected bipolar alexander. Psych 08/26/17: Patient seems to have improved slightly with discontinuation of all Wellbutrin XL, Buspar, Viibryd (upon admission). Currently taking seroquel 25mg PO BID and propranolol 10mg PO BID from home med list. Will add Depakote DR 250mg PO BID. Will additionally start Vitamin B12 1000mcg IM x 3 days then weekly for a month, then monthly thereafter. 08/27/2017- Psych- PT is irritable and labile at times but is redirectable. Will consider increase of Depakote tomorrow if tolerating well 08/28/2017 Psych- Pt remains irritable and impulsive at times. Increase Depakote to 250mg PO TID. 08/29/17 Psych: Continue current care as we await serotonergic agents to clear from blood given half-lives; discussed care with DPOA/daughter who is in agreement with treatment plan. Patient has hx of malignant neoplasm of bladder. Daughter states that no recent imaging has been done and is in agreement with sedating as necessary to obtain head CT. 08/30/17 Psych: Will switch Depakote to sprinkles 250mg PO TID for improved compliance, increase Seroquel to 25mg PO TID. May need to switch to Risperdal if urinary retention worsening. Recheck UA, will bladder scan BID and straight cath if necessary. Once patient has had compliance with Depakote x 3 days, can check trough VPA level and adjust to therapeutic level. 08/31/17-hospitalist Dr. Ramos had ordered a repeat urinalysis because patient continues to have behaviors and has had some urinary retention. She'd had a positive urinalysis on admission and was treated. Urinalysis performed last night was completely negative. She has had 3 doses of IM cyanocobalamin for borderline low B12 deficiency . Continue 1000 g cyanocobalamin a day. Recommend follow-up B12 level on outpatient basis. Patient medically stable. Chart reviewed. 08/31/17 Psych: Will collapse Depakote sprinkles to 250mg PO q AM and 500mg PO with dinner to increase adherence. Seroquel does not seem to be helpful and may be causing restlessness and urinary retention; will hold and monitor behavior for the time being. Stressed importance of adherence to Depakote to nursing staff. 09/01/17 Psych: Continue to focus on compliance with Depakote. Patient had BM with suppository, seems less irritable after this and with straight cathing PRN after bladder scans. Monitor mood, behavior and response to treatment. 09/02/17 Psych: Have ordered urgent labs: CBC, CMP, ammonia level, VPA level. Ordered urgent CT scan of abdomen/pelvis to f/u on hx of bladder cancer. Will hold VPA for now and monitor mentation, appetite. 09/03/17 Pt is lethargic with poor appetite. CT scan pending. Continue current care. Medical team following 09/04/17- Psych- Pt is a little more alert today. CT today. Ativan 0.5mg x [address] 09/05/17 Psych: Continue holding medications - will discuss further workup and medical treatment with hospitalist. Concern that there may be some underlying medical issues contributing to behaviors. Did not tolerate Depakote well in regards to appetite. Will await this discussion before making further med changes. 09/07/17 Psych: Son Bala to discuss trial of Risperdal with family. Patient will need memory care after d/c. 09/08/17 Psych: Continue current care; patient continues to improve leading me to wander how much of this was a hyperactive delirium vs. psychiatric cause of agitation (could also be manic episode resolving). Will monitor for another day before changing meds as she is showing improvement on current regimen. 09/09/17 Psych: Patient is not able to tolerate antipsychotics (responded very poorly to Risperdal 0.25mg); will completely discontinue scheduled and PRNs. May consider use of gabapentin or carbamazepine as mood stabilizers as she did not tolerate Depakote either. 09/10/17 Psych- Agitation last night. Continue current care 09/11/17 Psych- Pt more alert today. No behaviors over night. Continue current care 09/13/17: Hosp BMP repeated on 09/12/17 - stable. Na 144. 4 Urine culture + for Klebsiella, sensitive to 1st gen cephalosporins. Continue Keflex (started 09/10). VS: HR variable, occ mild elevations in BP acceptable in her age group; afebrile. Psych: pt does not tolerate antipsychotics. They are continuing with medication adjustments. 09/14/17 Psych: Increase mirtazapine to 15mg PO q HS, start carbamazepine 100mg PO q HS and titrate further tomorrow. Family is aware there will be some trade off in functionality though meds needed for facility to be able to care for patient. 09/15/17 Psych: Increase carbamazepine to 100mg PO BID. 09/16/17 Psych: Continue carbamazepine and consider increasing to 100mg PO q AM and 200mg PO q HS tomorrow (09/17) if well-tolerated. After discussion with family, agreed to discontinue Namenda. 09/17/17- Psych- Remains combative with cares. Increase Carbamazepine to 200mg at HS 09/18/17 Psych- Remains aggressive with cares and anxious and tearful at times. 09/19/17 Psych: Increase carbamazepine to 200mg PO BID. Will check CBC, CMP, trough carbamazepine level in AM. 09/20/17 Psych: Carbamazepine increased to 200mg PO q HS last night as it was mistakenly not given over the weekend. Will check trough level prior to tonight' s dose and likely increase to 200mg PO BID tomorrow AM. 09/20/17 Hosp Urinary retention with E. coli & Strep viridans UTI; later with klebsiella UTI. History of bladder cancer -Treated with Keflex -Still requires straight cath about twice per day. Unlikely she'd tolerate an indwelling catheter. -Recommend outpt urology f/u Hypernatremia -resolved -Check BMP Irritable bowel syndrome, Diverticulosis -On good bowel regimen HTN -stable -On Propranolol 09/21/17 Psych: Increase carbamazepine to 200mg PO BID; level 5.3. 09/22/17 Psych: Will check UA, consult with urology as I believe patient has underlying cause for continued delirium. Will discontinue carbamazepine as well due to patient's dropping cell counts. Will schedule Ativan 0.5mg PO BID as it does seem to help patient relax. 09/23 Continues to require straight catheterization twice a day due to retention. Staff does not feel the patient would keep an indwelling Vyas catheter in place. She has previously been treated for a UTI- with E. coli & Strep viridans UTI; later with klebsiella UTI Given most recent preliminary urine culture positive gram-negative- Will start Keflex TID and continue to monitor Case discussed with Dr Ramos- She feels that this may be delirium in nature. We will go ahead and treat urinary tract infection and see if behaviors improve. 09/25/2017 Psych- Pt is irritable and aggressive at times. Continue current care 09/26/17 Psych: Plan to place Vyas catheter today and monitor irritability/ agitation. 09/27/17 Psych: Indwelling catheter place last night; continue to monitor behavior /response as this hopefully was helpful for pain/agitation. Also on antibiotics for UTI. 09/28/17 Psych: Increase mirtazapine to 22.5mg PO q HS as patient continues to have some tearfulness. Hospitalist to examine for tissue damage at Vyas site in regards to replacing vs. straight cathing up to QID while damage heals. Ativan decreased to 0.25mg PO BID.
[2017-09-28] MEDS ORDERED: MIRTAZAPINE 15 MG TABLET PO SCH (11:37)
--- NOTE | 2017-09-28 14:07 | Progress Note ---
- Date 09/28/17 Subjective: Larry is seen today while sitting in the day room. She continues to need 1:1 care due to her behaviors. She complains of feeling like she needs to urinate. Nursing reports that she tripped last night and accidently pulled out her Vyas catheter which was attached to the bed. She denies any other injury. No head injury, loss of consciousness dizziness. The Vyas catheter was replaced this morning due to her persistent urinary retention. External genital exam was unremarkable without obvious signs of trauma or bleeding. Yellow urine is actively draining from the Vyas catheter. Nursing reports that she continues to be easily agitated with frequent outburst of crying and tearfulness as well as verbal aggression. Dr. Ramos expressed concern that her behaviors maybe secondary to delirium. She continues on treatment with Cipro for UTI secondary to E. Coli and Klebsiella oxytoca. She remains afebrile. Objective Vital signs: Temperature 97.4 F 09/28/17 08:00 Pulse Rate 99 09/28/17 08:00 Respiratory Rate 18 09/28/17 08:00 Blood Pressure 157/93 H 09/28/17 08:00 Pulse Oximetry 97 09/28/17 08:00 Height/Weight/BMI: Height 5 ft 5 in Weight 124 lb 12.506 oz Body Mass Index 23.8 Comments: Sitting in day room, easily agitated and at time tearful. - Constitutional Present: well nourished, well developed, thin, cooperative - Routine HEENT Exam Head: Present: normocephalic, atraumatic Eye: Present: PERRL. Absent: conjunctival icterus ENT: Present: mucous membranes moist - Routine Respiratory Exam Present: CTA bilaterally. Absent: respiratory distress, wheezes - Routine Cardiovascular Exam Present: RRR, S1, S2 - Routine Abdominal Exam Present: soft, normoactive bowel sounds, non tender. Absent: distended, rebound - Routine Exam Comments: Vyas catheter in place and draining yellow urine; no external trauma, bleeding or discharge noted on genital exam; small amount of brownish discharge noted to inside of pad. - Routine Extremities Exam Present: no edema, full ROM, pulses intact - Routine Back/Spine/Pelvis Exam Back/Spine: Present: full ROM. Absent: vertebral tenderness - Routine Musculoskeletal Exam Musculoskeletal: Present: moving extremities well - Routine Skin Exam Present: intact, dry, warm Comments: Afebrile. - Routine Neurological Exam Present: alert, moving all extremities, hearing grossly intact, normal speech - Routine Lymphatic Exam Lymphatic: Absent: lymphedema - Routine Psychiatric Exam Present: cooperative, agitated Comments: tearful. Results - Labs CBC & Chem 7: 09/25/17 07:16 09/28/17 07:20 Microbiology Results: Microbiology 09/22/17 15:12 Urine, Cath Straight Urine Culture - Final Escherichia coli Klebsiella oxytoca 09/10/17 05:21 Urine, Cath Straight Urine Culture - Final Klebsiella oxytoca Lactobacillus species Assessment and Plan (1) Alzheimer's dementia with behavioral disturbance Current visit: Yes Status: Acute Assessment and Plan: Assessment/Plan: Alzheimer's disease with behavioral disturbance -per Psych -Ativan -On remeron Urinary retention with E. coli & Strep viridans UTI; later with klebsiella UTI -Change antibiotics to cipro -Continue straight cath as needed Hypernatremia -resolved History of bladder cancer Borderline low B12 -On supplements Vitamin D deficiency -On supplements Irritable bowel syndrome -On good bowel regimen HTN -Good readings lately -On Propranolol Depression/anxiety Diverticulosis Chronic compression fracture T12 Osteopenia Plan Vyas catheter was initially placed on 09/26/17 and accidently pulled out on evening of 09/27/17. Vyas replaced this AM on 09/28/17. If she does not tolerate this or pulls it out then will need to increase number of times a day of straight cath to QID. May consider placing leg bag during the day for ease of movement. Continue to encourage good oral intake and mighty shakes. Continue psychiatric care per team and provide safe and supportive environment. Recent labs were unremarkable. Patient continues on Cipro BID until 10/01/17 for UTI secondary to E. Coli and Klebsiella oxytoca. Given persistence of behaviors, may consider MRI of brain for further evaluation and possible organic cause. Will recheck labs on 10/03/17 to monitor blood counts, electrolytes and renal function, sooner if indicated. Resuscitation Status: Do Not Resuscitate - Time spent with patient Time with patient PN: 30 minutes - Physician Narrative Physician: Anton Wood MD Narrative: Date: 09/28/17 Time: 1403 Hospital Course Summary Disclaimer: The visit summary below is not to be considered part of the above Progress Note. Hospital Course: Psych 08/25/17: Held Wellbutrin XL, Buspar, Viibryd due to suspected bipolar alexander. Psych 08/26/17: Patient seems to have improved slightly with discontinuation of all Wellbutrin XL, Buspar, Viibryd (upon admission). Currently taking seroquel 25mg PO BID and propranolol 10mg PO BID from home med list. Will add Depakote DR 250mg PO BID. Will additionally start Vitamin B12 1000mcg IM x 3 days then weekly for a month, then monthly thereafter. 08/27/2017- Psych- PT is irritable and labile at times but is redirectable. Will consider increase of Depakote tomorrow if tolerating well 08/28/2017 Psych- Pt remains irritable and impulsive at times. Increase Depakote to 250mg PO TID. 08/29/17 Psych: Continue current care as we await serotonergic agents to clear from blood given half-lives; discussed care with DPOA/daughter who is in agreement with treatment plan. Patient has hx of malignant neoplasm of bladder. Daughter states that no recent imaging has been done and is in agreement with sedating as necessary to obtain head CT. 08/30/17 Psych: Will switch Depakote to sprinkles 250mg PO TID for improved compliance, increase Seroquel to 25mg PO TID. May need to switch to Risperdal if urinary retention worsening. Recheck UA, will bladder scan BID and straight cath if necessary. Once patient has had compliance with Depakote x 3 days, can check trough VPA level and adjust to therapeutic level. 08/31/17-hospitalist Dr. Ramos had ordered a repeat urinalysis because patient continues to have behaviors and has had some urinary retention. She'd had a positive urinalysis on admission and was treated. Urinalysis performed last night was completely negative. She has had 3 doses of IM cyanocobalamin for borderline low B12 deficiency . Continue 1000 g cyanocobalamin a day. Recommend follow-up B12 level on outpatient basis. Patient medically stable. Chart reviewed. 08/31/17 Psych: Will collapse Depakote sprinkles to 250mg PO q AM and 500mg PO with dinner to increase adherence. Seroquel does not seem to be helpful and may be causing restlessness and urinary retention; will hold and monitor behavior for the time being. Stressed importance of adherence to Depakote to nursing staff. 09/01/17 Psych: Continue to focus on compliance with Depakote. Patient had BM with suppository, seems less irritable after this and with straight cathing PRN after bladder scans. Monitor mood, behavior and response to treatment. 09/02/17 Psych: Have ordered urgent labs: CBC, CMP, ammonia level, VPA level. Ordered urgent CT scan of abdomen/pelvis to f/u on hx of bladder cancer. Will hold VPA for now and monitor mentation, appetite. 09/03/17 Pt is lethargic with poor appetite. CT scan pending. Continue current care. Medical team following 09/04/17- Psych- Pt is a little more alert today. CT today. Ativan 0.5mg x [address] 09/05/17 Psych: Continue holding medications - will discuss further workup and medical treatment with hospitalist. Concern that there may be some underlying medical issues contributing to behaviors. Did not tolerate Depakote well in regards to appetite. Will await this discussion before making further med changes. 09/07/17 Psych: Son Bala to discuss trial of Risperdal with family. Patient will need memory care after d/c. 09/08/17 Psych: Continue current care; patient continues to improve leading me to wander how much of this was a hyperactive delirium vs. psychiatric cause of agitation (could also be manic episode resolving). Will monitor for another day before changing meds as she is showing improvement on current regimen. 09/09/17 Psych: Patient is not able to tolerate antipsychotics (responded very poorly to Risperdal 0.25mg); will completely discontinue scheduled and PRNs. May consider use of gabapentin or carbamazepine as mood stabilizers as she did not tolerate Depakote either. 09/10/17 Psych- Agitation last night. Continue current care 09/11/17 Psych- Pt more alert today. No behaviors over night. Continue current care 09/13/17: Hosp BMP repeated on 09/12/17 - stable. Na 144. 4 Urine culture + for Klebsiella, sensitive to 1st gen cephalosporins. Continue Keflex (started 09/10). VS: HR variable, occ mild elevations in BP acceptable in her age group; afebrile. Psych: pt does not tolerate antipsychotics. They are continuing with medication adjustments. 09/14/17 Psych: Increase mirtazapine to 15mg PO q HS, start carbamazepine 100mg PO q HS and titrate further tomorrow. Family is aware there will be some trade off in functionality though meds needed for facility to be able to care for patient. 09/15/17 Psych: Increase carbamazepine to 100mg PO BID. 09/16/17 Psych: Continue carbamazepine and consider increasing to 100mg PO q AM and 200mg PO q HS tomorrow (09/17) if well-tolerated. After discussion with family, agreed to discontinue Namenda. 09/17/17- Psych- Remains combative with cares. Increase Carbamazepine to 200mg at HS 09/18/17 Psych- Remains aggressive with cares and anxious and tearful at times. 09/19/17 Psych: Increase carbamazepine to 200mg PO BID. Will check CBC, CMP, trough carbamazepine level in AM. 09/20/17 Psych: Carbamazepine increased to 200mg PO q HS last night as it was mistakenly not given over the weekend. Will check trough level prior to tonight' s dose and likely increase to 200mg PO BID tomorrow AM. 09/20/17 Hosp Urinary retention with E. coli & Strep viridans UTI; later with klebsiella UTI. History of bladder cancer -Treated with Keflex -Still requires straight cath about twice per day. Unlikely she'd tolerate an indwelling catheter. -Recommend outpt urology f/u Hypernatremia -resolved -Check BMP Irritable bowel syndrome, Diverticulosis -On good bowel regimen HTN -stable -On Propranolol 09/21/17 Psych: Increase carbamazepine to 200mg PO BID; level 5.3. 09/22/17 Psych: Will check UA, consult with urology as I believe patient has underlying cause for continued delirium. Will discontinue carbamazepine as well due to patient's dropping cell counts. Will schedule Ativan 0.5mg PO BID as it does seem to help patient relax. 09/23 Continues to require straight catheterization twice a day due to retention. Staff does not feel the patient would keep an indwelling Vyas catheter in place. She has previously been treated for a UTI- with E. coli & Strep viridans UTI; later with klebsiella UTI Given most recent preliminary urine culture positive gram-negative- Will start Keflex TID and continue to monitor Case discussed with Dr Ramos- She feels that this may be delirium in nature. We will go ahead and treat urinary tract infection and see if behaviors improve. 09/25/2017 Psych- Pt is irritable and aggressive at times. Continue current care 09/26/17 Psych: Plan to place Vyas catheter today and monitor irritability/ agitation. 09/27/17 Psych: Indwelling catheter place last night; continue to monitor behavior /response as this hopefully was helpful for pain/agitation. Also on antibiotics for UTI. 09/28/17 Psych: Increase mirtazapine to 22.5mg PO q HS as patient continues to have some tearfulness. Hospitalist to examine for tissue damage at Vyas site in regards to replacing vs. straight cathing up to QID while damage heals. Ativan decreased to 0.25mg PO BID. Plan 09/28/17 Vyas catheter was initially placed on 09/26/17 and accidently pulled out on evening of 09/27/17. Vyas replaced this AM on 09/28/17. If she does not tolerate this or pulls it out then will need to increase number of times a day of straight cath to QID. May consider placing leg bag during the day for ease of movement. Continue to encourage good oral intake and mighty shakes. Continue psychiatric care per team and provide safe and supportive environment. Recent labs were unremarkable. Patient continues on Cipro BID until 10/01/17 for UTI secondary to E. Coli and Klebsiella oxytoca. Given persistence of behaviors, may consider MRI of brain for further evaluation and possible organic cause. Will recheck labs on 10/03/17 to monitor blood counts, electrolytes and renal function, sooner if indicated.
[2017-09-28] MEDS: ERGOCALCIFEROL 50,000 UNIT CAPSULE PO SCH (17:25)
[2017-09-28] MEDS: TAMSULOSIN 0.4 MG CAPSULE PO SCH (20:19)
[2017-09-28] MEDS: LORazepam 0.5 MG TABLET PO SCH (20:20)
[2017-09-29] MEDS: POLYETHYL GLYCOL 3350 17gm PACKET PO SCH (09:53)
[2017-09-29] MEDS: CYANOCOBALAMIN (B-12) 500mcg TABLET PO SCH (09:53)
[2017-09-29] MEDS: SENNA + DOCUSATE TABLET PO SCH ×2 (09:54→20:07)
[2017-09-29] MEDS: PROPRANOLOL 10 MG TABLET PO SCH ×3 (09:54→20:07)
[2017-09-29] MEDS: CIPROFLOXACIN 500 MG TABLET PO SCH ×2 (12:52→20:07)
--- NOTE | 2017-09-29 18:30 | Neuropsych Progress Note ---
[facility] Subjective Date: 09/29/17 - Sujective/Severity of Illness Medications: Acetaminophen (Tylenol Arthritis) 650 mg PO Q8H PRN PRN Reason: Pain Last Admin: 09/25/17 15:36 Dose: 650 mg Bisacodyl (Dulcolax) 10 mg RECTALLY DAILY PRN PRN Reason: Constipation Last Admin: 09/01/17 11:05 Dose: 10 mg Bisacodyl (Dulcolax) 5 mg PO BID PRN PRN Reason: Constipation Ciprofloxacin (Cipro 500 Mg) 500 mg PO Q12HR [facility] Stop: 10/01/17 23:59 Last Admin: 09/29/17 12:52 Dose: 500 mg Cyanocobalamin (Vit. B-12) 1,000 mcg PO DAILY [facility] Last Admin: 09/29/17 09:53 Dose: 1,000 mcg Ergocalciferol (Vitamin D-2) 50,000 unit PO Q7D [facility] Last Admin: 09/28/17 17:25 Dose: 50,000 unit Lorazepam (Ativan) 0.5 mg PO Q6H PRN PRN Reason: Extreme agitation Last Admin: 09/24/17 14:25 Dose: 0.5 mg Lorazepam (Ativan Intensol) 0.5 mg PO Q6H PRN Last Admin: 09/11/17 15:34 Dose: 0.5 mg Lorazepam (Ativan Inj) 0.5 mg IM Q6H PRN PRN Reason: Extreme agitation Last Admin: 09/27/17 15:11 Dose: 0.5 mg Lorazepam (Ativan) 0.25 mg PO HS [facility] Last Admin: 09/28/17 20:20 Dose: 0.25 mg Magnesium Hydroxide (Mom) 30 ml PO PRN PRN PRN Reason: Constipation Mirtazapine (Remeron) 30 mg PO HS [facility] Polyethylene Glycol (Miralax) 17 gm PO DAILY [facility] Last Admin: 09/29/17 09:53 Dose: 17 gm Potassium Chloride (Micro-K 10 Meq Capsule) 10 meq PO WB [facility] Last Admin: 09/29/17 09:52 Dose: 10 meq Propranolol HCl (Inderal) 10 mg PO TID [facility] Last Admin: 09/29/17 16:03 Dose: 10 mg Senna/Docusate Sodium (Senna Plus Tablet) 2 tab PO BID PRN PRN Reason: Constipation Senna/Docusate Sodium (Senna Plus Tablet) 1 tab PO BID [facility] Last Admin: 09/29/17 09:54 Dose: 1 tab Tamsulosin HCl (Flomax) 0.4 mg PO HS [facility] Last Admin: 09/28/17 20:19 Dose: 0.4 mg Subjective: Patient seen and chart reviewed. Case discussed with treatment team. Patient is in her room and is observed to be crying. She continues to be mildly irritable upon approach but has better impulse control than previously and does not become physically aggressive. She quickly tells me, "Please don't bother me today." Nursing staff report patient continues to be impulsive with poor safety awareness, will clench her fists in anger at times and is intermittently tearful , but she has not been physically aggressive in ~48 hours. Patient slept 8 hours overnight. VSS. Patient continues to have limited PO intake. No psychotropic PRNs required in past 24 hours. Vyas has been replaced and patient is tolerating it well. Start Time: 13:00 Stop Time: 13:20 Mental Status Exam Vitals: Last Vital Signs Temp 98.2 F 09/29/17 16:00 Pulse 82 09/29/17 16:00 Resp 16 09/29/17 16:00 BP 145/96 H 09/29/17 16:00 Pulse Ox 99 09/29/17 16:00 Height: 1.65 m Weight: 56.6 kg - Mental Status Exam Muscle Strength/Tone: Weak Dressing: Casual Grooming: Fair Attitude: Tense Motor Activity: Retardation, Other (shivering throughout interview) Eye Contact: Poor Speech: Slowed Volume: Normal Rhythm: Appropriate Rhythm Orientation: Disoriented to time, Disoriented to place, Disoriented to situation , Oriented to person Mood: Irritable (labile affect but more pleasant/engagin during interview than on prevoius days) Affect: Tearful Rate of Thoughts: Delayed Thought Organization: Confused Associations: Illogical Abstract Reasoning: Impaired, concrete Thought Content: Ruminations (sadness over loved ones who have passed) Perception/Psychotic: Other (Denies, does not appear to be responding to internal stimuli) Language: Naming Impaired Fund of Knowledge: Poor fund of knowledge Memory: Poor-immediate, Poor-recent, Poor-remote Suicidal Ideation: Denies Homicidal Ideation: Denies Insight: Impaired Judgement: Impaired Impulse Control: Poor (though improved from admission) - Laboratory Result Diagrams: 09/25/17 07:16 09/28/17 07:20 Assessment and Plan (1) Delirium Problem details: due to unknown etiology at this time though patient does have recurrent UTIs Current visit: Yes Status: Acute (2) Major neurocognitive disorder Problem details: Moderate, likely mixed etiology, with behavioral disturbance R/O Bipolar disorder, MRE manic Other medical conditions: Recurrent UTIs Hypernatremia-POA History of bladder cancer Vitamin D deficiency Irritable bowel syndrome Diverticulosis Chronic compression fracture T12 Osteopenia Current visit: Yes Status: Acute (3) Vitamin B12 deficiency Current visit: Yes Status: Acute Increase mirtazapine to 30mg PO q HS to target mood/tearfulness. Patient has not had aggression in past ~48 hours which is an improvement though she continues to be irritable. Consider re-trial of low-dose Depakote. Hospital Course Summary Disclaimer: The visit summary below is not to be considered part of the above Progress Note. Hospital Course: Psych 08/25/17: Held Wellbutrin XL, Buspar, Viibryd due to suspected bipolar alexander. Psych 08/26/17: Patient seems to have improved slightly with discontinuation of all Wellbutrin XL, Buspar, Viibryd (upon admission). Currently taking seroquel 25mg PO BID and propranolol 10mg PO BID from home med list. Will add Depakote DR 250mg PO BID. Will additionally start Vitamin B12 1000mcg IM x 3 days then weekly for a month, then monthly thereafter. 08/27/2017- Psych- PT is irritable and labile at times but is redirectable. Will consider increase of Depakote tomorrow if tolerating well 08/28/2017 Psych- Pt remains irritable and impulsive at times. Increase Depakote to 250mg PO TID. 08/29/17 Psych: Continue current care as we await serotonergic agents to clear from blood given half-lives; discussed care with DPOA/daughter who is in agreement with treatment plan. Patient has hx of malignant neoplasm of bladder. Daughter states that no recent imaging has been done and is in agreement with sedating as necessary to obtain head CT. 08/30/17 Psych: Will switch Depakote to sprinkles 250mg PO TID for improved compliance, increase Seroquel to 25mg PO TID. May need to switch to Risperdal if urinary retention worsening. Recheck UA, will bladder scan BID and straight cath if necessary. Once patient has had compliance with Depakote x 3 days, can check trough VPA level and adjust to therapeutic level. 08/31/17-hospitalist Dr. Ramos had ordered a repeat urinalysis because patient continues to have behaviors and has had some urinary retention. She'd had a positive urinalysis on admission and was treated. Urinalysis performed last night was completely negative. She has had 3 doses of IM cyanocobalamin for borderline low B12 deficiency . Continue 1000 g cyanocobalamin a day. Recommend follow-up B12 level on outpatient basis. Patient medically stable. Chart reviewed. 08/31/17 Psych: Will collapse Depakote sprinkles to 250mg PO q AM and 500mg PO with dinner to increase adherence. Seroquel does not seem to be helpful and may be causing restlessness and urinary retention; will hold and monitor behavior for the time being. Stressed importance of adherence to Depakote to nursing staff. 09/01/17 Psych: Continue to focus on compliance with Depakote. Patient had BM with suppository, seems less irritable after this and with straight cathing PRN after bladder scans. Monitor mood, behavior and response to treatment. 09/02/17 Psych: Have ordered urgent labs: CBC, CMP, ammonia level, VPA level. Ordered urgent CT scan of abdomen/pelvis to f/u on hx of bladder cancer. Will hold VPA for now and monitor mentation, appetite. 09/03/17 Pt is lethargic with poor appetite. CT scan pending. Continue current care. Medical team following 09/04/17- Psych- Pt is a little more alert today. CT today. Ativan 0.5mg x [address] 09/05/17 Psych: Continue holding medications - will discuss further workup and medical treatment with hospitalist. Concern that there may be some underlying medical issues contributing to behaviors. Did not tolerate Depakote well in regards to appetite. Will await this discussion before making further med changes. 09/07/17 Psych: Son Bala to discuss trial of Risperdal with family. Patient will need memory care after d/c. 09/08/17 Psych: Continue current care; patient continues to improve leading me to wander how much of this was a hyperactive delirium vs. psychiatric cause of agitation (could also be manic episode resolving). Will monitor for another day before changing meds as she is showing improvement on current regimen. 09/09/17 Psych: Patient is not able to tolerate antipsychotics (responded very poorly to Risperdal 0.25mg); will completely discontinue scheduled and PRNs. May consider use of gabapentin or carbamazepine as mood stabilizers as she did not tolerate Depakote either. 09/10/17 Psych- Agitation last night. Continue current care 09/11/17 Psych- Pt more alert today. No behaviors over night. Continue current care 09/13/17: Hosp BMP repeated on 09/12/17 - stable. Na 144. 4 Urine culture + for Klebsiella, sensitive to 1st gen cephalosporins. Continue Keflex (started 09/10). VS: HR variable, occ mild elevations in BP acceptable in her age group; afebrile. Psych: pt does not tolerate antipsychotics. They are continuing with medication adjustments. 09/14/17 Psych: Increase mirtazapine to 15mg PO q HS, start carbamazepine 100mg PO q HS and titrate further tomorrow. Family is aware there will be some trade off in functionality though meds needed for facility to be able to care for patient. 09/15/17 Psych: Increase carbamazepine to 100mg PO BID. 09/16/17 Psych: Continue carbamazepine and consider increasing to 100mg PO q AM and 200mg PO q HS tomorrow (09/17) if well-tolerated. After discussion with family, agreed to discontinue Namenda. 09/17/17- Psych- Remains combative with cares. Increase Carbamazepine to 200mg at HS 09/18/17 Psych- Remains aggressive with cares and anxious and tearful at times. 09/19/17 Psych: Increase carbamazepine to 200mg PO BID. Will check CBC, CMP, trough carbamazepine level in AM. 09/20/17 Psych: Carbamazepine increased to 200mg PO q HS last night as it was mistakenly not given over the weekend. Will check trough level prior to tonight' s dose and likely increase to 200mg PO BID tomorrow AM. 09/20/17 Hosp Urinary retention with E. coli & Strep viridans UTI; later with klebsiella UTI. History of bladder cancer -Treated with Keflex -Still requires straight cath about twice per day. Unlikely she'd tolerate an indwelling catheter. -Recommend outpt urology f/u Hypernatremia -resolved -Check BMP Irritable bowel syndrome, Diverticulosis -On good bowel regimen HTN -stable -On Propranolol 09/21/17 Psych: Increase carbamazepine to 200mg PO BID; level 5.3. 09/22/17 Psych: Will check UA, consult with urology as I believe patient has underlying cause for continued delirium. Will discontinue carbamazepine as well due to patient's dropping cell counts. Will schedule Ativan 0.5mg PO BID as it does seem to help patient relax. 09/23 Continues to require straight catheterization twice a day due to retention. Staff does not feel the patient would keep an indwelling Vyas catheter in place. She has previously been treated for a UTI- with E. coli & Strep viridans UTI; later with klebsiella UTI Given most recent preliminary urine culture positive gram-negative- Will start Keflex TID and continue to monitor Case discussed with Dr Ramos- She feels that this may be delirium in nature. We will go ahead and treat urinary tract infection and see if behaviors improve. 09/25/2017 Psych- Pt is irritable and aggressive at times. Continue current care 09/26/17 Psych: Plan to place Vyas catheter today and monitor irritability/ agitation. 09/27/17 Psych: Indwelling catheter place last night; continue to monitor behavior /response as this hopefully was helpful for pain/agitation. Also on antibiotics for UTI. 09/28/17 Psych: Increase mirtazapine to 22.5mg PO q HS as patient continues to have some tearfulness. Hospitalist to examine for tissue damage at Vyas site in regards to replacing vs. straight cathing up to QID while damage heals. Ativan decreased to 0.25mg PO BID. Plan 09/28/17 Vyas catheter was initially placed on 09/26/17 and accidently pulled out on evening of 09/27/17. Vyas replaced this AM on 09/28/17. If she does not tolerate this or pulls it out then will need to increase number of times a day of straight cath to QID. May consider placing leg bag during the day for ease of movement. Continue to encourage good oral intake and mighty shakes. Continue psychiatric care per team and provide safe and supportive environment. Recent labs were unremarkable. Patient continues on Cipro BID until 10/01/17 for UTI secondary to E. Coli and Klebsiella oxytoca. Given persistence of behaviors, may consider MRI of brain for further evaluation and possible organic cause. Will recheck labs on 10/03/17 to monitor blood counts, electrolytes and renal function, sooner if indicated. 09/29/17 Psych: Increase mirtazapine to 30mg PO q HS to target mood/tearfulness. Patient has not had aggression in past ~48 hours which is an improvement though she continues to be irritable. Consider re-trial of low-dose Depakote.
[2017-09-29] MEDS: MIRTAZAPINE 30 MG TABLET PO SCH (20:07)
[2017-09-29] MEDS: TAMSULOSIN 0.4 MG CAPSULE PO SCH (20:07)
[2017-09-29] MEDS: LORazepam 0.5 MG TABLET PO SCH (20:08)
[2017-09-30] MEDS: POLYETHYL GLYCOL 3350 17gm PACKET PO SCH (08:52)
[2017-09-30] MEDS: PROPRANOLOL 10 MG TABLET PO SCH ×3 (08:52→19:38)
[2017-09-30] MEDS: CYANOCOBALAMIN (B-12) 500mcg TABLET PO SCH (08:52)
[2017-09-30] MEDS: CIPROFLOXACIN 500 MG TABLET PO SCH ×2 (08:52→19:38)
[2017-09-30] MEDS: SENNA + DOCUSATE TABLET PO SCH ×2 (08:53→19:37)
[2017-09-30] MEDS: LORazepam 1 MG TABLET PO PRN (11:13)
--- NOTE | 2017-09-30 15:42 | Neuropsych Progress Note ---
[facility] Subjective Date: 09/30/17 - Sujective/Severity of Illness Medications: Acetaminophen (Tylenol Arthritis) 650 mg PO Q8H PRN PRN Reason: Pain Last Admin: 09/29/17 20:06 Dose: 650 mg Bisacodyl (Dulcolax) 10 mg RECTALLY DAILY PRN PRN Reason: Constipation Last Admin: 09/01/17 11:05 Dose: 10 mg Bisacodyl (Dulcolax) 5 mg PO BID PRN PRN Reason: Constipation Ciprofloxacin (Cipro 500 Mg) 500 mg PO Q12HR [facility] Stop: 10/01/17 23:59 Last Admin: 09/30/17 08:52 Dose: 500 mg Cyanocobalamin (Vit. B-12) 1,000 mcg PO DAILY [facility] Last Admin: 09/30/17 08:52 Dose: 1,000 mcg Ergocalciferol (Vitamin D-2) 50,000 unit PO Q7D [facility] Last Admin: 09/28/17 17:25 Dose: 50,000 unit Lorazepam (Ativan) 0.5 mg PO Q6H PRN PRN Reason: Extreme agitation Last Admin: 09/30/17 11:13 Dose: 0.5 mg Lorazepam (Ativan Intensol) 0.5 mg PO Q6H PRN Last Admin: 09/11/17 15:34 Dose: 0.5 mg Lorazepam (Ativan Inj) 0.5 mg IM Q6H PRN PRN Reason: Extreme agitation Last Admin: 09/27/17 15:11 Dose: 0.5 mg Lorazepam (Ativan) 0.25 mg PO [facility] Last Admin: 09/29/17 20:08 Dose: 0.25 mg Magnesium Hydroxide (Mom) 30 ml PO PRN PRN PRN Reason: Constipation Mirtazapine (Remeron) 30 mg PO HS [facility] Last Admin: 09/29/17 20:07 Dose: 30 mg Polyethylene Glycol (Miralax) 17 gm PO DAILY [facility] Last Admin: 09/30/17 08:52 Dose: 17 gm Potassium Chloride (Micro-K 10 Meq Capsule) 10 meq PO WB [facility] Last Admin: 09/30/17 08:52 Dose: 10 meq Propranolol HCl (Inderal) 10 mg PO TID [facility] Last Admin: 09/30/17 15:08 Dose: 10 mg Senna/Docusate Sodium (Senna Plus Tablet) 2 tab PO BID PRN PRN Reason: Constipation Senna/Docusate Sodium (Senna Plus Tablet) 1 tab PO BID [facility] Last Admin: 09/30/17 08:53 Dose: 1 tab Tamsulosin HCl (Flomax) 0.4 mg PO HS [facility] Last Admin: 09/29/17 20:07 Dose: 0.4 mg Subjective: Patient seen and chart reviewed. Case discussed with treatment team. Patient is sleeping at time of rounds. Nursing staff report patient has been significantly more pleasant and cooperative in past 24-48 hours. She becomes mildly irritable and times but has not become aggressive and this is not long- lasting. Episodes of tearfulness decreasing overall. Patient slept 8.25 hours overnight. VSS. She has been eating 50% of meals. No psychotropic PRNs required in past 24 hours. Vyas has been replaced and patient is tolerating it well. Discussed care with patient's son Bala and discussed discharge to SNU, that no further med changes recommended at this time as patient has not tolerated antipsychotics, Depakote or carbamazepine. Her behavior is such that could now be managed at LTC facility. Unclear to what extent mentation/confusion will improve as it is unclear what is delirium vs. underlying cognition (though delirium can be harmful as well so patient may have new baseline). All questions answered to his satisfaction. Discussed possibility of o/p urology f/ u to discuss placement of suprapubic catheter. Start Time: 13:40 Stop Time: 14:20 Care: >50% of this visit spent in counseling/coordination care. (Discussion of plan/care with family) Mental Status Exam Vitals: Last Vital Signs Temp 98.6 F 09/30/17 08:00 Pulse 88 09/30/17 08:00 Resp 18 09/30/17 14:00 BP 134/69 09/30/17 08:00 Pulse Ox 92 09/30/17 08:00 Height: 1.65 m Weight: 56.6 kg - Mental Status Exam Muscle Strength/Tone: Weak Dressing: Casual Grooming: Fair Attitude: Cooperative Motor Activity: Retardation Eye Contact: Fair Speech: Slowed Volume: Soft Rhythm: Paucity of Language Orientation: Disoriented to time, Disoriented to place, Disoriented to situation , Oriented to person Mood: Neutral (significantly more stable than admission, still mild intermittent irritability) Rate of Thoughts: Delayed Thought Organization: Confused Associations: Illogical Abstract Reasoning: Impaired, concrete Thought Content: Ruminations (sadness over loved ones who have passed - intermittent) Perception/Psychotic: Other (Denies, does not appear to be responding to internal stimuli) Language: Naming Impaired Fund of Knowledge: Poor fund of knowledge Memory: Poor-immediate, Poor-recent, Poor-remote Suicidal Ideation: Denies Homicidal Ideation: Denies Insight: Impaired Judgement: Impaired Impulse Control: Fair - Laboratory Result Diagrams: 09/25/17 07:16 09/28/17 07:20 Assessment and Plan (1) Delirium Problem details: due to multiple etiologies, including urinary retention and recurrent UTIs Current visit: Yes Status: Acute (2) Major neurocognitive disorder Problem details: Moderate, likely mixed etiology, with behavioral disturbance Other medical conditions: Recurrent UTIs Hypernatremia-POA Urinary retention Vitamin D deficiency Irritable bowel syndrome Diverticulosis Chronic compression fracture T12 Osteopenia Current visit: Yes Status: Acute (3) Vitamin B12 deficiency Current visit: Yes Status: Acute Continue current care; SW/CM working to finalize placement to SNU. Hospital Course Summary Disclaimer: The visit summary below is not to be considered part of the above Progress Note. Hospital Course: Psych 08/25/17: Held Wellbutrin XL, Buspar, Viibryd due to suspected bipolar alexander. Psych 08/26/17: Patient seems to have improved slightly with discontinuation of all Wellbutrin XL, Buspar, Viibryd (upon admission). Currently taking seroquel 25mg PO BID and propranolol 10mg PO BID from home med list. Will add Depakote DR 250mg PO BID. Will additionally start Vitamin B12 1000mcg IM x 3 days then weekly for a month, then monthly thereafter. 08/27/2017- Psych- PT is irritable and labile at times but is redirectable. Will consider increase of Depakote tomorrow if tolerating well 08/28/2017 Psych- Pt remains irritable and impulsive at times. Increase Depakote to 250mg PO TID. 08/29/17 Psych: Continue current care as we await serotonergic agents to clear from blood given half-lives; discussed care with DPOA/daughter who is in agreement with treatment plan. Patient has hx of malignant neoplasm of bladder. Daughter states that no recent imaging has been done and is in agreement with sedating as necessary to obtain head CT. 08/30/17 Psych: Will switch Depakote to sprinkles 250mg PO TID for improved compliance, increase Seroquel to 25mg PO TID. May need to switch to Risperdal if urinary retention worsening. Recheck UA, will bladder scan BID and straight cath if necessary. Once patient has had compliance with Depakote x 3 days, can check trough VPA level and adjust to therapeutic level. 08/31/17-hospitalist Dr. Ramos had ordered a repeat urinalysis because patient continues to have behaviors and has had some urinary retention. She'd had a positive urinalysis on admission and was treated. Urinalysis performed last night was completely negative. She has had 3 doses of IM cyanocobalamin for borderline low B12 deficiency . Continue 1000 g cyanocobalamin a day. Recommend follow-up B12 level on outpatient basis. Patient medically stable. Chart reviewed. 08/31/17 Psych: Will collapse Depakote sprinkles to 250mg PO q AM and 500mg PO with dinner to increase adherence. Seroquel does not seem to be helpful and may be causing restlessness and urinary retention; will hold and monitor behavior for the time being. Stressed importance of adherence to Depakote to nursing staff. 09/01/17 Psych: Continue to focus on compliance with Depakote. Patient had BM with suppository, seems less irritable after this and with straight cathing PRN after bladder scans. Monitor mood, behavior and response to treatment. 09/02/17 Psych: Have ordered urgent labs: CBC, CMP, ammonia level, VPA level. Ordered urgent CT scan of abdomen/pelvis to f/u on hx of bladder cancer. Will hold VPA for now and monitor mentation, appetite. 09/03/17 Pt is lethargic with poor appetite. CT scan pending. Continue current care. Medical team following 09/04/17- Psych- Pt is a little more alert today. CT today. Ativan 0.5mg x [address] 09/05/17 Psych: Continue holding medications - will discuss further workup and medical treatment with hospitalist. Concern that there may be some underlying medical issues contributing to behaviors. Did not tolerate Depakote well in regards to appetite. Will await this discussion before making further med changes. 09/07/17 Psych: Son Bala to discuss trial of Risperdal with family. Patient will need memory care after d/c. 09/08/17 Psych: Continue current care; patient continues to improve leading me to wander how much of this was a hyperactive delirium vs. psychiatric cause of agitation (could also be manic episode resolving). Will monitor for another day before changing meds as she is showing improvement on current regimen. 09/09/17 Psych: Patient is not able to tolerate antipsychotics (responded very poorly to Risperdal 0.25mg); will completely discontinue scheduled and PRNs. May consider use of gabapentin or carbamazepine as mood stabilizers as she did not tolerate Depakote either. 09/10/17 Psych- Agitation last night. Continue current care 09/11/17 Psych- Pt more alert today. No behaviors over night. Continue current care 09/13/17: Hosp BMP repeated on 09/12/17 - stable. Na 144. 4 Urine culture + for Klebsiella, sensitive to 1st gen cephalosporins. Continue Keflex (started 09/10). VS: HR variable, occ mild elevations in BP acceptable in her age group; afebrile. Psych: pt does not tolerate antipsychotics. They are continuing with medication adjustments. 09/14/17 Psych: Increase mirtazapine to 15mg PO q HS, start carbamazepine 100mg PO q HS and titrate further tomorrow. Family is aware there will be some trade off in functionality though meds needed for facility to be able to care for patient. 09/15/17 Psych: Increase carbamazepine to 100mg PO BID. 09/16/17 Psych: Continue carbamazepine and consider increasing to 100mg PO q AM and 200mg PO q HS tomorrow (09/17) if well-tolerated. After discussion with family, agreed to discontinue Namenda. 09/17/17- Psych- Remains combative with cares. Increase Carbamazepine to 200mg at HS 09/18/17 Psych- Remains aggressive with cares and anxious and tearful at times. 09/19/17 Psych: Increase carbamazepine to 200mg PO BID. Will check CBC, CMP, trough carbamazepine level in AM. 09/20/17 Psych: Carbamazepine increased to 200mg PO q HS last night as it was mistakenly not given over the weekend. Will check trough level prior to tonight' s dose and likely increase to 200mg PO BID tomorrow AM. 09/20/17 Hosp Urinary retention with E. coli & Strep viridans UTI; later with klebsiella UTI. History of bladder cancer -Treated with Keflex -Still requires straight cath about twice per day. Unlikely she'd tolerate an indwelling catheter. -Recommend outpt urology f/u Hypernatremia -resolved -Check BMP Irritable bowel syndrome, Diverticulosis -On good bowel regimen HTN -stable -On Propranolol 09/21/17 Psych: Increase carbamazepine to 200mg PO BID; level 5.3. 09/22/17 Psych: Will check UA, consult with urology as I believe patient has underlying cause for continued delirium. Will discontinue carbamazepine as well due to patient's dropping cell counts. Will schedule Ativan 0.5mg PO BID as it does seem to help patient relax. 09/23 Continues to require straight catheterization twice a day due to retention. Staff does not feel the patient would keep an indwelling Vyas catheter in place. She has previously been treated for a UTI- with E. coli & Strep viridans UTI; later with klebsiella UTI Given most recent preliminary urine culture positive gram-negative- Will start Keflex TID and continue to monitor Case discussed with Dr Ramos- She feels that this may be delirium in nature. We will go ahead and treat urinary tract infection and see if behaviors improve. 09/25/2017 Psych- Pt is irritable and aggressive at times. Continue current care 09/26/17 Psych: Plan to place Vyas catheter today and monitor irritability/ agitation. 09/27/17 Psych: Indwelling catheter place last night; continue to monitor behavior /response as this hopefully was helpful for pain/agitation. Also on antibiotics for UTI. 09/28/17 Psych: Increase mirtazapine to 22.5mg PO q HS as patient continues to have some tearfulness. Hospitalist to examine for tissue damage at Vyas site in regards to replacing vs. straight cathing up to QID while damage heals. Ativan decreased to 0.25mg PO BID. Plan 09/28/17 Vyas catheter was initially placed on 09/26/17 and accidently pulled out on evening of 09/27/17. Vyas replaced this AM on 09/28/17. If she does not tolerate this or pulls it out then will need to increase number of times a day of straight cath to QID. May consider placing leg bag during the day for ease of movement. Continue to encourage good oral intake and mighty shakes. Continue psychiatric care per team and provide safe and supportive environment. Recent labs were unremarkable. Patient continues on Cipro BID until 10/01/17 for UTI secondary to E. Coli and Klebsiella oxytoca. Given persistence of behaviors, may consider MRI of brain for further evaluation and possible organic cause. Will recheck labs on 10/03/17 to monitor blood counts, electrolytes and renal function, sooner if indicated. 09/29/17 Psych: Increase mirtazapine to 30mg PO q HS to target mood/tearfulness. Patient has not had aggression in past ~48 hours which is an improvement though she continues to be irritable. 09/30/17 Psych: Continue current care; SW/CM working to finalize placement to SNU.
[2017-09-30] MEDS: LORazepam 0.5 MG TABLET PO SCH (19:37)
[2017-09-30] MEDS: MIRTAZAPINE 30 MG TABLET PO SCH (19:37)
[2017-09-30] MEDS: TAMSULOSIN 0.4 MG CAPSULE PO SCH (19:38)
[2017-10-01] MEDS: PROPRANOLOL 10 MG TABLET PO SCH ×5 (08:16→22:25)
[2017-10-01] MEDS: CIPROFLOXACIN 500 MG TABLET PO SCH ×4 (08:17→22:25)
[2017-10-01] MEDS: POLYETHYL GLYCOL 3350 17gm PACKET PO SCH (08:17)
[2017-10-01] MEDS: CYANOCOBALAMIN (B-12) 500mcg TABLET PO SCH (08:17)
[2017-10-01] MEDS: SENNA + DOCUSATE TABLET PO SCH ×4 (08:17→22:25)
[2017-10-01] MEDS: LORazepam 0.5 MG TABLET PO SCH ×3 (11:33→22:25)
[2017-10-01] MEDS: MIRTAZAPINE 30 MG TABLET PO SCH ×3 (11:34→22:25)
[2017-10-01] MEDS: TAMSULOSIN 0.4 MG CAPSULE PO SCH ×3 (11:34→22:25)
--- NOTE | 2017-10-01 16:18 | Neuropsych Progress Note ---
[facility] Subjective Date: 10/01/17 - Sujective/Severity of Illness Medications: Acetaminophen (Tylenol Arthritis) 650 mg PO Q8H PRN PRN Reason: Pain Last Admin: 09/29/17 20:06 Dose: 650 mg Bisacodyl (Dulcolax) 10 mg RECTALLY DAILY PRN PRN Reason: Constipation Last Admin: 09/01/17 11:05 Dose: 10 mg Bisacodyl (Dulcolax) 5 mg PO BID PRN PRN Reason: Constipation Ciprofloxacin (Cipro 500 Mg) 500 mg PO Q12HR [facility] Stop: 10/01/17 23:59 Last Admin: 10/01/17 11:33 Dose: Not Given Cyanocobalamin (Vit. B-12) 1,000 mcg PO DAILY [facility] Last Admin: 10/01/17 08:17 Dose: 1,000 mcg Ergocalciferol (Vitamin D-2) 50,000 unit PO Q7D [facility] Last Admin: 09/28/17 17:25 Dose: 50,000 unit Lorazepam (Ativan) 0.5 mg PO Q6H PRN PRN Reason: Extreme agitation Last Admin: 09/30/17 11:13 Dose: 0.5 mg Lorazepam (Ativan Intensol) 0.5 mg PO Q6H PRN Last Admin: 09/11/17 15:34 Dose: 0.5 mg Lorazepam (Ativan Inj) 0.5 mg IM Q6H PRN PRN Reason: Extreme agitation Last Admin: 09/27/17 15:11 Dose: 0.5 mg Lorazepam (Ativan) 0.25 mg PO [facility] Last Admin: 10/01/17 11:33 Dose: Not Given Magnesium Hydroxide (Mom) 30 ml PO PRN PRN PRN Reason: Constipation Mirtazapine (Remeron) 30 mg PO HS [facility] Last Admin: 10/01/17 11:34 Dose: Not Given Polyethylene Glycol (Miralax) 17 gm PO DAILY [facility] Last Admin: 10/01/17 08:17 Dose: 17 gm Potassium Chloride (Micro-K 10 Meq Capsule) 10 meq PO WB [facility] Last Admin: 10/01/17 08:17 Dose: 10 meq Propranolol HCl (Inderal) 10 mg PO TID [facility] Last Admin: 10/01/17 14:28 Dose: 10 mg Senna/Docusate Sodium (Senna Plus Tablet) 2 tab PO BID PRN PRN Reason: Constipation Senna/Docusate Sodium (Senna Plus Tablet) 1 tab PO BID [facility] Last Admin: 10/01/17 11:34 Dose: Not Given Tamsulosin HCl (Flomax) 0.4 mg PO HS [facility] Last Admin: 10/01/17 11:34 Dose: Not Given Subjective: Patient seen and chart reviewed. Nursing reports pt is doing well. Sleeping well and has a good appetite. On face to face the pt is pleasant but confused. She is only oriented to self. She denies any pain. Tolerating meds. Voices no concerns at this time Start Time: 10:30 Stop Time: 10:45 Mental Status Exam Vitals: Last Vital Signs Temp 98.4 F 10/01/17 08:00 Pulse 77 10/01/17 08:00 Resp 16 10/01/17 08:00 BP 132/76 10/01/17 08:00 Pulse Ox 98 10/01/17 08:00 Height: 1.65 m Weight: 56.6 kg - Mental Status Exam Muscle Strength/Tone: Weak Dressing: Casual Grooming: Fair Attitude: Cooperative Motor Activity: Retardation Eye Contact: Fair Speech: Slowed Volume: Soft Rhythm: Paucity of Language Orientation: Disoriented to time, Disoriented to place, Disoriented to situation , Oriented to person Mood: Neutral (significantly more stable than admission, still mild intermittent irritability) Rate of Thoughts: Delayed Thought Organization: Confused Associations: Illogical Abstract Reasoning: Impaired, concrete Thought Content: Ruminations (sadness over loved ones who have passed - intermittent) Perception/Psychotic: Other (Denies, does not appear to be responding to internal stimuli) Language: Naming Impaired Fund of Knowledge: Poor fund of knowledge Memory: Poor-immediate, Poor-recent, Poor-remote Suicidal Ideation: Denies Homicidal Ideation: Denies Insight: Impaired Judgement: Impaired Impulse Control: Fair - Laboratory Result Diagrams: 09/25/17 07:16 09/28/17 07:20 Assessment and Plan (1) Major neurocognitive disorder Problem details: Moderate, likely mixed etiology, with behavioral disturbance Other medical conditions: Recurrent UTIs Hypernatremia-POA Urinary retention Vitamin D deficiency Irritable bowel syndrome Diverticulosis Chronic compression fracture T12 Osteopenia Current visit: Yes Status: Acute (2) Vitamin B12 deficiency Current visit: Yes Status: Acute (3) Delirium Problem details: due to multiple etiologies, including urinary retention and recurrent UTIs Current visit: Yes Status: Acute Hospital Course Summary Disclaimer: The visit summary below is not to be considered part of the above Progress Note. Hospital Course: Psych 08/25/17: Held Wellbutrin XL, Buspar, Viibryd due to suspected bipolar alexander. Psych 08/26/17: Patient seems to have improved slightly with discontinuation of all Wellbutrin XL, Buspar, Viibryd (upon admission). Currently taking seroquel 25mg PO BID and propranolol 10mg PO BID from home med list. Will add Depakote DR 250mg PO BID. Will additionally start Vitamin B12 1000mcg IM x 3 days then weekly for a month, then monthly thereafter. 08/27/2017- Psych- PT is irritable and labile at times but is redirectable. Will consider increase of Depakote tomorrow if tolerating well 08/28/2017 Psych- Pt remains irritable and impulsive at times. Increase Depakote to 250mg PO TID. 08/29/17 Psych: Continue current care as we await serotonergic agents to clear from blood given half-lives; discussed care with DPOA/daughter who is in agreement with treatment plan. Patient has hx of malignant neoplasm of bladder. Daughter states that no recent imaging has been done and is in agreement with sedating as necessary to obtain head CT. 08/30/17 Psych: Will switch Depakote to sprinkles 250mg PO TID for improved compliance, increase Seroquel to 25mg PO TID. May need to switch to Risperdal if urinary retention worsening. Recheck UA, will bladder scan BID and straight cath if necessary. Once patient has had compliance with Depakote x 3 days, can check trough VPA level and adjust to therapeutic level. 08/31/17-hospitalist Dr. Ramos had ordered a repeat urinalysis because patient continues to have behaviors and has had some urinary retention. She'd had a positive urinalysis on admission and was treated. Urinalysis performed last night was completely negative. She has had 3 doses of IM cyanocobalamin for borderline low B12 deficiency . Continue 1000 g cyanocobalamin a day. Recommend follow-up B12 level on outpatient basis. Patient medically stable. Chart reviewed. 08/31/17 Psych: Will collapse Depakote sprinkles to 250mg PO q AM and 500mg PO with dinner to increase adherence. Seroquel does not seem to be helpful and may be causing restlessness and urinary retention; will hold and monitor behavior for the time being. Stressed importance of adherence to Depakote to nursing staff. 09/01/17 Psych: Continue to focus on compliance with Depakote. Patient had BM with suppository, seems less irritable after this and with straight cathing PRN after bladder scans. Monitor mood, behavior and response to treatment. 09/02/17 Psych: Have ordered urgent labs: CBC, CMP, ammonia level, VPA level. Ordered urgent CT scan of abdomen/pelvis to f/u on hx of bladder cancer. Will hold VPA for now and monitor mentation, appetite. 09/03/17 Pt is lethargic with poor appetite. CT scan pending. Continue current care. Medical team following 09/04/17- Psych- Pt is a little more alert today. CT today. Ativan 0.5mg x [address] 09/05/17 Psych: Continue holding medications - will discuss further workup and medical treatment with hospitalist. Concern that there may be some underlying medical issues contributing to behaviors. Did not tolerate Depakote well in regards to appetite. Will await this discussion before making further med changes. 09/07/17 Psych: Son Bala to discuss trial of Risperdal with family. Patient will need memory care after d/c. 09/08/17 Psych: Continue current care; patient continues to improve leading me to wander how much of this was a hyperactive delirium vs. psychiatric cause of agitation (could also be manic episode resolving). Will monitor for another day before changing meds as she is showing improvement on current regimen. 09/09/17 Psych: Patient is not able to tolerate antipsychotics (responded very poorly to Risperdal 0.25mg); will completely discontinue scheduled and PRNs. May consider use of gabapentin or carbamazepine as mood stabilizers as she did not tolerate Depakote either. 09/10/17 Psych- Agitation last night. Continue current care 09/11/17 Psych- Pt more alert today. No behaviors over night. Continue current care 09/13/17: Hosp BMP repeated on 09/12/17 - stable. Na 144. 4 Urine culture + for Klebsiella, sensitive to 1st gen cephalosporins. Continue Keflex (started 09/10). VS: HR variable, occ mild elevations in BP acceptable in her age group; afebrile. Psych: pt does not tolerate antipsychotics. They are continuing with medication adjustments. 09/14/17 Psych: Increase mirtazapine to 15mg PO q HS, start carbamazepine 100mg PO q HS and titrate further tomorrow. Family is aware there will be some trade off in functionality though meds needed for facility to be able to care for patient. 09/15/17 Psych: Increase carbamazepine to 100mg PO BID. 09/16/17 Psych: Continue carbamazepine and consider increasing to 100mg PO q AM and 200mg PO q HS tomorrow (09/17) if well-tolerated. After discussion with family, agreed to discontinue Namenda. 09/17/17- Psych- Remains combative with cares. Increase Carbamazepine to 200mg at HS 09/18/17 Psych- Remains aggressive with cares and anxious and tearful at times. 09/19/17 Psych: Increase carbamazepine to 200mg PO BID. Will check CBC, CMP, trough carbamazepine level in AM. 09/20/17 Psych: Carbamazepine increased to 200mg PO q HS last night as it was mistakenly not given over the weekend. Will check trough level prior to tonight' s dose and likely increase to 200mg PO BID tomorrow AM. 09/20/17 Hosp Urinary retention with E. coli & Strep viridans UTI; later with klebsiella UTI. History of bladder cancer -Treated with Keflex -Still requires straight cath about twice per day. Unlikely she'd tolerate an indwelling catheter. -Recommend outpt urology f/u Hypernatremia -resolved -Check BMP Irritable bowel syndrome, Diverticulosis -On good bowel regimen HTN -stable -On Propranolol 09/21/17 Psych: Increase carbamazepine to 200mg PO BID; level 5.3. 09/22/17 Psych: Will check UA, consult with urology as I believe patient has underlying cause for continued delirium. Will discontinue carbamazepine as well due to patient's dropping cell counts. Will schedule Ativan 0.5mg PO BID as it does seem to help patient relax. 09/23 Continues to require straight catheterization twice a day due to retention. Staff does not feel the patient would keep an indwelling Vyas catheter in place. She has previously been treated for a UTI- with E. coli & Strep viridans UTI; later with klebsiella UTI Given most recent preliminary urine culture positive gram-negative- Will start Keflex TID and continue to monitor Case discussed with Dr Ramos- She feels that this may be delirium in nature. We will go ahead and treat urinary tract infection and see if behaviors improve. 09/25/2017 Psych- Pt is irritable and aggressive at times. Continue current care 09/26/17 Psych: Plan to place Vyas catheter today and monitor irritability/ agitation. 09/27/17 Psych: Indwelling catheter place last night; continue to monitor behavior /response as this hopefully was helpful for pain/agitation. Also on antibiotics for UTI. 09/28/17 Psych: Increase mirtazapine to 22.5mg PO q HS as patient continues to have some tearfulness. Hospitalist to examine for tissue damage at Vyas site in regards to replacing vs. straight cathing up to QID while damage heals. Ativan decreased to 0.25mg PO BID. Plan 09/28/17 Vyas catheter was initially placed on 09/26/17 and accidently pulled out on evening of 09/27/17. Vyas replaced this AM on 09/28/17. If she does not tolerate this or pulls it out then will need to increase number of times a day of straight cath to QID. May consider placing leg bag during the day for ease of movement. Continue to encourage good oral intake and mighty shakes. Continue psychiatric care per team and provide safe and supportive environment. Recent labs were unremarkable. Patient continues on Cipro BID until 10/01/17 for UTI secondary to E. Coli and Klebsiella oxytoca. Given persistence of behaviors, may consider MRI of brain for further evaluation and possible organic cause. Will recheck labs on 10/03/17 to monitor blood counts, electrolytes and renal function, sooner if indicated. 09/29/17 Psych: Increase mirtazapine to 30mg PO q HS to target mood/tearfulness. Patient has not had aggression in past ~48 hours which is an improvement though she continues to be irritable. 09/30/17 Psych: Continue current care; SW/CM working to finalize placement to SNU. 10/01/17- Psych- Pt fairly stable. Continue current care
[2017-10-02] MEDS: PROPRANOLOL 10 MG TABLET PO SCH ×3 (10:11→19:53)
[2017-10-02] MEDS: SENNA + DOCUSATE TABLET PO SCH ×2 (10:11→19:53)
[2017-10-02] MEDS: POLYETHYL GLYCOL 3350 17gm PACKET PO SCH (10:12)
[2017-10-02] MEDS: CYANOCOBALAMIN (B-12) 500mcg TABLET PO SCH (10:12)
--- NOTE | 2017-10-02 11:09 | Neuropsych Progress Note ---
[facility] Subjective Date: 10/02/17 - Sujective/Severity of Illness Medications: Acetaminophen (Tylenol Arthritis) 650 mg PO Q8H PRN PRN Reason: Pain Last Admin: 09/29/17 20:06 Dose: 650 mg Bisacodyl (Dulcolax) 10 mg RECTALLY DAILY PRN PRN Reason: Constipation Last Admin: 09/01/17 11:05 Dose: 10 mg Bisacodyl (Dulcolax) 5 mg PO BID PRN PRN Reason: Constipation Cyanocobalamin (Vit. B-12) 1,000 mcg PO DAILY [facility] Last Admin: 10/02/17 10:12 Dose: 1,000 mcg Ergocalciferol (Vitamin D-2) 50,000 unit PO Q7D [facility] Last Admin: 09/28/17 17:25 Dose: 50,000 unit Lorazepam (Ativan) 0.5 mg PO Q6H PRN PRN Reason: Extreme agitation Last Admin: 09/30/17 11:13 Dose: 0.5 mg Lorazepam (Ativan Intensol) 0.5 mg PO Q6H PRN Last Admin: 09/11/17 15:34 Dose: 0.5 mg Lorazepam (Ativan Inj) 0.5 mg IM Q6H PRN PRN Reason: Extreme agitation Last Admin: 09/27/17 15:11 Dose: 0.5 mg Lorazepam (Ativan) 0.25 mg PO HS [facility] Last Admin: 10/01/17 22:25 Dose: Not Given Magnesium Hydroxide (Mom) 30 ml PO PRN PRN PRN Reason: Constipation Mirtazapine (Remeron) 30 mg PO [facility] Last Admin: 10/01/17 22:25 Dose: Not Given Polyethylene Glycol (Miralax) 17 gm PO DAILY [facility] Last Admin: 10/02/17 10:12 Dose: 17 gm Potassium Chloride (Micro-K 10 Meq Capsule) 10 meq PO WB [facility] Last Admin: 10/02/17 10:11 Dose: 10 meq Propranolol HCl (Inderal) 10 mg PO TID [facility] Last Admin: 10/02/17 10:11 Dose: 10 mg Senna/Docusate Sodium (Senna Plus Tablet) 2 tab PO BID PRN PRN Reason: Constipation Senna/Docusate Sodium (Senna Plus Tablet) 1 tab PO BID [facility] Last Admin: 10/02/17 10:11 Dose: 1 tab Tamsulosin HCl (Flomax) 0.4 mg PO HS [facility] Last Admin: 10/01/17 22:25 Dose: Not Given Subjective: Patient seen and chart reviewed. Nursing reports pt is doing well. Sleeping well and has a good appetite. On face to face the pt is pleasant but confused. She states she is leaving Tuesday to go to [facility] but is not able to say why. her mood is stable. Denies ny S/I. Tolerating meds Start Time: 11:15 Stop Time: 11:30 Mental Status Exam Vitals: Last Vital Signs Temp 97.6 F 10/02/17 08:00 Pulse 83 10/02/17 08:00 Resp 18 10/02/17 08:00 BP 121/80 10/02/17 08:00 Pulse Ox 98 10/02/17 08:00 Height: 1.65 m Weight: 56.6 kg - Mental Status Exam Muscle Strength/Tone: Weak Dressing: Casual Grooming: Fair Attitude: Cooperative Motor Activity: Retardation Eye Contact: Fair Speech: Slowed Volume: Soft Rhythm: Paucity of Language Orientation: Disoriented to time, Disoriented to place, Disoriented to situation , Oriented to person Mood: Neutral (significantly more stable than admission, still mild intermittent irritability) Rate of Thoughts: Delayed Thought Organization: Confused Associations: Illogical Abstract Reasoning: Impaired, concrete Thought Content: Ruminations (sadness over loved ones who have passed - intermittent) Perception/Psychotic: Other (Denies, does not appear to be responding to internal stimuli) Language: Naming Impaired Fund of Knowledge: Poor fund of knowledge Memory: Poor-immediate, Poor-recent, Poor-remote Suicidal Ideation: Denies Homicidal Ideation: Denies Insight: Impaired Judgement: Impaired Impulse Control: Fair - Laboratory Result Diagrams: 09/25/17 07:16 09/28/17 07:20 Assessment and Plan (1) Major neurocognitive disorder Problem details: Moderate, likely mixed etiology, with behavioral disturbance Other medical conditions: Recurrent UTIs Hypernatremia-POA Urinary retention Vitamin D deficiency Irritable bowel syndrome Diverticulosis Chronic compression fracture T12 Osteopenia Current visit: Yes Status: Acute (2) Vitamin B12 deficiency Current visit: Yes Status: Acute (3) Delirium Problem details: due to multiple etiologies, including urinary retention and recurrent UTIs Current visit: Yes Status: Acute Hospital Course Summary Disclaimer: The visit summary below is not to be considered part of the above Progress Note. Hospital Course: Psych 08/25/17: Held Wellbutrin XL, Buspar, Viibryd due to suspected bipolar alexander. Psych 08/26/17: Patient seems to have improved slightly with discontinuation of all Wellbutrin XL, Buspar, Viibryd (upon admission). Currently taking seroquel 25mg PO BID and propranolol 10mg PO BID from home med list. Will add Depakote DR 250mg PO BID. Will additionally start Vitamin B12 1000mcg IM x 3 days then weekly for a month, then monthly thereafter. 08/27/2017- Psych- PT is irritable and labile at times but is redirectable. Will consider increase of Depakote tomorrow if tolerating well 08/28/2017 Psych- Pt remains irritable and impulsive at times. Increase Depakote to 250mg PO TID. 08/29/17 Psych: Continue current care as we await serotonergic agents to clear from blood given half-lives; discussed care with DPOA/daughter who is in agreement with treatment plan. Patient has hx of malignant neoplasm of bladder. Daughter states that no recent imaging has been done and is in agreement with sedating as necessary to obtain head CT. 08/30/17 Psych: Will switch Depakote to sprinkles 250mg PO TID for improved compliance, increase Seroquel to 25mg PO TID. May need to switch to Risperdal if urinary retention worsening. Recheck UA, will bladder scan BID and straight cath if necessary. Once patient has had compliance with Depakote x 3 days, can check trough VPA level and adjust to therapeutic level. 08/31/17-hospitalist Dr. Ramos had ordered a repeat urinalysis because patient continues to have behaviors and has had some urinary retention. She'd had a positive urinalysis on admission and was treated. Urinalysis performed last night was completely negative. She has had 3 doses of IM cyanocobalamin for borderline low B12 deficiency . Continue 1000 g cyanocobalamin a day. Recommend follow-up B12 level on outpatient basis. Patient medically stable. Chart reviewed. 08/31/17 Psych: Will collapse Depakote sprinkles to 250mg PO q AM and 500mg PO with dinner to increase adherence. Seroquel does not seem to be helpful and may be causing restlessness and urinary retention; will hold and monitor behavior for the time being. Stressed importance of adherence to Depakote to nursing staff. 09/01/17 Psych: Continue to focus on compliance with Depakote. Patient had BM with suppository, seems less irritable after this and with straight cathing PRN after bladder scans. Monitor mood, behavior and response to treatment. 09/02/17 Psych: Have ordered urgent labs: CBC, CMP, ammonia level, VPA level. Ordered urgent CT scan of abdomen/pelvis to f/u on hx of bladder cancer. Will hold VPA for now and monitor mentation, appetite. 09/03/17 Pt is lethargic with poor appetite. CT scan pending. Continue current care. Medical team following 09/04/17- Psych- Pt is a little more alert today. CT today. Ativan 0.5mg x [address] 09/05/17 Psych: Continue holding medications - will discuss further workup and medical treatment with hospitalist. Concern that there may be some underlying medical issues contributing to behaviors. Did not tolerate Depakote well in regards to appetite. Will await this discussion before making further med changes. 09/07/17 Psych: Son Bala to discuss trial of Risperdal with family. Patient will need memory care after d/c. 09/08/17 Psych: Continue current care; patient continues to improve leading me to wander how much of this was a hyperactive delirium vs. psychiatric cause of agitation (could also be manic episode resolving). Will monitor for another day before changing meds as she is showing improvement on current regimen. 09/09/17 Psych: Patient is not able to tolerate antipsychotics (responded very poorly to Risperdal 0.25mg); will completely discontinue scheduled and PRNs. May consider use of gabapentin or carbamazepine as mood stabilizers as she did not tolerate Depakote either. 09/10/17 Psych- Agitation last night. Continue current care 09/11/17 Psych- Pt more alert today. No behaviors over night. Continue current care 09/13/17: Hosp BMP repeated on 09/12/17 - stable. Na 144. 4 Urine culture + for Klebsiella, sensitive to 1st gen cephalosporins. Continue Keflex (started 09/10). VS: HR variable, occ mild elevations in BP acceptable in her age group; afebrile. Psych: pt does not tolerate antipsychotics. They are continuing with medication adjustments. 09/14/17 Psych: Increase mirtazapine to 15mg PO q HS, start carbamazepine 100mg PO q HS and titrate further tomorrow. Family is aware there will be some trade off in functionality though meds needed for facility to be able to care for patient. 09/15/17 Psych: Increase carbamazepine to 100mg PO BID. 09/16/17 Psych: Continue carbamazepine and consider increasing to 100mg PO q AM and 200mg PO q HS tomorrow (09/17) if well-tolerated. After discussion with family, agreed to discontinue Namenda. 09/17/17- Psych- Remains combative with cares. Increase Carbamazepine to 200mg at HS 09/18/17 Psych- Remains aggressive with cares and anxious and tearful at times. 09/19/17 Psych: Increase carbamazepine to 200mg PO BID. Will check CBC, CMP, trough carbamazepine level in AM. 09/20/17 Psych: Carbamazepine increased to 200mg PO q HS last night as it was mistakenly not given over the weekend. Will check trough level prior to tonight' s dose and likely increase to 200mg PO BID tomorrow AM. 09/20/17 Hosp Urinary retention with E. coli & Strep viridans UTI; later with klebsiella UTI. History of bladder cancer -Treated with Keflex -Still requires straight cath about twice per day. Unlikely she'd tolerate an indwelling catheter. -Recommend outpt urology f/u Hypernatremia -resolved -Check BMP Irritable bowel syndrome, Diverticulosis -On good bowel regimen HTN -stable -On Propranolol 09/21/17 Psych: Increase carbamazepine to 200mg PO BID; level 5.3. 09/22/17 Psych: Will check UA, consult with urology as I believe patient has underlying cause for continued delirium. Will discontinue carbamazepine as well due to patient's dropping cell counts. Will schedule Ativan 0.5mg PO BID as it does seem to help patient relax. 09/23 Continues to require straight catheterization twice a day due to retention. Staff does not feel the patient would keep an indwelling Vyas catheter in place. She has previously been treated for a UTI- with E. coli & Strep viridans UTI; later with klebsiella UTI Given most recent preliminary urine culture positive gram-negative- Will start Keflex TID and continue to monitor Case discussed with Dr Ramos- She feels that this may be delirium in nature. We will go ahead and treat urinary tract infection and see if behaviors improve. 09/25/2017 Psych- Pt is irritable and aggressive at times. Continue current care 09/26/17 Psych: Plan to place Vyas catheter today and monitor irritability/ agitation. 09/27/17 Psych: Indwelling catheter place last night; continue to monitor behavior /response as this hopefully was helpful for pain/agitation. Also on antibiotics for UTI. 09/28/17 Psych: Increase mirtazapine to 22.5mg PO q HS as patient continues to have some tearfulness. Hospitalist to examine for tissue damage at Vyas site in regards to replacing vs. straight cathing up to QID while damage heals. Ativan decreased to 0.25mg PO BID. Plan 09/28/17 Vyas catheter was initially placed on 09/26/17 and accidently pulled out on evening of 09/27/17. Vyas replaced this AM on 09/28/17. If she does not tolerate this or pulls it out then will need to increase number of times a day of straight cath to QID. May consider placing leg bag during the day for ease of movement. Continue to encourage good oral intake and mighty shakes. Continue psychiatric care per team and provide safe and supportive environment. Recent labs were unremarkable. Patient continues on Cipro BID until 10/01/17 for UTI secondary to E. Coli and Klebsiella oxytoca. Given persistence of behaviors, may consider MRI of brain for further evaluation and possible organic cause. Will recheck labs on 10/03/17 to monitor blood counts, electrolytes and renal function, sooner if indicated. 09/29/17 Psych: Increase mirtazapine to 30mg PO q HS to target mood/tearfulness. Patient has not had aggression in past ~48 hours which is an improvement though she continues to be irritable. 09/30/17 Psych: Continue current care; SW/CM working to finalize placement to SNU. 10/01/17- Psych- Pt fairly stable. Continue current care 10/02/17 Psych- Continue current care
[2017-10-02] MEDS: LORazepam 0.5 MG TABLET PO SCH (19:51)
[2017-10-02] MEDS: MIRTAZAPINE 30 MG TABLET PO SCH (19:52)
[2017-10-02] MEDS: TAMSULOSIN 0.4 MG CAPSULE PO SCH (19:53)
[2017-10-03] MEDS: TAMSULOSIN 0.4 MG CAPSULE PO SCH (03:37)
[2017-10-03] MEDS: MIRTAZAPINE 30 MG TABLET PO SCH (03:37)
[2017-10-03] MEDS: SENNA + DOCUSATE TABLET PO SCH ×2 (03:37→09:59)
[2017-10-03] MEDS: LORazepam 0.5 MG TABLET PO SCH (03:37)
[2017-10-03] MEDS: PROPRANOLOL 10 MG TABLET PO SCH ×2 (03:37→09:59)
--- NOTE | 2017-10-03 08:28 | Extended Care Facility Orders ---
Admission Orders Admit to:: [facility] Allergies/Adverse Reactions: Allergies sertraline [From Zoloft] Allergy (Unknown, Verified 08/24/17 10:02) Admitting Diagnosis: dementia with behaviors Admitting Physician: Kerri Ramos MD Attending Physician: Kerri Ramos MD Code Status: Do Not Resuscitate Anticiapted Length of Stay: 30 days or less Rehab Potential: good Rehab Prognosis: good Diet: 08/24/17 Dinner Regular Diet [DIET] Diet Modifications: patient wants half portions May use Facility Protocol or Standing Orders: Yes May have flu vaccine: Yes Evaluations/Treatment: PT, OT, Psychiatric [facility] Certification: I certify that SNF services are required to be given on an Inpatient basis because of the patients need for half-way care on a continuing basis for the condition(s) for which he/she received inpatient hospital services prior to his/her transfer to the SNF. SNF inpatient care is necessary for the following reasons Indication for [facility]: Med Admininistration - Additional Information In Event of Arrest: Do Not Start CPR Resident is Aware of Diagnosis: No (due to dementia) Referrals: Chapincito Perera MD [Family Provider] - () Additional Orders: Urologist recommended outpatient placement of suprapubic catheter; should either have indwelling catheter or straight cath QID to minimize pain/agitation. Bladder volume >400mL could be contributing to pain/ agitation.
[2017-10-03] MEDS: CYANOCOBALAMIN (B-12) 500mcg TABLET PO SCH (09:58)
[2017-10-03] MEDS: POLYETHYL GLYCOL 3350 17gm PACKET PO SCH (09:59)
[2017-10-03 10:15] VITALS: BP 142/78; PULSE 82; RESP 16; TEMP 98.6; O2SAT 98
[2017-10-03] MEDS: LORazepam 1 MG TABLET PO PRN (14:04)
== END 2017-10-03 14:50 | DRG 57 ==
LOC: ED 09:35 → GEN 12:00
PROVIDERS: ADMIT Psychiatry & Neurology Psychiatry; ATTEND Psychiatry & Neurology Psychiatry